=== PATIENT | male | born 1960 | race American Indian/Alaskan Native ===

== ENCOUNTER 2021-02-25 22:18 | Inpatient (IN) | payer BC ==
[2021-02-25] MEDS ORDERED: SODIUM CHLORIDE 0.9% 1000 ML 1,000 ML IV ONE ×2 (22:22→23:47)
--- NOTE | 2021-02-25 22:41 | Emergency Department Report ---
- General Chief complaint: Weakness Stated complaint: DKA PUI?: No Time Seen by Provider: 02/25/21 22:18 Source: patient, EMS Mode of arrival: Stretcher Limitations: No Limitations - History of Present Illness Initial comments: Patient is a 60-year-old male who presents emergency room with complaints of generalized weakness, elevated blood pressure and elevated sugar. Patient was diagnosed with diabetes 2 weeks ago. Patient has been out of his insulin now for about 3 to 4 days. Patient's family called EMS. Family states that his symptoms started this morning and are worsening. Patient brought in by EMS. Report received from EMS. EMS states that the patient's blood pressure was stable. Patient was tachycardic and his blood sugar read high. Patient had an IV started and the patient was given normal saline. Patient denies recent travel. Patient denies recent international travel. Patient denies exposure to the novel coronavirus. Patient denies sick contacts. Patient denies fever and chills. Patient denies cough. Patient denies diarrhea. Patient denies coming in contact with anybody with symptoms of the novel coronavirus. MD Complaint: generalized weakness, lack of energy, difficulty walking -: Sudden Location: generalized Severity: severe Consistency: constant Improves with: rest Worsens with: movement, exertion Associated Symptoms: denies: chest pain, confusion, dark stools, diaphoresis, dysuria, easy bruising, fever/chills, headaches, loss of appetite, nausea/vomiting, rash, shortness of breath - Related Data Allergies Allergy/AdvReac Type Severity Reaction Status Date / Time No Known Allergies Allergy Unverified 02/25/21 22:43 ED Review of Systems ROS: Stated complaint: DKA Other details as noted in HPI Constitutional: malaise, weakness. denies: chills, fever Eyes: denies: eye pain, eye discharge, vision change ENT: denies: ear pain, throat pain Respiratory: denies: cough, shortness of breath, wheezing Cardiovascular: denies: chest pain, palpitations Endocrine: no symptoms reported Gastrointestinal: denies: abdominal pain, nausea, diarrhea Genitourinary: denies: urgency, dysuria Musculoskeletal: denies: back pain, joint swelling, arthralgia Skin: denies: rash, lesions Neurological: as per HPI, weakness. denies: headache, paresthesias Psychiatric: denies: anxiety, depression Hematological/Lymphatic: denies: easy bleeding, easy bruising ED Past Medical Hx - Past Medical History Previous Medical History?: Yes Hx Diabetes: Yes - Surgical History Past Surgical History?: No - Family History Family history: no significant - Social History Smoking Status: Never Smoker Substance Use Type: None ED Physical Exam - General General appearance: alert, in no apparent distress - Head Head exam: Present: atraumatic, normocephalic - Eye Eye exam: Present: normal appearance - ENT ENT exam: Present: mucous membranes dry - Neck Neck exam: Present: normal inspection - Respiratory Respiratory exam: Present: normal lung sounds bilaterally. Absent: respiratory distress, wheezes, rales - Cardiovascular Cardiovascular Exam: Present: regular rate, normal rhythm. Absent: systolic murmur, diastolic murmur, rubs, gallop - GI/Abdominal GI/Abdominal exam: Present: soft, normal bowel sounds. Absent: distended, tenderness, guarding - Rectal Rectal exam: Present: deferred - Extremities Exam Extremities exam: Present: normal inspection - Back Exam Back exam: Present: normal inspection - Neurological Exam Neurological exam: Present: alert, oriented X3 - Psychiatric Psychiatric exam: Present: normal affect, normal mood - Skin Skin exam: Present: warm, dry, intact, normal color. Absent: rash - Assessment Assessment Interval: Baseline - Level of Consciousness 1a. Level of Consciousness: alert/keenly responsive - LOC Questions 1b. LOC Questions: answers both correctly - LOC Command 1c. LOC Commands: performs tasks correctly - Best Gaze 2. Best Gaze: normal - Visual 3. Visual: no visual loss - Facial Palsy 4. Facial Palsy: normal symmetrical movement - Motor Arm 5a. Motor Arm Left: no drift 5b. Motor Arm Right: no drift - Motor Leg 6a. Motor Leg Left: no drift 6b. Motor Leg Right: no drift - Limb Ataxia 7. Limb Ataxia: absent - Sensory 8. Sensory: normal - Best Language 9. Best Language: no aphasia - Dysarthria 10. Dysarthria: normal - Extinction and Inattention 11. Extinction/Inattention: no abnormality - Scoring Total Score: 0 Stroke Severity: No Stroke Symptoms ED Course Vital Signs 02/25/21 22:39 Temperature 98.1 F Pulse Rate 76 Respiratory 26 H Rate Blood Pressure 138/80 [Left] O2 Sat by Pulse 100 Oximetry - Reevaluation(s) Reevaluation #1: Patient sugar read high. Patient will be given more fluids. Patient will have labs done. 02/25/21 22:41 Reevaluation #2: Patient is in DKA. Patient will be started on a insulin drip and fluids. Patient started on the DKA protocol. I discussed all results with patient. I discussed plan of care with patient. Patient agrees with plan of care and admission. Patient to be admitted to the hospitalist service. 02/25/21 23:56 - Consultations Consultation #1: Hospitalist consulted for admission. Hospitalist to admit patient. 02/25/21 23:57 ED Medical Decision Making - Lab Data Result diagrams: 02/25/21 22:48 02/25/21 22:48 - EKG Data -: EKG Interpreted by Me EKG shows normal: sinus rhythm, axis, intervals, ST-T waves Rate: normal - EKG Data Interpretation: other (Right bundle branch block) - Radiology Data Radiology results: report reviewed, image reviewed interpreted by me: Chest x-ray: No pneumonia, no pneumothorax, no foreign body, no osseous findings, no acute findings XR chest 1V ap INDICATION / CLINICAL INFORMATION: Weakness. COMPARISON: None available. FINDINGS: SUPPORT DEVICES: None. HEART /PULMONARY VASCULATURE: No significant abnormality. LUNGS / PLEURA: No significant pulmonary or pleural abnormality. No pneumothorax. ADDITIONAL FINDINGS: No significant additional findings. IMPRESSION: 1. No acute findings. - Medical Decision Making Patient is a 60-year-old male who presents emergency with complaints of weakness and hyperglycemia. Patient brought in by EMS. Report received from EMS. Patient sugar read high for EMS. Patient sugar also read high initially here. Patient had labs done which showed a metabolic acidosis consistent with DKA. Patient given fluids and then placed on a DKA protocol to include a insulin drip. Patient had a chest x-ray which is negative for acute finding. Patient had a head CT which was negative for acute findings. Patient had an EKG which showed a right bundle branch block but no acute findings and a normal ST. I personally reviewed the chest x-ray and EKG. Patient admitted to the hospital service for further evaluation treatment. Patient admitted to the ICU. Critical care time documented due to the multiple reassessments, prolonged time at the bedside, interpretation of diagnostics and labs. - Differential Diagnosis Hyperglycemia, weakness, dehydration, renal failure, DKA Critical Care Time: Yes Critical care attestation.: If time is entered above; I have spent that time in minutes in the direct care of this critically ill patient, excluding procedure time. Critical Care Time: 35 minutes ED Disposition Clinical Impression: Hyperglycemia, Weakness, Metabolic acidosis, Metabolic encephalopathy Diabetic ketoacidosis Qualifiers: Diabetes mellitus type: type 2 Diabetes mellitus complication detail: without coma Qualified Code(s): E11.10 - Type 2 diabetes mellitus with ketoacidosis without coma Renal failure Qualifiers: Renal failure chronicity: acute Acute renal failure type: unspecified Qualified Code(s): N17.9 - Acute kidney failure, unspecified Elevated WBC count Qualifiers: Leukocytosis type: unspecified Qualified Code(s): D72.829 - Elevated white blood cell count, unspecified Disposition: OP ADMIT IP TO THIS HOSP Is pt being admited?: Yes Does the pt Need Aspirin: No Condition: Critical Instructions: Diabetic Ketoacidosis (ED) Time of Disposition: 00:08
--- NOTE | 2021-02-25 23:18 | XRay Report ---
XR chest 1V ap INDICATION / CLINICAL INFORMATION: Weakness. COMPARISON: None available. FINDINGS: SUPPORT DEVICES: None. HEART /PULMONARY VASCULATURE: No significant abnormality. LUNGS / PLEURA: No significant pulmonary or pleural abnormality. No pneumothorax. ADDITIONAL FINDINGS: No significant additional findings. IMPRESSION: 1. No acute findings. Signer Name: Christopher Santana MD Signed: 02/25/2021 11:14 PM Workstation Name: [id number]
[2021-02-25 23:19] LABS: Hematocrit 35.8 % (35.5-45.6); Hemoglobin 11.5 gm/dl (11.8-15.2); Mean Corpuscular HGB Conc 32 % (32-34); Mean Corpuscular Volume 92 fl (84-94); Platelet Count 374 K/mm3 (140-440); Red Blood Count 3.87 M/mm3 (3.65-5.03); Red Cell Distribution Width 15.2 % (13.2-15.2)
[2021-02-25 23:29] LABS: Alanine Aminotransferase 34 units/L (7-56); Albumin 2.9 g/dL (3.9-5); BUN/Creatinine Ratio 36; Blood Urea Nitrogen 75 mg/dL (9-20); Calcium 9.1 mg/dL (8.4-10.2); Hemolysis Index 2
[2021-02-25 23:30] LABS: INR 1.04 (0.87-1.13)
[2021-02-26] MEDS: INSULIN REGULAR, HUMAN 100 UNITS in SODIUM CHLORIDE 0.9% 99 ML IV SCH ×3 (00:30→22:37)
[2021-02-26] MEDS ORDERED: MORPHINE 2 MG/1 ML INJ IV PRN (00:36)
[2021-02-26] MEDS ORDERED: ACETAMINOPHEN 325 MG TAB PO PRN (00:36)
[2021-02-26] MEDS ORDERED: MORPHINE 4 MG/1 ML INJ IV PRN (00:36)
--- NOTE | 2021-02-26 00:36 | Cat Scan Report ---
CT HEAD WITHOUT CONTRAST INDICATION / CLINICAL INFORMATION: weakness. TECHNIQUE: All CT scans at this location are performed using CT dose reduction for ALARA by means of automated exposure control. COMPARISON: None available. FINDINGS: BRAIN PARENCHYMA: No acute intracranial hemorrhage. No evidence of recent infarct. No mass effect or midline shift. VENTRICULAR SYSTEM/EXTRA-AXIAL SPACES: Ventricles are normal for age. No extra-axial fluid collection . ORBITS: Normal as visualized. SKELETAL SYSTEM/SOFT TISSUES: Normal bones and soft tissues. PARANASAL SINUSES/MASTOID AIR CELLS: No significant abnormality. ADDITIONAL FINDINGS: None. IMPRESSION: 1. No acute intracranial abnormality. Signer Name: Christopher Santana MD Signed: 02/26/2021 12:32 AM Workstation Name: [id number]
[2021-02-26] MEDS ORDERED: SODIUM CHLORIDE 0.9% 1000 ML 1,000 ML IV SCH (00:45)
--- NOTE | 2021-02-26 00:48 | History and Physical Report ---
History of Present Illness Date of examination: 02/26/21 Date of admission: 02/26/2021 Chief complaint: Generalized weakness Elevated blood glucose History of present illness: 60-year-old -[place] male with known history of diabetes mellitus presents to the emergency room today complaining of generalized weakness and elevated blood glucose at home. Patient was diagnosed with diabetes mellitus about 2 weeks ago and states he has been out of his insulin for the past 3 to 4 days. Family had called EMS and patient was subsequently brought to the emergency room. Blood glucose was said to be reading high in route to the hospital. Patient was given IV normal saline in route to the hospital. Work-up in the emergency room reveals that patient is in DKA. He has been started on insulin drip and IV fluid. Past History Past Medical History: diabetes Past Surgical History: No surgical history Social history: no significant social history Family history: no significant family history Medications and Allergies Allergies Allergy/AdvReac Type Severity Reaction Status Date / Time No Known Allergies Allergy Unverified 02/25/21 22:43 Active Meds: Active Medications Acetaminophen (Acetaminophen 325 Mg Tab) 650 mg PO Q6H PRN PRN Reason: Pain MILD(1-3)/Fever >100.5/MATHUR Dextrose (Dextrose 50% In Water (25gm) 50 Ml Syringe) 50 ml IV Q30MIN PRN; Protocol PRN Reason: Hypoglycemia Heparin Sodium (Porcine) (Heparin 5,000 Unit/1 Ml Vial) 5,000 unit SUB-Q Q8HR ROSELIA Insulin Human Regular 100 (units/ Sodium Chloride) 100 mls @ 1 mls/hr IV TITR ROSELIA; Protocol Last Admin: 02/26/21 00:30 Dose: 8 units/hr, 8 mls/hr Documented by: Sodium Chloride (Nacl 0.9% 1000 Ml) 1,000 mls @ 999 mls/hr IV BOLUS ONE Stop: 02/26/21 00:47 Last Admin: 02/26/21 00:00 Dose: 999 mls/hr Documented by: Sodium Chloride (Nacl 0.9% 1000 Ml) 1,000 mls @ 150 mls/hr IV DIRECT ROSELIA Potassium Chloride/Dextrose/Sod Cl (D5w/0.45% Nacl/Kcl 20 Meq) 20 meq in 1,000 mls @ 125 mls/hr IV DIRECT ROSELIA Morphine Sulfate (Morphine 2 Mg/1 Ml Inj) 2 mg IV Q4H PRN PRN Reason: Pain, Moderate (4-6) Morphine Sulfate (Morphine 4 Mg/1 Ml Inj) 4 mg IV Q4H PRN PRN Reason: Pain , Severe (7-10) Sodium Chloride (Sodium Chloride 0.9% 10 Ml Flush Syringe) 10 ml IV BID ROSELIA Sodium Chloride (Sodium Chloride 0.9% 10 Ml Flush Syringe) 10 ml IV PRN PRN PRN Reason: LINE FLUSH Review of Systems Constitutional: no fever, no chills Ears, nose, mouth and throat: no nasal congestion, no sore throat Cardiovascular: no chest pain, no palpitations Respiratory: no cough, no shortness of breath Gastrointestinal: no abdominal pain, no nausea, no vomiting, no diarrhea Genitourinary Male: no dysuria, no hematuria, no flank pain Musculoskeletal: no neck pain, no low back pain Integumentary: no rash, no pruritis Neurological: no headaches, no confusion Psychiatric: no anxiety, no depression Endocrine: no polydipsia, no polyuria, no nocturia Exam - Constitutional Vitals: Temp Pulse Resp BP Pulse Ox 98.1 F 76 26 H 138/80 100 02/25/21 22:39 02/25/21 22:39 02/25/21 22:39 02/25/21 22:39 02/25/21 22:39 General appearance: Present: no acute distress, well-nourished, other (Dry oral mucosa) - EENT Eyes: Present: PERRL, EOM intact. Absent: scleral icterus ENT: hearing intact, clear oral mucosa, dentition normal - Neck Neck: Present: supple, normal ROM - Respiratory Respiratory effort: normal Respiratory: bilateral: CTA - Cardiovascular Rhythm: regular Heart Sounds: Absent: gallop, systolic murmur, diastolic murmur, rub, click - Extremities Extremities: no ischemia, pulses intact, No edema, normal temperature, Full ROM Peripheral Pulses: within normal limits - Abdominal General gastrointestinal: Present: soft, non-tender, non-distended, normal bowel sounds. Absent: mass - Integumentary Integumentary: Present: clear, warm, dry. Absent: rash - Musculoskeletal Musculoskeletal: strength equal bilaterally - Psychiatric Psychiatric: appropriate mood/affect, intact judgment & insight, memory intact, cooperative - Neurologic Neurologic: CNII-XII intact, no focal deficits, moves all extremities HEART Score - HEART Score Troponin: Troponin T < 0.010 ng/mL (0.00-0.029) 02/25/21 22:48 Results - Labs CBC & Chem 7: 02/25/21 22:48 02/26/21 02:40 Labs: Abnormal lab results 02/25/21 02/25/21 02/25/21 Range/Units 22:31 22:48 22:48 WBC 24.1 H (4.5-11.0) K/mm3 Hgb 11.5 L (11.8-15.2) gm/dl VBG pH (7.320-7.420) Sodium 126 L (137-145) mmol/L Chloride 88.8 L (98-107) mmol/L Carbon Dioxide 18 L (22-30) mmol/L BUN 75 H (9-20) mg/dL Creatinine 2.1 H (0.8-1.3) mg/dL Glucose 938 H* (75-100) mg/dL POC Glucose > 600 H (70-105) mg/dL Magnesium (1.7-2.3) mg/dL Alkaline Phosphatase 201 H (35-129) units/L Total Creatine Kinase 37 L (55-170) units/L Albumin 2.9 L (3.9-5) g/dL 02/25/21 02/25/21 Range/Units 22:48 23:52 WBC (4.5-11.0) K/mm3 Hgb (11.8-15.2) gm/dl VBG pH 7.316 L (7.320-7.420) Sodium (137-145) mmol/L Chloride (98-107) mmol/L Carbon Dioxide (22-30) mmol/L BUN (9-20) mg/dL Creatinine (0.8-1.3) mg/dL Glucose (75-100) mg/dL POC Glucose (70-105) mg/dL Magnesium 2.80 H (1.7-2.3) mg/dL Alkaline Phosphatase (35-129) units/L Total Creatine Kinase (55-170) units/L Albumin (3.9-5) g/dL Assessment and Plan - Patient Problems (1) Diabetic ketoacidosis Current Visit: No Status: Acute Qualifiers: Diabetes mellitus type: type 2 Diabetes mellitus complication detail: without coma Qualified Code(s): E11.10 - Type 2 diabetes mellitus with ketoacidosis without coma Plan to address problem: Patient admitted into the intensive care unit and placed on insulin drip and IV fluid according to protocol. We will monitor her blood glucose closely. (2) Renal failure Current Visit: No Status: Acute Qualifiers: Renal failure chronicity: acute Acute renal failure type: unspecified Qualified Code(s): N17.9 - Acute kidney failure, unspecified Plan to address problem: Baseline BUN and creatinine unknown. Possibly secondary to volume depletion. We will continue on IV fluid and monitor BUN and creatinine. Consult placed to nephrology for evaluation. (3) DVT prophylaxis Current Visit: No Status: Acute Plan to address problem: Patient placed on subcutaneous heparin. (4) Full code status Current Visit: No Status: Acute Plan to address problem: Patient is full code.
[2021-02-26] MEDS ORDERED: D5W/0.45% NACL/KCL 20 MEQ 20 MEQ/1,000 ML BAG IV SCH (01:00)
[2021-02-26 01:45] LABS: Total Cells Counted 200
[2021-02-26 01:46] LABS: Anisocytosis 1+; Band Neutrophils # (Manual) 0.6 K/mm3; Monocytes % (Manual) 2.5 % (0.0-7.3); Platelet Estimate Consistent w Auto
[2021-02-26 03:02] LABS: Calcium 8.6 mg/dL (8.4-10.2)
[2021-02-26 05:25] LABS: Calcium 9.1 mg/dL (8.4-10.2)
[2021-02-26] MEDS: HEPARIN 5,000 UNIT/1 ML VIAL SUB-Q SCH ×3 (05:47→21:48)
--- NOTE | 2021-02-26 07:22 | Consultation ---
History of Present Illness Consult date: 02/26/21 Requesting physician: RAYNE GUZMAN Reason for consult: other (DKA) History of present illness: 60-year-old -[place] male with known history of diabetes mellitus presents to the emergency room today complaining of generalized weakness and elevated blood glucose at home. Patient was diagnosed with diabetes mellitus about 2 weeks ago and states he has been out of his insulin for the past 3 to 4 days. Family had called EMS and patient was subsequently brought to the emergency room. Blood glucose was said to be reading high in route to the hospital. Patient was given IV normal saline in route to the hospital. Work-up in the emergency room reveals that patient is in DKA. He has been started on insulin drip and IV fluid and admitted to the ICu. A critical care consult was placed. Patient was seen and examined. Vitals, labs, medications, chart reviewed. Patient denies recent travel. Patient denies recent international travel. Patient denies exposure to the novel coronavirus. Patient denies sick contacts. Patient denies fever and chills. Patient denies cough. Patient denies diarrhea. Patient denies coming in contact with anybody with symptoms of the novel coronavirus. He smokes cigarettes and states he has lost about 20 lbs int eh last month. 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 denies: chills, fever Eyes: denies: eye pain, eye discharge, vision change ENT: denies: ear pain, throat pain Respiratory: denies: cough, shortness of breath, wheezing Cardiovascular: denies: chest pain, palpitations Endocrine: no symptoms reported Gastrointestinal: denies: abdominal pain, nausea, diarrhea Genitourinary: denies: urgency, dysuria Musculoskeletal: denies: back pain, joint swelling, arthralgia Skin: denies: rash, lesions Neurological: as per HPI, weakness. denies: headache, paresthesias Psychiatric: denies: anxiety, depression Hematological/Lymphatic: denies: easy bleeding, easy bruising Past History Past Medical History: diabetes Past Surgical History: No surgical history Social history: no significant social history Family history: no significant family history Medications and Allergies Allergies Allergy/AdvReac Type Severity Reaction Status Date / Time No Known Allergies Allergy Unverified 02/25/21 22:43 Active Meds: Active Medications Acetaminophen (Acetaminophen 325 Mg Tab) 650 mg PO Q6H PRN PRN Reason: Pain MILD(1-3)/Fever >100.5/MATHUR Dextrose (Dextrose 50% In Water (25gm) 50 Ml Syringe) 50 ml IV Q30MIN PRN; Protocol PRN Reason: Hypoglycemia Heparin Sodium (Porcine) (Heparin 5,000 Unit/1 Ml Vial) 5,000 unit SUB-Q Q8HR ROSELIA Last Admin: 02/26/21 05:47 Dose: 5,000 unit Documented by: Insulin Human Regular 100 (units/ Sodium Chloride) 100 mls @ 1 mls/hr IV TITR ROSELIA; Protocol Last Titration: 02/26/21 07:19 Dose: 10 units/hr, 10 mls/hr Documented by: Sodium Chloride (Nacl 0.9% 1000 Ml) 1,000 mls @ 150 mls/hr IV DIRECT ROSELIA Last Admin: 02/26/21 02:42 Dose: 150 mls/hr Documented by: Potassium Chloride/Dextrose/Sod Cl (D5w/0.45% Nacl/Kcl 20 Meq) 20 meq in 1,000 mls @ 125 mls/hr IV DIRECT ROSELIA Morphine Sulfate (Morphine 2 Mg/1 Ml Inj) 2 mg IV Q4H PRN PRN Reason: Pain, Moderate (4-6) Morphine Sulfate (Morphine 4 Mg/1 Ml Inj) 4 mg IV Q4H PRN PRN Reason: Pain , Severe (7-10) Sodium Chloride (Sodium Chloride 0.9% 10 Ml Flush Syringe) 10 ml IV BID ROSELIA Sodium Chloride (Sodium Chloride 0.9% 10 Ml Flush Syringe) 10 ml IV PRN PRN PRN Reason: LINE FLUSH Physical Examination Vital signs: Vital Signs Temp Pulse Resp BP Pulse Ox 98.1 F 76 26 H 138/80 100 02/25/21 22:39 02/25/21 22:39 02/25/21 22:39 02/25/21 22:39 02/25/21 22:39 General appearance: appears uncomfortable, other (thin) Eyes: non-icteric ENT: oropharynx dry Neck: supple, no lymphadenopathy, no JVD Effort: mildly labored Ascultation: Bilateral: diminished breath sounds Cardiovascular: regular rate and rhythm, other (S1,S2) Gastrointestinal: normoactive bowel sounds, soft, non-tender Integumentary: other (loss of skin tugor) Extremities: no edema normal mental status, non-focal exam, pupils equal and round, CN II-XII normal other (flat affect) Results - Laboratory Findings CBC and BMP: 02/25/21 22:48 02/26/21 08:09 PT/INR, D-dimer PT 14.1 Sec. (12.2-14.9) 02/25/21 22:48 INR 1.04 (0.87-1.13) 02/25/21 22:48 Abnormal lab findings: Abnormal Labs 02/25/21 02/25/21 02/25/21 22:31 22:48 22:48 WBC 24.1 H Hgb 11.5 L Seg Neuts % (Manual) 95.0 H Seg Neutrophils # Man 22.9 H Lymphocytes # (Manual) 0.0 L VBG pH Sodium 126 L Chloride 88.8 L Carbon Dioxide 18 L BUN 75 H Creatinine 2.1 H Glucose 938 H* POC Glucose > 600 H Hemoglobin A1c Magnesium Alkaline Phosphatase 201 H Total Creatine Kinase 37 L Albumin 2.9 L 02/25/21 02/25/21 02/26/21 22:48 23:52 01:21 WBC Hgb Seg Neuts % (Manual) Seg Neutrophils # Man Lymphocytes # (Manual) VBG pH 7.316 L Sodium Chloride Carbon Dioxide BUN Creatinine Glucose POC Glucose > 600 H Hemoglobin A1c Magnesium 2.80 H Alkaline Phosphatase Total Creatine Kinase Albumin 02/26/21 02/26/21 02/26/21 02:09 02:40 02:40 WBC Hgb Seg Neuts % (Manual) Seg Neutrophils # Man Lymphocytes # (Manual) VBG pH Sodium 131 L Chloride 96.1 L Carbon Dioxide 17 L BUN 74 H Creatinine 2.1 H Glucose 719 H* POC Glucose > 600 H Hemoglobin A1c 14.2 H Magnesium Alkaline Phosphatase Total Creatine Kinase Albumin 02/26/21 02/26/21 02/26/21 02:40 03:58 04:03 WBC Hgb Seg Neuts % (Manual) Seg Neutrophils # Man Lymphocytes # (Manual) VBG pH Sodium Chloride Carbon Dioxide 18 L BUN 71 H Creatinine 2.0 H Glucose 550 H* POC Glucose 544 H Hemoglobin A1c Magnesium 2.70 H Alkaline Phosphatase Total Creatine Kinase Albumin 02/26/21 02/26/21 02/26/21 05:01 05:58 07:09 WBC Hgb Seg Neuts % (Manual) Seg Neutrophils # Man Lymphocytes # (Manual) VBG pH Sodium Chloride Carbon Dioxide BUN Creatinine Glucose POC Glucose 439 H 399 H 217 H Hemoglobin A1c Magnesium Alkaline Phosphatase Total Creatine Kinase Albumin - Diagnostic Findings Chest x-ray: image reviewed (No acute infiltrates) Assessment and Plan - Patient Problems (1) Diabetic ketoacidosis Current Visit: Yes Status: Acute Qualifiers: Diabetes mellitus type: type 2 Diabetes mellitus complication detail: without coma Qualified Code(s): E11.10 - Type 2 diabetes mellitus with ketoacidosis without coma Plan to address problem: Continue with insulin infusions, serial BMPs, fluid resuscitation Hourly accuchecks (2) Elevated WBC count Current Visit: Yes Status: Acute Qualifiers: Leukocytosis type: unspecified Qualified Code(s): D72.829 - Elevated white blood cell count, unspecified Plan to address problem: Trend counts, no clinical evidence of acute infection Monitor off antibiotics for now (3) Metabolic acidosis Current Visit: Yes Status: Acute (4) Renal failure Current Visit: Yes Status: Acute Qualifiers: Renal failure chronicity: acute Acute renal failure type: unspecified Qualified Code(s): N17.9 - Acute kidney failure, unspecified Plan to address problem: Volume resuscitation Avoid nephrotoxins, adjust all medications for GFR/CrCL (5) DVT prophylaxis Current Visit: No Status: Acute Plan to address problem: Heparin Critical care time 33 minutes (6) Full code status Current Visit: No Status: Acute
[2021-02-26 09:50] LABS: Calcium 9.8 mg/dL (8.4-10.2)
--- NOTE | 2021-02-26 10:59 | Consultation ---
History of Present Illness - Reason for Consult Consult date: 02/26/21 acute renal failure, metabolic acidosis Requesting physician: MARYANN BRIGHT - History of Present Illness atrodrigo is a 60-year-old male who presents emergency room with complaints of generalized weakness, elevated blood pressure and elevated sugar. Patient was diagnosed with diabetes 2 weeks ago. Patient has been out of his insulin now for about 3 to 4 days. Patient's family called EMS. Family states that his symptoms started this morning and are worsening. Patient brought in by EMS. Report received from EMS. EMS states that the patient's blood pressure was stable. Patient was tachycardic and his blood sugar read high. Patient had an IV started and the patient was given normal saline. Patient denies recent travel. Patient denies recent international travel. Patient denies exposure to the novel coronavirus. Patient denies sick contacts. Patient denies fever and chills. Patient denies cough. Patient denies diarrhea. Patient denies coming in contact with anybody with symptoms of the novel coronavirus. MD Complaint: generalized weakness, lack of energy, difficulty walking -: Sudden Location: generalized Severity: severe Consistency: constant Improves with: rest Worsens with: movement, exertion Associated Symptoms: denies: chest pain, confusion, dark stools, diaphoresis, dysuria, easy bruising, fever/chills, headaches, loss of appetite, nausea/vomiting, rash, shortness of breath ROS: Stated complaint: DKA Other details as noted in HPI Constitutional: malaise, weakness. denies: chills, fever Eyes: denies: eye pain, eye discharge, vision change ENT: denies: ear pain, throat pain Respiratory: denies: cough, shortness of breath, wheezing Cardiovascular: denies: chest pain, palpitations Endocrine: no symptoms reported Gastrointestinal: denies: abdominal pain, nausea, diarrhea Genitourinary: denies: urgency, dysuria Musculoskeletal: denies: back pain, joint swelling, arthralgia Skin: denies: rash, lesions Neurological: as per HPI, weakness. denies: headache, paresthesias Psychiatric: denies: anxiety, depression Hematological/Lymphatic: denies: easy bleeding, easy bruising Past History Past Medical History: diabetes Past Surgical History: No surgical history Social history: no significant social history Family history: no significant family history Medications and Allergies Allergies Allergy/AdvReac Type Severity Reaction Status Date / Time No Known Allergies Allergy Unverified 02/25/21 22:43 Active Meds: Active Medications Acetaminophen (Acetaminophen 325 Mg Tab) 650 mg PO Q6H PRN PRN Reason: Pain MILD(1-3)/Fever >100.5/MATHUR Dextrose (Dextrose 50% In Water (25gm) 50 Ml Syringe) 50 ml IV Q30MIN PRN; Protocol PRN Reason: Hypoglycemia Heparin Sodium (Porcine) (Heparin 5,000 Unit/1 Ml Vial) 5,000 unit SUB-Q Q8HR ROSELIA Last Admin: 02/26/21 05:47 Dose: 5,000 unit Documented by: Insulin Human Regular 100 (units/ Sodium Chloride) 100 mls @ 1 mls/hr IV TITR ROSELIA; Protocol Last Titration: 02/26/21 09:10 Dose: 4 units/hr, 4 mls/hr Documented by: Sodium Chloride (Nacl 0.9% 1000 Ml) 1,000 mls @ 150 mls/hr IV DIRECT ROSELIA Last Admin: 02/26/21 02:42 Dose: 150 mls/hr Documented by: Potassium Chloride/Dextrose/Sod Cl (D5w/0.45% Nacl/Kcl 20 Meq) 20 meq in 1,000 mls @ 125 mls/hr IV DIRECT ROSELIA Last Admin: 02/26/21 08:22 Dose: 125 mls/hr Documented by: Morphine Sulfate (Morphine 2 Mg/1 Ml Inj) 2 mg IV Q4H PRN PRN Reason: Pain, Moderate (4-6) Morphine Sulfate (Morphine 4 Mg/1 Ml Inj) 4 mg IV Q4H PRN PRN Reason: Pain , Severe (7-10) Sodium Chloride (Sodium Chloride 0.9% 10 Ml Flush Syringe) 10 ml IV BID ROSELIA Sodium Chloride (Sodium Chloride 0.9% 10 Ml Flush Syringe) 10 ml IV PRN PRN PRN Reason: LINE FLUSH Exam - Vital Signs Vital signs: Vital Signs Temp Pulse Resp BP Pulse Ox 98.1 F 76 26 H 138/80 100 02/25/21 22:39 02/25/21 22:39 02/25/21 22:39 02/25/21 22:39 02/25/21 22:39 - Physical Exam Narrative exam: - Past Medical History Previous Medical History?: Yes Hx Diabetes: Yes - Surgical History Past Surgical History?: No - Family History Family history: no significant - Social History Smoking Status: Never Smoker Substance Use Type: None ED Physical Exam - General General appearance: alert, in no apparent distress - Head Head exam: Present: atraumatic, normocephalic - Eye Eye exam: Present: normal appearance - ENT ENT exam: Present: mucous membranes dry - Neck Neck exam: Present: normal inspection - Respiratory Respiratory exam: Present: normal lung sounds bilaterally. Absent: respiratory distress, wheezes, rales - Cardiovascular Cardiovascular Exam: Present: regular rate, normal rhythm. Absent: systolic murmur, diastolic murmur, rubs, gallop - GI/Abdominal GI/Abdominal exam: Present: soft, normal bowel sounds. Absent: distended, tenderness, guarding - Rectal Rectal exam: Present: deferred - Extremities Exam Extremities exam: Present: normal inspection - Back Exam Back exam: Present: normal inspection - Neurological Exam Neurological exam: Present: alert, oriented X3 - Psychiatric Psychiatric exam: Present: normal affect, normal mood - Skin Skin exam: Present: warm, dry, intact, normal color. Absent: rash Results - Lab Results 02/25/21 22:48 02/26/21 08:09 Most recent lab results Calcium 9.8 mg/dL (8.4-10.2) 02/26/21 08:09 Phosphorus 2.50 mg/dL (2.5-4.5) D 02/26/21 02:40 Magnesium 2.70 mg/dL (1.7-2.3) H 02/26/21 02:40 Assessment and Plan Impression: * sandra * volume depletion * metabolic acidosis * uncontrolled DM * HTN Plan: * aggressive ivfs * add sodium bicarb * remove k from ivfs * DM treatment per primary team * follow up daily lytes * UA and urine studies * sandra likely due to prerenal disease, likely ckd as well with DM * no indication for CHARGEBACK ANALYST at this time
[2021-02-26] MEDS: SODIUM BICARBONATE 650 MG TAB PO SCH ×2 (11:18→21:48)
[2021-02-26] MEDS ORDERED: SODIUM CHLORIDE 0.45% 1000 ML 1,000 ML IV SCH (12:00)
--- NOTE | 2021-02-26 12:02 | Event Note ---
Date: 02/26/21 Still with high anion gap acidosis, continue current therapy DKA Acute cystitis-Start on abx MAXIMO ?ckd, Chec[facility] ct ABD AND PELVIS BPH discussed with daughter in detail
[2021-02-26 12:22] LABS: Bacteria,Urine 2+ /HPF (Negative); Bilirubin,Urine NEG (Negative); Blood,Urine LG (Negative); Color,Urine Yellow (Yellow); Mucus,Urine FEW /HPF; Protein,Urine <15 mg/dL mg/dL (Negative); Urobilinogen,Urine < 2.0 mg/dL (<2.0)
[2021-02-26 12:23] LABS: WBC,Urine > 182.0 /HPF (0.0-6.0)
[2021-02-26] MEDS ORDERED: D5W/0.45% NACL 1,000 ML IV SCH (13:00)
[2021-02-26] MEDS: TAMSULOSIN 0.4 MG CAP PO SCH (15:25)
[2021-02-26 15:59] LABS: Creatinine,Urine 26.8 mg/dL (0.1-20.0); Protein/Creatinine Ratio,Urine 1.75
[2021-02-26 16:11] LABS: Calcium 8.7 mg/dL (8.4-10.2)
[2021-02-26] MEDS ORDERED: SODIUM POLYSTYRENE 15 GM/60 ML ORAL LIQD PO ONE (17:57)
[2021-02-26] MEDS ORDERED: CEFEPIME/NS 2 GM/100 ML 2 GM/100 ML BAG IV SCH (18:00)
[2021-02-26] MEDS: CEFEPIME/NS 1 GM/100 ML 1 GM/100 ML BAG IV SCH (18:19)
[2021-02-26 18:51] LABS: Bilirubin,Urine NEG (Negative); Blood,Urine LG (Negative); Color,Urine Yellow (Yellow); Mucus,Urine FEW /HPF; Urobilinogen,Urine < 2.0 mg/dL (<2.0)
[2021-02-26 19:01] LABS: WBC,Urine > 182.0 /HPF (0.0-6.0)
--- NOTE | 2021-02-26 20:26 | Ultrasound Report ---
ULTRASOUND RENAL INDICATION / CLINICAL INFORMATION: urine retention. COMPARISON: None available. FINDINGS: RIGHT KIDNEY: Length = 11.2 cm. [normal > 9 cm] - Parenchymal Thickness = 1.3 cm. [normal > 1.5 cm] - Echogenicity: Normal. - Hydronephrosis: None. - Cyst or mass: No significant abnormality. - Stones: None seen. LEFT KIDNEY: Length = 9.6 cm. [normal > 9 cm] - Parenchymal Thickness = 2.5 cm. [normal > 1.5 cm] - Echogenicity: Normal. - Hydronephrosis: None. - Cyst or mass: 1.1 cm simple cyst in the midpole - Stones: None seen. URINARY BLADDER: Collapsed with Hernandez catheter in place. FREE FLUID: None. ADDITIONAL FINDINGS: None. IMPRESSION: 1. No significant abnormality. Signer Name: Robin Mast MD Signed: 02/26/2021 8:21 PM Workstation Name: [id number]
--- NOTE | 2021-02-26 21:47 | Cat Scan Report ---
CT ABDOMEN AND PELVIS WITHOUT CONTRAST HISTORY: sandra. COMPARISON: None. TECHNIQUE: CT images of the abdomen and pelvis were obtained without administration of intravenous co ntrast. All CT scans at this location are performed using CT dose reduction for ALARA by means of au tomated exposure control. FINDINGS: Lungs/bones: There are small bilateral pleural effusions with underlying patchy airspace disease lik adali at least in part representing compressive atelectasis. Degenerative changes are present throughou t the spine with nothing acute. Abdomen/pelvis: Exam is significantly limited by lack of intravenous contrast. There is air surround ing the right kidney and also within the kidney as well as air tracking along the right retroperitone um. The left kidney is unremarkable. The liver, gallbladder, spleen, pancreas, adrenals, and faintly visualized proximal GI tract appear u nremarkable. Urinary bladder is collapsed with a Hernandez catheter in place. No gross pelvic free fluid or acute colo shala abnormality. IMPRESSION: 1. Free air within and surrounding the right kidney and tracking in the right retroperitoneum. Exam i s severely limited with lack of intravenous contrast and intra-abdominal fat but the air does not see m to extend into the peritoneum. Findings are highly worrisome for an infectious/inflammatory process such as emphysematous pyelonephritis. A perforation is also possible. COMMUNICATION: Time of Communication (AUTOMOBILE ACCESSORIES SALESPERSON/CDT): 8:40 PM Licensed Practitioner Receiving Report: Dr. Voss Signer Name: Robin Mast MD Signed: 02/26/2021 9:43 PM Workstation Name: [id number]
[2021-02-27 01:08] LABS: Calcium 8.3 mg/dL (8.4-10.2)
--- NOTE | 2021-02-27 03:56 | Cat Scan Report ---
CT ABDOMEN AND PELVIS WITHOUT CONTRAST INDICATION / CLINICAL INFORMATION: EmphysematousPyelonephritis on prior CT abd/pelvis. TECHNIQUE: Axial CT images were obtained through the abdomen and pelvis without IV contrast. All CT scans at this location are performed using CT dose reduction for ALARA by means of automated exposure control. COMPARISON: CT from 02/26/2021. FINDINGS: Unchanged bibasilar pleural effusions and adjacent airspace opacities. Exam remains significantly limited due to lack of intra-abdominal fat, mesenteric edema, and lack of intravenous contrast. Extensive air is again seen surrounding the right kidney with gas in the right renal collecting system. Gas and fluid again noted to extend along the right psoas muscle. No acute a bnormality left kidney. The bladder is partially decompressed by Hernandez catheter with mural thickening , unchanged. Moderate colonic stool burden. No evidence of bowel obstruction or inflammation. Otherwise unchanged. IMPRESSION: Stable exam with extensive air surrounding the right kidney and extending along the right retroperito neum. Findings remain concerning for emphysematous pyelonephritis. No interval change from prior stud y. Signer Name: Christopher Santana MD Signed: 02/27/2021 3:52 AM Workstation Name: [id number]
--- NOTE | 2021-02-27 04:30 | Event Note ---
Date: 02/27/21 60-year-old -[place] male admitted about 24 hours ago for DKA, UTI and MAXIMO. During work-up, CT of the abdomen and pelvis done earlier in the day reveals free air within and surrounding right kidney and tracking in the right retroperitoneum. Findings were worrisome for infectious/inflammatory process such as emphysematous pyelonephritis. A perforation is also a possibility. A repeat CT of the abdomen and pelvis was also done again later in the evening and there has been no appreciable change from previous. Urologist at [facility]-Dr. Chapman was consulted for possible transfer for further management but he recommended that patient be on antibiotics and there was no need for any emergent intervention. Patient currently on IV cefepime. Meanwhile we will continue current management in the intensive care unit.
[2021-02-27] MEDS: HEPARIN 5,000 UNIT/1 ML VIAL SUB-Q SCH ×3 (05:50→22:58)
[2021-02-27] MEDS: D5W/0.45% NACL/KCL 20 MEQ 20 MEQ/1,000 ML BAG IV SCH ×2 (05:50→19:27)
[2021-02-27] MEDS: CEFEPIME/NS 1 GM/100 ML 1 GM/100 ML BAG IV SCH (05:54)
[2021-02-27 06:09] LABS: Hematocrit 32.3 % (35.5-45.6); Mean Corpuscular HGB Conc 34 % (32-34); Mean Corpuscular Volume 88 fl (84-94); Platelet Count 303 K/mm3 (140-440); Red Blood Count 3.67 M/mm3 (3.65-5.03); Red Cell Distribution Width 14.4 % (13.2-15.2)
[2021-02-27 06:30] LABS: Calcium 8.1 mg/dL (8.4-10.2)
[2021-02-27] MEDS: DEXTROSE 50% IN WATER (25GM) 50 ML SYRINGE IV PRN (07:03)
[2021-02-27] MEDS ORDERED: DEXTROSE 50% IN WATER (25GM) 50 ML SYRINGE IV PRN (08:40)
--- NOTE | 2021-02-27 08:50 | Progress Note ---
Assessment and Plan Assessment and plan: 60-year-old -[place] male with known history of diabetes mellitus presents to the emergency room today complaining of generalized weakness and elevated blood glucose at home. Patient was diagnosed with diabetes mellitus about 2 weeks ago and states he has been out of his insulin for the past 3 to 4 days. Family had called EMS and patient was subsequently brought to the emergency room. Blood glucose was said to be reading high in route to the hospital. Patient was given IV normal saline in route to the hospital. Work-up in the emergency room reveals that patient is in DKA. He has been started on insulin drip and IV fluid. CT abdomen and pelvis 1. Free air within and surrounding the right kidney and tracking in the right retroperitoneum. Exam is severely limited with lack of intravenous contrast and intra-abdominal fat but the air does not seem to extend into the peritoneum. Findings are highly worrisome for an infectious/inflammatory process such as emphysematous pyelonephritis. A perforation is also possible. DKA Emphysematous pyelonephritis possible Acute cystitis Acute metabolic encephalopathy now resolved Acute kidney injury on chronic kidney disease unknown stage BPH DVT and GI prophylaxis Plan Continue supportive care Production Welder input noted and appreciated ID consulted for acute cystitis Discussed with urologist this morning per night physician [place] urologist recommended patient be monitored. We will proceed with repeat CT and urologist recommendation and if consistent symptoms patient will need evaluation by them in a.m. Discussed with family Gap has closed for DKA will transition to IMCU due to this findings of deficits months pyelonephritis for closer monitoring. Continue to monitor renal function creatinine down to 1.7 since Hernandez was placed. History Interval history: Patient seen and examined this morning in no acute distress resting comfortably. He denies any abdominal pain nausea vomiting or diarrhea. He does have some good urine output at this time. Renal functions show some improvement. He does not know the medications that he takes for his diabetes but knows he takes Flomax. No fever reported overnight Hospitalist Physical - Physical exam Narrative exam: VITAL SIGNS: Reviewed. GENERAL: The patient appears normally developed, Vital signs as documented. HEAD: No signs of head trauma. EYES: Pupils are equal. Extraocular motions intact. EARS: Hearing grossly intact. MOUTH: Oropharynx is normal. NECK: No adenopathy, no JVD. CHEST: Chest with clear breath sounds bilaterally. No wheezes, rales, or rhonchi. CARDIAC: Regular rate and rhythm. S1 and S2, without murmurs, gallops, or rubs. VASCULAR: No Edema. Peripheral pulses normal and equal in all extremities. ABDOMEN: Soft, non tender and non distended. No rebound or guarding, and no masses palpated. Bowel Sounds normal. MUSCULOSKELETAL: Good range of motion of all major joints. Extremities without clubbing, cyanosis or edema. NEUROLOGIC EXAM: Alert and oriented x 3 No focal sensory or strength deficits. Speech normal. Follows commands. PSYCHIATRIC: Mood normal. SKIN: detail exam as documented in skin assessment - Constitutional Vitals: Temp Pulse Resp BP Pulse Ox 98.9 F 65 22 112/64 99 02/27/21 04:00 02/27/21 07:11 02/27/21 07:11 02/27/21 07:11 02/27/21 07:11 General appearance: Present: no acute distress, well-nourished, other (Dry oral mucosa) HEART Score - HEART Score Troponin: Troponin T < 0.010 ng/mL (0.00-0.029) 02/25/21 22:48 Results - Labs CBC & Chem 7: 02/27/21 04:18 02/27/21 04:18 Labs: Laboratory Last Values WBC 22.4 K/mm3 (4.5-11.0) H 02/27/21 04:18 RBC 3.67 M/mm3 (3.65-5.03) 02/27/21 04:18 Hgb 11.0 gm/dl (11.8-15.2) L 02/27/21 04:18 Hct 32.3 % (35.5-45.6) L 02/27/21 04:18 MCV 88 fl (84-94) 02/27/21 04:18 MCH 30 pg (28-32) 02/27/21 04:18 MCHC 34 % (32-34) 02/27/21 04:18 RDW 14.4 % (13.2-15.2) 02/27/21 04:18 Plt Count 303 K/mm3 (140-440) 02/27/21 04:18 Add Manual Diff Complete 02/25/21 22:48 Total Counted 200 02/25/21 22:48 Seg Neutrophils % [place] Headgate Operator 02/25/21 22:48 Seg Neuts % (Manual) 95.0 % (40.0-70.0) H 02/25/21 22:48 Band Neutrophils % 2.5 % 02/25/21 22:48 Monocytes % (Manual) 2.5 % (0.0-7.3) 02/25/21 22:48 Nucleated RBC % Not Reportable 02/25/21 22:48 Seg Neutrophils # Man 22.9 K/mm3 (1.8-7.7) H 02/25/21 22:48 Band Neutrophils # 0.6 K/mm3 02/25/21 22:48 Lymphocytes # (Manual) 0.0 K/mm3 (1.2-5.4) L 02/25/21 22:48 Abs React Lymphs (Man) 0.0 K/mm3 02/25/21 22:48 Monocytes # (Manual) 0.6 K/mm3 (0.0-0.8) 02/25/21 22:48 Eosinophils # (Manual) 0.0 K/mm3 (0.0-0.4) 02/25/21 22:48 Basophils # (Manual) 0.0 K/mm3 (0.0-0.1) 02/25/21 22:48 Metamyelocytes # 0.0 K/mm3 02/25/21 22:48 Myelocytes # 0.0 K/mm3 02/25/21 22:48 Promyelocytes # 0.0 K/mm3 02/25/21 22:48 Blast Cells # 0.0 K/mm3 02/25/21 22:48 WBC Morphology Not Reportable 02/25/21 22:48 Hypersegmented Neuts Not Reportable 02/25/21 22:48 Hyposegmented Neuts Not Reportable 02/25/21 22:48 Hypogranular Neuts Not Reportable 02/25/21 22:48 Smudge Cells Not Reportable 02/25/21 22:48 Toxic Granulation Not Reportable 02/25/21 22:48 Toxic Vacuolation Not Reportable 02/25/21 22:48 Dohle Bodies Not Reportable 02/25/21 22:48 Pelger-Huet Anomaly Not Reportable 02/25/21 22:48 Nayeli Rods Not Reportable 02/25/21 22:48 Platelet Estimate Consistent w auto 02/25/21 22:48 Clumped Platelets Not Reportable 02/25/21 22:48 Plt Clumps, EDTA Not Reportable 02/25/21 22:48 Large Platelets Not Reportable 02/25/21 22:48 Giant Platelets Not Reportable 02/25/21 22:48 Platelet Satelliting Not Reportable 02/25/21 22:48 Plt Morphology Comment Not Reportable 02/25/21 22:48 RBC Morphology Not Reportable 02/25/21 22:48 Dimorphic RBCs Not Reportable 02/25/21 22:48 Polychromasia Not Reportable 02/25/21 22:48 Hypochromasia Not Reportable 02/25/21 22:48 Poikilocytosis Not Reportable 02/25/21 22:48 Anisocytosis 1+ 02/25/21 22:48 Microcytosis Not Reportable 02/25/21 22:48 Macrocytosis Not Reportable 02/25/21 22:48 Spherocytes Not Reportable 02/25/21 22:48 Pappenheimer Bodies Not Reportable 02/25/21 22:48 Sickle Cells Not Reportable 02/25/21 22:48 Target Cells Not Reportable 02/25/21 22:48 Tear Drop Cells Not Reportable 02/25/21 22:48 Ovalocytes Not Reportable 02/25/21 22:48 Helmet Cells Not Reportable 02/25/21 22:48 Montalvo-Landrum Bodies Not Reportable 02/25/21 22:48 Gilchrist Rings Not Reportable 02/25/21 22:48 [place] Cells Not Reportable 02/25/21 22:48 Bite Cells Not Reportable 02/25/21 22:48 Crenated Cell Not Reportable 02/25/21 22:48 Elliptocytes Not Reportable 02/25/21 22:48 Acanthocytes (Spur) Not Reportable 02/25/21 22:48 Rouleaux Not Reportable 02/25/21 22:48 Hemoglobin C Crystals Not Reportable 02/25/21 22:48 Schistocytes Not Reportable 02/25/21 22:48 Malaria parasites Not Reportable 02/25/21 22:48 Christiano Bodies Not Reportable 02/25/21 22:48 Hem Pathologist Commnt No 02/25/21 22:48 PT 14.1 Sec. (12.2-14.9) 02/25/21 22:48 INR 1.04 (0.87-1.13) 02/25/21 22:48 VBG pH 7.316 (7.320-7.420) L 02/25/21 22:48 Sodium 142 mmol/L (137-145) 02/27/21 04:18 Potassium 3.6 mmol/L (3.6-5.0) 02/27/21 04:18 Chloride 107.9 mmol/L (98-107) H 02/27/21 04:18 Carbon Dioxide 22 mmol/L (22-30) 02/27/21 04:18 Anion Gap 16 mmol/L 02/27/21 04:18 BUN 59 mg/dL (9-20) H 02/27/21 04:18 Creatinine 1.7 mg/dL (0.8-1.3) H 02/27/21 04:18 Estimated GFR 50 ml/min 02/27/21 04:18 BUN/Creatinine Ratio 35 % 02/27/21 04:18 Glucose 91 mg/dL (75-100) 02/27/21 04:18 POC Glucose 131 mg/dL (70-105) H 02/27/21 08:24 Hemoglobin A1c 14.2 % (4-6) H 02/26/21 02:40 Calcium 8.1 mg/dL (8.4-10.2) L 02/27/21 04:18 Phosphorus 2.50 mg/dL (2.5-4.5) D 02/26/21 02:40 Magnesium 2.00 mg/dL (1.7-2.3) 02/27/21 04:18 Total Bilirubin 0.40 mg/dL (0.1-1.2) 02/25/21 22:48 AST 21 units/L (5-40) 02/25/21 22:48 ALT 34 units/L (7-56) 02/25/21 22:48 Alkaline Phosphatase 201 units/L (35-129) H 02/25/21 22:48 Total Creatine Kinase 37 units/L (55-170) L 02/25/21 22:48 Troponin T < 0.010 ng/mL (0.00-0.029) 02/25/21 22:48 Total Protein 6.8 g/dL (6.3-8.2) 02/25/21 22:48 Albumin 2.9 g/dL (3.9-5) L 02/25/21 22:48 Albumin/Globulin Ratio 0.7 % 02/25/21 22:48 Urine Color Yellow (Yellow) 02/26/21 18:00 Urine Turbidity Turbid (Clear) 02/26/21 18:00 Urine pH 6.0 (5.0-7.0) 02/26/21 18:00 Ur Specific [place] 1.013 (1.003-1.030) 02/26/21 18:00 Urine Protein 100 mg/dl mg/dL (Negative) 02/26/21 18:00 Urine Glucose (UA) >=500 mg/dL (Negative) 02/26/21 18:00 Urine Ketones Tr mg/dL (Negative) 02/26/21 18:00 Urine Blood Lg (Negative) 02/26/21 18:00 Urine Nitrite Neg (Negative) 02/26/21 18:00 Urine Bilirubin Neg (Negative) 02/26/21 18:00 Urine Urobilinogen < 2.0 mg/dL (<2.0) 02/26/21 18:00 Ur Leukocyte Esterase Lg (Negative) 02/26/21 18:00 Urine WBC (Auto) > 182.0 /HPF (0.0-6.0) H 02/26/21 18:00 Urine RBC (Auto) 41.0 /HPF (0.0-6.0) 02/26/21 18:00 U Epithel Cells (Auto) 1.0 /HPF (0-13.0) 02/26/21 12:00 Urine Bacteria (Auto) 2+ /HPF (Negative) 02/26/21 12:00 Urine WBC Clumps 3+ /HPF 02/26/21 18:00 Urine Mucus Few /HPF 02/26/21 18:00 Urine Yeast (Budding) 3+ /HPF 02/26/21 18:00 Urine Creatinine 26.8 mg/dL (0.1-20.0) H 02/26/21 12:00 Protein/Creatinin Ratio 1.75 02/26/21 12:00 Urine Sodium 29 mmol/L 02/26/21 12:00 Urine Total Protein 47 mg/dL (5-11.8) H 02/26/21 12:00 Hernandez/IV: Voiding Method Indwelling Catheter Active Medications - Current Medications Current Medications: Generic Name Dose Route Start Last Admin Trade Name Freq PRN Reason Stop Dose Admin Acetaminophen 650 mg 02/26/21 00:36 Acetaminophen 325 Mg Tab PO Q6H PRN Pain MILD(1-3)/Fever >100.5/MATHUR Dextrose 50 ml 02/25/21 23:47 02/27/21 07:03 Dextrose 50% In Water (25gm) 50 Ml Syringe IV 50 ml Q30MIN PRN Administration Hypoglycemia Protocol Dextrose 50 ml 02/27/21 08:40 Dextrose 50% In Water (25gm) 50 Ml Syringe IV Q30MIN PRN Hypoglycemia Protocol Heparin Sodium (Porcine) 5,000 unit 02/26/21 06:00 02/27/21 05:50 Heparin 5,000 Unit/1 Ml Vial SUB-Q 5,000 unit Q8HR ROSELIA Administration Insulin Human Regular 100 100 mls @ 1 mls/hr 02/25/21 23:45 02/27/21 07:04 units/ Sodium Chloride IV 0 units/hr TITR ROSELIA 0 mls/hr Titration Protocol 1 UNITS/HR Cefepime HCl 1 gm in 100 mls @ 200 mls/hr 02/26/21 18:00 02/27/21 05:54 Cefepime/Ns 1 Gm/100 Ml IV 200 mls/hr Q12H ROSELIA Administration Potassium Chloride/Dextrose/Sod Cl 20 meq in 1,000 mls @ 125 mls/hr 02/27/21 05:00 02/27/21 05:50 D5w/0.45% Nacl/Kcl 20 Meq IV 125 mls/hr DIRECT ROSELIA Administration Insulin Glargine 20 units 02/27/21 22:00 Insulin Glargine 100 Units/Ml SUB-Q QHS ROSELIA Insulin Human Lispro 0 unit 02/27/21 11:30 Insulin Lispro 100 Unit/Ml SUB-Q ACHS ROSELIA Protocol Morphine Sulfate 2 mg 02/26/21 00:36 Morphine 2 Mg/1 Ml Inj IV Q4H PRN Pain, Moderate (4-6) Morphine Sulfate 4 mg 02/26/21 00:36 Morphine 4 Mg/1 Ml Inj IV Q4H PRN Pain , Severe (7-10) Sodium Bicarbonate 1,300 mg 02/26/21 11:00 02/26/21 21:48 Sodium Bicarbonate 650 Mg Tab PO 1,300 mg BID ROSELIA Administration Sodium Chloride 10 ml 02/26/21 10:00 02/27/21 07:09 Sodium Chloride 0.9% 10 Ml Flush Syringe IV Not Given BID ROSELIA Sodium Chloride 10 ml 02/26/21 00:36 Sodium Chloride 0.9% 10 Ml Flush Syringe IV PRN PRN LINE FLUSH Tamsulosin HCl 0.8 mg 02/26/21 16:00 02/26/21 15:25 Tamsulosin 0.4 Mg Cap PO 0.8 mg QDAY ROSELIA Administration Nutrition/Malnutrition Assess - Dietary Evaluation Nutrition/Malnutrition Findings: Nutrition Notes Start: 02/26/21 13:01 Freq: Status: Active Protocol: Document 02/26/21 12:01 CW (Rec: 02/26/21 13:06 CW [id number]) Nutrition Notes Need for Assessment generated from: MD Order Initial or Follow up Brief Note Current Diagnosis Diabetes Other Pertinent Diagnosis DKA Current Diet npo Labs/Tests 938 on adm HgbA1c 14.2 Pertinent Medications insulin gtt NS 3 L 20 mEq KCl Height 5 ft 10 in Weight 51.075 kg Taylor Body Weight (kg) 75.45 BMI 16.1 Weight Status Underweight Subjective/Other Information MD consult for diet education. Pt recently dx with DM x 2 months ago. Pt reports previous diet education provided regarding DM. This RD reinforeced information related to carbohydrate counting. Pt appeared to be mildly interested in diet education. Will follow up for diet education understanding. Burn Absent Trauma Absent Current % PO Negligible #1 Nutrition Diagnosis Food and nutrition-related knowledge deficit Etiology excessive carbohydrate intake As Evidenced by Signs and Symptoms BG of 938 on adm, hgbA1c of 14 .2 Nutrition Intervention Change Diet Order: Diet advancement to consistent carbohydrate diet as medically feasible Teaching Recipient Patient Learning Readiness Poor Teaching Methods Discussion,Handout Response to Teaching Verbalize understanding, Reinforcement needed Education Handouts Provided Consistent Carbohydrates for those with diabetes Barriers to Learning Motivation RD phone number provided Yes Patient aware of follow up options Yes Goal #1 Understand importance of following a consistent carbohydrate diet Goal #2 diet advancement Anticipated Discharge Needs: consistent carbohydrate diet Follow-Up By: 03/01/21 Additional Comments F/U for diet advancement adn diet education understanding
[2021-02-27] MEDS: TAMSULOSIN 0.4 MG CAP PO SCH (10:16)
[2021-02-27] MEDS: SODIUM BICARBONATE 650 MG TAB PO SCH ×2 (10:17→22:58)
--- NOTE | 2021-02-27 11:07 | Progress Note ---
Assessment and Plan - Patient Problems (1) Diabetic ketoacidosis Current Visit: Yes Status: Acute Qualifiers: Diabetes mellitus type: type 2 Diabetes mellitus complication detail: without coma Qualified Code(s): E11.10 - Type 2 diabetes mellitus with ketoacidosis without coma Plan to address problem: Continue with basal bolus insulin therapy Accuchecks with glycemic control. target blood glucose <180mg/dL. 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 Discussed with hospitalist service, Urology was consulted. Follow up urine and blood cultures (3) Metabolic acidosis Current Visit: Yes Status: Acute (4) Renal failure Current Visit: Yes Status: Acute Qualifiers: Renal failure chronicity: acute Acute renal failure type: unspecified Qualified Code(s): N17.9 - Acute kidney failure, unspecified Plan to address problem: Volume resuscitation Avoid nephrotoxins, adjust all medications for GFR/CrCL (5) DVT prophylaxis Current Visit: No Status: Acute Plan to address problem: Heparin Critical care time 33 minutes (6) Full code status Current Visit: No Status: Acute Subjective Date of service: 02/27/21 Interval history: Follow up fro DKA; acute kidney failure; emphysematous pyelonephritis: protein calorie malnutrition. Patient seen and examined. Vitals, labs, medications, chart and imaging reviewed. He is resting comfortably. He denies any abdominal pain, nausea ,vomiting or diarrhea. No fevers, no chills, making good amounts of urine, off insulin infusion Objective Vital Signs - 12hr 02/26/21 02/26/21 02/26/21 23:11 23:21 23:31 Temperature Pulse Rate 59 L 58 L 58 L Pulse Rate [ From Monitor] Respiratory 17 16 16 Rate Blood Pressure 136/69 136/69 136/69 O2 Sat by Pulse 100 100 100 Oximetry 02/26/21 02/26/21 02/26/21 23:35 23:41 23:51 Temperature 98.7 F Pulse Rate 58 L 58 L Pulse Rate [ From Monitor] Respiratory 15 16 Rate Blood Pressure 136/69 136/69 O2 Sat by Pulse 100 100 Oximetry 02/27/21 02/27/21 02/27/21 00:00 00:11 00:21 Temperature Pulse Rate 59 L 66 61 Pulse Rate [ 58 L From Monitor] Respiratory 16 15 18 Rate Blood Pressure 107/64 107/64 107/64 O2 Sat by Pulse 100 100 100 Oximetry 02/27/21 02/27/21 02/27/21 00:31 00:41 00:51 Temperature Pulse Rate 64 61 55 L Pulse Rate [ From Monitor] Respiratory 20 16 16 Rate Blood Pressure 107/64 107/64 107/64 O2 Sat by Pulse 100 100 100 Oximetry 02/27/21 02/27/21 02/27/21 01:00 01:11 01:21 Temperature Pulse Rate 55 L 63 64 Pulse Rate [ From Monitor] Respiratory 17 19 17 Rate Blood Pressure 113/65 113/65 113/65 O2 Sat by Pulse 100 100 100 Oximetry 02/27/21 02/27/21 02/27/21 01:31 01:41 01:51 Temperature Pulse Rate 56 L 55 L 54 L Pulse Rate [ From Monitor] Respiratory 21 21 17 Rate Blood Pressure 113/65 113/65 113/65 O2 Sat by Pulse 100 100 100 Oximetry 02/27/21 02/27/21 02/27/21 02:01 02:11 02:21 Temperature Pulse Rate 62 61 63 Pulse Rate [ From Monitor] Respiratory 23 16 21 Rate Blood Pressure 121/75 121/75 121/75 O2 Sat by Pulse 100 100 100 Oximetry 02/27/21 02/27/21 02/27/21 02:31 02:41 02:51 Temperature Pulse Rate 59 L 58 L 58 L Pulse Rate [ From Monitor] Respiratory 15 15 18 Rate Blood Pressure 121/75 121/75 121/75 O2 Sat by Pulse 100 100 100 Oximetry 02/27/21 02/27/21 02/27/21 03:00 03:11 03:21 Temperature Pulse Rate 58 L 66 63 Pulse Rate [ From Monitor] Respiratory 15 16 16 Rate Blood Pressure 112/69 112/69 112/69 O2 Sat by Pulse 100 100 100 Oximetry 02/27/21 02/27/21 02/27/21 03:41 03:51 04:00 Temperature 98.9 F Pulse Rate 68 63 52 L Pulse Rate [ 52 L From Monitor] Respiratory 16 23 21 Rate Blood Pressure 112/69 112/69 O2 Sat by Pulse 99 100 100 Oximetry 0702/27/21 02/27/21 04:01 04:11 04:20 Temperature Pulse Rate 62 61 64 Pulse Rate [ From Monitor] Respiratory 20 19 17 Rate Blood Pressure 112/69 112/69 112/69 O2 Sat by Pulse 100 100 100 Oximetry 02/27/21 02/27/21 02/27/21 04:31 04:41 04:51 Temperature Pulse Rate 56 L 54 L 54 L Pulse Rate [ From Monitor] Respiratory 16 16 16 Rate Blood Pressure 112/69 112/69 112/69 O2 Sat by Pulse 100 100 99 Oximetry 02/27/21 02/27/21 02/27/21 05:01 05:11 05:21 Temperature Pulse Rate 56 L 55 L 55 L Pulse Rate [ From Monitor] Respiratory 17 16 16 Rate Blood Pressure 112/69 112/69 112/69 O2 Sat by Pulse 100 100 100 Oximetry 02/27/21 02/27/21 02/27/21 05:31 05:41 05:51 Temperature Pulse Rate 60 54 L 63 Pulse Rate [ From Monitor] Respiratory 20 16 20 Rate Blood Pressure 112/69 112/69 112/69 O2 Sat by Pulse 100 100 100 Oximetry 02/27/21 02/27/21 02/27/21 06:01 06:11 06:21 Temperature Pulse Rate 57 L 53 L 57 L Pulse Rate [ From Monitor] Respiratory 17 17 17 Rate Blood Pressure 112/69 112/69 112/69 O2 Sat by Pulse 100 100 100 Oximetry 02/27/21 02/27/21 02/27/21 06:31 06:41 06:51 Temperature Pulse Rate 57 L 66 70 Pulse Rate [ From Monitor] Respiratory 16 16 25 H Rate Blood Pressure 112/69 112/69 112/69 O2 Sat by Pulse 100 100 99 Oximetry 02/27/21 02/27/21 02/27/21 07:01 07:11 07:21 Temperature Pulse Rate 67 65 59 L Pulse Rate [ From Monitor] Respiratory 20 22 20 Rate Blood Pressure 112/69 112/64 112/64 O2 Sat by Pulse 99 99 100 Oximetry 02/27/21 02/27/21 02/27/21 07:27 07:31 07:41 Temperature 99.3 F Pulse Rate 61 57 L Pulse Rate [ From Monitor] Respiratory 18 14 Rate Blood Pressure 112/64 112/64 O2 Sat by Pulse 100 100 Oximetry 0702/27/21 02/27/21 07:51 08:00 08:11 Temperature Pulse Rate 55 L 58 L 55 L Pulse Rate [ 95 H From Monitor] Respiratory 15 15 16 Rate Blood Pressure 112/64 120/70 120/70 O2 Sat by Pulse 100 100 100 Oximetry 02/27/21 02/27/21 02/27/21 08:21 08:31 08:41 Temperature Pulse Rate 55 L 62 61 Pulse Rate [ From Monitor] Respiratory 15 20 20 Rate Blood Pressure 120/70 120/70 120/70 O2 Sat by Pulse 100 100 99 Oximetry 02/27/21 02/27/21 02/27/21 08:51 09:00 09:11 Temperature Pulse Rate 61 53 L 52 L Pulse Rate [ From Monitor] Respiratory 18 14 14 Rate Blood Pressure 120/70 120/67 120/67 O2 Sat by Pulse 98 100 100 Oximetry 02/27/21 02/27/21 02/27/21 09:21 09:31 09:41 Temperature Pulse Rate 57 L 53 L 53 L Pulse Rate [ From Monitor] Respiratory 14 15 15 Rate Blood Pressure 120/67 120/67 120/67 O2 Sat by Pulse 99 99 99 Oximetry 02/27/21 02/27/21 02/27/21 09:51 10:00 10:11 Temperature Pulse Rate 58 L 58 L 60 Pulse Rate [ From Monitor] Respiratory 18 17 18 Rate Blood Pressure 120/67 121/68 121/68 O2 Sat by Pulse 100 100 100 Oximetry 02/27/21 02/27/21 10:21 10:31 Temperature Pulse Rate 68 57 L Pulse Rate [ From Monitor] Respiratory 17 17 Rate Blood Pressure 121/68 121/68 O2 Sat by Pulse 100 100 Oximetry Constitutional: no acute distress, other (thin) Eyes: non-icteric ENT: oropharynx dry Neck: supple, no lymphadenopathy, no JVD Effort: normal Ascultation: Bilateral: clear, diminished breath sounds Cardiovascular: regular rate and rhythm, other (S1,S2) Gastrointestinal: normoactive bowel sounds, soft, non-tender Integumentary: other (loss of skin tugor) Extremities: no edema Neurologic: normal mental status, non-focal exam, pupils equal and round, CN II- XII normal Psychiatric: mood appropriate, affect normal CBC and BMP: 02/27/21 04:18 02/28/21 05:05 ABG, PT/INR, D-dimer: PT/INR, D-dimer PT 14.1 Sec. (12.2-14.9) 02/25/21 22:48 INR 1.04 (0.87-1.13) 02/25/21 22:48 Abnormal lab findings: Abnormal Labs 02/25/21 02/25/21 02/25/21 22:31 22:48 22:48 WBC 24.1 H Hgb 11.5 L Hct Seg Neuts % (Manual) 95.0 H Seg Neutrophils # Man 22.9 H Lymphocytes # (Manual) 0.0 L VBG pH Sodium 126 L Potassium Chloride 88.8 L Carbon Dioxide 18 L BUN 75 H Creatinine 2.1 H Glucose 938 H* POC Glucose > 600 H Hemoglobin A1c Calcium Magnesium Alkaline Phosphatase 201 H Total Creatine Kinase 37 L Albumin 2.9 L Urine WBC (Auto) Urine Creatinine Urine Total Protein 02/25/21 02/25/21 02/26/21 22:48 23:52 01:21 WBC Hgb Hct Seg Neuts % (Manual) Seg Neutrophils # Man Lymphocytes # (Manual) VBG pH 7.316 L Sodium Potassium Chloride Carbon Dioxide BUN Creatinine Glucose POC Glucose > 600 H Hemoglobin A1c Calcium Magnesium 2.80 H Alkaline Phosphatase Total Creatine Kinase Albumin Urine WBC (Auto) Urine Creatinine Urine Total Protein 02/26/21 02/26/21 02/26/21 02:09 02:40 02:40 WBC Hgb Hct Seg Neuts % (Manual) Seg Neutrophils # Man Lymphocytes # (Manual) VBG pH Sodium 131 L Potassium Chloride 96.1 L Carbon Dioxide 17 L BUN 74 H Creatinine 2.1 H Glucose 719 H* POC Glucose > 600 H Hemoglobin A1c 14.2 H Calcium Magnesium Alkaline Phosphatase Total Creatine Kinase Albumin Urine WBC (Auto) Urine Creatinine Urine Total Protein 02/26/21 02/26/21 02/26/21 02:40 03:58 04:03 WBC Hgb Hct Seg Neuts % (Manual) Seg Neutrophils # Man Lymphocytes # (Manual) VBG pH Sodium Potassium Chloride Carbon Dioxide 18 L BUN 71 H Creatinine 2.0 H Glucose 550 H* POC Glucose 544 H Hemoglobin A1c Calcium Magnesium 2.70 H Alkaline Phosphatase Total Creatine Kinase Albumin Urine WBC (Auto) Urine Creatinine Urine Total Protein 02/26/21 02/26/21 02/26/21 05:01 05:58 07:09 WBC Hgb Hct Seg Neuts % (Manual) Seg Neutrophils # Man Lymphocytes # (Manual) VBG pH Sodium Potassium Chloride Carbon Dioxide BUN Creatinine Glucose POC Glucose 439 H 399 H 217 H Hemoglobin A1c Calcium Magnesium Alkaline Phosphatase Total Creatine Kinase Albumin Urine WBC (Auto) Urine Creatinine Urine Total Protein 02/26/21 02/26/21 02/26/21 08:09 08:12 09:08 WBC Hgb Hct Seg Neuts % (Manual) Seg Neutrophils # Man Lymphocytes # (Manual) VBG pH Sodium Potassium Chloride Carbon Dioxide 16 L BUN 72 H Creatinine 1.9 H Glucose 119 H POC Glucose 138 H 136 H Hemoglobin A1c Calcium Magnesium Alkaline Phosphatase Total Creatine Kinase Albumin Urine WBC (Auto) Urine Creatinine Urine Total Protein 02/26/21 02/26/21 02/26/21 12:00 12:00 12:04 WBC Hgb Hct Seg Neuts % (Manual) Seg Neutrophils # Man Lymphocytes # (Manual) VBG pH Sodium Potassium Chloride Carbon Dioxide BUN Creatinine Glucose POC Glucose 136 H Hemoglobin A1c Calcium Magnesium Alkaline Phosphatase Total Creatine Kinase Albumin Urine WBC (Auto) > 182.0 H Urine Creatinine 26.8 H Urine Total Protein 47 H 02/26/21 02/26/21 02/26/21 13:26 14:50 15:14 WBC Hgb Hct Seg Neuts % (Manual) Seg Neutrophils # Man Lymphocytes # (Manual) VBG pH Sodium Potassium Chloride Carbon Dioxide BUN Creatinine Glucose POC Glucose 124 H 119 H 106 H Hemoglobin A1c Calcium Magnesium Alkaline Phosphatase Total Creatine Kinase Albumin Urine WBC (Auto) Urine Creatinine Urine Total Protein 02/26/21 02/26/21 02/26/21 15:27 16:38 17:22 WBC Hgb Hct Seg Neuts % (Manual) Seg Neutrophils # Man Lymphocytes # (Manual) VBG pH Sodium 136 L Potassium 5.1 H Chloride Carbon Dioxide 16 L BUN 72 H Creatinine 2.2 H Glucose 107 H POC Glucose 111 H 113 H Hemoglobin A1c Calcium Magnesium Alkaline Phosphatase Total Creatine Kinase Albumin Urine WBC (Auto) Urine Creatinine Urine Total Protein 02/26/21 02/26/21 02/26/21 17:54 18:00 20:25 WBC Hgb Hct Seg Neuts % (Manual) Seg Neutrophils # Man Lymphocytes # (Manual) VBG pH Sodium Potassium Chloride Carbon Dioxide BUN Creatinine Glucose POC Glucose 114 H 129 H Hemoglobin A1c Calcium Magnesium Alkaline Phosphatase Total Creatine Kinase Albumin Urine WBC (Auto) > 182.0 H Urine Creatinine Urine Total Protein 02/26/21 02/26/21 02/26/21 21:17 22:02 23:05 WBC Hgb Hct Seg Neuts % (Manual) Seg Neutrophils # Man Lymphocytes # (Manual) VBG pH Sodium Potassium Chloride Carbon Dioxide BUN Creatinine Glucose POC Glucose 127 H 135 H 112 H Hemoglobin A1c Calcium Magnesium Alkaline Phosphatase Total Creatine Kinase Albumin Urine WBC (Auto) Urine Creatinine Urine Total Protein 02/27/21 02/27/21 02/27/21 00:11 02:13 04:13 WBC Hgb Hct Seg Neuts % (Manual) Seg Neutrophils # Man Lymphocytes # (Manual) VBG pH Sodium Potassium 3.5 L D Chloride 108.4 H Carbon Dioxide 21 L BUN 64 H Creatinine 1.9 H Glucose POC Glucose 106 H 115 H Hemoglobin A1c Calcium 8.3 L Magnesium Alkaline Phosphatase Total Creatine Kinase Albumin Urine WBC (Auto) Urine Creatinine Urine Total Protein 02/27/21 02/27/21 02/27/21 04:18 04:18 06:57 WBC 22.4 H Hgb 11.0 L Hct 32.3 L Seg Neuts % (Manual) Seg Neutrophils # Man Lymphocytes # (Manual) VBG pH Sodium Potassium Chloride 107.9 H Carbon Dioxide BUN 59 H Creatinine 1.7 H Glucose POC Glucose 60 L Hemoglobin A1c Calcium 8.1 L Magnesium Alkaline Phosphatase Total Creatine Kinase Albumin Urine WBC (Auto) Urine Creatinine Urine Total Protein 02/27/21 02/27/21 08:24 08:35 WBC Hgb Hct Seg Neuts % (Manual) Seg Neutrophils # Man Lymphocytes # (Manual) VBG pH Sodium Potassium 3.1 L Chloride 108.6 H Carbon Dioxide 21 L BUN 53 H Creatinine 1.5 H Glucose 121 H POC Glucose 131 H Hemoglobin A1c Calcium 8.0 L Magnesium Alkaline Phosphatase Total Creatine Kinase Albumin Urine WBC (Auto) Urine Creatinine Urine Total Protein Chest x-ray: image reviewed
[2021-02-27] MEDS: INSULIN LISPRO 100 UNIT/ML SUB-Q SCH ×3 (12:06→22:59)
--- NOTE | 2021-02-27 12:44 | Consultation ---
History of Present Illness - Reason for Consult Consult date: 02/27/21 emphysematous pyelonephritis Requesting physician: MARYANN BRIGHT - History of Present Illness The patient is a 60-year-old male with diabetes was admitted to the hospital with generalized weakness and elevated blood glucose. Was found to be in diabetic ketoacidosis upon admission. No fever on admission, labs revealed significant leukocytosis along with acute kidney injury. UA showed significant pyuria and his CT abdomen and pelvis was concerning for severe emphysematous pyelonephritis, hence infectious diseases was consulted. Patient is a poor historian, denies any specific complaints at this time. Remains in ICU. It seems case has been discussed with urology at [place] who has recommended conservative management for now. Review of Systems: General: no fevers,chills or rigors HEENT: no new visual disturbance Respiratory: No cough, sputum, hemoptysis or shortness of breath Cardiovascular: No chest pain, syncope Gastrointestinal: No nausea, vomiting or diarrhea Genitourinary: No dysuria or hematuria. Currently has Hernandez catheter. Musculoskeletal: No new or worsening neck pain or back pain Neurologic: No headaches, seizures Hematologic: No easy bruising or bleeding Endocrine: No night sweats or acute weight loss Skin: negative for rash, jaundice Psychiatric: No suicidal or homicidal ideation Past History Past Medical History: diabetes Past Surgical History: No surgical history Social history: no significant social history Family history: no significant family history Medications and Allergies Allergies Allergy/AdvReac Type Severity Reaction Status Date / Time No Known Allergies Allergy Unverified 02/25/21 22:43 Home Medications Medication Instructions Recorded Confirmed Last Taken Type Tamsulosin [Flomax] 2 cap QDAY 02/26/21 02/26/21 Unknown History Active Meds: Active Medications Acetaminophen (Acetaminophen 325 Mg Tab) 650 mg PO Q6H PRN PRN Reason: Pain MILD(1-3)/Fever >100.5/MATHUR Dextrose (Dextrose 50% In Water (25gm) 50 Ml Syringe) 50 ml IV Q30MIN PRN; Protocol PRN Reason: Hypoglycemia Last Admin: 02/27/21 07:03 Dose: 50 ml Documented by: Heparin Sodium (Porcine) (Heparin 5,000 Unit/1 Ml Vial) 5,000 unit SUB-Q Q8HR ROSELIA Last Admin: 02/27/21 05:50 Dose: 5,000 unit Documented by: Insulin Human Regular 100 (units/ Sodium Chloride) 100 mls @ 1 mls/hr IV TITR [facility]; Protocol Last Titration: 02/27/21 07:04 Dose: 0 units/hr, 0 mls/hr Documented by: Cefepime HCl (Cefepime/Ns 1 Gm/100 Ml) 1 gm in 100 mls @ 200 mls/hr IV Q12H [facility] Last Admin: 02/27/21 05:54 Dose: 200 mls/hr Documented by: Potassium Chloride/Dextrose/Sod Cl (D5w/0.45% Nacl/Kcl 20 Meq) 20 meq in 1,000 mls @ 125 mls/hr IV DIRECT [facility] Last Admin: 02/27/21 05:50 Dose: 125 mls/hr Documented by: Insulin Glargine (Insulin Glargine 100 Units/Ml) 20 units SUB-Q QHS ROSELIA Insulin Human Lispro (Insulin Lispro 100 Unit/Ml) 0 unit SUB-Q ACHS [facility]; Protocol Last Admin: 02/27/21 12:06 Dose: 2 unit Documented by: Morphine Sulfate (Morphine 2 Mg/1 Ml Inj) 2 mg IV Q4H PRN PRN Reason: Pain, Moderate (4-6) Morphine Sulfate (Morphine 4 Mg/1 Ml Inj) 4 mg IV Q4H PRN PRN Reason: Pain , Severe (7-10) Sodium Bicarbonate (Sodium Bicarbonate 650 Mg Tab) 1,300 mg PO BID [facility] Last Admin: 02/27/21 10:17 Dose: 1,300 mg Documented by: Sodium Chloride (Sodium Chloride 0.9% 10 Ml Flush Syringe) 10 ml IV BID [facility] Last Admin: 02/27/21 10:16 Dose: 10 ml Documented by: Sodium Chloride (Sodium Chloride 0.9% 10 Ml Flush Syringe) 10 ml IV PRN PRN PRN Reason: LINE FLUSH Tamsulosin HCl (Tamsulosin 0.4 Mg Cap) 0.8 mg PO QDAY [facility] Last Admin: 02/27/21 10:16 Dose: 0.8 mg Documented by: Physical Examination - Physical Exam Narrative exam: Physical Exam: Constitutional: Alert, cooperative. No acute distress Head, Ears, Nose: Normocephalic, atraumatic. External ears, nose normal Eyes: Conjunctivae/corneas clear. No icterus. No ptosis. Neck: Supple, no meningeal signs Cardiovascular: S1, S2 normal. Respiratory: Good air entry, clear to auscultation bilaterally GI: Soft, non-tender; bowel sounds normal. No peritoneal signs Musculoskeletal: No pedal edema, no cyanosis. Skin: No rash or abscess Hem/Lymphatic: No palpable cervical or supraclavicular nodes. No lymphangitis Psych: Mood ok. Affect normal Neurological: Awake, alert, oriented. No gross abnormality - Constitutional Vitals: Vital Signs Temp Pulse Resp BP Pulse Ox 98.6 F 67 22 136/72 100 02/27/21 12:08 02/27/21 12:00 02/27/21 12:00 02/27/21 12:00 02/27/21 12:00 Temperature -Last 24 Hours Temperature 98.6 F Temperature 99.3 F Temperature 98.9 F Temperature 98.7 F Temperature 98.9 F Temperature 98.3 F Results - Labs CBC & Chem 7: 02/27/21 04:18 02/27/21 08:35 Labs: Abnormal lab results 02/26/21 02/26/21 02/26/21 Range/Units 12:00 13:26 14:50 WBC (4.5-11.0) K/mm3 Hgb (11.8-15.2) gm/dl Hct (35.5-45.6) % Sodium (137-145) mmol/L Potassium (3.6-5.0) mmol/L Chloride (98-107) mmol/L Carbon Dioxide (22-30) mmol/L BUN (9-20) mg/dL Creatinine (0.8-1.3) mg/dL Glucose (75-100) mg/dL POC Glucose 124 H 119 H (70-105) mg/dL Calcium (8.4-10.2) mg/dL Urine WBC (Auto) (0.0-6.0) /HPF Urine Creatinine 26.8 H (0.1-20.0) mg/dL Urine Total Protein 47 H (5-11.8) mg/dL 02/26/21 02/26/21 02/26/21 Range/Units 15:14 15:27 16:38 WBC (4.5-11.0) K/mm3 Hgb (11.8-15.2) gm/dl Hct (35.5-45.6) % Sodium 136 L (137-145) mmol/L Potassium 5.1 H (3.6-5.0) mmol/L Chloride (98-107) mmol/L Carbon Dioxide 16 L (22-30) mmol/L BUN 72 H (9-20) mg/dL Creatinine 2.2 H (0.8-1.3) mg/dL Glucose 107 H (75-100) mg/dL POC Glucose 106 H 111 H (70-105) mg/dL Calcium (8.4-10.2) mg/dL Urine WBC (Auto) (0.0-6.0) /HPF Urine Creatinine (0.1-20.0) mg/dL Urine Total Protein (5-11.8) mg/dL 02/26/21 02/26/21 02/26/21 Range/Units 17:22 17:54 18:00 WBC (4.5-11.0) K/mm3 Hgb (11.8-15.2) gm/dl Hct (35.5-45.6) % Sodium (137-145) mmol/L Potassium (3.6-5.0) mmol/L Chloride (98-107) mmol/L Carbon Dioxide (22-30) mmol/L BUN (9-20) mg/dL Creatinine (0.8-1.3) mg/dL Glucose (75-100) mg/dL POC Glucose 113 H 114 H (70-105) mg/dL Calcium (8.4-10.2) mg/dL Urine WBC (Auto) > 182.0 H (0.0-6.0) /HPF Urine Creatinine (0.1-20.0) mg/dL Urine Total Protein (5-11.8) mg/dL 02/26/21 02/26/21 02/26/21 Range/Units 20:25 21:17 22:02 WBC (4.5-11.0) K/mm3 Hgb (11.8-15.2) gm/dl Hct (35.5-45.6) % Sodium (137-145) mmol/L Potassium (3.6-5.0) mmol/L Chloride (98-107) mmol/L Carbon Dioxide (22-30) mmol/L BUN (9-20) mg/dL Creatinine (0.8-1.3) mg/dL Glucose (75-100) mg/dL POC Glucose 129 H 127 H 135 H (70-105) mg/dL Calcium (8.4-10.2) mg/dL Urine WBC (Auto) (0.0-6.0) /HPF Urine Creatinine (0.1-20.0) mg/dL Urine Total Protein (5-11.8) mg/dL 02/26/21 02/27/21 02/27/21 Range/Units 23:05 00:11 02:13 WBC (4.5-11.0) K/mm3 Hgb (11.8-15.2) gm/dl Hct (35.5-45.6) % Sodium (137-145) mmol/L Potassium 3.5 L D (3.6-5.0) mmol/L Chloride 108.4 H (98-107) mmol/L Carbon Dioxide 21 L (22-30) mmol/L BUN 64 H (9-20) mg/dL Creatinine 1.9 H (0.8-1.3) mg/dL Glucose (75-100) mg/dL POC Glucose 112 H 106 H (70-105) mg/dL Calcium 8.3 L (8.4-10.2) mg/dL Urine WBC (Auto) (0.0-6.0) /HPF Urine Creatinine (0.1-20.0) mg/dL Urine Total Protein (5-11.8) mg/dL 02/27/21 02/27/21 02/27/21 Range/Units 04:13 04:18 04:18 WBC 22.4 H (4.5-11.0) K/mm3 Hgb 11.0 L (11.8-15.2) gm/dl Hct 32.3 L (35.5-45.6) % Sodium (137-145) mmol/L Potassium (3.6-5.0) mmol/L Chloride 107.9 H (98-107) mmol/L Carbon Dioxide (22-30) mmol/L BUN 59 H (9-20) mg/dL Creatinine 1.7 H (0.8-1.3) mg/dL Glucose (75-100) mg/dL POC Glucose 115 H (70-105) mg/dL Calcium 8.1 L (8.4-10.2) mg/dL Urine WBC (Auto) (0.0-6.0) /HPF Urine Creatinine (0.1-20.0) mg/dL Urine Total Protein (5-11.8) mg/dL 02/27/21 02/27/21 02/27/21 Range/Units 06:57 08:24 08:35 WBC (4.5-11.0) K/mm3 Hgb (11.8-15.2) gm/dl Hct (35.5-45.6) % Sodium (137-145) mmol/L Potassium 3.1 L (3.6-5.0) mmol/L Chloride 108.6 H (98-107) mmol/L Carbon Dioxide 21 L (22-30) mmol/L BUN 53 H (9-20) mg/dL Creatinine 1.5 H (0.8-1.3) mg/dL Glucose 121 H (75-100) mg/dL POC Glucose 60 L 131 H (70-105) mg/dL Calcium 8.0 L (8.4-10.2) mg/dL Urine WBC (Auto) (0.0-6.0) /HPF Urine Creatinine (0.1-20.0) mg/dL Urine Total Protein (5-11.8) mg/dL 02/27/21 Range/Units 11:25 WBC (4.5-11.0) K/mm3 Hgb (11.8-15.2) gm/dl Hct (35.5-45.6) % Sodium (137-145) mmol/L Potassium (3.6-5.0) mmol/L Chloride (98-107) mmol/L Carbon Dioxide (22-30) mmol/L BUN (9-20) mg/dL Creatinine (0.8-1.3) mg/dL Glucose (75-100) mg/dL POC Glucose 196 H (70-105) mg/dL Calcium (8.4-10.2) mg/dL Urine WBC (Auto) (0.0-6.0) /HPF Urine Creatinine (0.1-20.0) mg/dL Urine Total Protein (5-11.8) mg/dL - Imaging and Cardiology Chest x-ray: report reviewed, image reviewed (no pneumonia) CT scan - abdomen: report reviewed, image reviewed (free air around R kidney) CT scan - pelvis: report reviewed, image reviewed Assessment and Plan Cultures: Urine culture: in process A/P: 60-year-old male with diabetes admitted with DKA: #Sepsis, secondary to severe emphysematous pyelonephritis with CT evidence of free air surrounding the right kidney and the right retroperitoneum. Etiology is probably urinary tract infection in the setting of severe diabetic ketoac idosis. Per primary team notes, case was discussed with [place] [facility]. #MAXIMO: Renally dose antibiotics. #Diabetes mellitus with DKA Recs: -Blood cultures ordered -Follow-up urine culture -Cefepime switched to IV Meropenem. Prognosis is guarded. At high risk of need for surgical intervention including possibility of nephrectomy Dr. Mu yun tomorrow. Cindy Glaser MD, FACP [facility] ([facility] O: [phone] F: [phone]
--- NOTE | 2021-02-27 12:59 | Progress Note ---
Assessment and Plan Impression: * sandra * volume depletion * metabolic acidosis * uncontrolled DM * HTN Plan: * aggressive ivfs * cr is better today * added sodium bicarb * place k in ivfs * DM treatment per primary team * follow up daily lytes * UA and urine studies * sandra likely due to prerenal disease, likely ckd as well with DM * no indication for [employer] at this time Subjective Date of service: 02/27/21 Principal diagnosis: sandra, dka Interval history: resting in bed today Objective - Vital Signs Vital signs: Vital Signs - 12hr 02/27/21 02/27/21 02/27/21 01:00 01:11 01:21 Temperature Pulse Rate 55 L 63 64 Pulse Rate [ From Monitor] Respiratory 17 19 17 Rate Blood Pressure 113/65 113/65 113/65 O2 Sat by Pulse 100 100 100 Oximetry 02/27/21 02/27/21 02/27/21 01:31 01:41 01:51 Temperature Pulse Rate 56 L 55 L 54 L Pulse Rate [ From Monitor] Respiratory 21 21 17 Rate Blood Pressure 113/65 113/65 113/65 O2 Sat by Pulse 100 100 100 Oximetry 02/27/21 02/27/21 02/27/21 02:01 02:11 02:21 Temperature Pulse Rate 62 61 63 Pulse Rate [ From Monitor] Respiratory 23 16 21 Rate Blood Pressure 121/75 121/75 121/75 O2 Sat by Pulse 100 100 100 Oximetry 02/27/21 02/27/21 02/27/21 02:31 02:41 02:51 Temperature Pulse Rate 59 L 58 L 58 L Pulse Rate [ From Monitor] Respiratory 15 15 18 Rate Blood Pressure 121/75 121/75 121/75 O2 Sat by Pulse 100 100 100 Oximetry 02/27/21 02/27/21 02/27/21 03:00 03:11 03:21 Temperature Pulse Rate 58 L 66 63 Pulse Rate [ From Monitor] Respiratory 15 16 16 Rate Blood Pressure 112/69 112/69 112/69 O2 Sat by Pulse 100 100 100 Oximetry 02/27/21 02/27/21 02/27/21 03:41 03:51 04:00 Temperature 98.9 F Pulse Rate 68 63 52 L Pulse Rate [ 52 L From Monitor] Respiratory 16 23 21 Rate Blood Pressure 112/69 112/69 O2 Sat by Pulse 99 100 100 Oximetry 02/27/21 02/27/21 02/27/21 04:01 04:11 04:20 Temperature Pulse Rate 62 61 64 Pulse Rate [ From Monitor] Respiratory 20 19 17 Rate Blood Pressure 112/69 112/69 112/69 O2 Sat by Pulse 100 100 100 Oximetry 02/27/21 02/27/21 02/27/21 04:31 04:41 04:51 Temperature Pulse Rate 56 L 54 L 54 L Pulse Rate [ From Monitor] Respiratory 16 16 16 Rate Blood Pressure 112/69 112/69 112/69 O2 Sat by Pulse 100 100 99 Oximetry 02/27/21 02/27/21 02/27/21 05:01 05:11 05:21 Temperature Pulse Rate 56 L 55 L 55 L Pulse Rate [ From Monitor] Respiratory 17 16 16 Rate Blood Pressure 112/69 112/69 112/69 O2 Sat by Pulse 100 100 100 Oximetry 02/27/21 02/27/21 02/27/21 05:31 05:41 05:51 Temperature Pulse Rate 60 54 L 63 Pulse Rate [ From Monitor] Respiratory 20 16 20 Rate Blood Pressure 112/69 112/69 112/69 O2 Sat by Pulse 100 100 100 Oximetry 02/27/21 02/27/21 02/27/21 06:01 06:11 06:21 Temperature Pulse Rate 57 L 53 L 57 L Pulse Rate [ From Monitor] Respiratory 17 17 17 Rate Blood Pressure 112/69 112/69 112/69 O2 Sat by Pulse 100 100 100 Oximetry 02/27/21 02/27/21 02/27/21 06:31 06:41 06:51 Temperature Pulse Rate 57 L 66 70 Pulse Rate [ From Monitor] Respiratory 16 16 25 H Rate Blood Pressure 112/69 112/69 112/69 O2 Sat by Pulse 100 100 99 Oximetry 02/27/21 02/27/21 02/27/21 07:01 07:11 07:21 Temperature Pulse Rate 67 65 59 L Pulse Rate [ From Monitor] Respiratory 20 22 20 Rate Blood Pressure 112/69 112/64 112/64 O2 Sat by Pulse 99 99 100 Oximetry 02/27/21 02/27/21 02/27/21 07:27 07:31 07:41 Temperature 99.3 F Pulse Rate 61 57 L Pulse Rate [ From Monitor] Respiratory 18 14 Rate Blood Pressure 112/64 112/64 O2 Sat by Pulse 100 100 Oximetry 02/27/21 02/27/21 02/27/21 07:51 08:00 08:11 Temperature Pulse Rate 55 L 58 L 55 L Pulse Rate [ 95 H From Monitor] Respiratory 15 15 16 Rate Blood Pressure 112/64 120/70 120/70 O2 Sat by Pulse 100 100 100 Oximetry 02/27/21 02/27/21 02/27/21 08:21 08:31 08:41 Temperature Pulse Rate 55 L 62 61 Pulse Rate [ From Monitor] Respiratory 15 20 20 Rate Blood Pressure 120/70 120/70 120/70 O2 Sat by Pulse 100 100 99 Oximetry 02/27/21 02/27/21 02/27/21 08:51 09:00 09:11 Temperature Pulse Rate 61 53 L 52 L Pulse Rate [ From Monitor] Respiratory 18 14 14 Rate Blood Pressure 120/70 120/67 120/67 O2 Sat by Pulse 98 100 100 Oximetry 02/27/21 02/27/21 02/27/21 09:21 09:31 09:41 Temperature Pulse Rate 57 L 53 L 53 L Pulse Rate [ From Monitor] Respiratory 14 15 15 Rate Blood Pressure 120/67 120/67 120/67 O2 Sat by Pulse 99 99 99 Oximetry 02/27/21 02/27/21 02/27/21 09:51 10:00 10:11 Temperature Pulse Rate 58 L 58 L 60 Pulse Rate [ From Monitor] Respiratory 18 17 18 Rate Blood Pressure 120/67 121/68 121/68 O2 Sat by Pulse 100 100 100 Oximetry 02/27/21 02/27/21 02/27/21 10:21 10:31 10:41 Temperature Pulse Rate 68 57 L 49 L Pulse Rate [ From Monitor] Respiratory 17 17 17 Rate Blood Pressure 121/68 121/68 121/68 O2 Sat by Pulse 100 100 100 Oximetry 02/27/21 02/27/21 02/27/21 10:51 11:00 11:11 Temperature Pulse Rate 57 L 57 L 61 Pulse Rate [ From Monitor] Respiratory 18 17 16 Rate Blood Pressure 121/68 123/69 123/69 O2 Sat by Pulse 100 100 100 Oximetry 02/27/21 02/27/21 02/27/21 11:21 11:30 11:40 Temperature Pulse Rate 53 L 58 L 53 L Pulse Rate [ From Monitor] Respiratory 15 19 14 Rate Blood Pressure 123/69 123/69 123/69 O2 Sat by Pulse 100 100 100 Oximetry 02/27/21 02/27/21 02/27/21 11:50 12:00 12:08 Temperature 98.6 F Pulse Rate 50 L 61 Pulse Rate [ 67 From Monitor] Respiratory 12 17 Rate Blood Pressure 136/72 O2 Sat by Pulse 99 100 Oximetry - Lab 02/27/21 04:18 02/27/21 08:35 Most recent lab results Calcium 8.0 mg/dL (8.4-10.2) L 02/27/21 08:35 Phosphorus 2.50 mg/dL (2.5-4.5) D 02/26/21 02:40 Magnesium 2.00 mg/dL (1.7-2.3) 02/27/21 04:18 Urine Creatinine 26.8 mg/dL (0.1-20.0) H 02/26/21 12:00 Urine Sodium 29 mmol/L 02/26/21 12:00 Urine Total Protein 47 mg/dL (5-11.8) H 02/26/21 12:00 Medications & Allergies - Medications Allergies/Adverse Reactions: Allergies No Known Allergies Allergy (Unverified 02/25/21 22:43) Home Medications: Home Medications Medication Instructions Recorded Confirmed Last Taken Type Tamsulosin [Flomax] 2 cap QDAY 02/26/21 02/26/21 Unknown History Active Medications: Generic Name Dose Route Start Last Admin Trade Name Freq PRN Reason Stop Dose Admin Acetaminophen 650 mg 02/26/21 00:36 Acetaminophen 325 Mg Tab PO Q6H PRN Pain MILD(1-3)/Fever >100.5/MATHUR Dextrose 50 ml 02/25/21 23:47 02/27/21 07:03 Dextrose 50% In Water (25gm) 50 Ml Syringe IV 50 ml Q30MIN PRN Administration Hypoglycemia Protocol Heparin Sodium (Porcine) 5,000 unit 02/26/21 06:00 02/27/21 05:50 Heparin 5,000 Unit/1 Ml Vial SUB-Q 5,000 unit Q8HR ROSELIA Administration Insulin Human Regular 100 100 mls @ 1 mls/hr 02/25/21 23:45 02/27/21 07:04 units/ Sodium Chloride IV 0 units/hr TITR ROSELIA 0 mls/hr Titration Protocol 1 UNITS/HR Potassium Chloride/Dextrose/Sod Cl 20 meq in 1,000 mls @ 125 mls/hr 02/27/21 05:00 02/27/21 05:50 D5w/0.45% Nacl/Kcl 20 Meq IV 125 mls/hr DIRECT ROSELIA Administration MEROPENEM/NS 1 GRAM/100 ML 1 gram in 100 mls @ 100 mls/hr 02/27/21 13:30 Merrem/Ns 1 Gram/100 Ml IV Q12H ROSELIA Protocol Insulin Glargine 20 units 02/27/21 22:00 Insulin Glargine 100 Units/Ml SUB-Q QHS ROSELIA Insulin Human Lispro 0 unit 02/27/21 11:30 02/27/21 12:06 Insulin Lispro 100 Unit/Ml SUB-Q 2 unit ACHS ROSELIA Administration Protocol Morphine Sulfate 2 mg 02/26/21 00:36 Morphine 2 Mg/1 Ml Inj IV Q4H PRN Pain, Moderate (4-6) Morphine Sulfate 4 mg 02/26/21 00:36 Morphine 4 Mg/1 Ml Inj IV Q4H PRN Pain , Severe (7-10) Sodium Bicarbonate 1,300 mg 02/26/21 11:00 02/27/21 10:17 Sodium Bicarbonate 650 Mg Tab PO 1,300 mg BID ROSELIA Administration Sodium Chloride 10 ml 02/26/21 10:00 02/27/21 10:16 Sodium Chloride 0.9% 10 Ml Flush Syringe IV 10 ml BID ROSELIA Administration Sodium Chloride 10 ml 02/26/21 00:36 Sodium Chloride 0.9% 10 Ml Flush Syringe IV PRN PRN LINE FLUSH Tamsulosin HCl 0.8 mg 02/26/21 16:00 02/27/21 10:16 Tamsulosin 0.4 Mg Cap PO 0.8 mg QDAY ROSELIA Administration
[2021-02-27] MEDS: MEROPENEM/NS 1 GRAM/100 ML 1 GRAM/100 ML BAG IV SCH (14:37)
--- NOTE | 2021-02-27 16:45 | Cat Scan Report ---
CT ABDOMEN AND PELVIS WITHOUT CONTRAST HISTORY: F/U right sided free air around kidney. COMPARISON: CT abdomen/pelvis from yesterday and earlier today TECHNIQUE: CT images of the abdomen and pelvis were obtained without administration of intravenous co ntrast. All CT scans at this location are performed using CT dose reduction for ALARA by means of au tomated exposure control. FINDINGS: Lungs/bones: Small bilateral pleural effusions again present with underlying compressive atelectasis . Degenerative changes are present throughout the spine and pelvis with nothing acute. Abdomen/pelvis: There is again considerable air both within and surrounding the right kidney and tra cking in the right retroperitoneum. A small amount of air also tracks within the right ureter. A smal l amount of air is present in the urinary bladder, but there is a Hernandez catheter in place. The bladde r is otherwise collapsed and therefore poorly evaluated but there does appear to be circumferential w all thickening. The left kidney is normal. The liver, gallbladder, spleen, pancreas, adrenals, and proximal GI tract appear unremarkable. No acute colonic abnormality identified. The exam is again very low contrast quality with lack of int ra-abdominal fat and IV contrast. IMPRESSION: 1. Essentially unchanged exam with free air within and surrounding the right kidney, in the right ure ter, and in the urinary bladder which also shows mild wall thickening once again. Findings remain hig hly concerning for emphysematous pyelonephritis. Signer Name: Robin Mast MD Signed: 02/27/2021 4:41 PM Workstation Name: [id number]
[2021-02-27 18:53] LABS: BUN/Creatinine Ratio 36; Blood Urea Nitrogen 50 mg/dL (9-20); Calcium 7.9 mg/dL (8.4-10.2); Hemolysis Index 0
[2021-02-27] MEDS: INSULIN GLARGINE 100 UNITS/ML SUB-Q SCH (22:58)
[2021-02-28] MEDS: MEROPENEM/NS 1 GRAM/100 ML 1 GRAM/100 ML BAG IV SCH ×2 (01:12→13:58)
[2021-02-28 05:35] LABS: BUN/Creatinine Ratio 33; Blood Urea Nitrogen 43 mg/dL (9-20); Calcium 7.8 mg/dL (8.4-10.2); Hemolysis Index 10
[2021-02-28] MEDS: HEPARIN 5,000 UNIT/1 ML VIAL SUB-Q SCH ×3 (06:53→21:31)
[2021-02-28] MEDS: INSULIN LISPRO 100 UNIT/ML SUB-Q SCH ×4 (07:51→22:48)
[2021-02-28] MEDS: SODIUM BICARBONATE 650 MG TAB PO SCH ×2 (09:40→21:33)
[2021-02-28] MEDS: TAMSULOSIN 0.4 MG CAP PO SCH (09:42)
--- NOTE | 2021-02-28 10:52 | Progress Note ---
Assessment and Plan Impression: * MAXIMO: likely due to pre-renal injury. Likely with CKD in setting of DM * volume depletion * metabolic acidosis * uncontrolled DM * HTN Plan: * continue ivfs as tolerated, can stop if eating/drinking appropriately * cr is better today at 1.2 (peaked at 2.2) * continue PO sodium bicarb for now, may need to hold given low K * replete K prn * DM treatment per primary team * daily lytes * UA and urine studies reviewed; has proteinuria likely from DM, will need outpatient CKD follow up, will arrange * no indication for [employer]EL[employer] at this time Subjective Date of service: 02/28/21 Principal diagnosis: maximo, dka Interval history: Patient awake and alert in bed this AM. Denies any acute distress Objective - Exam Narrative Exam: Constitutional: no acute distress Head: NC/AT Neck: supple Lungs: clear to auscultation CV: RRR, no M/R/G Abdomen: soft, non-tender, bowel sounds present Back: nontender Extremities: no edema, pulses WNL Skin: intact Neuro: no focal deficits, alert and oriented x4 - Vital Signs Vital signs: Vital Signs - 12hr 02/27/21 02/28/21 02/28/21 23:00 00:00 00:10 Temperature 98.2 F Pulse Rate 67 66 65 Pulse Rate [ From Monitor] Respiratory 14 18 Rate Blood Pressure 117/68 109/70 O2 Sat by Pulse 99 100 Oximetry 02/28/21 02/28/21 02/28/21 01:00 02:00 03:00 Temperature Pulse Rate 65 68 60 Pulse Rate [ From Monitor] Respiratory 13 17 14 Rate Blood Pressure 106/67 116/73 118/73 O2 Sat by Pulse 99 100 99 Oximetry 02/28/21 02/28/21 02/28/21 04:00 05:00 06:00 Temperature Pulse Rate 57 L 64 60 Pulse Rate [ 57 L From Monitor] Respiratory 15 18 16 Rate Blood Pressure 122/73 124/77 125/78 O2 Sat by Pulse 100 100 100 Oximetry 02/28/21 02/28/21 02/28/21 07:00 08:00 09:00 Temperature 98.8 F Pulse Rate 57 L 77 71 Pulse Rate [ 57 L From Monitor] Respiratory 17 23 19 Rate Blood Pressure 135/78 135/78 135/78 O2 Sat by Pulse 100 100 Oximetry - Lab 02/27/21 04:18 02/28/21 05:05 Most recent lab results Calcium 7.8 mg/dL (8.4-10.2) L 02/28/21 05:05 Phosphorus 2.50 mg/dL (2.5-4.5) D 02/26/21 02:40 Magnesium 2.00 mg/dL (1.7-2.3) 02/27/21 04:18 Urine Creatinine 26.8 mg/dL (0.1-20.0) H 02/26/21 12:00 Urine Sodium 29 mmol/L 02/26/21 12:00 Urine Total Protein 47 mg/dL (5-11.8) H 02/26/21 12:00 Medications & Allergies - Medications Allergies/Adverse Reactions: Allergies No Known Allergies Allergy (Unverified 02/28/21 06:57) Home Medications: Home Medications Medication Instructions Recorded Confirmed Last Taken Type Tamsulosin [Flomax] 2 cap QDAY 02/26/21 02/26/21 Unknown History Active Medications: Generic Name Dose Route Start Last Admin Trade Name Freq PRN Reason Stop Dose Admin Acetaminophen 650 mg 02/26/21 00:36 Acetaminophen 325 Mg Tab PO Q6H PRN Pain MILD(1-3)/Fever >100.5/MATHUR Dextrose 50 ml 02/25/21 23:47 02/27/21 07:03 Dextrose 50% In Water (25gm) 50 Ml Syringe IV 50 ml Q30MIN PRN Administration Hypoglycemia Protocol Heparin Sodium (Porcine) 5,000 unit 02/26/21 06:00 02/28/21 06:53 Heparin 5,000 Unit/1 Ml Vial SUB-Q 5,000 unit Q8HR ROSELIA Administration MEROPENEM/NS 1 GRAM/100 ML 1 gram in 100 mls @ 100 mls/hr 02/27/21 13:30 02/28/21 01:12 Merrem/Ns 1 Gram/100 Ml IV 100 mls/hr Q12H ROSELIA Administration Protocol Insulin Glargine 20 units 02/27/21 22:00 02/27/21 22:58 Insulin Glargine 100 Units/Ml SUB-Q 20 units QHS ROSELIA Administration Insulin Human Lispro 0 unit 02/27/21 11:30 02/28/21 07:51 Insulin Lispro 100 Unit/Ml SUB-Q Not Given ACHS ROSELIA Protocol Morphine Sulfate 2 mg 02/26/21 00:36 Morphine 2 Mg/1 Ml Inj IV Q4H PRN Pain, Moderate (4-6) Morphine Sulfate 4 mg 02/26/21 00:36 Morphine 4 Mg/1 Ml Inj IV Q4H PRN Pain , Severe (7-10) Sodium Bicarbonate 1,300 mg 02/26/21 11:00 02/28/21 09:40 Sodium Bicarbonate 650 Mg Tab PO 1,300 mg BID ROSELIA Administration Sodium Chloride 10 ml 02/26/21 10:00 02/28/21 09:42 Sodium Chloride 0.9% 10 Ml Flush Syringe IV 10 ml BID ROSELIA Administration Sodium Chloride 10 ml 02/26/21 00:36 Sodium Chloride 0.9% 10 Ml Flush Syringe IV PRN PRN LINE FLUSH Tamsulosin HCl 0.8 mg 02/26/21 16:00 02/28/21 09:42 Tamsulosin 0.4 Mg Cap PO 0.8 mg QDAY ROSELIA Administration
--- NOTE | 2021-02-28 13:17 | Progress Note ---
Assessment and Plan 60-year-old -[place] male with known history of diabetes mellitus presents to the emergency room today complaining of generalized weakness and elevated blood glucose at home. Patient was diagnosed with diabetes mellitus about 2 weeks ago and states he has been out of his insulin for the past 3 to 4 days. Family had called EMS and patient was subsequently brought to the emergency room. Blood glucose was said to be reading high in route to the hospital. Patient was given IV normal saline in route to the hospital. Work-up in the emergency room reveals that patient is in DKA. He has been started on insulin drip and IV fluid. Patient has history of smoking 1 pack/40 years. 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 No known drug allergies. Patients Anion gap improving. To days Anion gap 13. Blood sugur 193. Patient alert, awake. Resting on room air. O2 saturation 100%. No complaint of chest pain, shortness of breath or cough. Patient afebrile. Has leukocytosis. Chest xray 02/25/21 reported no acute findings. Patient is on Meropenum, S/C Heparine, S/C Insulin, I/V fluids. Patient was seen in IMCU. I spent critical care time of 40 minutes obtaining history, Reviewing the chart, Examibne the patient, review labs, chest xray, talking to the nursing staff and work out plan of treatment in this critically ill patient. - Patient Problems (1) Diabetic ketoacidosis Current Visit: Yes Status: Acute Qualifiers: Diabetes mellitus type: type 2 Diabetes mellitus complication detail: without coma Plan to address problem: Patient improving. Anion gap improving, 13, Blood sugur 193. Management as per primary care. (2) Metabolic acidosis Current Visit: Yes Status: Acute Plan to address problem: Improving. BICRB 22. ABGs on room air. (3) Renal failure Current Visit: Yes Status: Acute Qualifiers: Renal failure chronicity: acute Acute renal failure type: unspecified Qualified Code(s): N17.9 - Acute kidney failure, unspecified Plan to address problem: Management as per nephrology. Subjective Date of service: 02/28/21 Principal diagnosis: sandra, dka Interval history: 60-year-old -[place] male with known history of diabetes mellitus presents to the emergency room today complaining of generalized weakness and elevated blood glucose at home. Patient was diagnosed with diabetes mellitus about 2 weeks ago and states he has been out of his insulin for the past 3 to 4 days. Family had called EMS and patient was subsequently brought to the emergency room. Blood glucose was said to be reading high in route to the hospital. Patient was given IV normal saline in route to the hospital. Work-up in the emergency room reveals that patient is in DKA. He has been started on insulin drip and IV fluid. Patient has history of smoking 1 pack/40 years. 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 No known drug allergies. Patients Anion gap improving. To days Anion gap 13. Blood sugur 193. Patient alert, awake. Resting on room air. O2 saturation 100%. No complaint of chest pain, shortness of breath or cough. Patient afebrile. Has leukocytosis. Chest xray 02/25/21 reported no acute findings. Patient is on Meropenum, S/C Heparine, S/C Insulin, I/V fluids. Objective Vital Signs - 12hr 02/28/21 02/28/21 02/28/21 02:00 03:00 04:00 Temperature Pulse Rate 68 60 57 L Pulse Rate [ 57 L From Monitor] Respiratory 17 14 15 Rate Blood Pressure 116/73 118/73 122/73 O2 Sat by Pulse 100 99 100 Oximetry 02/28/21 02/28/21 02/28/21 05:00 06:00 07:00 Temperature 98.8 F Pulse Rate 64 60 57 L Pulse Rate [ From Monitor] Respiratory 18 16 17 Rate Blood Pressure 124/77 125/78 135/78 O2 Sat by Pulse 100 100 100 Oximetry 02/28/21 02/28/21 02/28/21 08:00 09:00 10:00 Temperature Pulse Rate 77 71 57 L Pulse Rate [ 57 L From Monitor] Respiratory 23 19 16 Rate Blood Pressure 135/78 135/78 129/76 O2 Sat by Pulse 100 98 Oximetry 02/28/21 02/28/21 02/28/21 11:00 11:30 12:00 Temperature 98.4 F 98 F Pulse Rate 62 67 Pulse Rate [ 67 From Monitor] Respiratory 20 15 Rate Blood Pressure 131/75 127/74 O2 Sat by Pulse 100 100 Oximetry 02/28/21 13:00 Temperature Pulse Rate 64 Pulse Rate [ From Monitor] Respiratory Rate Blood Pressure 139/80 O2 Sat by Pulse 98 Oximetry Constitutional: no acute distress, alert, other (thin) Eyes: non-icteric ENT: oropharynx dry Neck: supple, no lymphadenopathy, no JVD Effort: normal Ascultation: Bilateral: diminished breath sounds Cardiovascular: regular rate and rhythm, other (S1,S2) Gastrointestinal: normoactive bowel sounds, soft, non-tender Integumentary: other (loss of skin tugor) Extremities: no edema Neurologic: normal mental status, non-focal exam, pupils equal and round, CN II- XII normal Psychiatric: mood appropriate, affect normal CBC and BMP: 02/27/21 04:18 02/28/21 05:05 ABG, PT/INR, D-dimer: PT/INR, D-dimer PT 14.1 Sec. (12.2-14.9) 02/25/21 22:48 INR 1.04 (0.87-1.13) 02/25/21 22:48 Abnormal lab findings: Abnormal Labs 02/25/21 02/25/21 02/25/21 22:31 22:48 22:48 WBC 24.1 H Hgb 11.5 L Hct Seg Neuts % (Manual) 95.0 H Seg Neutrophils # Man 22.9 H Lymphocytes # (Manual) 0.0 L VBG pH Sodium 126 L Potassium Chloride 88.8 L Carbon Dioxide 18 L BUN 75 H Creatinine 2.1 H Glucose 938 H* POC Glucose > 600 H Hemoglobin A1c Calcium Magnesium Alkaline Phosphatase 201 H Total Creatine Kinase 37 L Albumin 2.9 L Urine WBC (Auto) Urine Creatinine Urine Total Protein 02/25/21 02/25/21 02/26/21 22:48 23:52 01:21 WBC Hgb Hct Seg Neuts % (Manual) Seg Neutrophils # Man Lymphocytes # (Manual) VBG pH 7.316 L Sodium Potassium Chloride Carbon Dioxide BUN Creatinine Glucose POC Glucose > 600 H Hemoglobin A1c Calcium Magnesium 2.80 H Alkaline Phosphatase Total Creatine Kinase Albumin Urine WBC (Auto) Urine Creatinine Urine Total Protein 02/26/21 02/26/21 02/26/21 02:09 02:40 02:40 WBC Hgb Hct Seg Neuts % (Manual) Seg Neutrophils # Man Lymphocytes # (Manual) VBG pH Sodium 131 L Potassium Chloride 96.1 L Carbon Dioxide 17 L BUN 74 H Creatinine 2.1 H Glucose 719 H* POC Glucose > 600 H Hemoglobin A1c 14.2 H Calcium Magnesium Alkaline Phosphatase Total Creatine Kinase Albumin Urine WBC (Auto) Urine Creatinine Urine Total Protein 02/26/21 02/26/21 02/26/21 02:40 03:58 04:03 WBC Hgb Hct Seg Neuts % (Manual) Seg Neutrophils # Man Lymphocytes # (Manual) VBG pH Sodium Potassium Chloride Carbon Dioxide 18 L BUN 71 H Creatinine 2.0 H Glucose 550 H* POC Glucose 544 H Hemoglobin A1c Calcium Magnesium 2.70 H Alkaline Phosphatase Total Creatine Kinase Albumin Urine WBC (Auto) Urine Creatinine Urine Total Protein 02/26/21 02/26/21 02/26/21 05:01 05:58 07:09 WBC Hgb Hct Seg Neuts % (Manual) Seg Neutrophils # Man Lymphocytes # (Manual) VBG pH Sodium Potassium Chloride Carbon Dioxide BUN Creatinine Glucose POC Glucose 439 H 399 H 217 H Hemoglobin A1c Calcium Magnesium Alkaline Phosphatase Total Creatine Kinase Albumin Urine WBC (Auto) Urine Creatinine Urine Total Protein 02/26/21 02/26/21 02/26/21 08:09 08:12 09:08 WBC Hgb Hct Seg Neuts % (Manual) Seg Neutrophils # Man Lymphocytes # (Manual) VBG pH Sodium Potassium Chloride Carbon Dioxide 16 L BUN 72 H Creatinine 1.9 H Glucose 119 H POC Glucose 138 H 136 H Hemoglobin A1c Calcium Magnesium Alkaline Phosphatase Total Creatine Kinase Albumin Urine WBC (Auto) Urine Creatinine Urine Total Protein 02/26/21 02/26/21 02/26/21 12:00 12:00 12:04 WBC Hgb Hct Seg Neuts % (Manual) Seg Neutrophils # Man Lymphocytes # (Manual) VBG pH Sodium Potassium Chloride Carbon Dioxide BUN Creatinine Glucose POC Glucose 136 H Hemoglobin A1c Calcium Magnesium Alkaline Phosphatase Total Creatine Kinase Albumin Urine WBC (Auto) > 182.0 H Urine Creatinine 26.8 H Urine Total Protein 47 H 02/26/21 02/26/21 02/26/21 13:26 14:50 15:14 WBC Hgb Hct Seg Neuts % (Manual) Seg Neutrophils # Man Lymphocytes # (Manual) VBG pH Sodium Potassium Chloride Carbon Dioxide BUN Creatinine Glucose POC Glucose 124 H 119 H 106 H Hemoglobin A1c Calcium Magnesium Alkaline Phosphatase Total Creatine Kinase Albumin Urine WBC (Auto) Urine Creatinine Urine Total Protein 02/26/21 02/26/21 02/26/21 15:27 16:38 17:22 WBC Hgb Hct Seg Neuts % (Manual) Seg Neutrophils # Man Lymphocytes # (Manual) VBG pH Sodium 136 L Potassium 5.1 H Chloride Carbon Dioxide 16 L BUN 72 H Creatinine 2.2 H Glucose 107 H POC Glucose 111 H 113 H Hemoglobin A1c Calcium Magnesium Alkaline Phosphatase Total Creatine Kinase Albumin Urine WBC (Auto) Urine Creatinine Urine Total Protein 02/26/21 02/26/21 02/26/21 17:54 18:00 20:25 WBC Hgb Hct Seg Neuts % (Manual) Seg Neutrophils # Man Lymphocytes # (Manual) VBG pH Sodium Potassium Chloride Carbon Dioxide BUN Creatinine Glucose POC Glucose 114 H 129 H Hemoglobin A1c Calcium Magnesium Alkaline Phosphatase Total Creatine Kinase Albumin Urine WBC (Auto) > 182.0 H Urine Creatinine Urine Total Protein 02/26/21 02/26/21 02/26/21 21:17 22:02 23:05 WBC Hgb Hct Seg Neuts % (Manual) Seg Neutrophils # Man Lymphocytes # (Manual) VBG pH Sodium Potassium Chloride Carbon Dioxide BUN Creatinine Glucose POC Glucose 127 H 135 H 112 H Hemoglobin A1c Calcium Magnesium Alkaline Phosphatase Total Creatine Kinase Albumin Urine WBC (Auto) Urine Creatinine Urine Total Protein 02/27/21 02/27/21 02/27/21 00:11 02:13 04:13 WBC Hgb Hct Seg Neuts % (Manual) Seg Neutrophils # Man Lymphocytes # (Manual) VBG pH Sodium Potassium 3.5 L D Chloride 108.4 H Carbon Dioxide 21 L BUN 64 H Creatinine 1.9 H Glucose POC Glucose 106 H 115 H Hemoglobin A1c Calcium 8.3 L Magnesium Alkaline Phosphatase Total Creatine Kinase Albumin Urine WBC (Auto) Urine Creatinine Urine Total Protein 02/27/21 02/27/21 02/27/21 04:18 04:18 06:57 WBC 22.4 H Hgb 11.0 L Hct 32.3 L Seg Neuts % (Manual) Seg Neutrophils # Man Lymphocytes # (Manual) VBG pH Sodium Potassium Chloride 107.9 H Carbon Dioxide BUN 59 H Creatinine 1.7 H Glucose POC Glucose 60 L Hemoglobin A1c Calcium 8.1 L Magnesium Alkaline Phosphatase Total Creatine Kinase Albumin Urine WBC (Auto) Urine Creatinine Urine Total Protein 02/27/21 02/27/21 02/27/21 08:24 08:35 11:25 WBC Hgb Hct Seg Neuts % (Manual) Seg Neutrophils # Man Lymphocytes # (Manual) VBG pH Sodium Potassium 3.1 L Chloride 108.6 H Carbon Dioxide 21 L BUN 53 H Creatinine 1.5 H Glucose 121 H POC Glucose 131 H 196 H Hemoglobin A1c Calcium 8.0 L Magnesium Alkaline Phosphatase Total Creatine Kinase Albumin Urine WBC (Auto) Urine Creatinine Urine Total Protein 02/27/21 02/27/21 02/27/21 16:39 18:04 21:33 WBC Hgb Hct Seg Neuts % (Manual) Seg Neutrophils # Man Lymphocytes # (Manual) VBG pH Sodium Potassium 3.1 L Chloride Carbon Dioxide 20 L BUN 50 H Creatinine 1.4 H Glucose 365 H POC Glucose 340 H 322 H Hemoglobin A1c Calcium 7.9 L Magnesium Alkaline Phosphatase Total Creatine Kinase Albumin Urine WBC (Auto) Urine Creatinine Urine Total Protein 02/28/21 02/28/21 02/28/21 05:05 07:25 11:13 WBC Hgb Hct Seg Neuts % (Manual) Seg Neutrophils # Man Lymphocytes # (Manual) VBG pH Sodium Potassium 3.3 L Chloride 110.2 H Carbon Dioxide BUN 43 H Creatinine Glucose 193 H POC Glucose 121 H 190 H Hemoglobin A1c Calcium 7.8 L Magnesium Alkaline Phosphatase Total Creatine Kinase Albumin Urine WBC (Auto) Urine Creatinine Urine Total Protein Chest x-ray: report reviewed, image reviewed Additional Studies: XR chest 1V ap 02/25/21 INDICATION / CLINICAL INFORMATION: Weakness. COMPARISON: None available. FINDINGS: SUPPORT DEVICES: None. HEART /PULMONARY VASCULATURE: No significant abnormality. LUNGS / PLEURA: No significant pulmonary or pleural abnormality. No pneumothorax. ADDITIONAL FINDINGS: No significant additional findings. IMPRESSION: 1. No acute findings.
--- NOTE | 2021-02-28 14:12 | Progress Note ---
Assessment and Plan Cultures: Urine culture: klebsiella pending VENKAT Blood culture: pending. A/P: 60-year-old male with diabetes admitted with DKA: #Sepsis, secondary to severe emphysematous pyelonephritis with CT evidence of free air surrounding the right kidney and the right retroperitoneum. Etiology is probably urinary tract infection in the setting of severe diabetic ketoacidosis. Per primary team notes, case was discussed with [facility]. #MAXIMO: Renally dose antibiotics. #Diabetes mellitus with DKA Recs: -Blood cultures ordered -Follow-up urine culture -IV Meropenem. Prognosis is guarded. At high risk of need for surgical intervention including possibility of nephrectomy Liv Dobbins MD [facility] O: [phone] F: [phone] Subjective Date of service: 02/28/21 Principal diagnosis: maximo, dka Interval history: Afebrile, urine cultures with Klebsiella. Objective - Exam Narrative Exam: Physical Exam: Constitutional: Alert, cooperative. No acute distress Head, Ears, Nose: Normocephalic, atraumatic. Eyes: Conjunctivae/corneas clear. No icterus. No ptosis. Neck: Supple, no meningeal signs Cardiovascular: S1, S2 normal. Respiratory: Good air entry, clear to auscultation bilaterally GI: Soft, non-tender; bowel sounds normal. No peritoneal signs Musculoskeletal: No pedal edema, no cyanosis. Skin: No rash or abscess Hem/Lymphatic: No palpable cervical or supraclavicular nodes. Psych: Mood ok. Affect normal Neurological: Awake, alert, oriented. No gross abnormality - Constitutional Vitals: Vital Signs Temp Pulse Resp BP Pulse Ox 98 F 64 15 139/80 98 02/28/21 12:00 02/28/21 13:00 02/28/21 12:00 02/28/21 13:00 02/28/21 13:00 Temperature -Last 24 Hours Temperature 98 F Temperature 98.4 F Temperature 98.8 F Temperature 98.2 F Temperature 98.9 F - Labs CBC & Chem 7: 02/27/21 04:18 02/28/21 05:05 Labs: Abnormal lab results 02/27/21 02/27/21 02/27/21 Range/Units 16:39 18:04 21:33 Potassium 3.1 L (3.6-5.0) mmol/L Chloride (98-107) mmol/L Carbon Dioxide 20 L (22-30) mmol/L BUN 50 H (9-20) mg/dL Creatinine 1.4 H (0.8-1.3) mg/dL Glucose 365 H (75-100) mg/dL POC Glucose 340 H 322 H (70-105) mg/dL Calcium 7.9 L (8.4-10.2) mg/dL 02/28/21 02/28/21 02/28/21 Range/Units 05:05 07:25 11:13 Potassium 3.3 L (3.6-5.0) mmol/L Chloride 110.2 H (98-107) mmol/L Carbon Dioxide (22-30) mmol/L BUN 43 H (9-20) mg/dL Creatinine (0.8-1.3) mg/dL Glucose 193 H (75-100) mg/dL POC Glucose 121 H 190 H (70-105) mg/dL Calcium 7.8 L (8.4-10.2) mg/dL
--- NOTE | 2021-02-28 17:47 | Electrocardiograph Report ---
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
--- NOTE | 2021-02-28 18:29 | Progress Note ---
Assessment and Plan Assessment and plan: 60-year-old -[place] male with known history of diabetes mellitus presents to the emergency room today complaining of generalized weakness and elevated blood glucose at home. Patient was diagnosed with diabetes mellitus about 2 weeks ago and states he has been out of his insulin for the past 3 to 4 days. Family had called EMS and patient was subsequently brought to the emergency room. Blood glucose was said to be reading high in route to the hospital. Patient was given IV normal saline in route to the hospital. Work-up in the emergency room reveals that patient is in DKA. He has been started on insulin drip and IV fluid. CT abdomen and pelvis 1. Free air within and surrounding the right kidney and tracking in the right retroperitoneum. Exam is severely limited with lack of intravenous contrast and intra-abdominal fat but the air does not seem to extend into the peritoneum. Findings are highly worrisome for an infectious/inflammatory process such as emphysematous pyelonephritis. A perforation is also possible. DKA- Resolved Emphysematous pyelonephritis possible Acute cystitis Acute metabolic encephalopathy now resolved Acute kidney injury on chronic kidney disease unknown stage BPH DVT and GI prophylaxis Plan Continue supportive care 02/28: Discussed with Urologist, still thinking he may need surgery, WILL GET RENAL NUCLEAR FUNCTION SCAN. Discussed with daughter and patient, CULTURES SHOWING k PNEUMONIA. Agriculture Scientist input noted and appreciated ID consulted for acute cystitis Discussed with urologist this morning per night physician Bryce urologist recommended patient be monitored. We will proceed with repeat CT and urologist recommendation and if consistent symptoms patient will need evaluation by them in a.m. Discussed with family Continue IMCU care. History Interval history: Patient seen and examined this morning in no acute distress resting comfortably. He denies any abdominal pain nausea vomiting or diarrhea. He does have some good urine output at this time. Renal functions show some improvement. He does not know the medications that he takes for his diabetes but knows he takes Flomax. No fever reported overnight Hospitalist Physical - Physical exam Narrative exam: VITAL SIGNS: Reviewed. GENERAL: The patient appears normally developed, Vital signs as documented. HEAD: No signs of head trauma. EYES: Pupils are equal. Extraocular motions intact. EARS: Hearing grossly intact. MOUTH: Oropharynx is normal. NECK: No adenopathy, no JVD. CHEST: Chest with clear breath sounds bilaterally. No wheezes, rales, or rhonchi. CARDIAC: Regular rate and rhythm. S1 and S2, without murmurs, gallops, or rubs. VASCULAR: No Edema. Peripheral pulses normal and equal in all extremities. ABDOMEN: Soft, non tender and non distended. No rebound or guarding, and no masses palpated. Bowel Sounds normal. MUSCULOSKELETAL: Good range of motion of all major joints. Extremities without clubbing, cyanosis or edema. NEUROLOGIC EXAM: Alert and oriented x 3 No focal sensory or strength deficits. Speech normal. Follows commands. PSYCHIATRIC: Mood normal. SKIN: detail exam as documented in skin assessment - Constitutional Vitals: Temp Pulse Resp BP Pulse Ox 98 F 78 15 130/67 100 02/28/21 12:00 02/28/21 17:00 02/28/21 16:00 02/28/21 17:00 02/28/21 17:00 General appearance: Present: no acute distress, well-nourished, other (Dry oral mucosa) HEART Score - HEART Score Troponin: Troponin T < 0.010 ng/mL (0.00-0.029) 02/25/21 22:48 Results - Labs CBC & Chem 7: 02/27/21 04:18 02/28/21 05:05 Labs: Laboratory Last Values WBC 22.4 K/mm3 (4.5-11.0) H 02/27/21 04:18 RBC 3.67 M/mm3 (3.65-5.03) 02/27/21 04:18 Hgb 11.0 gm/dl (11.8-15.2) L 02/27/21 04:18 Hct 32.3 % (35.5-45.6) L 02/27/21 04:18 MCV 88 fl (84-94) 02/27/21 04:18 MCH 30 pg (28-32) 02/27/21 04:18 MCHC 34 % (32-34) 02/27/21 04:18 RDW 14.4 % (13.2-15.2) 02/27/21 04:18 Plt Count 303 K/mm3 (140-440) 02/27/21 04:18 Add Manual Diff Complete 02/25/21 22:48 Total Counted 200 02/25/21 22:48 Seg Neutrophils % [employer] Laboratory Manager 02/25/21 22:48 Seg Neuts % (Manual) 95.0 % (40.0-70.0) H 02/25/21 22:48 Band Neutrophils % 2.5 % 02/25/21 22:48 Monocytes % (Manual) 2.5 % (0.0-7.3) 02/25/21 22:48 Nucleated RBC % Not Reportable 02/25/21 22:48 Seg Neutrophils # Man 22.9 K/mm3 (1.8-7.7) H 02/25/21 22:48 Band Neutrophils # 0.6 K/mm3 02/25/21 22:48 Lymphocytes # (Manual) 0.0 K/mm3 (1.2-5.4) L 02/25/21 22:48 Abs React Lymphs (Man) 0.0 K/mm3 02/25/21 22:48 Monocytes # (Manual) 0.6 K/mm3 (0.0-0.8) 02/25/21 22:48 Eosinophils # (Manual) 0.0 K/mm3 (0.0-0.4) 02/25/21 22:48 Basophils # (Manual) 0.0 K/mm3 (0.0-0.1) 02/25/21 22:48 Metamyelocytes # 0.0 K/mm3 02/25/21 22:48 Myelocytes # 0.0 K/mm3 02/25/21 22:48 Promyelocytes # 0.0 K/mm3 02/25/21 22:48 Blast Cells # 0.0 K/mm3 02/25/21 22:48 WBC Morphology Not Reportable 02/25/21 22:48 Hypersegmented Neuts Not Reportable 02/25/21 22:48 Hyposegmented Neuts Not Reportable 02/25/21 22:48 Hypogranular Neuts Not Reportable 02/25/21 22:48 Smudge Cells Not Reportable 02/25/21 22:48 Toxic Granulation Not Reportable 02/25/21 22:48 Toxic Vacuolation Not Reportable 02/25/21 22:48 Dohle Bodies Not Reportable 02/25/21 22:48 Pelger-Huet Anomaly Not Reportable 02/25/21 22:48 Nayeli Rods Not Reportable 02/25/21 22:48 Platelet Estimate Consistent w auto 02/25/21 22:48 Clumped Platelets Not Reportable 02/25/21 22:48 Plt Clumps, EDTA Not Reportable 02/25/21 22:48 Large Platelets Not Reportable 02/25/21 22:48 Giant Platelets Not Reportable 02/25/21 22:48 Platelet Satelliting Not Reportable 02/25/21 22:48 Plt Morphology Comment Not Reportable 02/25/21 22:48 RBC Morphology Not Reportable 02/25/21 22:48 Dimorphic RBCs Not Reportable 02/25/21 22:48 Polychromasia Not Reportable 02/25/21 22:48 Hypochromasia Not Reportable 02/25/21 22:48 Poikilocytosis Not Reportable 02/25/21 22:48 Anisocytosis 1+ 02/25/21 22:48 Microcytosis Not Reportable 02/25/21 22:48 Macrocytosis Not Reportable 02/25/21 22:48 Spherocytes Not Reportable 02/25/21 22:48 Pappenheimer Bodies Not Reportable 02/25/21 22:48 Sickle Cells Not Reportable 02/25/21 22:48 Target Cells Not Reportable 02/25/21 22:48 Tear Drop Cells Not Reportable 02/25/21 22:48 Ovalocytes Not Reportable 02/25/21 22:48 Helmet Cells Not Reportable 02/25/21 22:48 [place] Bodies Not Reportable 02/25/21 22:48 [place] Rings Not Reportable 02/25/21 22:48 [place] Cells Not Reportable 02/25/21 22:48 Bite Cells Not Reportable 02/25/21 22:48 Crenated Cell Not Reportable 02/25/21 22:48 Elliptocytes Not Reportable 02/25/21 22:48 Acanthocytes (Spur) Not Reportable 02/25/21 22:48 Rouleaux Not Reportable 02/25/21 22:48 Hemoglobin C Crystals Not Reportable 02/25/21 22:48 Schistocytes Not Reportable 02/25/21 22:48 Malaria parasites Not Reportable 02/25/21 22:48 [place] Bodies Not Reportable 02/25/21 22:48 Hem Pathologist Commnt No 02/25/21 22:48 PT 14.1 Sec. (12.2-14.9) 02/25/21 22:48 INR 1.04 (0.87-1.13) 02/25/21 22:48 VBG pH 7.316 (7.320-7.420) L 02/25/21 22:48 Sodium 142 mmol/L (137-145) 02/28/21 05:05 Potassium 3.3 mmol/L (3.6-5.0) L 02/28/21 05:05 Chloride 110.2 mmol/L (98-107) H 02/28/21 05:05 Carbon Dioxide 22 mmol/L (22-30) 02/28/21 05:05 Anion Gap 13 mmol/L 02/28/21 05:05 BUN 43 mg/dL (9-20) H 02/28/21 05:05 Creatinine 1.3 mg/dL (0.8-1.3) 02/28/21 05:05 Estimated GFR > 60 ml/min 02/28/21 05:05 BUN/Creatinine Ratio 33 % 02/28/21 05:05 Glucose 193 mg/dL (75-100) H 02/28/21 05:05 POC Glucose 180 mg/dL (70-105) H 02/28/21 16:30 Hemoglobin A1c 14.2 % (4-6) H 02/26/21 02:40 Calcium 7.8 mg/dL (8.4-10.2) L 02/28/21 05:05 Phosphorus 2.50 mg/dL (2.5-4.5) D 02/26/21 02:40 Magnesium 2.00 mg/dL (1.7-2.3) 02/27/21 04:18 Total Bilirubin 0.40 mg/dL (0.1-1.2) 02/25/21 22:48 AST 21 units/L (5-40) 02/25/21 22:48 ALT 34 units/L (7-56) 02/25/21 22:48 Alkaline Phosphatase 201 units/L (35-129) H 02/25/21 22:48 Total Creatine Kinase 37 units/L (55-170) L 02/25/21 22:48 Troponin T < 0.010 ng/mL (0.00-0.029) 02/25/21 22:48 Total Protein 6.8 g/dL (6.3-8.2) 02/25/21 22:48 Albumin 2.9 g/dL (3.9-5) L 02/25/21 22:48 Albumin/Globulin Ratio 0.7 % 02/25/21 22:48 Urine Color Yellow (Yellow) 02/26/21 18:00 Urine Turbidity Turbid (Clear) 02/26/21 18:00 Urine pH 6.0 (5.0-7.0) 02/26/21 18:00 Ur Specific [place] 1.013 (1.003-1.030) 02/26/21 18:00 Urine Protein 100 mg/dl mg/dL (Negative) 02/26/21 18:00 Urine Glucose (UA) >=500 mg/dL (Negative) 02/26/21 18:00 Urine Ketones Tr mg/dL (Negative) 02/26/21 18:00 Urine Blood Lg (Negative) 02/26/21 18:00 Urine Nitrite Neg (Negative) 02/26/21 18:00 Urine Bilirubin Neg (Negative) 02/26/21 18:00 Urine Urobilinogen < 2.0 mg/dL (<2.0) 02/26/21 18:00 Ur Leukocyte Esterase Lg (Negative) 02/26/21 18:00 Urine WBC (Auto) > 182.0 /HPF (0.0-6.0) H 02/26/21 18:00 Urine RBC (Auto) 41.0 /HPF (0.0-6.0) 02/26/21 18:00 U Epithel Cells (Auto) 1.0 /HPF (0-13.0) 02/26/21 12:00 Urine Bacteria (Auto) 2+ /HPF (Negative) 02/26/21 12:00 Urine WBC Clumps 3+ /HPF 02/26/21 18:00 Urine Mucus Few /HPF 02/26/21 18:00 Urine Yeast (Budding) 3+ /HPF 02/26/21 18:00 Urine Creatinine 26.8 mg/dL (0.1-20.0) H 02/26/21 12:00 Protein/Creatinin Ratio 1.75 02/26/21 12:00 Urine Sodium 29 mmol/L 02/26/21 12:00 Urine Total Protein 47 mg/dL (5-11.8) H 02/26/21 12:00 Microbiology: Microbiology 02/27/21 13:36 Peripheral/Venous Blood Culture - Preliminary NO GROWTH AFTER 24 HOURS 02/27/21 13:26 Peripheral/Venous Blood Culture - Preliminary NO GROWTH AFTER 24 HOURS 02/26/21 18:00 Urine,Clean Catch Urine Culture - Preliminary Klebsiella Pneumoniae Hernandez/IV: Voiding Method Indwelling Catheter Active Medications - Current Medications Current Medications: Generic Name Dose Route Start Last Admin Trade Name Freq PRN Reason Stop Dose Admin Acetaminophen 650 mg 02/26/21 00:36 Acetaminophen 325 Mg Tab PO Q6H PRN Pain MILD(1-3)/Fever >100.5/MATHUR Dextrose 50 ml 02/25/21 23:47 02/27/21 07:03 Dextrose 50% In Water (25gm) 50 Ml Syringe IV 50 ml Q30MIN PRN Administration Hypoglycemia Protocol Heparin Sodium (Porcine) 5,000 unit 02/26/21 06:00 02/28/21 13:58 Heparin 5,000 Unit/1 Ml Vial SUB-Q 5,000 unit Q8HR ROSELIA Administration MEROPENEM/NS 1 GRAM/100 ML 1 gram in 100 mls @ 100 mls/hr 02/27/21 13:30 02/28/21 13:58 Merrem/Ns 1 Gram/100 Ml IV 100 mls/hr Q12H ROSELIA Administration Protocol Insulin Glargine 20 units 02/27/21 22:00 02/27/21 22:58 Insulin Glargine 100 Units/Ml SUB-Q 20 units QHS ROSELIA Administration Insulin Human Lispro 0 unit 02/27/21 11:30 02/28/21 16:49 Insulin Lispro 100 Unit/Ml SUB-Q 2 unit ACHS ROSELIA Administration Protocol Morphine Sulfate 2 mg 02/26/21 00:36 Morphine 2 Mg/1 Ml Inj IV Q4H PRN Pain, Moderate (4-6) Morphine Sulfate 4 mg 02/26/21 00:36 Morphine 4 Mg/1 Ml Inj IV Q4H PRN Pain , Severe (7-10) Sodium Bicarbonate 1,300 mg 02/26/21 11:00 02/28/21 09:40 Sodium Bicarbonate 650 Mg Tab PO 1,300 mg BID ROSELIA Administration Sodium Chloride 10 ml 02/26/21 10:00 02/28/21 09:42 Sodium Chloride 0.9% 10 Ml Flush Syringe IV 10 ml BID ROSELIA Administration Sodium Chloride 10 ml 02/26/21 00:36 Sodium Chloride 0.9% 10 Ml Flush Syringe IV PRN PRN LINE FLUSH Tamsulosin HCl 0.8 mg 02/26/21 16:00 02/28/21 09:42 Tamsulosin 0.4 Mg Cap PO 0.8 mg QDAY ROSELIA Administration Nutrition/Malnutrition Assess - Dietary Evaluation Nutrition/Malnutrition Findings: Nutrition Notes Start: 02/26/21 13:01 Freq: Status: Active Protocol: Document 02/28/21 11:27 MK (Rec: 02/28/21 11:40 MK [id number]) Nutrition Notes Need for Assessment generated from: Low BMI Initial or Follow up Assessment Current Diagnosis CKD(stage I-IV),Diabetes Other Pertinent Diagnosis DKA Current Diet Consistent CHO Labs/Tests K 3.3 BUN 43 BG 193 Pertinent Medications Reviewed Height 5 ft 10 in Weight 51.075 kg Usual Body Weight 56.81 kg [place] Body Weight (kg) 75.45 BMI 16.1 Weight change and time frame 10% wt loss in unknown time frame. Pt states he lost weight some time ago but has gained wt recently. Wt today does not reflect that, will follow for error. Weight Status Underweight Subjective/Other Information Pt not eating well due to food prefrences. Pt open to ONS when he doesn't like the food. Burn Absent Trauma Absent Current % PO Poor (25-49%) #2 Nutrition Diagnosis Inadequate oral intake Etiology food prefrences As Evidenced by Signs and Symptoms pt eating <50% of meals #1 Nutrition Diagnosis Food and nutrition-related knowledge deficit As Evidenced by Signs and Symptoms pt wants to talk about DM edu next visit Diagnosis Progress(for reassessment Continues documentation) Is patient on ventilator? No Is Patient Ambulatory and/or Out of Bed No REE-([facility]-confined to bed) 0257.536 Calculation Used for Recommendations [facility] Additional Notes Protein: (0.8-0.9g/kg) 41-46g Fluid: 1 ml/kcal or per MD Nutrition Intervention Change Diet Order: Continue with food prefrences Add Supplement/Snack (indicate name/kcal Glucerna BID /protein ) Provides kCal: 440 Provides Protein (gm) 20 Goal #1 Understand importance of following a consistent carbohydrate diet Goal #2 Meet at least 75% of protein and energy needs via PO and ONS intakes Anticipated Discharge Needs: consistent carbohydrate diet Follow-Up By: 03/02/21 Additional Comments FU for intakes and diet education understanding
[2021-02-28 19:17] LABS: INR 0.99 (0.87-1.13); Partial Thromboplastin Time 27.9 Sec. (24.2-36.6)
[2021-02-28] MEDS: INSULIN GLARGINE 100 UNITS/ML SUB-Q SCH (21:32)
[2021-03-01] MEDS: MEROPENEM/NS 1 GRAM/100 ML 1 GRAM/100 ML BAG IV SCH ×2 (02:18→14:14)
[2021-03-01] MEDS: HEPARIN 5,000 UNIT/1 ML VIAL SUB-Q SCH ×3 (06:28→21:44)
--- NOTE | 2021-03-01 09:52 | Progress Note ---
Assessment and Plan Assessment and plan: 60-year-old -[place] male with known history of diabetes mellitus presents to the emergency room today complaining of generalized weakness and elevated blood glucose at home. Patient was diagnosed with diabetes mellitus about 2 weeks ago and states he has been out of his insulin for the past 3 to 4 days. Family had called EMS and patient was subsequently brought to the emergency room. Blood glucose was said to be reading high in route to the hospital. Patient was given IV normal saline in route to the hospital. Work-up in the emergency room reveals that patient is in DKA. He has been started on insulin drip and IV fluid. CT abdomen and pelvis 1. Free air within and surrounding the right kidney and tracking in the right retroperitoneum. Exam is severely limited with lack of intravenous contrast and intra-abdominal fat but the air does not seem to extend into the peritoneum. Findings are highly worrisome for an infectious/inflammatory process such as emphysematous pyelonephritis. A perforation is also possible. DKA- Resolved Emphysematous pyelonephritis possible Acute cystitis Acute metabolic encephalopathy now resolved Acute kidney injury on chronic kidney disease unknown stage BPH DVT and GI prophylaxis Plan Continue supportive care 02/28: Discussed with Urologist, still thinking he may need surgery, WILL GET RENAL NUCLEAR FUNCTION SCAN. Discussed with daughter and patient, CULTURES SHOWING k PNEUMONIA. Artificial Candy Maker input noted and appreciated ID consulted for acute cystitis Discussed with urologist this morning per night physician Bryce urologist recommended patient be monitored. We will proceed with repeat CT and urologist recommendation and if consistent symptoms patient will need evaluation by them in a.m. Discussed with family Continue IMCU care. ; patient is on IV meropenem per ID recommendation. Wound culture grew Klebsiella pneumoniae. Renal function is improving. Patient need evaluation by urologist. Patient is going to have ultrasound this morning. We will continue to monitor. Urology saw the patient and said waiting for the renal scan to be done. Still considering right nephrectomy. Patient said he does not want nephrectomy. History Interval history: Patient was seen and evaluated this morning No nursing issues overnight No pain or fever overnight Hospitalist Physical - Physical exam Narrative exam: Not in cardiopulmonary distress. The patient appeared well nourished and normally developed. Vital signs as documented. Head exam is unremarkable. No scleral icterus . Neck is without jugular venous distension, thyromegaly, or carotid bruits. Lungs are clear to auscultation. Cardiac exam reveals regular rate and Rhythm. Abdominal exam reveals normal bowel sounds, nontender, no organomegaly. Extremities are nonedematous and both femoral and pedal pulses are normal. IMMIGRATION SERVICES OFFICER: Alert and oriented 3. No focal weakness. - Constitutional Vitals: Temp Pulse Resp BP Pulse Ox 97.4 F L 53 L 21 132/72 99 03/01/21 04:00 03/01/21 08:00 03/01/21 08:00 03/01/21 08:00 03/01/21 08:00 General appearance: Present: no acute distress, well-nourished, other (Dry oral mucosa) HEART Score - HEART Score Troponin: Troponin T < 0.010 ng/mL (0.00-0.029) 02/25/21 22:48 Results - Labs CBC & Chem 7: 03/01/21 10:59 03/01/21 09:34 Labs: Laboratory Last Values WBC 22.4 K/mm3 (4.5-11.0) H 02/27/21 04:18 RBC 3.67 M/mm3 (3.65-5.03) 02/27/21 04:18 Hgb 11.0 gm/dl (11.8-15.2) L 02/27/21 04:18 Hct 32.3 % (35.5-45.6) L 02/27/21 04:18 MCV 88 fl (84-94) 02/27/21 04:18 MCH 30 pg (28-32) 02/27/21 04:18 MCHC 34 % (32-34) 02/27/21 04:18 RDW 14.4 % (13.2-15.2) 02/27/21 04:18 Plt Count 303 K/mm3 (140-440) 02/27/21 04:18 Add Manual Diff Complete 02/25/21 22:48 Total Counted 200 02/25/21 22:48 Seg Neutrophils % Outsewer 02/25/21 22:48 Seg Neuts % (Manual) 95.0 % (40.0-70.0) H 02/25/21 22:48 Band Neutrophils % 2.5 % 02/25/21 22:48 Monocytes % (Manual) 2.5 % (0.0-7.3) 02/25/21 22:48 Nucleated RBC % Not Reportable 02/25/21 22:48 Seg Neutrophils # Man 22.9 K/mm3 (1.8-7.7) H 02/25/21 22:48 Band Neutrophils # 0.6 K/mm3 02/25/21 22:48 Lymphocytes # (Manual) 0.0 K/mm3 (1.2-5.4) L 02/25/21 22:48 Abs React Lymphs (Man) 0.0 K/mm3 02/25/21 22:48 Monocytes # (Manual) 0.6 K/mm3 (0.0-0.8) 02/25/21 22:48 Eosinophils # (Manual) 0.0 K/mm3 (0.0-0.4) 02/25/21 22:48 Basophils # (Manual) 0.0 K/mm3 (0.0-0.1) 02/25/21 22:48 Metamyelocytes # 0.0 K/mm3 02/25/21 22:48 Myelocytes # 0.0 K/mm3 02/25/21 22:48 Promyelocytes # 0.0 K/mm3 02/25/21 22:48 Blast Cells # 0.0 K/mm3 02/25/21 22:48 WBC Morphology Not Reportable 02/25/21 22:48 Hypersegmented Neuts Not Reportable 02/25/21 22:48 Hyposegmented Neuts Not Reportable 02/25/21 22:48 Hypogranular Neuts Not Reportable 02/25/21 22:48 Smudge Cells Not Reportable 02/25/21 22:48 Toxic Granulation Not Reportable 02/25/21 22:48 Toxic Vacuolation Not Reportable 02/25/21 22:48 Dohle Bodies Not Reportable 02/25/21 22:48 Pelger-Huet Anomaly Not Reportable 02/25/21 22:48 Nayeli Rods Not Reportable 02/25/21 22:48 Platelet Estimate Consistent w auto 02/25/21 22:48 Clumped Platelets Not Reportable 02/25/21 22:48 Plt Clumps, EDTA Not Reportable 02/25/21 22:48 Large Platelets Not Reportable 02/25/21 22:48 Giant Platelets Not Reportable 02/25/21 22:48 Platelet Satelliting Not Reportable 02/25/21 22:48 Plt Morphology Comment Not Reportable 02/25/21 22:48 RBC Morphology Not Reportable 02/25/21 22:48 Dimorphic RBCs Not Reportable 02/25/21 22:48 Polychromasia Not Reportable 02/25/21 22:48 Hypochromasia Not Reportable 02/25/21 22:48 Poikilocytosis Not Reportable 02/25/21 22:48 Anisocytosis 1+ 02/25/21 22:48 Microcytosis Not Reportable 02/25/21 22:48 Macrocytosis Not Reportable 02/25/21 22:48 Spherocytes Not Reportable 02/25/21 22:48 Pappenheimer Bodies Not Reportable 02/25/21 22:48 Sickle Cells Not Reportable 02/25/21 22:48 Target Cells Not Reportable 02/25/21 22:48 Tear Drop Cells Not Reportable 02/25/21 22:48 Ovalocytes Not Reportable 02/25/21 22:48 Helmet Cells Not Reportable 02/25/21 22:48 [place] Bodies Not Reportable 02/25/21 22:48 Magnet Rings Not Reportable 02/25/21 22:48 Dank Cells Not Reportable 02/25/21 22:48 Bite Cells Not Reportable 02/25/21 22:48 Crenated Cell Not Reportable 02/25/21 22:48 Elliptocytes Not Reportable 02/25/21 22:48 Acanthocytes (Spur) Not Reportable 02/25/21 22:48 Rouleaux Not Reportable 02/25/21 22:48 Hemoglobin C Crystals Not Reportable 02/25/21 22:48 Schistocytes Not Reportable 02/25/21 22:48 Malaria parasites Not Reportable 02/25/21 22:48 [place] Bodies Not Reportable 02/25/21 22:48 Hem Pathologist Commnt No 02/25/21 22:48 PT 13.6 Sec. (12.2-14.9) 02/28/21 18:48 INR 0.99 (0.87-1.13) 02/28/21 18:48 APTT 27.9 Sec. (24.2-36.6) 02/28/21 18:48 VBG pH 7.316 (7.320-7.420) L 02/25/21 22:48 Sodium 142 mmol/L (137-145) 02/28/21 05:05 Potassium 3.3 mmol/L (3.6-5.0) L 02/28/21 05:05 Chloride 110.2 mmol/L (98-107) H 02/28/21 05:05 Carbon Dioxide 22 mmol/L (22-30) 02/28/21 05:05 Anion Gap 13 mmol/L 02/28/21 05:05 BUN 43 mg/dL (9-20) H 02/28/21 05:05 Creatinine 1.3 mg/dL (0.8-1.3) 02/28/21 05:05 Estimated GFR > 60 ml/min 02/28/21 05:05 BUN/Creatinine Ratio 33 % 02/28/21 05:05 Glucose 193 mg/dL (75-100) H 02/28/21 05:05 POC Glucose 58 mg/dL (70-105) L 03/01/21 08:05 Hemoglobin A1c 14.2 % (4-6) H 02/26/21 02:40 Calcium 7.8 mg/dL (8.4-10.2) L 02/28/21 05:05 Phosphorus 2.50 mg/dL (2.5-4.5) D 02/26/21 02:40 Magnesium 2.00 mg/dL (1.7-2.3) 02/27/21 04:18 Total Bilirubin 0.40 mg/dL (0.1-1.2) 02/25/21 22:48 AST 21 units/L (5-40) 02/25/21 22:48 ALT 34 units/L (7-56) 02/25/21 22:48 Alkaline Phosphatase 201 units/L (35-129) H 02/25/21 22:48 Total Creatine Kinase 37 units/L (55-170) L 02/25/21 22:48 Troponin T < 0.010 ng/mL (0.00-0.029) 02/25/21 22:48 Total Protein 6.8 g/dL (6.3-8.2) 02/25/21 22:48 Albumin 2.9 g/dL (3.9-5) L 02/25/21 22:48 Albumin/Globulin Ratio 0.7 % 02/25/21 22:48 Urine Color Yellow (Yellow) 02/26/21 18:00 Urine Turbidity Turbid (Clear) 02/26/21 18:00 Urine pH 6.0 (5.0-7.0) 02/26/21 18:00 Ur Specific [place] 1.013 (1.003-1.030) 02/26/21 18:00 Urine Protein 100 mg/dl mg/dL (Negative) 02/26/21 18:00 Urine Glucose (UA) >=500 mg/dL (Negative) 02/26/21 18:00 Urine Ketones Tr mg/dL (Negative) 02/26/21 18:00 Urine Blood Lg (Negative) 02/26/21 18:00 Urine Nitrite Neg (Negative) 02/26/21 18:00 Urine Bilirubin Neg (Negative) 02/26/21 18:00 Urine Urobilinogen < 2.0 mg/dL (<2.0) 02/26/21 18:00 Ur Leukocyte Esterase Lg (Negative) 02/26/21 18:00 Urine WBC (Auto) > 182.0 /HPF (0.0-6.0) H 02/26/21 18:00 Urine RBC (Auto) 41.0 /HPF (0.0-6.0) 02/26/21 18:00 U Epithel Cells (Auto) 1.0 /HPF (0-13.0) 02/26/21 12:00 Urine Bacteria (Auto) 2+ /HPF (Negative) 02/26/21 12:00 Urine WBC Clumps 3+ /HPF 02/26/21 18:00 Urine Mucus Few /HPF 02/26/21 18:00 Urine Yeast (Budding) 3+ /HPF 02/26/21 18:00 Urine Creatinine 26.8 mg/dL (0.1-20.0) H 02/26/21 12:00 Protein/Creatinin Ratio 1.75 02/26/21 12:00 Urine Sodium 29 mmol/L 02/26/21 12:00 Urine Total Protein 47 mg/dL (5-11.8) H 02/26/21 12:00 Microbiology: Microbiology 02/27/21 13:36 Peripheral/Venous Blood Culture - Preliminary NO GROWTH AFTER 24 HOURS 02/27/21 13:26 Peripheral/Venous Blood Culture - Preliminary NO GROWTH AFTER 24 HOURS Hernandez/IV: Voiding Method Indwelling Catheter Active Medications - Current Medications Current Medications: Generic Name Dose Route Start Last Admin Trade Name Freq PRN Reason Stop Dose Admin Acetaminophen 650 mg 02/26/21 00:36 Acetaminophen 325 Mg Tab PO Q6H PRN Pain MILD(1-3)/Fever >100.5/MATHUR Dextrose 50 ml 02/25/21 23:47 02/27/21 07:03 Dextrose 50% In Water (25gm) 50 Ml Syringe IV 50 ml Q30MIN PRN Administration Hypoglycemia Protocol Heparin Sodium (Porcine) 5,000 unit 02/26/21 06:00 03/01/21 06:28 Heparin 5,000 Unit/1 Ml Vial SUB-Q 5,000 unit Q8HR ROSELIA Administration MEROPENEM/NS 1 GRAM/100 ML 1 gram in 100 mls @ 100 mls/hr 02/27/21 13:30 03/01/21 02:18 Merrem/Ns 1 Gram/100 Ml IV 100 mls/hr Q12H ROSELIA Administration Protocol Insulin Glargine 20 units 02/27/21 22:00 02/28/21 21:32 Insulin Glargine 100 Units/Ml SUB-Q 20 units QHS ROSELIA Administration Insulin Human Lispro 0 unit 02/27/21 11:30 02/28/21 22:48 Insulin Lispro 100 Unit/Ml SUB-Q 6 unit ACHS ROSELIA Administration Protocol Morphine Sulfate 2 mg 02/26/21 00:36 Morphine 2 Mg/1 Ml Inj IV Q4H PRN Pain, Moderate (4-6) Morphine Sulfate 4 mg 02/26/21 00:36 Morphine 4 Mg/1 Ml Inj IV Q4H PRN Pain , Severe (7-10) Sodium Bicarbonate 1,300 mg 02/26/21 11:00 02/28/21 21:33 Sodium Bicarbonate 650 Mg Tab PO 1,300 mg BID ROSELIA Administration Sodium Chloride 10 ml 02/26/21 10:00 02/28/21 21:33 Sodium Chloride 0.9% 10 Ml Flush Syringe IV 10 ml BID ROSELIA Administration Sodium Chloride 10 ml 02/26/21 00:36 Sodium Chloride 0.9% 10 Ml Flush Syringe IV PRN PRN LINE FLUSH Tamsulosin HCl 0.8 mg 02/26/21 16:00 02/28/21 09:42 Tamsulosin 0.4 Mg Cap PO 0.8 mg QDAY ROSELIA Administration Nutrition/Malnutrition Assess - Dietary Evaluation Nutrition/Malnutrition Findings: Nutrition Notes Start: 02/26/21 13:01 Freq: Status: Active Protocol: Document 02/28/21 11:27 (Rec: 02/28/21 11:40 [email or web address]) Nutrition Notes Need for Assessment generated from: Low BMI Initial or Follow up Assessment Current Diagnosis CKD(stage I-IV),Diabetes Other Pertinent Diagnosis DKA Current Diet Consistent CHO Labs/Tests K 3.3 BUN 43 BG 193 Pertinent Medications Reviewed Height 5 ft 10 in Weight 51.075 kg Usual Body Weight 56.81 kg [place] Body Weight (kg) 75.45 BMI 16.1 Weight change and time frame 10% wt loss in unknown time frame. Pt states he lost weight some time ago but has gained wt recently. Wt today does not reflect that, will follow for error. Weight Status Underweight Subjective/Other Information Pt not eating well due to food prefrences. Pt open to ONS when he doesn't like the food. Burn Absent Trauma Absent Current % PO Poor (25-49%) #2 Nutrition Diagnosis Inadequate oral intake Etiology food prefrences As Evidenced by Signs and Symptoms pt eating <50% of meals #1 Nutrition Diagnosis Food and nutrition-related knowledge deficit As Evidenced by Signs and Symptoms pt wants to talk about DM edu next visit Diagnosis Progress(for reassessment Continues documentation) Is patient on ventilator? No Is Patient Ambulatory and/or Out of Bed No REE-([facility]-confined to bed) [phone] Calculation Used for Recommendations [facility] Additional Notes Protein: (0.8-0.9g/kg) 41-46g Fluid: 1 ml/kcal or per MD Nutrition Intervention Change Diet Order: Continue with food prefrences Add Supplement/Snack (indicate name/kcal Glucerna BID /protein ) Provides kCal: 440 Provides Protein (gm) 20 Goal #1 Understand importance of following a consistent carbohydrate diet Goal #2 Meet at least 75% of protein and energy needs via PO and ONS intakes Anticipated Discharge Needs: consistent carbohydrate diet Follow-Up By: 03/02/21 Additional Comments FU for intakes and diet education understanding
[2021-03-01] MEDS: SODIUM BICARBONATE 650 MG TAB PO SCH (10:11)
[2021-03-01] MEDS: TAMSULOSIN 0.4 MG CAP PO SCH (10:12)
--- NOTE | 2021-03-01 10:32 | Progress Note ---
Assessment and Plan 60-year-old -Mexican male with known history of diabetes mellitus presents to the emergency room today complaining of generalized weakness and elevated blood glucose at home. Patient was diagnosed with diabetes mellitus about 2 weeks ago and states he has been out of his insulin for the past 3 to 4 days. Family had called EMS and patient was subsequently brought to the emergency room. Blood glucose was said to be reading high in route to the hospital. Patient was given IV normal saline in route to the hospital. Work-up in the emergency room reveals that patient is in DKA. He has been started on insulin drip and IV fluid. Patient has history of smoking 1 pack/40 years. 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 No children. No known drug allergies. Patients Anion gap improving. 02/28/21 Anion gap 13. Blood sugur 193. To days blood sugur because patient kept NPO for the procedure. Patient fed now. Blood sugur came up to 104. Patient alert, awake. Resting on room air. O2 saturation 100%. No complaint of chest pain, shortness of breath or cough. Patient afebrile. Has leukocytosis. Chest xray 02/25/21 reported no acute findings. Patient is on Meropenum, S/C Heparine, S/C Insulin. Patient was seen in I[facility]U. I spent critical care time of 33 minutes Reviewing the chart, Examibne the patient, review labs, talking to the nursing staff and primary care physician and work out plan of treatment in this critically ill patient. - Patient Problems (1) Diabetic ketoacidosis Current Visit: Yes Status: Acute Qualifiers: Diabetes mellitus type: type 2 Diabetes mellitus complication detail: wit hout coma Qualified Code(s): E11.10 - Type 2 diabetes mellitus with ketoa cidosis without coma Plan to address problem: Patient improving. Anion gap improving, 13, Blood sugur to day 104. Management as per primary care. (2) Metabolic acidosis Current Visit: Yes Status: Acute Plan to address problem: Improving. BICRB 22. ABGs on room air still pending. (3) Renal failure Current Visit: Yes Status: Acute Qualifiers: Renal failure chronicity: acute Acute renal failure type: unspecified Qualified Code(s): N17.9 - Acute kidney failure, unspecified Plan to address problem: Management as per nephrology. Subjective Date of service: 03/01/21 Principal diagnosis: sandra, dka Interval history: 60-year-old -Mexican male with known history of diabetes mellitus presents to the emergency room today complaining of generalized weakness and elevated blood glucose at home. Patient was diagnosed with diabetes mellitus about 2 weeks ago and states he has been out of his insulin for the past 3 to 4 days. Family had called EMS and patient was subsequently brought [facility]. Blood glucose was said to be reading high in route to the hospital. Patient was given IV normal saline in route to the hospital. Work-up in the emergency room reveals that patient is in DKA. He has been started on insulin drip and IV fluid. Patient has history of smoking 1 pack/40 years. 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 No children. No known drug allergies. Patients Anion gap improving. 02/28/21 Anion gap 13. Blood sugur 193. To days blood sugur because patient kept NPO for the procedure. Patient fed now. Blood sugur came up to 104. Patient alert, awake. Resting on room air. O2 saturation 100%. No complaint of chest pain, shortness of breath or cough. Patient afebrile. Has leukocytosis. Chest xray 02/25/21 reported no acute findings. Patient is on Meropenum, S/C Heparine, S/C Insulin. Objective Vital Signs - 12hr 02/28/21 03/01/21 03/01/21 23:00 00:00 01:00 Temperature 97.7 F Pulse Rate 64 69 71 Pulse Rate [ 68 From Monitor] Respiratory 16 27 H 17 Rate Blood Pressure 125/79 126/78 120/74 O2 Sat by Pulse 99 100 99 Oximetry 03/01/21 03/01/21 03/01/21 02:00 03:00 04:00 Temperature 97.4 F L Pulse Rate 69 66 64 Pulse Rate [ 56 L From Monitor] Respiratory 21 15 14 Rate Blood Pressure 123/67 114/69 131/79 O2 Sat by Pulse 99 100 100 Oximetry 03/01/21 03/01/21 03/01/21 05:00 06:00 07:00 Temperature Pulse Rate 53 L 60 58 L Pulse Rate [ From Monitor] Respiratory 14 16 20 Rate Blood Pressure 120/75 113/76 131/73 O2 Sat by Pulse 100 100 Oximetry 03/01/21 08:00 Temperature 98.7 F Pulse Rate 53 L Pulse Rate [ From Monitor] Respiratory 21 Rate Blood Pressure 132/72 O2 Sat by Pulse 99 Oximetry Constitutional: no acute distress, alert Eyes: non-icteric ENT: oropharynx dry Neck: supple, no lymphadenopathy, no JVD Effort: normal Ascultation: Bilateral: diminished breath sounds Cardiovascular: regular rate and rhythm, other (S1,S2) Gastrointestinal: normoactive bowel sounds, soft, non-tender Integumentary: other (loss of skin tugor) Extremities: no edema Neurologic: normal mental status, non-focal exam, pupils equal and round, CN II- XII normal Psychiatric: mood appropriate, affect normal CBC and BMP: 02/27/21 04:18 02/28/21 05:05 ABG, PT/INR, D-dimer: PT/INR, D-dimer PT 13.6 Sec. (12.2-14.9) 02/28/21 18:48 INR 0.99 (0.87-1.13) 02/28/21 18:48 Abnormal lab findings: Abnormal Labs 02/25/21 02/25/21 02/25/21 22:31 22:48 22:48 WBC 24.1 H Hgb 11.5 L Hct Seg Neuts % (Manual) 95.0 H Seg Neutrophils # Man 22.9 H Lymphocytes # (Manual) 0.0 L VBG pH Sodium 126 L Potassium Chloride 88.8 L Carbon Dioxide 18 L BUN 75 H Creatinine 2.1 H Glucose 938 H* POC Glucose > 600 H Hemoglobin A1c Calcium Magnesium Alkaline Phosphatase 201 H Total Creatine Kinase 37 L Albumin 2.9 L Urine WBC (Auto) Urine Creatinine Urine Total Protein 02/25/21 02/25/21 02/26/21 22:48 23:52 01:21 WBC Hgb Hct Seg Neuts % (Manual) Seg Neutrophils # Man Lymphocytes # (Manual) VBG pH 7.316 L Sodium Potassium Chloride Carbon Dioxide BUN Creatinine Glucose POC Glucose > 600 H Hemoglobin A1c Calcium Magnesium 2.80 H Alkaline Phosphatase Total Creatine Kinase Albumin Urine WBC (Auto) Urine Creatinine Urine Total Protein 02/26/21 02/26/21 02/26/21 02:09 02:40 02:40 WBC Hgb Hct Seg Neuts % (Manual) Seg Neutrophils # Man Lymphocytes # (Manual) VBG pH Sodium 131 L Potassium Chloride 96.1 L Carbon Dioxide 17 L BUN 74 H Creatinine 2.1 H Glucose 719 H* POC Glucose > 600 H Hemoglobin A1c 14.2 H Calcium Magnesium Alkaline Phosphatase Total Creatine Kinase Albumin Urine WBC (Auto) Urine Creatinine Urine Total Protein 02/26/21 02/26/21 02/26/21 02:40 03:58 04:03 WBC Hgb Hct Seg Neuts % (Manual) Seg Neutrophils # Man Lymphocytes # (Manual) VBG pH Sodium Potassium Chloride Carbon Dioxide 18 L BUN 71 H Creatinine 2.0 H Glucose 550 H* POC Glucose 544 H Hemoglobin A1c Calcium Magnesium 2.70 H Alkaline Phosphatase Total Creatine Kinase Albumin Urine WBC (Auto) Urine Creatinine Urine Total Protein 02/26/21 02/26/21 02/26/21 05:01 05:58 07:09 WBC Hgb Hct Seg Neuts % (Manual) Seg Neutrophils # Man Lymphocytes # (Manual) VBG pH Sodium Potassium Chloride Carbon Dioxide BUN Creatinine Glucose POC Glucose 439 H 399 H 217 H Hemoglobin A1c Calcium Magnesium Alkaline Phosphatase Total Creatine Kinase Albumin Urine WBC (Auto) Urine Creatinine Urine Total Protein 02/26/21 02/26/21 02/26/21 08:09 08:12 09:08 WBC Hgb Hct Seg Neuts % (Manual) Seg Neutrophils # Man Lymphocytes # (Manual) VBG pH Sodium Potassium Chloride Carbon Dioxide 16 L BUN 72 H Creatinine 1.9 H Glucose 119 H POC Glucose 138 H 136 H Hemoglobin A1c Calcium Magnesium Alkaline Phosphatase Total Creatine Kinase Albumin Urine WBC (Auto) Urine Creatinine Urine Total Protein 02/26/21 02/26/21 02/26/21 12:00 12:00 12:04 WBC Hgb Hct Seg Neuts % (Manual) Seg Neutrophils # Man Lymphocytes # (Manual) VBG pH Sodium Potassium Chloride Carbon Dioxide BUN Creatinine Glucose POC Glucose 136 H Hemoglobin A1c Calcium Magnesium Alkaline Phosphatase Total Creatine Kinase Albumin Urine WBC (Auto) > 182.0 H Urine Creatinine 26.8 H Urine Total Protein 47 H 02/26/21 02/26/21 02/26/21 13:26 14:50 15:14 WBC Hgb Hct Seg Neuts % (Manual) Seg Neutrophils # Man Lymphocytes # (Manual) VBG pH Sodium Potassium Chloride Carbon Dioxide BUN Creatinine Glucose POC Glucose 124 H 119 H 106 H Hemoglobin A1c Calcium Magnesium Alkaline Phosphatase Total Creatine Kinase Albumin Urine WBC (Auto) Urine Creatinine Urine Total Protein 02/26/21 02/26/21 02/26/21 15:27 16:38 17:22 WBC Hgb Hct Seg Neuts % (Manual) Seg Neutrophils # Man Lymphocytes # (Manual) VBG pH Sodium 136 L Potassium 5.1 H Chloride Carbon Dioxide 16 L BUN 72 H Creatinine 2.2 H Glucose 107 H POC Glucose 111 H 113 H Hemoglobin A1c Calcium Magnesium Alkaline Phosphatase Total Creatine Kinase Albumin Urine WBC (Auto) Urine Creatinine Urine Total Protein 02/26/21 02/26/21 02/26/21 17:54 18:00 20:25 WBC Hgb Hct Seg Neuts % (Manual) Seg Neutrophils # Man Lymphocytes # (Manual) VBG pH Sodium Potassium Chloride Carbon Dioxide BUN Creatinine Glucose POC Glucose 114 H 129 H Hemoglobin A1c Calcium Magnesium Alkaline Phosphatase Total Creatine Kinase Albumin Urine WBC (Auto) > 182.0 H Urine Creatinine Urine Total Protein 02/26/21 02/26/21 02/26/21 21:17 22:02 23:05 WBC Hgb Hct Seg Neuts % (Manual) Seg Neutrophils # Man Lymphocytes # (Manual) VBG pH Sodium Potassium Chloride Carbon Dioxide BUN Creatinine Glucose POC Glucose 127 H 135 H 112 H Hemoglobin A1c Calcium Magnesium Alkaline Phosphatase Total Creatine Kinase Albumin Urine WBC (Auto) Urine Creatinine Urine Total Protein 02/27/21 02/27/21 02/27/21 00:11 02:13 04:13 WBC Hgb Hct Seg Neuts % (Manual) Seg Neutrophils # Man Lymphocytes # (Manual) VBG pH Sodium Potassium 3.5 L D Chloride 108.4 H Carbon Dioxide 21 L BUN 64 H Creatinine 1.9 H Glucose POC Glucose 106 H 115 H Hemoglobin A1c Calcium 8.3 L Magnesium Alkaline Phosphatase Total Creatine Kinase Albumin Urine WBC (Auto) Urine Creatinine Urine Total Protein 02/27/21 02/27/21 02/27/21 04:18 04:18 06:57 WBC 22.4 H Hgb 11.0 L Hct 32.3 L Seg Neuts % (Manual) Seg Neutrophils # Man Lymphocytes # (Manual) VBG pH Sodium Potassium Chloride 107.9 H Carbon Dioxide BUN 59 H Creatinine 1.7 H Glucose POC Glucose 60 L Hemoglobin A1c Calcium 8.1 L Magnesium Alkaline Phosphatase Total Creatine Kinase Albumin Urine WBC (Auto) Urine Creatinine Urine Total Protein 02/27/21 02/27/21 02/27/21 08:24 08:35 11:25 WBC Hgb Hct Seg Neuts % (Manual) Seg Neutrophils # Man Lymphocytes # (Manual) VBG pH Sodium Potassium 3.1 L Chloride 108.6 H Carbon Dioxide 21 L BUN 53 H Creatinine 1.5 H Glucose 121 H POC Glucose 131 H 196 H Hemoglobin A1c Calcium 8.0 L Magnesium Alkaline Phosphatase Total Creatine Kinase Albumin Urine WBC (Auto) Urine Creatinine Urine Total Protein 02/27/21 02/27/21 02/27/21 16:39 18:04 21:33 WBC Hgb Hct Seg Neuts % (Manual) Seg Neutrophils # Man Lymphocytes # (Manual) VBG pH Sodium Potassium 3.1 L Chloride Carbon Dioxide 20 L BUN 50 H Creatinine 1.4 H Glucose 365 H POC Glucose 340 H 322 H Hemoglobin A1c Calcium 7.9 L Magnesium Alkaline Phosphatase Total Creatine Kinase Albumin Urine WBC (Auto) Urine Creatinine Urine Total Protein 02/28/21 02/28/21 02/28/21 05:05 07:25 11:13 WBC Hgb Hct Seg Neuts % (Manual) Seg Neutrophils # Man Lymphocytes # (Manual) VBG pH Sodium Potassium 3.3 L Chloride 110.2 H Carbon Dioxide BUN 43 H Creatinine Glucose 193 H POC Glucose 121 H 190 H Hemoglobin A1c Calcium 7.8 L Magnesium Alkaline Phosphatase Total Creatine Kinase Albumin Urine WBC (Auto) Urine Creatinine Urine Total Protein 02/28/21 02/28/21 03/01/21 16:30 22:08 08:05 WBC Hgb Hct Seg Neuts % (Manual) Seg Neutrophils # Man Lymphocytes # (Manual) VBG pH Sodium Potassium Chloride Carbon Dioxide BUN Creatinine Glucose POC Glucose 180 H 340 H 58 L Hemoglobin A1c Calcium Magnesium Alkaline Phosphatase Total Creatine Kinase Albumin Urine WBC (Auto) Urine Creatinine Urine Total Protein
[2021-03-01 11:06] LABS: BUN/Creatinine Ratio 26; Blood Urea Nitrogen 29 mg/dL (9-20); Calcium 8.2 mg/dL (8.4-10.2); Hemolysis Index 0
[2021-03-01 11:26] LABS: Hematocrit 33.1 % (35.5-45.6); Hemoglobin 11.2 gm/dl (11.8-15.2); Mean Corpuscular HGB Conc 34 % (32-34); Mean Corpuscular Volume 88 fl (84-94); Platelet Count 203 K/mm3 (140-440); Red Blood Count 3.78 M/mm3 (3.65-5.03); Red Cell Distribution Width 14.9 % (13.2-15.2)
--- NOTE | 2021-03-01 12:20 | Progress Note ---
Assessment and Plan Impression: * MAXIMO: likely due to pre-renal injury. Likely with CKD in setting of DM * volume depletion * metabolic acidosis * uncontrolled DM * HTN Plan: * encourage po hydration, off IVF today * cr is better today at 1.1 (peaked at 2.2) * continue PO sodium bicarb for now, may need to hold given low K * replete K prn * DM treatment per primary team * daily lytes * UA and urine studies reviewed; has proteinuria likely from DM, will need outpatient CKD follow up, will arrange * no indication for [facility] at this time Subjective Date of service: 03/01/21 Principal diagnosis: maximo, dka Interval history: Patient awake and alert in bed this AM. Denies any acute distress Objective - Exam Narrative Exam: Constitutional: no acute distress Head: NC/AT Neck: supple Lungs: clear to auscultation CV: RRR, no M/R/G Abdomen: soft, non-tender, bowel sounds present Back: nontender Extremities: no edema, pulses WNL Skin: intact Neuro: no focal deficits, alert and oriented x4 - Vital Signs Vital signs: Vital Signs - 12hr 03/01/21 03/01/21 03/01/21 01:00 02:00 03:00 Temperature Pulse Rate 71 69 66 Pulse Rate [ From Monitor] Respiratory 17 21 15 Rate Blood Pressure 120/74 123/67 114/69 O2 Sat by Pulse 99 99 100 Oximetry 03/01/21 03/01/21 03/01/21 04:00 05:00 06:00 Temperature 97.4 F L Pulse Rate 64 53 L 60 Pulse Rate [ 56 L From Monitor] Respiratory 14 14 16 Rate Blood Pressure 131/79 120/75 113/76 O2 Sat by Pulse 100 100 100 Oximetry 03/01/21 03/01/21 07:00 08:00 Temperature 98.7 F Pulse Rate 58 L 53 L Pulse Rate [ From Monitor] Respiratory 20 21 Rate Blood Pressure 131/73 132/72 O2 Sat by Pulse 99 Oximetry - Lab 03/01/21 10:59 03/01/21 09:34 Most recent lab results Calcium 8.2 mg/dL (8.4-10.2) L 03/01/21 09:34 Phosphorus 2.50 mg/dL (2.5-4.5) D 02/26/21 02:40 Magnesium 2.00 mg/dL (1.7-2.3) 02/27/21 04:18 Urine Creatinine 26.8 mg/dL (0.1-20.0) H 02/26/21 12:00 Urine Sodium 29 mmol/L 02/26/21 12:00 Urine Total Protein 47 mg/dL (5-11.8) H 02/26/21 12:00 Medications & Allergies - Medications Allergies/Adverse Reactions: Allergies No Known Allergies Allergy (Unverified 02/28/21 06:57) Home Medications: Home Medications Medication Instructions Recorded Confirmed Last Taken Type Tamsulosin [Flomax] 2 cap QDAY 02/26/21 02/26/21 Unknown History Active Medications: Generic Name Dose Route Start Last Admin Trade Name Freq PRN Reason Stop Dose Admin Acetaminophen 650 mg 02/26/21 00:36 Acetaminophen 325 Mg Tab PO Q6H PRN Pain MILD(1-3)/Fever >100.5/MATHUR Dextrose 50 ml 02/25/21 23:47 02/27/21 07:03 Dextrose 50% In Water (25gm) 50 Ml Syringe IV 50 ml Q30MIN PRN Administration Hypoglycemia Protocol Heparin Sodium (Porcine) 5,000 unit 02/26/21 06:00 03/01/21 06:28 Heparin 5,000 Unit/1 Ml Vial SUB-Q 5,000 unit Q8HR ROSELIA Administration MEROPENEM/NS 1 GRAM/100 ML 1 gram in 100 mls @ 100 mls/hr 02/27/21 13:30 03/01/21 02:18 Merrem/Ns 1 Gram/100 Ml IV 100 mls/hr Q12H ROSELIA Administration Protocol Insulin Glargine 20 units 02/27/21 22:00 02/28/21 21:32 Insulin Glargine 100 Units/Ml SUB-Q 20 units QHS ROSELIA Administration Insulin Human Lispro 0 unit 02/27/21 11:30 02/28/21 22:48 Insulin Lispro 100 Unit/Ml SUB-Q 6 unit ACHS ROSELIA Administration Protocol Morphine Sulfate 2 mg 02/26/21 00:36 Morphine 2 Mg/1 Ml Inj IV Q4H PRN Pain, Moderate (4-6) Morphine Sulfate 4 mg 02/26/21 00:36 Morphine 4 Mg/1 Ml Inj IV Q4H PRN Pain , Severe (7-10) Sodium Bicarbonate 1,300 mg 02/26/21 11:00 03/01/21 10:11 Sodium Bicarbonate 650 Mg Tab PO 1,300 mg BID ROSELIA Administration Sodium Chloride 10 ml 02/26/21 10:00 03/01/21 10:12 Sodium Chloride 0.9% 10 Ml Flush Syringe IV 10 ml BID ROSELIA Administration Sodium Chloride 10 ml 02/26/21 00:36 Sodium Chloride 0.9% 10 Ml Flush Syringe IV PRN PRN LINE FLUSH Tamsulosin HCl 0.8 mg 02/26/21 16:00 03/01/21 10:12 Tamsulosin 0.4 Mg Cap PO 0.8 mg QDAY ROSELIA Administration
--- NOTE | 2021-03-01 12:43 | Progress Note ---
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 await renal scal unable to transfer may need right nephrectomy Subjective Date of service: 03/01/21 Principal diagnosis: sandra, dka Objective - Constitutional Vitals: Vital Signs - 12hr 03/01/21 03/01/21 03/01/21 01:00 02:00 03:00 Temperature Pulse Rate 71 69 66 Pulse Rate [ From Monitor] Respiratory 17 21 15 Rate Blood Pressure 120/74 123/67 114/69 O2 Sat by Pulse 99 99 100 Oximetry 03/01/21 03/01/21 03/01/21 04:00 05:00 06:00 Temperature 97.4 F L Pulse Rate 64 53 L 60 Pulse Rate [ 56 L From Monitor] Respiratory 14 14 16 Rate Blood Pressure 131/79 120/75 113/76 O2 Sat by Pulse 100 100 100 Oximetry 03/01/21 03/01/21 07:00 08:00 Temperature 98.7 F Pulse Rate 58 L 53 L Pulse Rate [ From Monitor] Respiratory 20 21 Rate Blood Pressure 131/73 132/72 O2 Sat by Pulse 99 Oximetry General appearance: Present: no acute distress - Neck Neck: supple - Respiratory Respiratory effort: normal Extremities: no ischemia - Gastrointestinal General gastrointestinal: Present: soft, non-tender - Labs CBC & Chem 7: 03/01/21 10:59 03/01/21 09:34 Labs: Abnormal lab results 02/28/21 02/28/21 03/01/21 Range/Units 16:30 22:08 08:05 WBC (4.5-11.0) K/mm3 Hgb (11.8-15.2) gm/dl Hct (35.5-45.6) % Potassium (3.6-5.0) mmol/L BUN (9-20) mg/dL POC Glucose 180 H 340 H 58 L (70-105) mg/dL Calcium (8.4-10.2) mg/dL 03/01/21 03/01/21 Range/Units 09:34 10:59 WBC 15.3 H (4.5-11.0) K/mm3 Hgb 11.2 L (11.8-15.2) gm/dl Hct 33.1 L (35.5-45.6) % Potassium 3.2 L (3.6-5.0) mmol/L BUN 29 H (9-20) mg/dL POC Glucose (70-105) mg/dL Calcium 8.2 L (8.4-10.2) mg/dL Medications & Allergies - Medications Allergies/Adverse Reactions: Allergies No Known Allergies Allergy (Unverified 02/28/21 06:57) Home Medications: Home Medications Medication Instructions Recorded Confirmed Last Taken Type Tamsulosin [Flomax] 2 cap QDAY 02/26/21 02/26/21 Unknown History Active Medications: Generic Name Dose Route Start Last Admin Trade Name Freq PRN Reason Stop Dose Admin Acetaminophen 650 mg 02/26/21 00:36 Acetaminophen 325 Mg Tab PO Q6H PRN Pain MILD(1-3)/Fever >100.5/MATHUR Dextrose 50 ml 02/25/21 23:47 02/27/21 07:03 Dextrose 50% In Water (25gm) 50 Ml Syringe IV 50 ml Q30MIN PRN Administration Hypoglycemia Protocol Heparin Sodium (Porcine) 5,000 unit 02/26/21 06:00 03/01/21 06:28 Heparin 5,000 Unit/1 Ml Vial SUB-Q 5,000 unit Q8HR ROSELIA Administration MEROPENEM/NS 1 GRAM/100 ML 1 gram in 100 mls @ 100 mls/hr 02/27/21 13:30 03/01/21 02:18 Merrem/Ns 1 Gram/100 Ml IV 100 mls/hr Q12H ROSELIA Administration Protocol Insulin Glargine 20 units 02/27/21 22:00 02/28/21 21:32 Insulin Glargine 100 Units/Ml SUB-Q 20 units QHS ROSELIA Administration Insulin Human Lispro 0 unit 02/27/21 11:30 02/28/21 22:48 Insulin Lispro 100 Unit/Ml SUB-Q 6 unit ACHS ROSELIA Administration Protocol Morphine Sulfate 2 mg 02/26/21 00:36 Morphine 2 Mg/1 Ml Inj IV Q4H PRN Pain, Moderate (4-6) Morphine Sulfate 4 mg 02/26/21 00:36 Morphine 4 Mg/1 Ml Inj IV Q4H PRN Pain , Severe (7-10) Sodium Chloride 10 ml 02/26/21 10:00 03/01/21 10:12 Sodium Chloride 0.9% 10 Ml Flush Syringe IV 10 ml BID ROSELIA Administration Sodium Chloride 10 ml 02/26/21 00:36 Sodium Chloride 0.9% 10 Ml Flush Syringe IV PRN PRN LINE FLUSH Tamsulosin HCl 0.8 mg 02/26/21 16:00 03/01/21 10:12 Tamsulosin 0.4 Mg Cap PO 0.8 mg QDAY ROSELIA Administration HEART Score - HEART Score Troponin: Troponin T < 0.010 ng/mL (0.00-0.029) 02/25/21 22:48
[2021-03-01 13:08] LABS: Band Neutrophils # (Manual) 1.8 K/mm3; Total Cells Counted 100
[2021-03-01 13:09] LABS: Anisocytosis Few; Hypochromasia Few; Platelet Estimate Consistent w Auto; Target Cells Rare
[2021-03-01] MEDS: INSULIN LISPRO 100 UNIT/ML SUB-Q SCH ×3 (15:52→21:44)
--- NOTE | 2021-03-01 15:58 | Progress Note ---
Assessment and Plan Cultures: Urine culture: klebsiella Blood culture: pending. A/P: 60-year-old male with diabetes admitted with DKA: #Sepsis, secondary to severe emphysematous pyelonephritis with CT evidence of f ree air surrounding the right kidney and the right retroperitoneum. Etiology is probably urinary tract infection in the setting of severe diabetic ketoacidosis. Per primary team notes, case was discussed with [facility]. #MAXIMO: Renally dose antibiotics. #Diabetes mellitus with DKA Recs: -Blood cultures ordered -Follow-up urine culture -IV Meropenem. Prognosis is guarded. At high risk of need for surgical intervention including possibility of nephrectomy Liv Dobbins MD [facility] ([facility]) O: [phone] F: [phone] Subjective Date of service: 03/01/21 Principal diagnosis: maximo, dka Interval history: Afebrile, white count 15.3 which is slightly improved. No new issues. Objective - Exam Narrative Exam: Physical Exam: Constitutional: Alert, cooperative. No acute distress Head, Ears, Nose: Normocephalic, atraumatic. Eyes: Conjunctivae/corneas clear. No icterus. Neck: Supple, no meningeal signs Cardiovascular: S1, S2 normal. Respiratory: Good air entry, clear to auscultation bilaterally GI: Soft, non-tender; bowel sounds normal. No peritoneal signs Musculoskeletal: No pedal edema, no cyanosis. Skin: No rash or abscess Hem/Lymphatic: No palpable cervical or supraclavicular nodes. Psych: Mood ok. Affect normal Neurological: Awake, alert, oriented. No gross abnormality - Constitutional Vitals: Vital Signs Temp Pulse Resp BP Pulse Ox 98.7 F 59 L 15 123/71 100 03/01/21 08:00 03/01/21 15:00 03/01/21 15:00 03/01/21 15:00 03/01/21 15:00 Temperature -Last 24 Hours Temperature 98.7 F Temperature 97.4 F Temperature 97.7 F Temperature 97.8 F - Labs CBC & Chem 7: 03/01/21 10:59 03/01/21 09:34 Labs: Abnormal lab results 02/28/21 02/28/21 03/01/21 Range/Units 16:30 22:08 08:05 WBC (4.5-11.0) K/mm3 Hgb (11.8-15.2) gm/dl Hct (35.5-45.6) % Seg Neuts % (Manual) (40.0-70.0) % Lymphocytes % (Manual) (13.4-35.0) % Seg Neutrophils # Man (1.8-7.7) K/mm3 Lymphocytes # (Manual) (1.2-5.4) K/mm3 ABG pH (7.320-7.450) POC ABG pCO2 (32.0-48.0) mmHg ABG Hemoglobin (12.0-17.5) ABG Sodium (136.0-145.0) mmol/L ABG Potassium (3.40-4.50) mmol/L ABG Glucose (65-95) mg/dL Carboxyhemoglobin (0.5-1.5) Potassium (3.6-5.0) mmol/L BUN (9-20) mg/dL POC Glucose 180 H 340 H 58 L (70-105) mg/dL Calcium (8.4-10.2) mg/dL Arterial Blood Glucose (65-95) mg/dL Arterial Blood Ionized Calcium (4.6-5.3) mg/dL 03/01/21 03/01/21 03/01/21 Range/Units 09:34 10:56 10:59 WBC 15.3 H (4.5-11.0) K/mm3 Hgb 11.2 L (11.8-15.2) gm/dl Hct 33.1 L (35.5-45.6) % Seg Neuts % (Manual) 87.0 H (40.0-70.0) % Lymphocytes % (Manual) 1.0 L (13.4-35.0) % Seg Neutrophils # Man 13.3 H (1.8-7.7) K/mm3 Lymphocytes # (Manual) 0.2 L (1.2-5.4) K/mm3 ABG pH 7.518 H (7.320-7.450) POC ABG pCO2 27.2 L (32.0-48.0) mmHg ABG Hemoglobin 10.9 L (12.0-17.5) ABG Sodium 134.6 L (136.0-145.0) mmol/L ABG Potassium 2.8 L (3.40-4.50) mmol/L ABG Glucose 144 H (65-95) mg/dL Carboxyhemoglobin 0.4 L (0.5-1.5) Potassium 3.2 L (3.6-5.0) mmol/L BUN 29 H (9-20) mg/dL POC Glucose (70-105) mg/dL Calcium 8.2 L (8.4-10.2) mg/dL Arterial Blood Glucose 144 H (65-95) mg/dL Arterial Blood Ionized Calcium 4.5 L (4.6-5.3) mg/dL 03/01/21 Range/Units 12:38 WBC (4.5-11.0) K/mm3 Hgb (11.8-15.2) gm/dl Hct (35.5-45.6) % Seg Neuts % (Manual) (40.0-70.0) % Lymphocytes % (Manual) (13.4-35.0) % Seg Neutrophils # Man (1.8-7.7) K/mm3 Lymphocytes # (Manual) (1.2-5.4) K/mm3 ABG pH (7.320-7.450) POC ABG pCO2 (32.0-48.0) mmHg ABG Hemoglobin (12.0-17.5) ABG Sodium (136.0-145.0) mmol/L ABG Potassium (3.40-4.50) mmol/L ABG Glucose (65-95) mg/dL Carboxyhemoglobin (0.5-1.5) Potassium (3.6-5.0) mmol/L BUN (9-20) mg/dL POC Glucose 134 H (70-105) mg/dL Calcium (8.4-10.2) mg/dL Arterial Blood Glucose (65-95) mg/dL Arterial Blood Ionized Calcium (4.6-5.3) mg/dL
[2021-03-01] MEDS: INSULIN GLARGINE 100 UNITS/ML SUB-Q SCH (21:45)
--- NOTE | 2021-03-02 00:39 | Consultation ---
DATE OF CONSULTATION: 03/01/2021 HISTORY OF PRESENT ILLNESS: This is a gentleman who presented to the hospital with diabetes, weakness. He had DKA. CT scan showed air in the right collecting system. He was admitted for antibiotics. I had a long talk with Dr. Zavala about transferring this patient, nobody would accept it. The area has not changed. His white count is still high. He will get a nuclear scan today. PAST MEDICAL HISTORY: History of a recent fall with difficulty walking. PAST SURGICAL HISTORY: Denied. ALLERGIES: Negative. SOCIAL HISTORY: Noncontributory. FAMILY HISTORY: Noncontributory. REVIEW OF SYSTEMS: Just weakness. PHYSICAL EXAMINATION: GENERAL: He is in no distress. He has no significant pain. ABDOMEN: Soft, nondistended. GENITALIA: Atrophic testis. Hernandez draining clear, circumcised. Digital rectal exam, small prostate 10-15 grams. No nodules. 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 I do not see a distinct stone. This is in the right kidney. We will get a nuclear scan today. If there is no function, he may require a semi-emergent right nephrectomy. TID: [id number] RECEIPT: [id number] JESSY/RON
[2021-03-02] MEDS: MEROPENEM/NS 1 GRAM/100 ML 1 GRAM/100 ML BAG IV SCH ×3 (02:19→17:18)
[2021-03-02 06:09] LABS: Hematocrit 29.8 % (35.5-45.6); Mean Corpuscular HGB Conc 34 % (32-34); Mean Corpuscular Volume 88 fl (84-94); Platelet Count 242 K/mm3 (140-440); Red Blood Count 3.38 M/mm3 (3.65-5.03); Red Cell Distribution Width 14.7 % (13.2-15.2)
[2021-03-02 06:24] LABS: BUN/Creatinine Ratio 26; Blood Urea Nitrogen 29 mg/dL (9-20); Calcium 7.6 mg/dL (8.4-10.2); Hemolysis Index 5
[2021-03-02 07:11] LABS: Myelocytes # (Manual) 0.1 K/mm3; Total Cells Counted 100
[2021-03-02 07:12] LABS: Anisocytosis Few; Hypochromasia 1+; Platelet Estimate Consistent w Auto; Target Cells Rare
[2021-03-02] MEDS: INSULIN LISPRO 100 UNIT/ML SUB-Q SCH ×4 (08:15→22:20)
[2021-03-02] MEDS: HEPARIN 5,000 UNIT/1 ML VIAL SUB-Q SCH ×3 (08:41→22:21)
[2021-03-02] MEDS: TAMSULOSIN 0.4 MG CAP PO SCH (09:01)
[2021-03-02] MEDS ORDERED: POTASSIUM CHLORIDE ER 20 MEQ TAB PO NR (09:30)
--- NOTE | 2021-03-02 09:30 | Nuclear Medicine Report ---
NUCLEAR MEDICINE RENOGRAM INDICATION / CLINICAL INFORMATION: right emphameteous pyelonephritis. TECHNIQUE: Following IV administration of 5.5 mCi [id number], sequential dynamic images of the kidne ys were obtained in the posterior projection. Following IV administration of Lasix, additional images were acquired. Time activity whole kidney curves were analyzed. COMPARISON: CT scan dated 02/27/2021 FINDINGS: RENAL CORTICAL ACTIVITY: Homogeneous RENAL SIZE: Both kidneys similar size. DIFFERENTIAL FUNCTION: - Right: 45% - Left: 55% - Right ERPF (ml/min) = 97 - Left ERPF (ml/min) = 119 TOTAL ERPF (ml/min) = 216 RIGHT: - [id number]-dc-[id number] activity: 4 minutes, normal - T1/2: , prolonged - Ureter: Tracer is noted in the proximal ureter. No tracer seen in the distal ureter - Post-Lasix imaging: Not given LEFT: - [id number]-[id number] activity: 11 minutes, prolonged - T1/2: prolonged - Ureter: No significantly abnormal activity. Normal caliber. - Post-Lasix imaging: Not given. There is retention of tracer in the renal collecting system on the d elayed images. Additional Findings: None. IMPRESSION: 1. Total ERPF is below normal. There is relatively symmetric renal function between the right left k idney. There is prolonged retention of tracer in the renal parenchyma on the right. There is some ret ained tracer in the renal collecting systems bilaterally on the delayed images. Signer Name: Willian Simms MD Signed: 03/02/2021 9:26 AM Workstation Name: [id number]
--- NOTE | 2021-03-02 09:34 | Progress Note ---
Assessment and Plan Impression: * MAXIMO: likely due to pre-renal injury. Likely with CKD in setting of DM * volume depletion * metabolic acidosis * uncontrolled DM * HTN Plan: * encourage po hydration, off IVF today * cr is stable today at 1.1 (peaked at 2.2) * hold NaHCO3 given low K, Ca * replete K prn- started K-dur 40meq daily * DM treatment per primary team * daily lytes * UA and urine studies reviewed; has proteinuria likely from DM, will need outpatient CKD follow up, will arrange * no indication for [employer] at this time * appreciate urology input regarding emphematous pyelonephritis Subjective Date of service: 03/02/21 Principal diagnosis: maximo, dka Interval history: Patient awake and alert in bed this AM. Denies any acute distress Objective - Exam Narrative Exam: Constitutional: no acute distress Head: NC/AT Neck: supple Lungs: clear to auscultation CV: RRR, no M/R/G Abdomen: soft, non-tender, bowel sounds present Back: nontender Extremities: no edema, pulses WNL Skin: intact Neuro: no focal deficits, alert and oriented x4 - Vital Signs Vital signs: Vital Signs - 12hr 03/01/21 03/01/21 03/01/21 22:00 23:00 23:40 Temperature 99.2 F Pulse Rate 70 78 Pulse Rate [ From Monitor] Respiratory 18 17 Rate Blood Pressure 116/69 118/74 O2 Sat by Pulse 100 99 Oximetry 03/02/21 03/02/21 03/02/21 00:00 01:00 02:00 Temperature Pulse Rate 82 82 Pulse Rate [ 83 From Monitor] Respiratory 20 17 Rate Blood Pressure 115/65 133/74 O2 Sat by Pulse 99 98 Oximetry 03/02/21 03/02/21 03/02/21 03:00 03:45 04:00 Temperature 99.0 F Pulse Rate 80 75 Pulse Rate [ 72 From Monitor] Respiratory 19 15 Rate Blood Pressure 123/75 116/68 O2 Sat by Pulse 98 98 Oximetry 03/02/21 03/02/21 03/02/21 05:00 06:00 06:45 Temperature 97.9 F Pulse Rate 68 79 70 Pulse Rate [ From Monitor] Respiratory 13 16 18 Rate Blood Pressure 123/73 124/75 O2 Sat by Pulse 100 100 100 Oximetry 03/02/21 08:55 Temperature Pulse Rate Pulse Rate [ 78 From Monitor] Respiratory 16 Rate Blood Pressure O2 Sat by Pulse 98 Oximetry - Lab 03/02/21 05:45 03/02/21 05:45 Most recent lab results ABG pH 7.518 (7.320-7.450) H 03/01/21 10:56 ABG O2 Saturation 97.1 (0-100) 03/01/21 10:56 Calcium 7.6 mg/dL (8.4-10.2) L 03/02/21 05:45 Phosphorus 2.50 mg/dL (2.5-4.5) D 02/26/21 02:40 Magnesium 2.00 mg/dL (1.7-2.3) 02/27/21 04:18 Urine Creatinine 26.8 mg/dL (0.1-20.0) H 02/26/21 12:00 Urine Sodium 29 mmol/L 02/26/21 12:00 Urine Total Protein 47 mg/dL (5-11.8) H 02/26/21 12:00 Medications & Allergies - Medications Allergies/Adverse Reactions: Allergies No Known Allergies Allergy (Unverified 02/28/21 06:57) Home Medications: Home Medications Medication Instructions Recorded Confirmed Last Taken Type Tamsulosin [Flomax] 2 cap QDAY 02/26/21 02/26/21 Unknown History Active Medications: Generic Name Dose Route Start Last Admin Trade Name Freq PRN Reason Stop Dose Admin Acetaminophen 650 mg 02/26/21 00:36 Acetaminophen 325 Mg Tab PO Q6H PRN Pain MILD(1-3)/Fever >100.5/MATHUR Dextrose 50 ml 02/25/21 23:47 02/27/21 07:03 Dextrose 50% In Water (25gm) 50 Ml Syringe IV 50 ml Q30MIN PRN Administration Hypoglycemia Protocol Heparin Sodium (Porcine) 5,000 unit 02/26/21 06:00 03/02/21 08:41 Heparin 5,000 Unit/1 Ml Vial SUB-Q Not Given Q8HR ROSELIA MEROPENEM/NS 1 GRAM/100 ML 1 gram in 100 mls @ 100 mls/hr 03/02/21 10:00 Merrem/Ns 1 Gram/100 Ml IV Q8H ROSELIA Protocol Insulin Glargine 20 units 02/27/21 22:00 03/01/21 21:45 Insulin Glargine 100 Units/Ml SUB-Q 20 units QHS ROSELIA Administration Insulin Human Lispro 0 unit 02/27/21 11:30 03/02/21 08:15 Insulin Lispro 100 Unit/Ml SUB-Q 3 unit ACHS ROSELIA Administration Protocol Morphine Sulfate 2 mg 02/26/21 00:36 Morphine 2 Mg/1 Ml Inj IV Q4H PRN Pain, Moderate (4-6) Morphine Sulfate 4 mg 02/26/21 00:36 Morphine 4 Mg/1 Ml Inj IV Q4H PRN Pain , Severe (7-10) Potassium Chloride 40 meq 03/02/21 09:30 Potassium Chloride Er 20 Meq Tab PO 03/02/21 13:00 ONCE@0930 NR Sodium Chloride 10 ml 02/26/21 10:00 03/02/21 09:01 Sodium Chloride 0.9% 10 Ml Flush Syringe IV 10 ml BID ROSELIA Administration Sodium Chloride 10 ml 02/26/21 00:36 Sodium Chloride 0.9% 10 Ml Flush Syringe IV PRN PRN LINE FLUSH Tamsulosin HCl 0.8 mg 02/26/21 16:00 03/02/21 09:01 Tamsulosin 0.4 Mg Cap PO 0.8 mg QDAY ROSELIA Administration
--- NOTE | 2021-03-02 12:53 | Progress Note ---
Assessment and Plan irene po well no pain wbc dec 15 looks fine observe excellenr function rk hold surgery f/u scans Subjective Date of service: 03/02/21 Principal diagnosis: sandra, dka Objective - Constitutional Vitals: Vital Signs - 12hr 03/02/21 03/02/21 03/02/21 01:00 02:00 03:00 Temperature Pulse Rate 82 80 Pulse Rate [ From Monitor] Respiratory 17 19 Rate Blood Pressure 115/65 133/74 123/75 O2 Sat by Pulse 98 98 Oximetry 03/02/21 03/02/21 03/02/21 03:45 04:00 05:00 Temperature 99.0 F Pulse Rate 75 68 Pulse Rate [ 72 From Monitor] Respiratory 15 13 Rate Blood Pressure 116/68 123/73 O2 Sat by Pulse 98 100 Oximetry 03/02/21 03/02/21 03/02/21 06:00 06:45 08:55 Temperature 97.9 F Pulse Rate 79 70 Pulse Rate [ 78 From Monitor] Respiratory 16 18 16 Rate Blood Pressure 124/75 O2 Sat by Pulse 100 100 98 Oximetry General appearance: Present: no acute distress - Respiratory Respiratory effort: normal - Gastrointestinal General gastrointestinal: Present: soft, non-tender - Labs CBC & Chem 7: 03/02/21 05:45 03/02/21 05:45 Labs: Abnormal lab results 03/01/21 03/01/21 03/01/21 Range/Units 10:56 10:59 17:10 WBC (4.5-11.0) K/mm3 RBC (3.65-5.03) M/mm3 Hgb (11.8-15.2) gm/dl Hct (35.5-45.6) % Seg Neuts % (Manual) 87.0 H (40.0-70.0) % Lymphocytes % (Manual) 1.0 L (13.4-35.0) % Seg Neutrophils # Man 13.3 H (1.8-7.7) K/mm3 Lymphocytes # (Manual) 0.2 L (1.2-5.4) K/mm3 ABG pH 7.518 H (7.320-7.450) POC ABG pCO2 27.2 L (32.0-48.0) mmHg ABG Hemoglobin 10.9 L (12.0-17.5) ABG Sodium 134.6 L (136.0-145.0) mmol/L ABG Potassium 2.8 L (3.40-4.50) mmol/L ABG Glucose 144 H (65-95) mg/dL Carboxyhemoglobin 0.4 L (0.5-1.5) Potassium (3.6-5.0) mmol/L Chloride (98-107) mmol/L BUN (9-20) mg/dL Glucose (75-100) mg/dL POC Glucose 190 H (70-105) mg/dL Calcium (8.4-10.2) mg/dL Arterial Blood Glucose 144 H (65-95) mg/dL Arterial Blood Ionized Calcium 4.5 L (4.6-5.3) mg/dL 03/01/21 03/02/21 03/02/21 Range/Units 21:27 05:45 05:45 WBC 11.7 H (4.5-11.0) K/mm3 RBC 3.38 L (3.65-5.03) M/mm3 Hgb 10.0 L (11.8-15.2) gm/dl Hct 29.8 L (35.5-45.6) % Seg Neuts % (Manual) 93.0 H (40.0-70.0) % Lymphocytes % (Manual) 4.0 L (13.4-35.0) % Seg Neutrophils # Man 10.9 H (1.8-7.7) K/mm3 Lymphocytes # (Manual) 0.5 L (1.2-5.4) K/mm3 ABG pH (7.320-7.450) POC ABG pCO2 (32.0-48.0) mmHg ABG Hemoglobin (12.0-17.5) ABG Sodium (136.0-145.0) mmol/L ABG Potassium (3.40-4.50) mmol/L ABG Glucose (65-95) mg/dL Carboxyhemoglobin (0.5-1.5) Potassium 3.2 L (3.6-5.0) mmol/L Chloride 109.7 H (98-107) mmol/L BUN 29 H (9-20) mg/dL Glucose 299 H (75-100) mg/dL POC Glucose 187 H (70-105) mg/dL Calcium 7.6 L (8.4-10.2) mg/dL Arterial Blood Glucose (65-95) mg/dL Arterial Blood Ionized Calcium (4.6-5.3) mg/dL 03/02/21 03/02/21 Range/Units 08:05 10:28 WBC (4.5-11.0) K/mm3 RBC (3.65-5.03) M/mm3 Hgb (11.8-15.2) gm/dl Hct (35.5-45.6) % Seg Neuts % (Manual) (40.0-70.0) % Lymphocytes % (Manual) (13.4-35.0) % Seg Neutrophils # Man (1.8-7.7) K/mm3 Lymphocytes # (Manual) (1.2-5.4) K/mm3 ABG pH (7.320-7.450) POC ABG pCO2 (32.0-48.0) mmHg ABG Hemoglobin (12.0-17.5) ABG Sodium (136.0-145.0) mmol/L ABG Potassium (3.40-4.50) mmol/L ABG Glucose (65-95) mg/dL Carboxyhemoglobin (0.5-1.5) Potassium (3.6-5.0) mmol/L Chloride (98-107) mmol/L BUN (9-20) mg/dL Glucose (75-100) mg/dL POC Glucose 224 H 161 H (70-105) mg/dL Calcium (8.4-10.2) mg/dL Arterial Blood Glucose (65-95) mg/dL Arterial Blood Ionized Calcium (4.6-5.3) mg/dL Medications & Allergies - Medications Allergies/Adverse Reactions: Allergies No Known Allergies Allergy (Unverified 02/28/21 06:57) Home Medications: Home Medications Medication Instructions Recorded Confirmed Last Taken Type Tamsulosin [Flomax] 2 cap QDAY 02/26/21 02/26/21 Unknown History Active Medications: Generic Name Dose Route Start Last Admin Trade Name Freq PRN Reason Stop Dose Admin Acetaminophen 650 mg 02/26/21 00:36 Acetaminophen 325 Mg Tab PO Q6H PRN Pain MILD(1-3)/Fever >100.5/MATHUR Dextrose 50 ml 02/25/21 23:47 02/27/21 07:03 Dextrose 50% In Water (25gm) 50 Ml Syringe IV 50 ml Q30MIN PRN Administration Hypoglycemia Protocol Heparin Sodium (Porcine) 5,000 unit 02/26/21 06:00 03/02/21 08:41 Heparin 5,000 Unit/1 Ml Vial SUB-Q Not Given Q8HR [facility] MEROPENEM/NS 1 GRAM/100 ML 1 gram in 100 mls @ 100 mls/hr 03/02/21 10:00 03/02/21 10:29 Merrem/Ns 1 Gram/100 Ml IV 100 mls/hr Q8H ROSELIA Administration Protocol Insulin Glargine 20 units 02/27/21 22:00 03/01/21 21:45 Insulin Glargine 100 Units/Ml SUB-Q 20 units QHS ROSELIA Administration Insulin Human Lispro 0 unit 02/27/21 11:30 03/02/21 11:09 Insulin Lispro 100 Unit/Ml SUB-Q 2 unit ACHS ROSELIA Administration Protocol Morphine Sulfate 2 mg 02/26/21 00:36 Morphine 2 Mg/1 Ml Inj IV Q4H PRN Pain, Moderate (4-6) Morphine Sulfate 4 mg 02/26/21 00:36 Morphine 4 Mg/1 Ml Inj IV Q4H PRN Pain , Severe (7-10) Potassium Chloride 40 meq 03/02/21 09:30 03/02/21 10:29 Potassium Chloride Er 20 Meq Tab PO 03/02/21 13:00 40 meq ONCE@0930 NR Administration Sodium Chloride 10 ml 02/26/21 10:00 03/02/21 09:01 Sodium Chloride 0.9% 10 Ml Flush Syringe IV 10 ml BID ROSELIA Administration Sodium Chloride 10 ml 02/26/21 00:36 Sodium Chloride 0.9% 10 Ml Flush Syringe IV PRN PRN LINE FLUSH Tamsulosin HCl 0.8 mg 02/26/21 16:00 03/02/21 09:01 Tamsulosin 0.4 Mg Cap PO 0.8 mg QDAY ROSELIA Administration HEART Score - HEART Score Troponin: Troponin T < 0.010 ng/mL (0.00-0.029) 02/25/21 22:48
--- NOTE | 2021-03-02 14:57 | Progress Note ---
Assessment and Plan Cultures: Urine culture: klebsiella Blood culture: pending. A/P: 60-year-old male with diabetes admitted with DKA: #Sepsis, secondary to severe emphysematous pyelonephritis with CT evidence of f ree air surrounding the right kidney and the right retroperitoneum. Etiology is probably urinary tract infection in the setting of severe diabetic ketoacidosis. Per primary team notes, case was discussed with [facility]. #MAXIMO: Renally dose antibiotics. #Diabetes mellitus with DKA Recs: -IV Meropenem, likely de-escalate to ceftrixone tomorrow. Urology holding on surgery for now. Liv Dobbins MD [facility] ([facility]) O: [phone] F: [phone] Subjective Date of service: 03/02/21 Principal diagnosis: maximo, dka Interval history: Afebrile, white count 1.7. Urine cultures with Klebsiella. Imaging personally reviewed: Nuclear medicine scan mostly normal Objective - Exam Narrative Exam: Physical Exam: Constitutional: Alert, cooperative. No acute distress Head, Ears, Nose: Normocephalic, atraumatic. Eyes: Conjunctivae/corneas clear. Neck: Supple, no meningeal signs Cardiovascular: S1, S2 normal. Respiratory: Good air entry, clear to auscultation bilaterally GI: Soft, non-tender; bowel sounds normal. No peritoneal signs Musculoskeletal: No pedal edema, no cyanosis. Skin: No rash or abscess Hem/Lymphatic: No palpable cervical or supraclavicular nodes. Psych: Mood ok. Affect normal Neurological: Awake, alert, oriented. No gross abnormality - Constitutional Vitals: Vital Signs Temp Pulse Resp BP Pulse Ox 97.9 F 78 16 124/75 98 03/02/21 06:45 03/02/21 08:55 03/02/21 08:55 03/02/21 06:00 03/02/21 08:55 Temperature -Last 24 Hours Temperature 97.9 F Temperature 99.0 F Temperature 99.2 F - Labs CBC & Chem 7: 03/02/21 05:45 03/02/21 05:45 Labs: Abnormal lab results 03/01/21 03/01/21 03/02/21 Range/Units 17:10 21:27 05:45 WBC (4.5-11.0) K/mm3 RBC (3.65-5.03) M/mm3 Hgb (11.8-15.2) gm/dl Hct (35.5-45.6) % Seg Neuts % (Manual) (40.0-70.0) % Lymphocytes % (Manual) (13.4-35.0) % Seg Neutrophils # Man (1.8-7.7) K/mm3 Lymphocytes # (Manual) (1.2-5.4) K/mm3 Potassium 3.2 L (3.6-5.0) mmol/L Chloride 109.7 H (98-107) mmol/L BUN 29 H (9-20) mg/dL Glucose 299 H (75-100) mg/dL POC Glucose 190 H 187 H (70-105) mg/dL Calcium 7.6 L (8.4-10.2) mg/dL 03/02/21 03/02/21 03/02/21 Range/Units 05:45 08:05 10:28 WBC 11.7 H (4.5-11.0) K/mm3 RBC 3.38 L (3.65-5.03) M/mm3 Hgb 10.0 L (11.8-15.2) gm/dl Hct 29.8 L (35.5-45.6) % Seg Neuts % (Manual) 93.0 H (40.0-70.0) % Lymphocytes % (Manual) 4.0 L (13.4-35.0) % Seg Neutrophils # Man 10.9 H (1.8-7.7) K/mm3 Lymphocytes # (Manual) 0.5 L (1.2-5.4) K/mm3 Potassium (3.6-5.0) mmol/L Chloride (98-107) mmol/L BUN (9-20) mg/dL Glucose (75-100) mg/dL POC Glucose 224 H 161 H (70-105) mg/dL Calcium (8.4-10.2) mg/dL
--- NOTE | 2021-03-02 16:33 | Progress Note ---
Assessment and Plan Assessment and plan: 60-year-old -[place] male with known history of diabetes mellitus presents to the emergency room today complaining of generalized weakness and elevated blood glucose at home. Patient was diagnosed with diabetes mellitus about 2 weeks ago and states he has been out of his insulin for the past 3 to 4 days. Family had called EMS and patient was subsequently brought to the emergency room. Blood glucose was said to be reading high in route to the hospital. Patient was given IV normal saline in route to the hospital. Work-up in the emergency room reveals that patient is in DKA. He has been started on insulin drip and IV fluid. CT abdomen and pelvis 1. Free air within and surrounding the right kidney and tracking in the right retroperitoneum. Exam is severely limited with lack of intravenous contrast and intra-abdominal fat but the air does not seem to extend into the peritoneum. Findings are highly worrisome for an infectious/inflammatory process such as emphysematous pyelonephritis. A perforation is also possible. DKA- Resolved Emphysematous pyelonephritis possible Acute cystitis Acute metabolic encephalopathy now resolved Acute kidney injury on chronic kidney disease unknown stage BPH DVT and GI prophylaxis Plan Continue supportive care 02/28: Discussed with Urologist, still thinking he may need surgery, WILL GET RENAL NUCLEAR FUNCTION SCAN. Discussed with daughter and patient, CULTURES SHOWING k PNEUMONIA. Electrophysiology Scientist input noted and appreciated ID consulted for acute cystitis Discussed with urologist this morning per night physician Bryce urologist recommended patient be monitored. We will proceed with repeat CT and urologist recommendation and if consistent symptoms patient will need evaluation by them in a.m. Discussed with family Continue IMCU care. 03/01/21; patient is on IV meropenem per ID recommendation. Wound culture grew Klebsiella pneumoniae. Renal function is improving. Patient need evaluation by urologist. Patient is going to have ultrasound this morning. We will continue to monitor. Urology saw the patient and said waiting for the renal scan to be done. Still considering right nephrectomy. Patient said he does not want nephrectomy. 03/02/2021: Patient actually doing well. Is on meropenem for emphysematous follow nephritis, responding well to antibiotic therapy. ID planning to change to ceftriaxone from tomorrow. Blood cultures negative to date. No abdominal pain CVA tenderness. Afebrile with stable vital signs. DKA resolved. Blood glucose improving. Renal function scan apparently was performed on 03/01 but I am unable to open the report. Urology is following, nephrectomy was originally considered. History Interval history: Patient is doing well. Does not have much complaints. Denies dysuria. MAXIMO resolved. Vitals in stable and afebrile. Is currently on meropenem to be changed to ceftriaxone from tomorrow for folliculitis. Again resolved. Blood glucose improving. Tolerating diet. Hospitalist Physical - Constitutional Vitals: Temp Pulse Resp BP Pulse Ox 97.9 F 78 16 124/75 98 03/02/21 06:45 03/02/21 08:55 03/02/21 08:55 03/02/21 06:00 03/02/21 08:55 General appearance: Present: no acute distress - EENT Eyes: Present: PERRL - Neck Neck: Present: supple, other (No JVD) - Respiratory Respiratory effort: normal Respiratory: bilateral: CTA - Cardiovascular Rhythm: regular - Extremities Extremities: No edema - Abdominal General gastrointestinal: soft, non-tender, other (No CVA tenderness. No mass appreciated but the abdomen is obese.) - Integumentary Integumentary: Absent: rash - Psychiatric Psychiatric: appropriate mood/affect HEART Score - HEART Score Troponin: Troponin T < 0.010 ng/mL (0.00-0.029) 02/25/21 22:48 Results - Labs CBC & Chem 7: 03/02/21 05:45 03/02/21 05:45 Labs: Laboratory Last Values WBC 11.7 K/mm3 (4.5-11.0) H 03/02/21 05:45 RBC 3.38 M/mm3 (3.65-5.03) L 03/02/21 05:45 Hgb 10.0 gm/dl (11.8-15.2) L 03/02/21 05:45 Hct 29.8 % (35.5-45.6) L 03/02/21 05:45 MCV 88 fl (84-94) 03/02/21 05:45 MCH 30 pg (28-32) 03/02/21 05:45 MCHC 34 % (32-34) 03/02/21 05:45 RDW 14.7 % (13.2-15.2) 03/02/21 05:45 Plt Count 242 K/mm3 (140-440) 03/02/21 05:45 Add Manual Diff Complete 03/02/21 05:45 Total Counted 100 03/02/21 05:45 Seg Neutrophils % Bobbin Drier 03/01/21 10:59 Seg Neuts % (Manual) 93.0 % (40.0-70.0) H 03/02/21 05:45 Band Neutrophils % 12.0 % 03/01/21 10:59 Lymphocytes % (Manual) 4.0 % (13.4-35.0) L 03/02/21 05:45 Reactive Lymphs % (Man) 1.0 % 03/02/21 05:45 Monocytes % (Manual) 2.5 % (0.0-7.3) 02/25/21 22:48 Metamyelocytes % 1.0 % 03/02/21 05:45 Myelocytes % 1.0 % 03/02/21 05:45 Nucleated RBC % Not Reportable 03/02/21 05:45 Seg Neutrophils # Man 10.9 K/mm3 (1.8-7.7) H 03/02/21 05:45 Band Neutrophils # 0.0 K/mm3 03/02/21 05:45 Lymphocytes # (Manual) 0.5 K/mm3 (1.2-5.4) L 03/02/21 05:45 Abs React Lymphs (Man) 0.1 K/mm3 03/02/21 05:45 Monocytes # (Manual) 0.0 K/mm3 (0.0-0.8) 03/02/21 05:45 Eosinophils # (Manual) 0.0 K/mm3 (0.0-0.4) 03/02/21 05:45 Basophils # (Manual) 0.0 K/mm3 (0.0-0.1) 03/02/21 05:45 Metamyelocytes # 0.1 K/mm3 03/02/21 05:45 Myelocytes # 0.1 K/mm3 03/02/21 05:45 Promyelocytes # 0.0 K/mm3 03/02/21 05:45 Blast Cells # 0.0 K/mm3 03/02/21 05:45 WBC Morphology Not Reportable 03/02/21 05:45 Hypersegmented Neuts Not Reportable 03/02/21 05:45 Hyposegmented Neuts Not Reportable 03/02/21 05:45 Hypogranular Neuts Not Reportable 03/02/21 05:45 Smudge Cells Not Reportable 03/02/21 05:45 Toxic Granulation Not Reportable 03/02/21 05:45 Toxic Vacuolation Not Reportable 03/02/21 05:45 Dohle Bodies Not Reportable 03/02/21 05:45 Pelger-Huet Anomaly Not Reportable 03/02/21 05:45 Nayeli Rods Not Reportable 03/02/21 05:45 Platelet Estimate Consistent w auto 03/02/21 05:45 Clumped Platelets Not Reportable 03/02/21 05:45 Plt Clumps, EDTA Not Reportable 03/02/21 05:45 Large Platelets Not Reportable 03/02/21 05:45 Giant Platelets Not Reportable 03/02/21 05:45 Platelet Satelliting Not Reportable 03/02/21 05:45 Plt Morphology Comment Not Reportable 03/02/21 05:45 RBC Morphology Not Reportable 03/02/21 05:45 Dimorphic RBCs Not Reportable 03/02/21 05:45 Polychromasia Not Reportable 03/02/21 05:45 Hypochromasia 1+ 03/02/21 05:45 Poikilocytosis Not Reportable 03/02/21 05:45 Anisocytosis Few 03/02/21 05:45 Microcytosis Not Reportable 03/02/21 05:45 Macrocytosis Not Reportable 03/02/21 05:45 Spherocytes Not Reportable 03/02/21 05:45 Pappenheimer Bodies Not Reportable 03/02/21 05:45 Sickle Cells Not Reportable 03/02/21 05:45 Target Cells Rare 03/02/21 05:45 Tear Drop Cells Not Reportable 03/02/21 05:45 Ovalocytes Not Reportable 03/02/21 05:45 Helmet Cells Not Reportable 03/02/21 05:45 [place] Bodies Not Reportable 03/02/21 05:45 [place] Rings Not Reportable 03/02/21 05:45 Dank Cells Not Reportable 03/02/21 05:45 Bite Cells Not Reportable 03/02/21 05:45 Crenated Cell Not Reportable 03/02/21 05:45 Elliptocytes Not Reportable 03/02/21 05:45 Acanthocytes (Spur) Not Reportable 03/02/21 05:45 Rouleaux Not Reportable 03/02/21 05:45 Hemoglobin C Crystals Not Reportable 03/02/21 05:45 Schistocytes Not Reportable 03/02/21 05:45 Malaria parasites Not Reportable 03/02/21 05:45 Christiano Bodies Not Reportable 03/02/21 05:45 Hem Pathologist Commnt No 03/02/21 05:45 PT 13.6 Sec. (12.2-14.9) 02/28/21 18:48 INR 0.99 (0.87-1.13) 02/28/21 18:48 APTT 27.9 Sec. (24.2-36.6) 02/28/21 18:48 ABG pH 7.518 (7.320-7.450) H 03/01/21 10:56 POC ABG pCO2 27.2 mmHg (32.0-48.0) L 03/01/21 10:56 POC ABG pO2 84.0 mmHg (83-108) 03/01/21 10:56 POC ABG HCO3 21.6 03/01/21 10:56 ABG O2 Saturation 97.1 (0-100) 03/01/21 10:56 POC ABG Base Excess -0.4 03/01/21 10:56 ABG Hemoglobin 10.9 (12.0-17.5) L 03/01/21 10:56 ABG Oxyhemoglobin 96.4 (94-98) 03/01/21 10:56 ABG Methemoglobin 0.3 (0.0-1.5) 03/01/21 10:56 ABG Sodium 134.6 mmol/L (136.0-145.0) L 03/01/21 10:56 ABG Potassium 2.8 mmol/L (3.40-4.50) L 03/01/21 10:56 ABG Chloride 106.0 mmol/L (98-107) 03/01/21 10:56 ABG Glucose 144 mg/dL (65-95) H 03/01/21 10:56 VBG pH 7.316 (7.320-7.420) L 02/25/21 22:48 Carboxyhemoglobin 0.4 (0.5-1.5) L 03/01/21 10:56 FiO2 % 21.0 03/01/21 10:56 Sodium 142 mmol/L (137-145) 03/02/21 05:45 Potassium 3.2 mmol/L (3.6-5.0) L 03/02/21 05:45 Chloride 109.7 mmol/L (98-107) H 03/02/21 05:45 Carbon Dioxide 24 mmol/L (22-30) 03/02/21 05:45 Anion Gap 12 mmol/L 03/02/21 05:45 BUN 29 mg/dL (9-20) H 03/02/21 05:45 Creatinine 1.1 mg/dL (0.8-1.3) 03/02/21 05:45 Estimated GFR > 60 ml/min 03/02/21 05:45 BUN/Creatinine Ratio 26 % 03/02/21 05:45 Glucose 299 mg/dL (75-100) H 03/02/21 05:45 POC Glucose 161 mg/dL (70-105) H 03/02/21 10:28 Hemoglobin A1c 14.2 % (4-6) H 02/26/21 02:40 Calcium 7.6 mg/dL (8.4-10.2) L 03/02/21 05:45 Phosphorus 2.50 mg/dL (2.5-4.5) D 02/26/21 02:40 Magnesium 2.00 mg/dL (1.7-2.3) 02/27/21 04:18 Total Bilirubin 0.40 mg/dL (0.1-1.2) 02/25/21 22:48 AST 21 units/L (5-40) 02/25/21 22:48 ALT 34 units/L (7-56) 02/25/21 22:48 Alkaline Phosphatase 201 units/L (35-129) H 02/25/21 22:48 Total Creatine Kinase 37 units/L (55-170) L 02/25/21 22:48 Troponin T < 0.010 ng/mL (0.00-0.029) 02/25/21 22:48 Total Protein 6.8 g/dL (6.3-8.2) 02/25/21 22:48 Albumin 2.9 g/dL (3.9-5) L 02/25/21 22:48 Albumin/Globulin Ratio 0.7 % 02/25/21 22:48 Arterial Blood Glucose 144 mg/dL (65-95) H 03/01/21 10:56 Arterial Blood Ionized Calcium 4.5 mg/dL (4.6-5.3) L 03/01/21 10:56 Urine Color Yellow (Yellow) 02/26/21 18:00 Urine Turbidity Turbid (Clear) 02/26/21 18:00 Urine pH 6.0 (5.0-7.0) 02/26/21 18:00 Ur Specific [place] 1.013 (1.003-1.030) 02/26/21 18:00 Urine Protein 100 mg/dl mg/dL (Negative) 02/26/21 18:00 Urine Glucose (UA) >=500 mg/dL (Negative) 02/26/21 18:00 Urine Ketones Tr mg/dL (Negative) 02/26/21 18:00 Urine Blood Lg (Negative) 02/26/21 18:00 Urine Nitrite Neg (Negative) 02/26/21 18:00 Urine Bilirubin Neg (Negative) 02/26/21 18:00 Urine Urobilinogen < 2.0 mg/dL (<2.0) 02/26/21 18:00 Ur Leukocyte Esterase Lg (Negative) 02/26/21 18:00 Urine WBC (Auto) > 182.0 /HPF (0.0-6.0) H 02/26/21 18:00 Urine RBC (Auto) 41.0 /HPF (0.0-6.0) 02/26/21 18:00 U Epithel Cells (Auto) 1.0 /HPF (0-13.0) 02/26/21 12:00 Urine Bacteria (Auto) 2+ /HPF (Negative) 02/26/21 12:00 Urine WBC Clumps 3+ /HPF 02/26/21 18:00 Urine Mucus Few /HPF 02/26/21 18:00 Urine Yeast (Budding) 3+ /HPF 02/26/21 18:00 Urine Creatinine 26.8 mg/dL (0.1-20.0) H 02/26/21 12:00 Protein/Creatinin Ratio 1.75 02/26/21 12:00 Urine Sodium 29 mmol/L 02/26/21 12:00 Urine Total Protein 47 mg/dL (5-11.8) H 02/26/21 12:00 Nasal Screen MRSA (PCR) Positive (Negative) 02/28/21 Unknown Microbiology: Microbiology 02/27/21 13:36 Peripheral/Venous Blood Culture - Preliminary NO GROWTH AFTER 72 HOURS 02/27/21 13:26 Peripheral/Venous Blood Culture - Preliminary NO GROWTH AFTER 72 HOURS Hernandez/IV: Voiding Method Indwelling Catheter Active Medications - Current Medications Current Medications: Generic Name Dose Route Start Last Admin Trade Name Freq PRN Reason Stop Dose Admin Acetaminophen 650 mg 02/26/21 00:36 Acetaminophen 325 Mg Tab PO Q6H PRN Pain MILD(1-3)/Fever >100.5/MATHUR Dextrose 50 ml 02/25/21 23:47 02/27/21 07:03 Dextrose 50% In Water (25gm) 50 Ml Syringe IV 50 ml Q30MIN PRN Administration Hypoglycemia Protocol Heparin Sodium (Porcine) 5,000 unit 02/26/21 06:00 03/02/21 13:25 Heparin 5,000 Unit/1 Ml Vial SUB-Q 5,000 unit Q8HR ROSELIA Administration MEROPENEM/NS 1 GRAM/100 ML 1 gram in 100 mls @ 100 mls/hr 03/02/21 10:00 03/02/21 10:29 Merrem/Ns 1 Gram/100 Ml IV 100 mls/hr Q8H ROSELIA Administration Protocol Insulin Glargine 20 units 02/27/21 22:00 03/01/21 21:45 Insulin Glargine 100 Units/Ml SUB-Q 20 units QHS ROSELIA Administration Insulin Human Lispro 0 unit 02/27/21 11:30 03/02/21 11:09 Insulin Lispro 100 Unit/Ml SUB-Q 2 unit ACHS ROSELIA Administration Protocol Morphine Sulfate 2 mg 02/26/21 00:36 Morphine 2 Mg/1 Ml Inj IV Q4H PRN Pain, Moderate (4-6) Morphine Sulfate 4 mg 02/26/21 00:36 Morphine 4 Mg/1 Ml Inj IV Q4H PRN Pain , Severe (7-10) Sodium Chloride 10 ml 02/26/21 10:00 03/02/21 09:01 Sodium Chloride 0.9% 10 Ml Flush Syringe IV 10 ml BID ROSELIA Administration Sodium Chloride 10 ml 02/26/21 00:36 Sodium Chloride 0.9% 10 Ml Flush Syringe IV PRN PRN LINE FLUSH Tamsulosin HCl 0.8 mg 02/26/21 16:00 03/02/21 09:01 Tamsulosin 0.4 Mg Cap PO 0.8 mg QDAY ROSELIA Administration Nutrition/Malnutrition Assess - Dietary Evaluation Nutrition/Malnutrition Findings: Nutrition Notes Start: 02/26/21 13:01 Freq: Status: Active Protocol: Document 03/02/21 13:38 ZEHRA (Rec: 03/02/21 13:40 [id number]) Nutrition Notes Initial or Follow up Assessment Current Diagnosis CKD(stage I-IV),Diabetes Other Pertinent Diagnosis DKA Current Diet Consistent CHO Labs/Tests K 3.2 Pertinent Medications BG 299 Height 5 ft 10 in Weight 51.075 kg [place] Body Weight (kg) 75.45 BMI 16.1 Weight change and time frame unable to obtain new wt Weight Status Underweight Subjective/Other Information FU for intakes. Pt drinking 100% of ONS and eating 75% of meals. Percent of energy/protein needs met: 100%/100% Burn Absent Trauma Absent Current % PO Good (75-100%) Minimum of two criteria No #2 Nutrition Diagnosis Inadequate oral intake As Evidenced by Signs and Symptoms pt eating 75% of meals Diagnosis Progress(for reassessment Improved documentation) #1 Nutrition Diagnosis Food and nutrition-related knowledge deficit As Evidenced by Signs and Symptoms pt had no questions at this time Diagnosis Progress(for reassessment Resolved documentation) Is patient on ventilator? No Is Patient Ambulatory and/or Out of Bed No REE-([facility]-confined to bed) 2316.615 Calculation Used for Recommendations [facility] Additional Notes Protein: (0.8-0.9g/kg) 41-46g Fluid: 1 ml/kcal or per MD Nutrition Intervention Change Diet Order: Continue with food prefrences Add Supplement/Snack (indicate name/kcal Glucerna BID /protein ) Provides kCal: 440 Provides Protein (gm) 20 Goal #1 Meet at least 75% of protein and energy needs via PO and ONS intakes Anticipated Discharge Needs: consistent carbohydrate diet Follow-Up By: 03/04/21 Additional Comments FU for intakes
--- NOTE | 2021-03-02 16:33 | Progress Note ---
Assessment and Plan 60-year-old -[place] male with known history of diabetes mellitus presents to the emergency room today complaining of generalized weakness and elevated blood glucose at home. Patient was diagnosed with diabetes mellitus about 2 weeks ago and states he has been out of his insulin for the past 3 to 4 days. Family had called EMS and patient was subsequently brought to the emergency room. Blood glucose was said to be reading high in route to the hospital. Patient was given IV normal saline in route to the hospital. Work-up in the emergency room reveals that patient is in DKA. He has been started on insulin drip and IV fluid. Patient has history of smoking 1 pack/40 years. 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 No known drug allergies. Patients Anion gap improving. 02/28/21 Anion gap 13. Blood sugur 193. To days blood sugur because patient kept NPO for the procedure. Patient fed now. Blood sugur came up to 104. Patient transfered to Telemetry.Patient alert, awake. Resting on room air. O2 saturation 98%. No complaint of chest pain, shortness of breath or cough. Patient afebrile. Has leukocytosis. Chest xray 02/25/21 reported no acute findings. Patient is on Meropenum, S/C Heparine, S/C Insulin. - Patient Problems (1) Diabetic ketoacidosis Current Visit: Yes Status: Acute Qualifiers: Diabetes mellitus type: type 2 Diabetes mellitus complication detail: without coma Qualified Code(s): E11.10 - Type 2 diabetes mellitus with ketoacidosis without coma Plan to address problem: Patient improving. Anion gap improving, 12, Blood sugur to day 299. Management as per primary care. (2) Metabolic acidosis Current Visit: Yes Status: Acute Plan to address problem: Improved (3) Renal failure Current Visit: Yes Status: Acute Qualifiers: Renal failure chronicity: acute Acute renal failure type: unspecified Qualified Code(s): N17.9 - Acute kidney failure, unspecified Plan to address problem: Management as per nephrology. Subjective Date of service: 03/02/21 Principal diagnosis: sandra, dka Interval history: 60-year-old -[place] male with known history of diabetes mellitus presents to the emergency room today complaining of generalized weakness and elevated blood glucose at home. Patient was diagnosed with diabetes mellitus about 2 weeks ago and states he has been out of his insulin for the past 3 to 4 days. Family had called EMS and patient was subsequently brought to the emergency room. Blood glucose was said to be reading high in route to the hospital. Patient was given IV normal saline in route to the hospital. Work-up in the emergency room reveals that patient is in DKA. He has been started on insulin drip and IV fluid. Patient has history of smoking 1 pack/40 years. 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 No known drug allergies. Patients Anion gap improving. 02/28/21 Anion gap 13. Blood sugur 193. To days blood sugur because patient kept NPO for the procedure. Patient fed now. Blood sugur came up to 104. Patient transfered to Telemetry.Patient alert, awake. Resting on room air. O2 saturation 98%. No complaint of chest pain, shortness of breath or cough. Patient afebrile. Has leukocytosis. Chest xray 02/25/21 reported no acute findings. Patient is on Meropenum, S/C Heparine, S/C Insulin. Objective Vital Signs - 12hr 03/02/21 03/02/21 03/02/21 05:00 06:00 06:45 Temperature 97.9 F Pulse Rate 68 79 70 Pulse Rate [ From Monitor] Respiratory 13 16 18 Rate Blood Pressure 123/73 124/75 O2 Sat by Pulse 100 100 100 Oximetry 03/02/21 08:55 Temperature Pulse Rate Pulse Rate [ 78 From Monitor] Respiratory 16 Rate Blood Pressure O2 Sat by Pulse 98 Oximetry Constitutional: no acute distress, alert Eyes: non-icteric ENT: oropharynx dry Neck: supple, no lymphadenopathy, no JVD Effort: normal Ascultation: Bilateral: diminished breath sounds Cardiovascular: regular rate and rhythm, other (S1,S2) Gastrointestinal: normoactive bowel sounds, soft, non-tender Integumentary: other (loss of skin tugor) Extremities: no edema Neurologic: normal mental status, non-focal exam, pupils equal and round, CN II- XII normal Psychiatric: mood appropriate, affect normal CBC and BMP: 03/02/21 05:45 03/02/21 05:45 ABG, PT/INR, D-dimer: ABG ABG pH 7.518 (7.320-7.450) H 03/01/21 10:56 POC ABG pCO2 27.2 mmHg (32.0-48.0) L 03/01/21 10:56 POC ABG pO2 84.0 mmHg (83-108) 03/01/21 10:56 POC ABG HCO3 21.6 03/01/21 10:56 ABG O2 Saturation 97.1 (0-100) 03/01/21 10:56 PT/INR, D-dimer PT 13.6 Sec. (12.2-14.9) 02/28/21 18:48 INR 0.99 (0.87-1.13) 02/28/21 18:48 Abnormal lab findings: Abnormal Labs 02/25/21 02/25/21 02/25/21 22:31 22:48 22:48 WBC 24.1 H RBC Hgb 11.5 L Hct Seg Neuts % (Manual) 95.0 H Lymphocytes % (Manual) Seg Neutrophils # Man 22.9 H Lymphocytes # (Manual) 0.0 L ABG pH POC ABG pCO2 ABG Hemoglobin ABG Sodium ABG Potassium ABG Glucose VBG pH Carboxyhemoglobin Sodium 126 L Potassium Chloride 88.8 L Carbon Dioxide 18 L BUN 75 H Creatinine 2.1 H Glucose 938 H* POC Glucose > 600 H Hemoglobin A1c Calcium Magnesium Alkaline Phosphatase 201 H Total Creatine Kinase 37 L Albumin 2.9 L Arterial Blood Glucose Arterial Blood Ionized Calcium Urine WBC (Auto) Urine Creatinine Urine Total Protein 02/25/21 02/25/21 02/26/21 22:48 23:52 01:21 WBC RBC Hgb Hct Seg Neuts % (Manual) Lymphocytes % (Manual) Seg Neutrophils # Man Lymphocytes # (Manual) ABG pH POC ABG pCO2 ABG Hemoglobin ABG Sodium ABG Potassium ABG Glucose VBG pH 7.316 L Carboxyhemoglobin Sodium Potassium Chloride Carbon Dioxide BUN Creatinine Glucose POC Glucose > 600 H Hemoglobin A1c Calcium Magnesium 2.80 H Alkaline Phosphatase Total Creatine Kinase Albumin Arterial Blood Glucose Arterial Blood Ionized Calcium Urine WBC (Auto) Urine Creatinine Urine Total Protein 02/26/21 02/26/21 02/26/21 02:09 02:40 02:40 WBC RBC Hgb Hct Seg Neuts % (Manual) Lymphocytes % (Manual) Seg Neutrophils # Man Lymphocytes # (Manual) ABG pH POC ABG pCO2 ABG Hemoglobin ABG Sodium ABG Potassium ABG Glucose VBG pH Carboxyhemoglobin Sodium 131 L Potassium Chloride 96.1 L Carbon Dioxide 17 L BUN 74 H Creatinine 2.1 H Glucose 719 H* POC Glucose > 600 H Hemoglobin A1c 14.2 H Calcium Magnesium Alkaline Phosphatase Total Creatine Kinase Albumin Arterial Blood Glucose Arterial Blood Ionized Calcium Urine WBC (Auto) Urine Creatinine Urine Total Protein 02/26/21 02/26/21 02/26/21 02:40 03:58 04:03 WBC RBC Hgb Hct Seg Neuts % (Manual) Lymphocytes % (Manual) Seg Neutrophils # Man Lymphocytes # (Manual) ABG pH POC ABG pCO2 ABG Hemoglobin ABG Sodium ABG Potassium ABG Glucose VBG pH Carboxyhemoglobin Sodium Potassium Chloride Carbon Dioxide 18 L BUN 71 H Creatinine 2.0 H Glucose 550 H* POC Glucose 544 H Hemoglobin A1c Calcium Magnesium 2.70 H Alkaline Phosphatase Total Creatine Kinase Albumin Arterial Blood Glucose Arterial Blood Ionized Calcium Urine WBC (Auto) Urine Creatinine Urine Total Protein 02/26/21 02/26/21 02/26/21 05:01 05:58 07:09 WBC RBC Hgb Hct Seg Neuts % (Manual) Lymphocytes % (Manual) Seg Neutrophils # Man Lymphocytes # (Manual) ABG pH POC ABG pCO2 ABG Hemoglobin ABG Sodium ABG Potassium ABG Glucose VBG pH Carboxyhemoglobin Sodium Potassium Chloride Carbon Dioxide BUN Creatinine Glucose POC Glucose 439 H 399 H 217 H Hemoglobin A1c Calcium Magnesium Alkaline Phosphatase Total Creatine Kinase Albumin Arterial Blood Glucose Arterial Blood Ionized Calcium Urine WBC (Auto) Urine Creatinine Urine Total Protein 02/26/21 02/26/21 02/26/21 08:09 08:12 09:08 WBC RBC Hgb Hct Seg Neuts % (Manual) Lymphocytes % (Manual) Seg Neutrophils # Man Lymphocytes # (Manual) ABG pH POC ABG pCO2 ABG Hemoglobin ABG Sodium ABG Potassium ABG Glucose VBG pH Carboxyhemoglobin Sodium Potassium Chloride Carbon Dioxide 16 L BUN 72 H Creatinine 1.9 H Glucose 119 H POC Glucose 138 H 136 H Hemoglobin A1c Calcium Magnesium Alkaline Phosphatase Total Creatine Kinase Albumin Arterial Blood Glucose Arterial Blood Ionized Calcium Urine WBC (Auto) Urine Creatinine Urine Total Protein 02/26/21 02/26/21 02/26/21 12:00 12:00 12:04 WBC RBC Hgb Hct Seg Neuts % (Manual) Lymphocytes % (Manual) Seg Neutrophils # Man Lymphocytes # (Manual) ABG pH POC ABG pCO2 ABG Hemoglobin ABG Sodium ABG Potassium ABG Glucose VBG pH Carboxyhemoglobin Sodium Potassium Chloride Carbon Dioxide BUN Creatinine Glucose POC Glucose 136 H Hemoglobin A1c Calcium Magnesium Alkaline Phosphatase Total Creatine Kinase Albumin Arterial Blood Glucose Arterial Blood Ionized Calcium Urine WBC (Auto) > 182.0 H Urine Creatinine 26.8 H Urine Total Protein 47 H 02/26/21 02/26/21 02/26/21 13:26 14:50 15:14 WBC RBC Hgb Hct Seg Neuts % (Manual) Lymphocytes % (Manual) Seg Neutrophils # Man Lymphocytes # (Manual) ABG pH POC ABG pCO2 ABG Hemoglobin ABG Sodium ABG Potassium ABG Glucose VBG pH Carboxyhemoglobin Sodium Potassium Chloride Carbon Dioxide BUN Creatinine Glucose POC Glucose 124 H 119 H 106 H Hemoglobin A1c Calcium Magnesium Alkaline Phosphatase Total Creatine Kinase Albumin Arterial Blood Glucose Arterial Blood Ionized Calcium Urine WBC (Auto) Urine Creatinine Urine Total Protein 02/26/21 02/26/21 02/26/21 15:27 16:38 17:22 WBC RBC Hgb Hct Seg Neuts % (Manual) Lymphocytes % (Manual) Seg Neutrophils # Man Lymphocytes # (Manual) ABG pH POC ABG pCO2 ABG Hemoglobin ABG Sodium ABG Potassium ABG Glucose VBG pH Carboxyhemoglobin Sodium 136 L Potassium 5.1 H Chloride Carbon Dioxide 16 L BUN 72 H Creatinine 2.2 H Glucose 107 H POC Glucose 111 H 113 H Hemoglobin A1c Calcium Magnesium Alkaline Phosphatase Total Creatine Kinase Albumin Arterial Blood Glucose Arterial Blood Ionized Calcium Urine WBC (Auto) Urine Creatinine Urine Total Protein 02/26/21 02/26/21 02/26/21 17:54 18:00 20:25 WBC RBC Hgb Hct Seg Neuts % (Manual) Lymphocytes % (Manual) Seg Neutrophils # Man Lymphocytes # (Manual) ABG pH POC ABG pCO2 ABG Hemoglobin ABG Sodium ABG Potassium ABG Glucose VBG pH Carboxyhemoglobin Sodium Potassium Chloride Carbon Dioxide BUN Creatinine Glucose POC Glucose 114 H 129 H Hemoglobin A1c Calcium Magnesium Alkaline Phosphatase Total Creatine Kinase Albumin Arterial Blood Glucose Arterial Blood Ionized Calcium Urine WBC (Auto) > 182.0 H Urine Creatinine Urine Total Protein 02/26/21 02/26/21 02/26/21 21:17 22:02 23:05 WBC RBC Hgb Hct Seg Neuts % (Manual) Lymphocytes % (Manual) Seg Neutrophils # Man Lymphocytes # (Manual) ABG pH POC ABG pCO2 ABG Hemoglobin ABG Sodium ABG Potassium ABG Glucose VBG pH Carboxyhemoglobin Sodium Potassium Chloride Carbon Dioxide BUN Creatinine Glucose POC Glucose 127 H 135 H 112 H Hemoglobin A1c Calcium Magnesium Alkaline Phosphatase Total Creatine Kinase Albumin Arterial Blood Glucose Arterial Blood Ionized Calcium Urine WBC (Auto) Urine Creatinine Urine Total Protein 02/27/21 02/27/21 02/27/21 00:11 02:13 04:13 WBC RBC Hgb Hct Seg Neuts % (Manual) Lymphocytes % (Manual) Seg Neutrophils # Man Lymphocytes # (Manual) ABG pH POC ABG pCO2 ABG Hemoglobin ABG Sodium ABG Potassium ABG Glucose VBG pH Carboxyhemoglobin Sodium Potassium 3.5 L D Chloride 108.4 H Carbon Dioxide 21 L BUN 64 H Creatinine 1.9 H Glucose POC Glucose 106 H 115 H Hemoglobin A1c Calcium 8.3 L Magnesium Alkaline Phosphatase Total Creatine Kinase Albumin Arterial Blood Glucose Arterial Blood Ionized Calcium Urine WBC (Auto) Urine Creatinine Urine Total Protein 02/27/21 02/27/21 02/27/21 04:18 04:18 06:57 WBC 22.4 H RBC Hgb 11.0 L Hct 32.3 L Seg Neuts % (Manual) Lymphocytes % (Manual) Seg Neutrophils # Man Lymphocytes # (Manual) ABG pH POC ABG pCO2 ABG Hemoglobin ABG Sodium ABG Potassium ABG Glucose VBG pH Carboxyhemoglobin Sodium Potassium Chloride 107.9 H Carbon Dioxide BUN 59 H Creatinine 1.7 H Glucose POC Glucose 60 L Hemoglobin A1c Calcium 8.1 L Magnesium Alkaline Phosphatase Total Creatine Kinase Albumin Arterial Blood Glucose Arterial Blood Ionized Calcium Urine WBC (Auto) Urine Creatinine Urine Total Protein 02/27/21 02/27/21 02/27/21 08:24 08:35 11:25 WBC RBC Hgb Hct Seg Neuts % (Manual) Lymphocytes % (Manual) Seg Neutrophils # Man Lymphocytes # (Manual) ABG pH POC ABG pCO2 ABG Hemoglobin ABG Sodium ABG Potassium ABG Glucose VBG pH Carboxyhemoglobin Sodium Potassium 3.1 L Chloride 108.6 H Carbon Dioxide 21 L BUN 53 H Creatinine 1.5 H Glucose 121 H POC Glucose 131 H 196 H Hemoglobin A1c Calcium 8.0 L Magnesium Alkaline Phosphatase Total Creatine Kinase Albumin Arterial Blood Glucose Arterial Blood Ionized Calcium Urine WBC (Auto) Urine Creatinine Urine Total Protein 02/27/21 02/27/21 02/27/21 16:39 18:04 21:33 WBC RBC Hgb Hct Seg Neuts % (Manual) Lymphocytes % (Manual) Seg Neutrophils # Man Lymphocytes # (Manual) ABG pH POC ABG pCO2 ABG Hemoglobin ABG Sodium ABG Potassium ABG Glucose VBG pH Carboxyhemoglobin Sodium Potassium 3.1 L Chloride Carbon Dioxide 20 L BUN 50 H Creatinine 1.4 H Glucose 365 H POC Glucose 340 H 322 H Hemoglobin A1c Calcium 7.9 L Magnesium Alkaline Phosphatase Total Creatine Kinase Albumin Arterial Blood Glucose Arterial Blood Ionized Calcium Urine WBC (Auto) Urine Creatinine Urine Total Protein 02/28/21 02/28/21 02/28/21 05:05 07:25 11:13 WBC RBC Hgb Hct Seg Neuts % (Manual) Lymphocytes % (Manual) Seg Neutrophils # Man Lymphocytes # (Manual) ABG pH POC ABG pCO2 ABG Hemoglobin ABG Sodium ABG Potassium ABG Glucose VBG pH Carboxyhemoglobin Sodium Potassium 3.3 L Chloride 110.2 H Carbon Dioxide BUN 43 H Creatinine Glucose 193 H POC Glucose 121 H 190 H Hemoglobin A1c Calcium 7.8 L Magnesium Alkaline Phosphatase Total Creatine Kinase Albumin Arterial Blood Glucose Arterial Blood Ionized Calcium Urine WBC (Auto) Urine Creatinine Urine Total Protein 02/28/21 02/28/21 03/01/21 16:30 22:08 08:05 WBC RBC Hgb Hct Seg Neuts % (Manual) Lymphocytes % (Manual) Seg Neutrophils # Man Lymphocytes # (Manual) ABG pH POC ABG pCO2 ABG Hemoglobin ABG Sodium ABG Potassium ABG Glucose VBG pH Carboxyhemoglobin Sodium Potassium Chloride Carbon Dioxide BUN Creatinine Glucose POC Glucose 180 H 340 H 58 L Hemoglobin A1c Calcium Magnesium Alkaline Phosphatase Total Creatine Kinase Albumin Arterial Blood Glucose Arterial Blood Ionized Calcium Urine WBC (Auto) Urine Creatinine Urine Total Protein 03/01/21 03/01/21 03/01/21 09:34 10:56 10:59 WBC 15.3 H RBC Hgb 11.2 L Hct 33.1 L Seg Neuts % (Manual) 87.0 H Lymphocytes % (Manual) 1.0 L Seg Neutrophils # Man 13.3 H Lymphocytes # (Manual) 0.2 L ABG pH 7.518 H POC ABG pCO2 27.2 L ABG Hemoglobin 10.9 L ABG Sodium 134.6 L ABG Potassium 2.8 L ABG Glucose 144 H VBG pH Carboxyhemoglobin 0.4 L Sodium Potassium 3.2 L Chloride Carbon Dioxide BUN 29 H Creatinine Glucose POC Glucose Hemoglobin A1c Calcium 8.2 L Magnesium Alkaline Phosphatase Total Creatine Kinase Albumin Arterial Blood Glucose 144 H Arterial Blood Ionized Calcium 4.5 L Urine WBC (Auto) Urine Creatinine Urine Total Protein 03/01/21 03/01/21 03/01/21 12:38 17:10 21:27 WBC RBC Hgb Hct Seg Neuts % (Manual) Lymphocytes % (Manual) Seg Neutrophils # Man Lymphocytes # (Manual) ABG pH POC ABG pCO2 ABG Hemoglobin ABG Sodium ABG Potassium ABG Glucose VBG pH Carboxyhemoglobin Sodium Potassium Chloride Carbon Dioxide BUN Creatinine Glucose POC Glucose 134 H 190 H 187 H Hemoglobin A1c Calcium Magnesium Alkaline Phosphatase Total Creatine Kinase Albumin Arterial Blood Glucose Arterial Blood Ionized Calcium Urine WBC (Auto) Urine Creatinine Urine Total Protein 03/02/21 03/02/21 03/02/21 05:45 05:45 08:05 WBC 11.7 H RBC 3.38 L Hgb 10.0 L Hct 29.8 L Seg Neuts % (Manual) 93.0 H Lymphocytes % (Manual) 4.0 L Seg Neutrophils # Man 10.9 H Lymphocytes # (Manual) 0.5 L ABG pH POC ABG pCO2 ABG Hemoglobin ABG Sodium ABG Potassium ABG Glucose VBG pH Carboxyhemoglobin Sodium Potassium 3.2 L Chloride 109.7 H Carbon Dioxide BUN 29 H Creatinine Glucose 299 H POC Glucose 224 H Hemoglobin A1c Calcium 7.6 L Magnesium Alkaline Phosphatase Total Creatine Kinase Albumin Arterial Blood Glucose Arterial Blood Ionized Calcium Urine WBC (Auto) Urine Creatinine Urine Total Protein 03/02/21 10:28 WBC RBC Hgb Hct Seg Neuts % (Manual) Lymphocytes % (Manual) Seg Neutrophils # Man Lymphocytes # (Manual) ABG pH POC ABG pCO2 ABG Hemoglobin ABG Sodium ABG Potassium ABG Glucose VBG pH Carboxyhemoglobin Sodium Potassium Chloride Carbon Dioxide BUN Creatinine Glucose POC Glucose 161 H Hemoglobin A1c Calcium Magnesium Alkaline Phosphatase Total Creatine Kinase Albumin Arterial Blood Glucose Arterial Blood Ionized Calcium Urine WBC (Auto) Urine Creatinine Urine Total Protein
[2021-03-02] MEDS: INSULIN GLARGINE 100 UNITS/ML SUB-Q SCH (22:20)
[2021-03-03] MEDS: MEROPENEM/NS 1 GRAM/100 ML 1 GRAM/100 ML BAG IV SCH ×2 (02:48→09:30)
[2021-03-03] MEDS: HEPARIN 5,000 UNIT/1 ML VIAL SUB-Q SCH ×3 (06:06→21:04)
[2021-03-03] MEDS: INSULIN LISPRO 100 UNIT/ML SUB-Q SCH ×4 (07:50→23:50)
[2021-03-03] MEDS: DEXTROSE 50% IN WATER (25GM) 50 ML SYRINGE IV PRN (08:04)
--- NOTE | 2021-03-03 09:15 | Progress Note ---
Assessment and Plan Impression: * MAXIMO: likely due to pre-renal injury. Likely with CKD in setting of DM * volume depletion * metabolic acidosis * uncontrolled DM * HTN Plan: * encourage po hydration, off IVF today * cr been stable, yesterday at 1.1 (peaked at 2.2) * holding NaHCO3 given low K, Ca * replete K prn- started K-dur 40meq daily * DM treatment per primary team * daily lytes * UA and urine studies reviewed; has proteinuria likely from DM, will need outpatient CKD follow up, will arrange * no indication for [employer] at this time * appreciate urology input regarding emphematous pyelonephritis * nephrology will follow peripherally given good renal function Subjective Date of service: 03/03/21 Principal diagnosis: maximo, dka Interval history: Patient awake and alert in bed this AM. Denies any acute distress Objective - Exam Narrative Exam: Constitutional: no acute distress Head: NC/AT Neck: supple Lungs: clear to auscultation CV: RRR, no M/R/G Abdomen: soft, non-tender, bowel sounds present Back: nontender Extremities: no edema, pulses WNL Skin: intact Neuro: no focal deficits, alert and oriented x4 - Vital Signs Vital signs: Vital Signs - 12hr 03/03/21 03/03/21 03/03/21 00:00 03:48 04:00 Temperature 98.1 F Pulse Rate 78 70 78 Respiratory 16 18 Rate Blood Pressure 126/76 O2 Sat by Pulse 98 97 Oximetry - Lab 03/02/21 05:45 03/02/21 05:45 Most recent lab results ABG pH 7.518 (7.320-7.450) H 03/01/21 10:56 ABG O2 Saturation 97.1 (0-100) 03/01/21 10:56 Calcium 7.6 mg/dL (8.4-10.2) L 03/02/21 05:45 Phosphorus 2.50 mg/dL (2.5-4.5) D 02/26/21 02:40 Magnesium 2.00 mg/dL (1.7-2.3) 02/27/21 04:18 Urine Creatinine 26.8 mg/dL (0.1-20.0) H 02/26/21 12:00 Urine Sodium 29 mmol/L 02/26/21 12:00 Urine Total Protein 47 mg/dL (5-11.8) H 02/26/21 12:00 Medications & Allergies - Medications Allergies/Adverse Reactions: Allergies No Known Allergies Allergy (Unverified 02/28/21 06:57) Home Medications: Home Medications Medication Instructions Recorded Confirmed Last Taken Type Tamsulosin [Flomax] 2 cap QDAY 02/26/21 02/26/21 Unknown History Active Medications: Generic Name Dose Route Start Last Admin Trade Name Freq PRN Reason Stop Dose Admin Acetaminophen 650 mg 02/26/21 00:36 Acetaminophen 325 Mg Tab PO Q6H PRN Pain MILD(1-3)/Fever >100.5/MATHUR Dextrose 50 ml 02/25/21 23:47 03/03/21 08:04 Dextrose 50% In Water (25gm) 50 Ml Syringe IV 50 ml Q30MIN PRN Administration Hypoglycemia Protocol Heparin Sodium (Porcine) 5,000 unit 02/26/21 06:00 03/03/21 06:06 Heparin 5,000 Unit/1 Ml Vial SUB-Q 5,000 unit Q8HR ROSELIA Administration MEROPENEM/NS 1 GRAM/100 ML 1 gram in 100 mls @ 100 mls/hr 03/02/21 10:00 03/03/21 02:48 Merrem/Ns 1 Gram/100 Ml IV 100 mls/hr Q8H ROSELIA Administration Protocol Insulin Glargine 20 units 02/27/21 22:00 03/02/21 22:20 Insulin Glargine 100 Units/Ml SUB-Q 20 units QHS ROSELIA Administration Insulin Human Lispro 0 unit 02/27/21 11:30 03/03/21 07:50 Insulin Lispro 100 Unit/Ml SUB-Q Not Given ACHS ROSELIA Protocol Morphine Sulfate 2 mg 02/26/21 00:36 Morphine 2 Mg/1 Ml Inj IV Q4H PRN Pain, Moderate (4-6) Morphine Sulfate 4 mg 02/26/21 00:36 Morphine 4 Mg/1 Ml Inj IV Q4H PRN Pain , Severe (7-10) Sodium Chloride 10 ml 02/26/21 10:00 03/02/21 22:22 Sodium Chloride 0.9% 10 Ml Flush Syringe IV 10 ml BID ROSELIA Administration Sodium Chloride 10 ml 02/26/21 00:36 Sodium Chloride 0.9% 10 Ml Flush Syringe IV PRN PRN LINE FLUSH Tamsulosin HCl 0.8 mg 02/26/21 16:00 03/02/21 09:01 Tamsulosin 0.4 Mg Cap PO 0.8 mg QDAY ROSELIA Administration
[2021-03-03] MEDS: TAMSULOSIN 0.4 MG CAP PO SCH (09:30)
[2021-03-03 10:44] LABS: BUN/Creatinine Ratio 24; Blood Urea Nitrogen 24 mg/dL (9-20); Calcium 7.7 mg/dL (8.4-10.2); Hemolysis Index 0
--- NOTE | 2021-03-03 11:02 | Progress Note ---
Assessment and Plan Cultures: Urine culture: klebsiella Blood culture: pending. A/P: 60-year-old male with diabetes admitted with DKA: #Sepsis, secondary to severe emphysematous pyelonephritis with CT evidence of f ree air surrounding the right kidney and the right retroperitoneum. Etiology is probably urinary tract infection in the setting of severe diabetic ketoacidosis. Per primary team notes, case was discussed with [facility]. #MAXIMO: Renally dose antibiotics. #Diabetes mellitus with DKA Recs: -Stop meropenem -Start ceftriaxone 2 g over 24 hours -Urology on board, deferring surgery for now. Liv Dobbins MD [facility] ([facility]) O: [phone] F: [phone] Subjective Date of service: 03/03/21 Principal diagnosis: maximo, dka Interval history: Afebrile, white count nearly normal now. Objective - Exam Narrative Exam: Physical Exam: Constitutional: Alert, cooperative. No acute distress Head, Ears, Nose: Normocephalic, atraumatic. Eyes: Conjunctivae/corneas clear. Neck: Supple, no meningeal signs Cardiovascular: S1, S2 normal. Respiratory: Good air entry, clear to auscultation bilaterally GI: Soft, non-tender; bowel sounds normal. No peritoneal signs Musculoskeletal: No pedal edema, no cyanosis. Skin: No rash or abscess Hem/Lymphatic: No palpable cervical or supraclavicular nodes. Psych: Mood ok. Affect normal Neurological: Awake, alert, oriented. No gross abnormality - Constitutional Vitals: Vital Signs Temp Pulse Resp BP Pulse Ox 98.1 F 78 18 126/76 97 03/03/21 03:48 03/03/21 04:00 03/03/21 03:48 03/03/21 03:48 03/03/21 03:48 Temperature -Last 24 Hours Temperature 98.1 F Temperature 99.1 F Temperature 99.1 F - Labs CBC & Chem 7: 03/02/21 05:45 03/03/21 09:27 Labs: Abnormal lab results 03/02/21 03/02/21 03/03/21 Range/Units 17:08 21:11 07:44 Chloride (98-107) mmol/L BUN (9-20) mg/dL Glucose (75-100) mg/dL POC Glucose 116 H 147 H 65 L (70-105) mg/dL Calcium (8.4-10.2) mg/dL 03/03/21 03/03/21 Range/Units 09:08 09:27 Chloride 107.3 H (98-107) mmol/L BUN 24 H (9-20) mg/dL Glucose 140 H (75-100) mg/dL POC Glucose 134 H (70-105) mg/dL Calcium 7.7 L (8.4-10.2) mg/dL
--- NOTE | 2021-03-03 12:20 | Progress Note ---
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 Acute cystitis Acute metabolic encephalopathy now resolved Acute kidney injury on chronic kidney disease unknown stage BPH DVT and GI prophylaxis leucocytosis Metabolic acidosis - Urology input appreciated - prn supplemental oxygen to keep O2 sats > 90% - prn bronchodilators (SANDRA) with pulm hygiene per RT - complete Rocephin & Merrem dosing per ID recommendations - continue to avoid nephrotoxins, renally dose all medications - mobility protocols to prevent pressure ulcers - PT/OT as tolerated - Wound care per RN/WCT - continue accuchecks with glycemic control per SSI for target blood glucose < 180 mg/dL - tobacco abstinence strongly counseled at the bedside - home oxygen evaluation at discharge - GI & VTE prophylaxis - Flu & pneumovax per protocol - continue other care per attending / other consultants - prn analgesia per pain score ... re-evaluate in am & prn Subjective Date of service: 03/03/21 Principal diagnosis: DKA; Emphysematous pyelonephritis; Acute encephalopathy; MAXIMO; BPH Interval history: Patient is seen today for: DKA; Emphysematous pyelonephritis; Acute encephalopathy; MAXIMO; BPH Seen and examined at bedside; 24hour events reviewed; nursing and respiratory care staff consulted; no adverse overnight events reported to me; resting in bed; making urine; no dysuria or hematuria; afebrile; denies N/V Objective Vital Signs - 12hr 03/03/21 03/03/21 03:48 04:00 Temperature 98.1 F Pulse Rate 70 78 Respiratory 18 Rate Blood Pressure 126/76 O2 Sat by Pulse 97 Oximetry Constitutional: no acute distress, alert Eyes: non-icteric ENT: oropharynx dry Neck: supple, no lymphadenopathy, no JVD Effort: normal Ascultation: Bilateral: clear, diminished breath sounds Percussion: Bilateral: not dull Cardiovascular: regular rate and rhythm, other (S1,S2) Gastrointestinal: normoactive bowel sounds, soft, non-tender, non-distended Integumentary: other (poor skin turgor) Extremities: no cyanosis, no edema, pulses normal, no ischemia or petechiae Neurologic: normal mental status, non-focal exam, pupils equal and round, CN II- XII normal Psychiatric: mood appropriate, affect normal CBC and BMP: 03/04/21 08:15 03/04/21 08:15 ABG, PT/INR, D-dimer: ABG ABG pH 7.518 (7.320-7.450) H 03/01/21 10:56 POC ABG pCO2 27.2 mmHg (32.0-48.0) L 03/01/21 10:56 POC ABG pO2 84.0 mmHg (83-108) 03/01/21 10:56 POC ABG HCO3 21.6 03/01/21 10:56 ABG O2 Saturation 97.1 (0-100) 03/01/21 10:56 PT/INR, D-dimer PT 13.6 Sec. (12.2-14.9) 02/28/21 18:48 INR 0.99 (0.87-1.13) 02/28/21 18:48 Abnormal lab findings: Abnormal Labs 02/25/21 02/25/21 02/25/21 22:31 22:48 22:48 WBC 24.1 H RBC Hgb 11.5 L Hct Seg Neuts % (Manual) 95.0 H Lymphocytes % (Manual) Seg Neutrophils # Man 22.9 H Lymphocytes # (Manual) 0.0 L ABG pH POC ABG pCO2 ABG Hemoglobin ABG Sodium ABG Potassium ABG Glucose VBG pH Carboxyhemoglobin Sodium 126 L Potassium Chloride 88.8 L Carbon Dioxide 18 L BUN 75 H Creatinine 2.1 H Glucose 938 H* POC Glucose > 600 H Hemoglobin A1c Calcium Magnesium Alkaline Phosphatase 201 H Total Creatine Kinase 37 L Albumin 2.9 L Arterial Blood Glucose Arterial Blood Ionized Calcium Urine WBC (Auto) Urine Creatinine Urine Total Protein 02/25/21 02/25/21 02/26/21 22:48 23:52 01:21 WBC RBC Hgb Hct Seg Neuts % (Manual) Lymphocytes % (Manual) Seg Neutrophils # Man Lymphocytes # (Manual) ABG pH POC ABG pCO2 ABG Hemoglobin ABG Sodium ABG Potassium ABG Glucose VBG pH 7.316 L Carboxyhemoglobin Sodium Potassium Chloride Carbon Dioxide BUN Creatinine Glucose POC Glucose > 600 H Hemoglobin A1c Calcium Magnesium 2.80 H Alkaline Phosphatase Total Creatine Kinase Albumin Arterial Blood Glucose Arterial Blood Ionized Calcium Urine WBC (Auto) Urine Creatinine Urine Total Protein 02/26/21 02/26/21 02/26/21 02:09 02:40 02:40 WBC RBC Hgb Hct Seg Neuts % (Manual) Lymphocytes % (Manual) Seg Neutrophils # Man Lymphocytes # (Manual) ABG pH POC ABG pCO2 ABG Hemoglobin ABG Sodium ABG Potassium ABG Glucose VBG pH Carboxyhemoglobin Sodium 131 L Potassium Chloride 96.1 L Carbon Dioxide 17 L BUN 74 H Creatinine 2.1 H Glucose 719 H* POC Glucose > 600 H Hemoglobin A1c 14.2 H Calcium Magnesium Alkaline Phosphatase Total Creatine Kinase Albumin Arterial Blood Glucose Arterial Blood Ionized Calcium Urine WBC (Auto) Urine Creatinine Urine Total Protein 02/26/21 02/26/21 02/26/21 02:40 03:58 04:03 WBC RBC Hgb Hct Seg Neuts % (Manual) Lymphocytes % (Manual) Seg Neutrophils # Man Lymphocytes # (Manual) ABG pH POC ABG pCO2 ABG Hemoglobin ABG Sodium ABG Potassium ABG Glucose VBG pH Carboxyhemoglobin Sodium Potassium Chloride Carbon Dioxide 18 L BUN 71 H Creatinine 2.0 H Glucose 550 H* POC Glucose 544 H Hemoglobin A1c Calcium Magnesium 2.70 H Alkaline Phosphatase Total Creatine Kinase Albumin Arterial Blood Glucose Arterial Blood Ionized Calcium Urine WBC (Auto) Urine Creatinine Urine Total Protein 02/26/21 02/26/21 02/26/21 05:01 05:58 07:09 WBC RBC Hgb Hct Seg Neuts % (Manual) Lymphocytes % (Manual) Seg Neutrophils # Man Lymphocytes # (Manual) ABG pH POC ABG pCO2 ABG Hemoglobin ABG Sodium ABG Potassium ABG Glucose VBG pH Carboxyhemoglobin Sodium Potassium Chloride Carbon Dioxide BUN Creatinine Glucose POC Glucose 439 H 399 H 217 H Hemoglobin A1c Calcium Magnesium Alkaline Phosphatase Total Creatine Kinase Albumin Arterial Blood Glucose Arterial Blood Ionized Calcium Urine WBC (Auto) Urine Creatinine Urine Total Protein 02/26/21 02/26/21 02/26/21 08:09 08:12 09:08 WBC RBC Hgb Hct Seg Neuts % (Manual) Lymphocytes % (Manual) Seg Neutrophils # Man Lymphocytes # (Manual) ABG pH POC ABG pCO2 ABG Hemoglobin ABG Sodium ABG Potassium ABG Glucose VBG pH Carboxyhemoglobin Sodium Potassium Chloride Carbon Dioxide 16 L BUN 72 H Creatinine 1.9 H Glucose 119 H POC Glucose 138 H 136 H Hemoglobin A1c Calcium Magnesium Alkaline Phosphatase Total Creatine Kinase Albumin Arterial Blood Glucose Arterial Blood Ionized Calcium Urine WBC (Auto) Urine Creatinine Urine Total Protein 02/26/21 02/26/21 02/26/21 12:00 12:00 12:04 WBC RBC Hgb Hct Seg Neuts % (Manual) Lymphocytes % (Manual) Seg Neutrophils # Man Lymphocytes # (Manual) ABG pH POC ABG pCO2 ABG Hemoglobin ABG Sodium ABG Potassium ABG Glucose VBG pH Carboxyhemoglobin Sodium Potassium Chloride Carbon Dioxide BUN Creatinine Glucose POC Glucose 136 H Hemoglobin A1c Calcium Magnesium Alkaline Phosphatase Total Creatine Kinase Albumin Arterial Blood Glucose Arterial Blood Ionized Calcium Urine WBC (Auto) > 182.0 H Urine Creatinine 26.8 H Urine Total Protein 47 H 02/26/21 02/26/21 02/26/21 13:26 14:50 15:14 WBC RBC Hgb Hct Seg Neuts % (Manual) Lymphocytes % (Manual) Seg Neutrophils # Man Lymphocytes # (Manual) ABG pH POC ABG pCO2 ABG Hemoglobin ABG Sodium ABG Potassium ABG Glucose VBG pH Carboxyhemoglobin Sodium Potassium Chloride Carbon Dioxide BUN Creatinine Glucose POC Glucose 124 H 119 H 106 H Hemoglobin A1c Calcium Magnesium Alkaline Phosphatase Total Creatine Kinase Albumin Arterial Blood Glucose Arterial Blood Ionized Calcium Urine WBC (Auto) Urine Creatinine Urine Total Protein 02/26/21 02/26/21 02/26/21 15:27 16:38 17:22 WBC RBC Hgb Hct Seg Neuts % (Manual) Lymphocytes % (Manual) Seg Neutrophils # Man Lymphocytes # (Manual) ABG pH POC ABG pCO2 ABG Hemoglobin ABG Sodium ABG Potassium ABG Glucose VBG pH Carboxyhemoglobin Sodium 136 L Potassium 5.1 H Chloride Carbon Dioxide 16 L BUN 72 H Creatinine 2.2 H Glucose 107 H POC Glucose 111 H 113 H Hemoglobin A1c Calcium Magnesium Alkaline Phosphatase Total Creatine Kinase Albumin Arterial Blood Glucose Arterial Blood Ionized Calcium Urine WBC (Auto) Urine Creatinine Urine Total Protein 02/26/21 02/26/21 02/26/21 17:54 18:00 20:25 WBC RBC Hgb Hct Seg Neuts % (Manual) Lymphocytes % (Manual) Seg Neutrophils # Man Lymphocytes # (Manual) ABG pH POC ABG pCO2 ABG Hemoglobin ABG Sodium ABG Potassium ABG Glucose VBG pH Carboxyhemoglobin Sodium Potassium Chloride Carbon Dioxide BUN Creatinine Glucose POC Glucose 114 H 129 H Hemoglobin A1c Calcium Magnesium Alkaline Phosphatase Total Creatine Kinase Albumin Arterial Blood Glucose Arterial Blood Ionized Calcium Urine WBC (Auto) > 182.0 H Urine Creatinine Urine Total Protein 02/26/21 02/26/21 02/26/21 21:17 22:02 23:05 WBC RBC Hgb Hct Seg Neuts % (Manual) Lymphocytes % (Manual) Seg Neutrophils # Man Lymphocytes # (Manual) ABG pH POC ABG pCO2 ABG Hemoglobin ABG Sodium ABG Potassium ABG Glucose VBG pH Carboxyhemoglobin Sodium Potassium Chloride Carbon Dioxide BUN Creatinine Glucose POC Glucose 127 H 135 H 112 H Hemoglobin A1c Calcium Magnesium Alkaline Phosphatase Total Creatine Kinase Albumin Arterial Blood Glucose Arterial Blood Ionized Calcium Urine WBC (Auto) Urine Creatinine Urine Total Protein 02/27/21 02/27/21 02/27/21 00:11 02:13 04:13 WBC RBC Hgb Hct Seg Neuts % (Manual) Lymphocytes % (Manual) Seg Neutrophils # Man Lymphocytes # (Manual) ABG pH POC ABG pCO2 ABG Hemoglobin ABG Sodium ABG Potassium ABG Glucose VBG pH Carboxyhemoglobin Sodium Potassium 3.5 L D Chloride 108.4 H Carbon Dioxide 21 L BUN 64 H Creatinine 1.9 H Glucose POC Glucose 106 H 115 H Hemoglobin A1c Calcium 8.3 L Magnesium Alkaline Phosphatase Total Creatine Kinase Albumin Arterial Blood Glucose Arterial Blood Ionized Calcium Urine WBC (Auto) Urine Creatinine Urine Total Protein 02/27/21 02/27/21 02/27/21 04:18 04:18 06:57 WBC 22.4 H RBC Hgb 11.0 L Hct 32.3 L Seg Neuts % (Manual) Lymphocytes % (Manual) Seg Neutrophils # Man Lymphocytes # (Manual) ABG pH POC ABG pCO2 ABG Hemoglobin ABG Sodium ABG Potassium ABG Glucose VBG pH Carboxyhemoglobin Sodium Potassium Chloride 107.9 H Carbon Dioxide BUN 59 H Creatinine 1.7 H Glucose POC Glucose 60 L Hemoglobin A1c Calcium 8.1 L Magnesium Alkaline Phosphatase Total Creatine Kinase Albumin Arterial Blood Glucose Arterial Blood Ionized Calcium Urine WBC (Auto) Urine Creatinine Urine Total Protein 02/27/21 02/27/21 02/27/21 08:24 08:35 11:25 WBC RBC Hgb Hct Seg Neuts % (Manual) Lymphocytes % (Manual) Seg Neutrophils # Man Lymphocytes # (Manual) ABG pH POC ABG pCO2 ABG Hemoglobin ABG Sodium ABG Potassium ABG Glucose VBG pH Carboxyhemoglobin Sodium Potassium 3.1 L Chloride 108.6 H Carbon Dioxide 21 L BUN 53 H Creatinine 1.5 H Glucose 121 H POC Glucose 131 H 196 H Hemoglobin A1c Calcium 8.0 L Magnesium Alkaline Phosphatase Total Creatine Kinase Albumin Arterial Blood Glucose Arterial Blood Ionized Calcium Urine WBC (Auto) Urine Creatinine Urine Total Protein 02/27/21 02/27/21 02/27/21 16:39 18:04 21:33 WBC RBC Hgb Hct Seg Neuts % (Manual) Lymphocytes % (Manual) Seg Neutrophils # Man Lymphocytes # (Manual) ABG pH POC ABG pCO2 ABG Hemoglobin ABG Sodium ABG Potassium ABG Glucose VBG pH Carboxyhemoglobin Sodium Potassium 3.1 L Chloride Carbon Dioxide 20 L BUN 50 H Creatinine 1.4 H Glucose 365 H POC Glucose 340 H 322 H Hemoglobin A1c Calcium 7.9 L Magnesium Alkaline Phosphatase Total Creatine Kinase Albumin Arterial Blood Glucose Arterial Blood Ionized Calcium Urine WBC (Auto) Urine Creatinine Urine Total Protein 02/28/21 02/28/21 02/28/21 05:05 07:25 11:13 WBC RBC Hgb Hct Seg Neuts % (Manual) Lymphocytes % (Manual) Seg Neutrophils # Man Lymphocytes # (Manual) ABG pH POC ABG pCO2 ABG Hemoglobin ABG Sodium ABG Potassium ABG Glucose VBG pH Carboxyhemoglobin Sodium Potassium 3.3 L Chloride 110.2 H Carbon Dioxide BUN 43 H Creatinine Glucose 193 H POC Glucose 121 H 190 H Hemoglobin A1c Calcium 7.8 L Magnesium Alkaline Phosphatase Total Creatine Kinase Albumin Arterial Blood Glucose Arterial Blood Ionized Calcium Urine WBC (Auto) Urine Creatinine Urine Total Protein 02/28/21 02/28/21 03/01/21 16:30 22:08 08:05 WBC RBC Hgb Hct Seg Neuts % (Manual) Lymphocytes % (Manual) Seg Neutrophils # Man Lymphocytes # (Manual) ABG pH POC ABG pCO2 ABG Hemoglobin ABG Sodium ABG Potassium ABG Glucose VBG pH Carboxyhemoglobin Sodium Potassium Chloride Carbon Dioxide BUN Creatinine Glucose POC Glucose 180 H 340 H 58 L Hemoglobin A1c Calcium Magnesium Alkaline Phosphatase Total Creatine Kinase Albumin Arterial Blood Glucose Arterial Blood Ionized Calcium Urine WBC (Auto) Urine Creatinine Urine Total Protein 03/01/21 03/01/21 03/01/21 09:34 10:56 10:59 WBC 15.3 H RBC Hgb 11.2 L Hct 33.1 L Seg Neuts % (Manual) 87.0 H Lymphocytes % (Manual) 1.0 L Seg Neutrophils # Man 13.3 H Lymphocytes # (Manual) 0.2 L ABG pH 7.518 H POC ABG pCO2 27.2 L ABG Hemoglobin 10.9 L ABG Sodium 134.6 L ABG Potassium 2.8 L ABG Glucose 144 H VBG pH Carboxyhemoglobin 0.4 L Sodium Potassium 3.2 L Chloride Carbon Dioxide BUN 29 H Creatinine Glucose POC Glucose Hemoglobin A1c Calcium 8.2 L Magnesium Alkaline Phosphatase Total Creatine Kinase Albumin Arterial Blood Glucose 144 H Arterial Blood Ionized Calcium 4.5 L Urine WBC (Auto) Urine Creatinine Urine Total Protein 03/01/21 03/01/21 03/01/21 12:38 17:10 21:27 WBC RBC Hgb Hct Seg Neuts % (Manual) Lymphocytes % (Manual) Seg Neutrophils # Man Lymphocytes # (Manual) ABG pH POC ABG pCO2 ABG Hemoglobin ABG Sodium ABG Potassium ABG Glucose VBG pH Carboxyhemoglobin Sodium Potassium Chloride Carbon Dioxide BUN Creatinine Glucose POC Glucose 134 H 190 H 187 H Hemoglobin A1c Calcium Magnesium Alkaline Phosphatase Total Creatine Kinase Albumin Arterial Blood Glucose Arterial Blood Ionized Calcium Urine WBC (Auto) Urine Creatinine Urine Total Protein 03/02/21 03/02/21 03/02/21 05:45 05:45 08:05 WBC 11.7 H RBC 3.38 L Hgb 10.0 L Hct 29.8 L Seg Neuts % (Manual) 93.0 H Lymphocytes % (Manual) 4.0 L Seg Neutrophils # Man 10.9 H Lymphocytes # (Manual) 0.5 L ABG pH POC ABG pCO2 ABG Hemoglobin ABG Sodium ABG Potassium ABG Glucose VBG pH Carboxyhemoglobin Sodium Potassium 3.2 L Chloride 109.7 H Carbon Dioxide BUN 29 H Creatinine Glucose 299 H POC Glucose 224 H Hemoglobin A1c Calcium 7.6 L Magnesium Alkaline Phosphatase Total Creatine Kinase Albumin Arterial Blood Glucose Arterial Blood Ionized Calcium Urine WBC (Auto) Urine Creatinine Urine Total Protein 03/02/21 03/02/21 03/02/21 10:28 17:08 21:11 WBC RBC Hgb Hct Seg Neuts % (Manual) Lymphocytes % (Manual) Seg Neutrophils # Man Lymphocytes # (Manual) ABG pH POC ABG pCO2 ABG Hemoglobin ABG Sodium ABG Potassium ABG Glucose VBG pH Carboxyhemoglobin Sodium Potassium Chloride Carbon Dioxide BUN Creatinine Glucose POC Glucose 161 H 116 H 147 H Hemoglobin A1c Calcium Magnesium Alkaline Phosphatase Total Creatine Kinase Albumin Arterial Blood Glucose Arterial Blood Ionized Calcium Urine WBC (Auto) Urine Creatinine Urine Total Protein 03/03/21 03/03/21 03/03/21 07:44 09:08 09:27 WBC RBC Hgb Hct Seg Neuts % (Manual) Lymphocytes % (Manual) Seg Neutrophils # Man Lymphocytes # (Manual) ABG pH POC ABG pCO2 ABG Hemoglobin ABG Sodium ABG Potassium ABG Glucose VBG pH Carboxyhemoglobin Sodium Potassium Chloride 107.3 H Carbon Dioxide BUN 24 H Creatinine Glucose 140 H POC Glucose 65 L 134 H Hemoglobin A1c Calcium 7.7 L Magnesium Alkaline Phosphatase Total Creatine Kinase Albumin Arterial Blood Glucose Arterial Blood Ionized Calcium Urine WBC (Auto) Urine Creatinine Urine Total Protein 03/03/21 11:43 WBC RBC Hgb Hct Seg Neuts % (Manual) Lymphocytes % (Manual) Seg Neutrophils # Man Lymphocytes # (Manual) ABG pH POC ABG pCO2 ABG Hemoglobin ABG Sodium ABG Potassium ABG Glucose VBG pH Carboxyhemoglobin Sodium Potassium Chloride Carbon Dioxide BUN Creatinine Glucose POC Glucose 211 H Hemoglobin A1c Calcium Magnesium Alkaline Phosphatase Total Creatine Kinase Albumin Arterial Blood Glucose Arterial Blood Ionized Calcium Urine WBC (Auto) Urine Creatinine Urine Total Protein Allied health notes reviewed: nursing
[2021-03-03] MEDS: cefTRIAXone/NS 2 GM/100 ML 2 GM/100 ML BAG IV SCH (13:06)
--- NOTE | 2021-03-03 17:38 | Progress Note ---
Assessment and Plan Assessment and plan: 60-year-old -[place] male with known history of diabetes mellitus presents to the emergency room today complaining of generalized weakness and elevated blood glucose at home. Patient was diagnosed with diabetes mellitus about 2 weeks ago and states he has been out of his insulin for the past 3 to 4 days. Family had called EMS and patient was subsequently brought to the emergency room. Blood glucose was said to be reading high in route to the hospital. Patient was given IV normal saline in route to the hospital. Work-up in the emergency room reveals that patient is in DKA. He has been started on insulin drip and IV fluid. CT abdomen and pelvis 1. Free air within and surrounding the right kidney and tracking in the right retroperitoneum. Exam is severely limited with lack of intravenous contrast and intra-abdominal fat but the air does not seem to extend into the peritoneum. Findings are highly worrisome for an infectious/inflammatory process such as emphysematous pyelonephritis. A perforation is also possible. DKA- Resolved Emphysematous pyelonephritis possible Acute cystitis Acute metabolic encephalopathy now resolved Acute kidney injury on chronic kidney disease unknown stage BPH DVT and GI prophylaxis Plan Continue supportive care 02/28: Discussed with Urologist, still thinking he may need surgery, WILL GET RENAL NUCLEAR FUNCTION SCAN. Discussed with daughter and patient, CULTURES SHOWING k PNEUMONIA. 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 We will proceed with repeat CT and urologist recommendation and if consistent symptoms patient will need evaluation by them in a.m. Discussed with family Continue IMCU care. 03/01/21; patient is on IV meropenem per ID recommendation. Wound culture grew Klebsiella pneumoniae. Renal function is improving. Patient need evaluation by urologist. Patient is going to have ultrasound this morning. We will continue to monitor. Urology saw the patient and said waiting for the renal scan to be done. Still considering right nephrectomy. Patient said he does not want nephrectomy. 03/02/2021: Patient actually doing well. Is on meropenem for emphysematous follow nephritis, responding well to antibiotic therapy. ID planning to change to ceftriaxone from tomorrow. Blood cultures negative to date. No abdominal pain CVA tenderness. Afebrile with stable vital signs. DKA resolved. Blood glucose improving. Renal function scan apparently was performed on 03/01 but I am unable to open the report. Urology is following, nephrectomy was originally considered. 03/03/2021: Patient remains afebrile. Stable signs. Clear good urine output via Hernandez. No abdominal/CVA tenderness. Clinically, does not appear to be toxic. No bacteremia. ID changed meropenem to Rocephin today. Urology is following, may need nephrectomy. History Interval history: Patient is doing well. Does not have much complaints. Denies dysuria. MAXIMO resolved. Vitals in stable and afebrile. Today, meropenem changed to c eftriaxone per ID. DKA resolved. Blood glucose improving. Tolerating diet. Hospitalist Physical - Constitutional Vitals: Temp Pulse Resp BP Pulse Ox 98.1 F 78 18 126/76 97 03/03/21 03:48 03/03/21 04:00 03/03/21 03:48 03/03/21 03:48 03/03/21 03:48 General appearance: Present: no acute distress, other (Skin habitus, alert and oriented.) - EENT Eyes: Present: PERRL, EOM intact. Absent: scleral icterus - Neck Neck: Present: supple - Respiratory Respiratory effort: normal Respiratory: bilateral: CTA - Cardiovascular Rhythm: regular - Extremities Extremities: No edema - Abdominal General gastrointestinal: soft, non-tender (No CVA tenderness.), non-distended, other (Indwelling Hernandez with clear urine.) - Integumentary Integumentary: Absent: rash - Psychiatric Psychiatric: appropriate mood/affect - Neurologic Neurologic: no focal deficits HEART Score - HEART Score Troponin: Troponin T < 0.010 ng/mL (0.00-0.029) 02/25/21 22:48 Results - Labs CBC & Chem 7: 03/04/21 08:15 03/05/21 07:05 Labs: Laboratory Last Values WBC 11.7 K/mm3 (4.5-11.0) H 03/02/21 05:45 RBC 3.38 M/mm3 (3.65-5.03) L 03/02/21 05:45 Hgb 10.0 gm/dl (11.8-15.2) L 03/02/21 05:45 Hct 29.8 % (35.5-45.6) L 03/02/21 05:45 MCV 88 fl (84-94) 03/02/21 05:45 MCH 30 pg (28-32) 03/02/21 05:45 MCHC 34 % (32-34) 03/02/21 05:45 RDW 14.7 % (13.2-15.2) 03/02/21 05:45 Plt Count 242 K/mm3 (140-440) 03/02/21 05:45 Add Manual Diff Complete 03/02/21 05:45 Total Counted 100 03/02/21 05:45 Seg Neutrophils % Public Health Educator 03/01/21 10:59 Seg Neuts % (Manual) 93.0 % (40.0-70.0) H 03/02/21 05:45 Band Neutrophils % 12.0 % 03/01/21 10:59 Lymphocytes % (Manual) 4.0 % (13.4-35.0) L 03/02/21 05:45 Reactive Lymphs % (Man) 1.0 % 03/02/21 05:45 Monocytes % (Manual) 2.5 % (0.0-7.3) 02/25/21 22:48 Metamyelocytes % 1.0 % 03/02/21 05:45 Myelocytes % 1.0 % 03/02/21 05:45 Nucleated RBC % Not Reportable 03/02/21 05:45 Seg Neutrophils # Man 10.9 K/mm3 (1.8-7.7) H 03/02/21 05:45 Band Neutrophils # 0.0 K/mm3 03/02/21 05:45 Lymphocytes # (Manual) 0.5 K/mm3 (1.2-5.4) L 03/02/21 05:45 Abs React Lymphs (Man) 0.1 K/mm3 03/02/21 05:45 Monocytes # (Manual) 0.0 K/mm3 (0.0-0.8) 03/02/21 05:45 Eosinophils # (Manual) 0.0 K/mm3 (0.0-0.4) 03/02/21 05:45 Basophils # (Manual) 0.0 K/mm3 (0.0-0.1) 03/02/21 05:45 Metamyelocytes # 0.1 K/mm3 03/02/21 05:45 Myelocytes # 0.1 K/mm3 03/02/21 05:45 Promyelocytes # 0.0 K/mm3 03/02/21 05:45 Blast Cells # 0.0 K/mm3 03/02/21 05:45 WBC Morphology Not Reportable 03/02/21 05:45 Hypersegmented Neuts Not Reportable 03/02/21 05:45 Hyposegmented Neuts Not Reportable 03/02/21 05:45 Hypogranular Neuts Not Reportable 03/02/21 05:45 Smudge Cells Not Reportable 03/02/21 05:45 Toxic Granulation Not Reportable 03/02/21 05:45 Toxic Vacuolation Not Reportable 03/02/21 05:45 Dohle Bodies Not Reportable 03/02/21 05:45 Pelger-Huet Anomaly Not Reportable 03/02/21 05:45 Nayeli Rods Not Reportable 03/02/21 05:45 Platelet Estimate Consistent w auto 03/02/21 05:45 Clumped Platelets Not Reportable 03/02/21 05:45 Plt Clumps, EDTA Not Reportable 03/02/21 05:45 Large Platelets Not Reportable 03/02/21 05:45 Giant Platelets Not Reportable 03/02/21 05:45 Platelet Satelliting Not Reportable 03/02/21 05:45 Plt Morphology Comment Not Reportable 03/02/21 05:45 RBC Morphology Not Reportable 03/02/21 05:45 Dimorphic RBCs Not Reportable 03/02/21 05:45 Polychromasia Not Reportable 03/02/21 05:45 Hypochromasia 1+ 03/02/21 05:45 Poikilocytosis Not Reportable 03/02/21 05:45 Anisocytosis Few 03/02/21 05:45 Microcytosis Not Reportable 03/02/21 05:45 Macrocytosis Not Reportable 03/02/21 05:45 Spherocytes Not Reportable 03/02/21 05:45 Pappenheimer Bodies Not Reportable 03/02/21 05:45 Sickle Cells Not Reportable 03/02/21 05:45 Target Cells Rare 03/02/21 05:45 Tear Drop Cells Not Reportable 03/02/21 05:45 Ovalocytes Not Reportable 03/02/21 05:45 Helmet Cells Not Reportable 03/02/21 05:45 [place] Bodies Not Reportable 03/02/21 05:45 Irwin Rings Not Reportable 03/02/21 05:45 [place] Cells Not Reportable 03/02/21 05:45 Bite Cells Not Reportable 03/02/21 05:45 Crenated Cell Not Reportable 03/02/21 05:45 Elliptocytes Not Reportable 03/02/21 05:45 Acanthocytes (Spur) Not Reportable 03/02/21 05:45 Rouleaux Not Reportable 03/02/21 05:45 Hemoglobin C Crystals Not Reportable 03/02/21 05:45 Schistocytes Not Reportable 03/02/21 05:45 Malaria parasites Not Reportable 03/02/21 05:45 Christiano Bodies Not Reportable 03/02/21 05:45 Hem Pathologist Commnt No 03/02/21 05:45 PT 13.6 Sec. (12.2-14.9) 02/28/21 18:48 INR 0.99 (0.87-1.13) 02/28/21 18:48 APTT 27.9 Sec. (24.2-36.6) 02/28/21 18:48 ABG pH 7.518 (7.320-7.450) H 03/01/21 10:56 POC ABG pCO2 27.2 mmHg (32.0-48.0) L 03/01/21 10:56 POC ABG pO2 84.0 mmHg (83-108) 03/01/21 10:56 POC ABG HCO3 21.6 03/01/21 10:56 ABG O2 Saturation 97.1 (0-100) 03/01/21 10:56 POC ABG Base Excess -0.4 03/01/21 10:56 ABG Hemoglobin 10.9 (12.0-17.5) L 03/01/21 10:56 ABG Oxyhemoglobin 96.4 (94-98) 03/01/21 10:56 ABG Methemoglobin 0.3 (0.0-1.5) 03/01/21 10:56 ABG Sodium 134.6 mmol/L (136.0-145.0) L 03/01/21 10:56 ABG Potassium 2.8 mmol/L (3.40-4.50) L 03/01/21 10:56 ABG Chloride 106.0 mmol/L (98-107) 03/01/21 10:56 ABG Glucose 144 mg/dL (65-95) H 03/01/21 10:56 VBG pH 7.316 (7.320-7.420) L 02/25/21 22:48 Carboxyhemoglobin 0.4 (0.5-1.5) L 03/01/21 10:56 FiO2 % 21.0 03/01/21 10:56 Sodium 143 mmol/L (137-145) 03/03/21 09:27 Potassium 3.6 mmol/L (3.6-5.0) 03/03/21 09:27 Chloride 107.3 mmol/L (98-107) H 03/03/21 09:27 Carbon Dioxide 28 mmol/L (22-30) 03/03/21 09:27 Anion Gap 11 mmol/L 03/03/21 09:27 BUN 24 mg/dL (9-20) H 03/03/21 09:27 Creatinine 1.0 mg/dL (0.8-1.3) 03/03/21 09:27 Estimated GFR > 60 ml/min 03/03/21 09:27 BUN/Creatinine Ratio 24 % 03/03/21 09:27 Glucose 140 mg/dL (75-100) H 03/03/21 09:27 POC Glucose 128 mg/dL (70-105) H 03/03/21 17:08 Hemoglobin A1c 14.2 % (4-6) H 02/26/21 02:40 Calcium 7.7 mg/dL (8.4-10.2) L 03/03/21 09:27 Phosphorus 2.50 mg/dL (2.5-4.5) D 02/26/21 02:40 Magnesium 2.00 mg/dL (1.7-2.3) 02/27/21 04:18 Total Bilirubin 0.40 mg/dL (0.1-1.2) 02/25/21 22:48 AST 21 units/L (5-40) 02/25/21 22:48 ALT 34 units/L (7-56) 02/25/21 22:48 Alkaline Phosphatase 201 units/L (35-129) H 02/25/21 22:48 Total Creatine Kinase 37 units/L (55-170) L 02/25/21 22:48 Troponin T < 0.010 ng/mL (0.00-0.029) 02/25/21 22:48 Total Protein 6.8 g/dL (6.3-8.2) 02/25/21 22:48 Albumin 2.9 g/dL (3.9-5) L 02/25/21 22:48 Albumin/Globulin Ratio 0.7 % 02/25/21 22:48 Arterial Blood Glucose 144 mg/dL (65-95) H 03/01/21 10:56 Arterial Blood Ionized Calcium 4.5 mg/dL (4.6-5.3) L 03/01/21 10:56 Urine Color Yellow (Yellow) 02/26/21 18:00 Urine Turbidity Turbid (Clear) 02/26/21 18:00 Urine pH 6.0 (5.0-7.0) 02/26/21 18:00 Ur Specific [place] 1.013 (1.003-1.030) 02/26/21 18:00 Urine Protein 100 mg/dl mg/dL (Negative) 02/26/21 18:00 Urine Glucose (UA) >=500 mg/dL (Negative) 02/26/21 18:00 Urine Ketones Tr mg/dL (Negative) 02/26/21 18:00 Urine Blood Lg (Negative) 02/26/21 18:00 Urine Nitrite Neg (Negative) 02/26/21 18:00 Urine Bilirubin Neg (Negative) 02/26/21 18:00 Urine Urobilinogen < 2.0 mg/dL (<2.0) 02/26/21 18:00 Ur Leukocyte Esterase Lg (Negative) 02/26/21 18:00 Urine WBC (Auto) > 182.0 /HPF (0.0-6.0) H 02/26/21 18:00 Urine RBC (Auto) 41.0 /HPF (0.0-6.0) 02/26/21 18:00 U Epithel Cells (Auto) 1.0 /HPF (0-13.0) 02/26/21 12:00 Urine Bacteria (Auto) 2+ /HPF (Negative) 02/26/21 12:00 Urine WBC Clumps 3+ /HPF 02/26/21 18:00 Urine Mucus Few /HPF 02/26/21 18:00 Urine Yeast (Budding) 3+ /HPF 02/26/21 18:00 Urine Creatinine 26.8 mg/dL (0.1-20.0) H 02/26/21 12:00 Protein/Creatinin Ratio 1.75 02/26/21 12:00 Urine Sodium 29 mmol/L 02/26/21 12:00 Urine Total Protein 47 mg/dL (5-11.8) H 02/26/21 12:00 Nasal Screen MRSA (PCR) Positive (Negative) 02/28/21 Unknown Microbiology: Microbiology 02/27/21 13:36 Peripheral/Venous Blood Culture - Preliminary NO GROWTH AFTER 4 DAYS 02/27/21 13:26 Peripheral/Venous Blood Culture - Preliminary NO GROWTH AFTER 4 DAYS Hernandez/IV: Voiding Method Indwelling Catheter Active Medications - Current Medications Current Medications: Generic Name Dose Route Start Last Admin Trade Name Freq PRN Reason Stop Dose Admin Acetaminophen 650 mg 02/26/21 00:36 Acetaminophen 325 Mg Tab PO Q6H PRN Pain MILD(1-3)/Fever >100.5/MATHUR Dextrose 50 ml 02/25/21 23:47 03/03/21 08:04 Dextrose 50% In Water (25gm) 50 Ml Syringe IV 50 ml Q30MIN PRN Administration Hypoglycemia Protocol Heparin Sodium (Porcine) 5,000 unit 02/26/21 06:00 03/03/21 13:06 Heparin 5,000 Unit/1 Ml Vial SUB-Q 5,000 unit Q8HR ROSELIA Administration Ceftriaxone Sodium 2 gm in 100 mls @ 200 mls/hr 03/03/21 12:00 03/03/21 13:06 Rocephin/Ns 2 Gm/100 Ml IV 200 mls/hr Q24H ROSELIA Administration Protocol Insulin Glargine 20 units 02/27/21 22:00 03/02/21 22:20 Insulin Glargine 100 Units/Ml SUB-Q 20 units QHS ROSELIA Administration Insulin Human Lispro 0 unit 02/27/21 11:30 03/03/21 17:33 Insulin Lispro 100 Unit/Ml SUB-Q Not Given ACHS [facility] Protocol Morphine Sulfate 2 mg 02/26/21 00:36 Morphine 2 Mg/1 Ml Inj IV Q4H PRN Pain, Moderate (4-6) Morphine Sulfate 4 mg 02/26/21 00:36 Morphine 4 Mg/1 Ml Inj IV Q4H PRN Pain , Severe (7-10) Sodium Chloride 10 ml 02/26/21 10:00 03/03/21 09:30 Sodium Chloride 0.9% 10 Ml Flush Syringe IV 10 ml BID ROSELIA Administration Sodium Chloride 10 ml 02/26/21 00:36 Sodium Chloride 0.9% 10 Ml Flush Syringe IV PRN PRN LINE FLUSH Tamsulosin HCl 0.8 mg 02/26/21 16:00 03/03/21 09:30 Tamsulosin 0.4 Mg Cap PO 0.8 mg QDAY ROSELIA Administration Nutrition/Malnutrition Assess - Dietary Evaluation Nutrition/Malnutrition Findings: Nutrition Notes Start: 02/26/21 13:01 Freq: Status: Active Protocol: Document 03/02/21 13:38 (Rec: 03/02/21 13:40 [email or web address]) Nutrition Notes Initial or Follow up Assessment Current Diagnosis CKD(stage I-IV),Diabetes Other Pertinent Diagnosis DKA Current Diet Consistent CHO Labs/Tests K 3.2 Pertinent Medications BG 299 Height 5 ft 10 in Weight 51.075 kg [place] Body Weight (kg) 75.45 BMI 16.1 Weight change and time frame unable to obtain new wt Weight Status Underweight Subjective/Other Information FU for intakes. Pt drinking 100% of ONS and eating 75% of meals. Percent of energy/protein needs met: 100%/100% Burn Absent Trauma Absent Current % PO Good (75-100%) Minimum of two criteria No #2 Nutrition Diagnosis Inadequate oral intake As Evidenced by Signs and Symptoms pt eating 75% of meals Diagnosis Progress(for reassessment Improved documentation) #1 Nutrition Diagnosis Food and nutrition-related knowledge deficit As Evidenced by Signs and Symptoms pt had no questions at this time Diagnosis Progress(for reassessment Resolved documentation) Is patient on ventilator? No Is Patient Ambulatory and/or Out of Bed No REE-([place]-St Jeor-confined to bed) 8636.721 Calculation Used for Recommendations [facility] Additional Notes Protein: (0.8-0.9g/kg) 41-46g Fluid: 1 ml/kcal or per Nutrition Intervention Change Diet Order: Continue with food prefrences Add Supplement/Snack (indicate name/kcal Glucerna BID /protein ) Provides kCal: 440 Provides Protein (gm) 20 Goal #1 Meet at least 75% of protein and energy needs via PO and ONS intakes Anticipated Discharge Needs: consistent carbohydrate diet Follow-Up By: 03/04/21 Additional Comments FU for intakes
[2021-03-03] MEDS: INSULIN GLARGINE 100 UNITS/ML SUB-Q SCH (23:48)
[2021-03-04] MEDS: HEPARIN 5,000 UNIT/1 ML VIAL SUB-Q SCH ×3 (06:28→21:32)
[2021-03-04 09:10] LABS: Alanine Aminotransferase 24 units/L (7-56); BUN/Creatinine Ratio 23; Blood Urea Nitrogen 21 mg/dL (9-20); Calcium 8.1 mg/dL (8.4-10.2); Hemolysis Index 23
--- NOTE | 2021-03-04 09:28 | Progress Note ---
Assessment and Plan Impression: * MAXIMO: likely due to pre-renal injury. 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 Denies any acute distress Objective - Exam Narrative Exam: Constitutional: no acute distress Head: NC/AT Neck: supple Lungs: clear to auscultation CV: RRR, no M/R/G Abdomen: soft, non-tender, bowel sounds present Back: nontender Extremities: no edema, pulses WNL Skin: intact Neuro: no focal deficits, alert and oriented x4 - Vital Signs Vital signs: Vital Signs - 12hr 03/03/21 03/04/21 22:45 03:32 Temperature 98.9 F 98.8 F Pulse Rate 69 71 Respiratory 20 12 Rate Blood Pressure 117/72 122/72 O2 Sat by Pulse 97 99 Oximetry - Lab 03/02/21 05:45 03/04/21 08:15 Most recent lab results ABG pH 7.518 (7.320-7.450) H 03/01/21 10:56 ABG O2 Saturation 97.1 (0-100) 03/01/21 10:56 Calcium 8.1 mg/dL (8.4-10.2) L 03/04/21 08:15 Phosphorus 2.50 mg/dL (2.5-4.5) D 02/26/21 02:40 Magnesium 2.00 mg/dL (1.7-2.3) 02/27/21 04:18 Urine Creatinine 26.8 mg/dL (0.1-20.0) H 02/26/21 12:00 Urine Sodium 29 mmol/L 02/26/21 12:00 Urine Total Protein 47 mg/dL (5-11.8) H 02/26/21 12:00 Medications & Allergies - Medications Allergies/Adverse Reactions: Allergies No Known Allergies Allergy (Unverified 02/28/21 06:57) Home Medications: Home Medications Medication Instructions Recorded Confirmed Last Taken Type Tamsulosin [Flomax] 2 cap QDAY 02/26/21 02/26/21 Unknown History Active Medications: Generic Name Dose Route Start Last Admin Trade Name Freq PRN Reason Stop Dose Admin Acetaminophen 650 mg 02/26/21 00:36 Acetaminophen 325 Mg Tab PO Q6H PRN Pain MILD(1-3)/Fever >100.5/MATHUR Dextrose 50 ml 02/25/21 23:47 03/03/21 08:04 Dextrose 50% In Water (25gm) 50 Ml Syringe IV 50 ml Q30MIN PRN Administration Hypoglycemia Protocol Heparin Sodium (Porcine) 5,000 unit 02/26/21 06:00 03/04/21 06:28 Heparin 5,000 Unit/1 Ml Vial SUB-Q 5,000 unit Q8HR ROSELIA Administration Ceftriaxone Sodium 2 gm in 100 mls @ 200 mls/hr 03/03/21 12:00 03/03/21 13:06 Rocephin/Ns 2 Gm/100 Ml IV 200 mls/hr Q24H ROSELIA Administration Protocol Insulin Glargine 20 units 02/27/21 22:00 03/03/21 23:48 Insulin Glargine 100 Units/Ml SUB-Q 20 units QHS ROSELIA Administration Insulin Human Lispro 0 unit 02/27/21 11:30 03/03/21 23:50 Insulin Lispro 100 Unit/Ml SUB-Q 2 unit ACHS ROSELIA Administration Protocol Morphine Sulfate 2 mg 02/26/21 00:36 Morphine 2 Mg/1 Ml Inj IV Q4H PRN Pain, Moderate (4-6) Morphine Sulfate 4 mg 02/26/21 00:36 Morphine 4 Mg/1 Ml Inj IV Q4H PRN Pain , Severe (7-10) Sodium Chloride 10 ml 02/26/21 10:00 03/03/21 21:10 Sodium Chloride 0.9% 10 Ml Flush Syringe IV 10 ml BID ROSELIA Administration Sodium Chloride 10 ml 02/26/21 00:36 Sodium Chloride 0.9% 10 Ml Flush Syringe IV PRN PRN LINE FLUSH Tamsulosin HCl 0.8 mg 02/26/21 16:00 03/03/21 09:30 Tamsulosin 0.4 Mg Cap PO 0.8 mg QDAY ROSELIA Administration
[2021-03-04] MEDS: TAMSULOSIN 0.4 MG CAP PO SCH (09:37)
[2021-03-04] MEDS: INSULIN LISPRO 100 UNIT/ML SUB-Q SCH ×4 (09:37→22:35)
[2021-03-04 10:59] LABS: Hematocrit 38.2 % (35.5-45.6); Hemoglobin 11.8 gm/dl (11.8-15.2); Mean Corpuscular HGB Conc 31 % (32-34); Mean Corpuscular Volume 94 fl (84-94); Platelet Count 311 K/mm3 (140-440); Red Blood Count 4.07 M/mm3 (3.65-5.03); Red Cell Distribution Width 16.4 % (13.2-15.2)
[2021-03-04] MEDS: cefTRIAXone/NS 2 GM/100 ML 2 GM/100 ML BAG IV SCH (13:04)
[2021-03-04 14:02] LABS: Anisocytosis Few; Band Neutrophils # (Manual) 0.5 K/mm3; Myelocytes # (Manual) 0.2 K/mm3; Total Cells Counted 100
[2021-03-04 14:03] LABS: Macrocytosis Few; Platelet Estimate Consistent w Auto
--- NOTE | 2021-03-04 14:54 | Progress Note ---
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 Acute cystitis Acute metabolic encephalopathy now resolved Acute kidney injury on chronic kidney disease unknown stage BPH DVT and GI prophylaxis leucocytosis Metabolic acidosis - tentative plan to d/c home on IV AB's - follow repeat CT scan - continue care as below otherwise; - Urology input appreciated - prn supplemental oxygen to keep O2 sats > 90% - prn bronchodilators (SANDRA) with pulm hygiene per RT - complete Rocephin & Merrem dosing per ID recommendations - continue to avoid nephrotoxins, renally dose all medications - mobility protocols to prevent pressure ulcers - PT/OT as tolerated - Wound care per RN/WCT - continue accuchecks with glycemic control per SSI for target blood glucose < 180 mg/dL - tobacco abstinence strongly counseled at the bedside - home oxygen evaluation at discharge - GI & VTE prophylaxis - Flu & pneumovax per protocol - continue other care per attending / other consultants - prn analgesia per pain score ... re-evaluate in am & prn Subjective Date of service: 03/04/21 Principal diagnosis: DKA; Emphysematous pyelonephritis; Acute encephalopathy; MAXIMO; BPH Interval history: Patient is seen today for: DKA; Emphysematous pyelonephritis; Acute encephalopathy; MAXIMO; BPH Seen and examined at bedside; 24hour events reviewed; nursing and respiratory care staff consulted; no adverse overnight events reported to me; resting in bed; denies chest pains or SOB; IVF stopped; remains on IV AB's but to switching to Rocephin Objective Vital Signs - 12hr 03/04/21 03:32 Temperature 98.8 F Pulse Rate 71 Respiratory 12 Rate Blood Pressure 122/72 O2 Sat by Pulse 99 Oximetry Constitutional: no acute distress, alert Eyes: non-icteric ENT: oropharynx dry Neck: supple, no lymphadenopathy, no JVD Effort: normal Ascultation: Bilateral: clear, diminished breath sounds Percussion: Bilateral: not dull Cardiovascular: regular rate and rhythm, other (S1,S2) Gastrointestinal: normoactive bowel sounds, soft, non-tender, non-distended Integumentary: other (poor skin turgor) Extremities: no cyanosis, no edema, pulses normal, no ischemia or petechiae Neurologic: normal mental status, non-focal exam, pupils equal and round, CN II- XII normal Psychiatric: mood appropriate, affect normal CBC and BMP: 03/04/21 08:15 03/05/21 07:05 ABG, PT/INR, D-dimer: ABG ABG pH 7.518 (7.320-7.450) H 03/01/21 10:56 POC ABG pCO2 27.2 mmHg (32.0-48.0) L 03/01/21 10:56 POC ABG pO2 84.0 mmHg (83-108) 03/01/21 10:56 POC ABG HCO3 21.6 03/01/21 10:56 ABG O2 Saturation 97.1 (0-100) 03/01/21 10:56 PT/INR, D-dimer PT 13.6 Sec. (12.2-14.9) 02/28/21 18:48 INR 0.99 (0.87-1.13) 02/28/21 18:48 Abnormal lab findings: Abnormal Labs 02/25/21 02/25/21 02/25/21 22:31 22:48 22:48 WBC 24.1 H RBC Hgb 11.5 L Hct MCHC RDW Seg Neuts % (Manual) 95.0 H Lymphocytes % (Manual) Seg Neutrophils # Man 22.9 H Lymphocytes # (Manual) 0.0 L ABG pH POC ABG pCO2 ABG Hemoglobin ABG Sodium ABG Potassium ABG Glucose VBG pH Carboxyhemoglobin Sodium 126 L Potassium Chloride 88.8 L Carbon Dioxide 18 L BUN 75 H Creatinine 2.1 H Glucose 938 H* POC Glucose > 600 H Hemoglobin A1c Calcium Magnesium Alkaline Phosphatase 201 H Total Creatine Kinase 37 L Total Protein Albumin 2.9 L Arterial Blood Glucose Arterial Blood Ionized Calcium Urine WBC (Auto) Urine Creatinine Urine Total Protein 02/25/21 02/25/21 02/26/21 22:48 23:52 01:21 WBC RBC Hgb Hct MCHC RDW Seg Neuts % (Manual) Lymphocytes % (Manual) Seg Neutrophils # Man Lymphocytes # (Manual) ABG pH POC ABG pCO2 ABG Hemoglobin ABG Sodium ABG Potassium ABG Glucose VBG pH 7.316 L Carboxyhemoglobin Sodium Potassium Chloride Carbon Dioxide BUN Creatinine Glucose POC Glucose > 600 H Hemoglobin A1c Calcium Magnesium 2.80 H Alkaline Phosphatase Total Creatine Kinase Total Protein Albumin Arterial Blood Glucose Arterial Blood Ionized Calcium Urine WBC (Auto) Urine Creatinine Urine Total Protein 02/26/21 02/26/21 02/26/21 02:09 02:40 02:40 WBC RBC Hgb Hct MCHC RDW Seg Neuts % (Manual) Lymphocytes % (Manual) Seg Neutrophils # Man Lymphocytes # (Manual) ABG pH POC ABG pCO2 ABG Hemoglobin ABG Sodium ABG Potassium ABG Glucose VBG pH Carboxyhemoglobin Sodium 131 L Potassium Chloride 96.1 L Carbon Dioxide 17 L BUN 74 H Creatinine 2.1 H Glucose 719 H* POC Glucose > 600 H Hemoglobin A1c 14.2 H Calcium Magnesium Alkaline Phosphatase Total Creatine Kinase Total Protein Albumin Arterial Blood Glucose Arterial Blood Ionized Calcium Urine WBC (Auto) Urine Creatinine Urine Total Protein 02/26/21 02/26/21 02/26/21 02:40 03:58 04:03 WBC RBC Hgb Hct MCHC RDW Seg Neuts % (Manual) Lymphocytes % (Manual) Seg Neutrophils # Man Lymphocytes # (Manual) ABG pH POC ABG pCO2 ABG Hemoglobin ABG Sodium ABG Potassium ABG Glucose VBG pH Carboxyhemoglobin Sodium Potassium Chloride Carbon Dioxide 18 L BUN 71 H Creatinine 2.0 H Glucose 550 H* POC Glucose 544 H Hemoglobin A1c Calcium Magnesium 2.70 H Alkaline Phosphatase Total Creatine Kinase Total Protein Albumin Arterial Blood Glucose Arterial Blood Ionized Calcium Urine WBC (Auto) Urine Creatinine Urine Total Protein 02/26/21 02/26/21 02/26/21 05:01 05:58 07:09 WBC RBC Hgb Hct MCHC RDW Seg Neuts % (Manual) Lymphocytes % (Manual) Seg Neutrophils # Man Lymphocytes # (Manual) ABG pH POC ABG pCO2 ABG Hemoglobin ABG Sodium ABG Potassium ABG Glucose VBG pH Carboxyhemoglobin Sodium Potassium Chloride Carbon Dioxide BUN Creatinine Glucose POC Glucose 439 H 399 H 217 H Hemoglobin A1c Calcium Magnesium Alkaline Phosphatase Total Creatine Kinase Total Protein Albumin Arterial Blood Glucose Arterial Blood Ionized Calcium Urine WBC (Auto) Urine Creatinine Urine Total Protein 02/26/21 02/26/21 02/26/21 08:09 08:12 09:08 WBC RBC Hgb Hct MCHC RDW Seg Neuts % (Manual) Lymphocytes % (Manual) Seg Neutrophils # Man Lymphocytes # (Manual) ABG pH POC ABG pCO2 ABG Hemoglobin ABG Sodium ABG Potassium ABG Glucose VBG pH Carboxyhemoglobin Sodium Potassium Chloride Carbon Dioxide 16 L BUN 72 H Creatinine 1.9 H Glucose 119 H POC Glucose 138 H 136 H Hemoglobin A1c Calcium Magnesium Alkaline Phosphatase Total Creatine Kinase Total Protein Albumin Arterial Blood Glucose Arterial Blood Ionized Calcium Urine WBC (Auto) Urine Creatinine Urine Total Protein 02/26/21 02/26/21 02/26/21 12:00 12:00 12:04 WBC RBC Hgb Hct MCHC RDW Seg Neuts % (Manual) Lymphocytes % (Manual) Seg Neutrophils # Man Lymphocytes # (Manual) ABG pH POC ABG pCO2 ABG Hemoglobin ABG Sodium ABG Potassium ABG Glucose VBG pH Carboxyhemoglobin Sodium Potassium Chloride Carbon Dioxide BUN Creatinine Glucose POC Glucose 136 H Hemoglobin A1c Calcium Magnesium Alkaline Phosphatase Total Creatine Kinase Total Protein Albumin Arterial Blood Glucose Arterial Blood Ionized Calcium Urine WBC (Auto) > 182.0 H Urine Creatinine 26.8 H Urine Total Protein 47 H 02/26/21 02/26/21 02/26/21 13:26 14:50 15:14 WBC RBC Hgb Hct MCHC RDW Seg Neuts % (Manual) Lymphocytes % (Manual) Seg Neutrophils # Man Lymphocytes # (Manual) ABG pH POC ABG pCO2 ABG Hemoglobin ABG Sodium ABG Potassium ABG Glucose VBG pH Carboxyhemoglobin Sodium Potassium Chloride Carbon Dioxide BUN Creatinine Glucose POC Glucose 124 H 119 H 106 H Hemoglobin A1c Calcium Magnesium Alkaline Phosphatase Total Creatine Kinase Total Protein Albumin Arterial Blood Glucose Arterial Blood Ionized Calcium Urine WBC (Auto) Urine Creatinine Urine Total Protein 02/26/21 02/26/21 02/26/21 15:27 16:38 17:22 WBC RBC Hgb Hct MCHC RDW Seg Neuts % (Manual) Lymphocytes % (Manual) Seg Neutrophils # Man Lymphocytes # (Manual) ABG pH POC ABG pCO2 ABG Hemoglobin ABG Sodium ABG Potassium ABG Glucose VBG pH Carboxyhemoglobin Sodium 136 L Potassium 5.1 H Chloride Carbon Dioxide 16 L BUN 72 H Creatinine 2.2 H Glucose 107 H POC Glucose 111 H 113 H Hemoglobin A1c Calcium Magnesium Alkaline Phosphatase Total Creatine Kinase Total Protein Albumin Arterial Blood Glucose Arterial Blood Ionized Calcium Urine WBC (Auto) Urine Creatinine Urine Total Protein 02/26/21 02/26/21 02/26/21 17:54 18:00 20:25 WBC RBC Hgb Hct MCHC RDW Seg Neuts % (Manual) Lymphocytes % (Manual) Seg Neutrophils # Man Lymphocytes # (Manual) ABG pH POC ABG pCO2 ABG Hemoglobin ABG Sodium ABG Potassium ABG Glucose VBG pH Carboxyhemoglobin Sodium Potassium Chloride Carbon Dioxide BUN Creatinine Glucose POC Glucose 114 H 129 H Hemoglobin A1c Calcium Magnesium Alkaline Phosphatase Total Creatine Kinase Total Protein Albumin Arterial Blood Glucose Arterial Blood Ionized Calcium Urine WBC (Auto) > 182.0 H Urine Creatinine Urine Total Protein 02/26/21 02/26/21 02/26/21 21:17 22:02 23:05 WBC RBC Hgb Hct MCHC RDW Seg Neuts % (Manual) Lymphocytes % (Manual) Seg Neutrophils # Man Lymphocytes # (Manual) ABG pH POC ABG pCO2 ABG Hemoglobin ABG Sodium ABG Potassium ABG Glucose VBG pH Carboxyhemoglobin Sodium Potassium Chloride Carbon Dioxide BUN Creatinine Glucose POC Glucose 127 H 135 H 112 H Hemoglobin A1c Calcium Magnesium Alkaline Phosphatase Total Creatine Kinase Total Protein Albumin Arterial Blood Glucose Arterial Blood Ionized Calcium Urine WBC (Auto) Urine Creatinine Urine Total Protein 02/27/21 02/27/21 02/27/21 00:11 02:13 04:13 WBC RBC Hgb Hct MCHC RDW Seg Neuts % (Manual) Lymphocytes % (Manual) Seg Neutrophils # Man Lymphocytes # (Manual) ABG pH POC ABG pCO2 ABG Hemoglobin ABG Sodium ABG Potassium ABG Glucose VBG pH Carboxyhemoglobin Sodium Potassium 3.5 L D Chloride 108.4 H Carbon Dioxide 21 L BUN 64 H Creatinine 1.9 H Glucose POC Glucose 106 H 115 H Hemoglobin A1c Calcium 8.3 L Magnesium Alkaline Phosphatase Total Creatine Kinase Total Protein Albumin Arterial Blood Glucose Arterial Blood Ionized Calcium Urine WBC (Auto) Urine Creatinine Urine Total Protein 02/27/21 02/27/21 02/27/21 04:18 04:18 06:57 WBC 22.4 H RBC Hgb 11.0 L Hct 32.3 L MCHC RDW Seg Neuts % (Manual) Lymphocytes % (Manual) Seg Neutrophils # Man Lymphocytes # (Manual) ABG pH POC ABG pCO2 ABG Hemoglobin ABG Sodium ABG Potassium ABG Glucose VBG pH Carboxyhemoglobin Sodium Potassium Chloride 107.9 H Carbon Dioxide BUN 59 H Creatinine 1.7 H Glucose POC Glucose 60 L Hemoglobin A1c Calcium 8.1 L Magnesium Alkaline Phosphatase Total Creatine Kinase Total Protein Albumin Arterial Blood Glucose Arterial Blood Ionized Calcium Urine WBC (Auto) Urine Creatinine Urine Total Protein 02/27/21 02/27/21 02/27/21 08:24 08:35 11:25 WBC RBC Hgb Hct MCHC RDW Seg Neuts % (Manual) Lymphocytes % (Manual) Seg Neutrophils # Man Lymphocytes # (Manual) ABG pH POC ABG pCO2 ABG Hemoglobin ABG Sodium ABG Potassium ABG Glucose VBG pH Carboxyhemoglobin Sodium Potassium 3.1 L Chloride 108.6 H Carbon Dioxide 21 L BUN 53 H Creatinine 1.5 H Glucose 121 H POC Glucose 131 H 196 H Hemoglobin A1c Calcium 8.0 L Magnesium Alkaline Phosphatase Total Creatine Kinase Total Protein Albumin Arterial Blood Glucose Arterial Blood Ionized Calcium Urine WBC (Auto) Urine Creatinine Urine Total Protein 02/27/21 02/27/21 02/27/21 16:39 18:04 21:33 WBC RBC Hgb Hct MCHC RDW Seg Neuts % (Manual) Lymphocytes % (Manual) Seg Neutrophils # Man Lymphocytes # (Manual) ABG pH POC ABG pCO2 ABG Hemoglobin ABG Sodium ABG Potassium ABG Glucose VBG pH Carboxyhemoglobin Sodium Potassium 3.1 L Chloride Carbon Dioxide 20 L BUN 50 H Creatinine 1.4 H Glucose 365 H POC Glucose 340 H 322 H Hemoglobin A1c Calcium 7.9 L Magnesium Alkaline Phosphatase Total Creatine Kinase Total Protein Albumin Arterial Blood Glucose Arterial Blood Ionized Calcium Urine WBC (Auto) Urine Creatinine Urine Total Protein 02/28/21 02/28/21 02/28/21 05:05 07:25 11:13 WBC RBC Hgb Hct MCHC RDW Seg Neuts % (Manual) Lymphocytes % (Manual) Seg Neutrophils # Man Lymphocytes # (Manual) ABG pH POC ABG pCO2 ABG Hemoglobin ABG Sodium ABG Potassium ABG Glucose VBG pH Carboxyhemoglobin Sodium Potassium 3.3 L Chloride 110.2 H Carbon Dioxide BUN 43 H Creatinine Glucose 193 H POC Glucose 121 H 190 H Hemoglobin A1c Calcium 7.8 L Magnesium Alkaline Phosphatase Total Creatine Kinase Total Protein Albumin Arterial Blood Glucose Arterial Blood Ionized Calcium Urine WBC (Auto) Urine Creatinine Urine Total Protein 02/28/21 02/28/21 03/01/21 16:30 22:08 08:05 WBC RBC Hgb Hct MCHC RDW Seg Neuts % (Manual) Lymphocytes % (Manual) Seg Neutrophils # Man Lymphocytes # (Manual) ABG pH POC ABG pCO2 ABG Hemoglobin ABG Sodium ABG Potassium ABG Glucose VBG pH Carboxyhemoglobin Sodium Potassium Chloride Carbon Dioxide BUN Creatinine Glucose POC Glucose 180 H 340 H 58 L Hemoglobin A1c Calcium Magnesium Alkaline Phosphatase Total Creatine Kinase Total Protein Albumin Arterial Blood Glucose Arterial Blood Ionized Calcium Urine WBC (Auto) Urine Creatinine Urine Total Protein 03/01/21 03/01/21 03/01/21 09:34 10:56 10:59 WBC 15.3 H RBC Hgb 11.2 L Hct 33.1 L MCHC RDW Seg Neuts % (Manual) 87.0 H Lymphocytes % (Manual) 1.0 L Seg Neutrophils # Man 13.3 H Lymphocytes # (Manual) 0.2 L ABG pH 7.518 H POC ABG pCO2 27.2 L ABG Hemoglobin 10.9 L ABG Sodium 134.6 L ABG Potassium 2.8 L ABG Glucose 144 H VBG pH Carboxyhemoglobin 0.4 L Sodium Potassium 3.2 L Chloride Carbon Dioxide BUN 29 H Creatinine Glucose POC Glucose Hemoglobin A1c Calcium 8.2 L Magnesium Alkaline Phosphatase Total Creatine Kinase Total Protein Albumin Arterial Blood Glucose 144 H Arterial Blood Ionized Calcium 4.5 L Urine WBC (Auto) Urine Creatinine Urine Total Protein 03/01/21 03/01/21 03/01/21 12:38 17:10 21:27 WBC RBC Hgb Hct MCHC RDW Seg Neuts % (Manual) Lymphocytes % (Manual) Seg Neutrophils # Man Lymphocytes # (Manual) ABG pH POC ABG pCO2 ABG Hemoglobin ABG Sodium ABG Potassium ABG Glucose VBG pH Carboxyhemoglobin Sodium Potassium Chloride Carbon Dioxide BUN Creatinine Glucose POC Glucose 134 H 190 H 187 H Hemoglobin A1c Calcium Magnesium Alkaline Phosphatase Total Creatine Kinase Total Protein Albumin Arterial Blood Glucose Arterial Blood Ionized Calcium Urine WBC (Auto) Urine Creatinine Urine Total Protein 03/02/21 03/02/21 03/02/21 05:45 05:45 08:05 WBC 11.7 H RBC 3.38 L Hgb 10.0 L Hct 29.8 L MCHC RDW Seg Neuts % (Manual) 93.0 H Lymphocytes % (Manual) 4.0 L Seg Neutrophils # Man 10.9 H Lymphocytes # (Manual) 0.5 L ABG pH POC ABG pCO2 ABG Hemoglobin ABG Sodium ABG Potassium ABG Glucose VBG pH Carboxyhemoglobin Sodium Potassium 3.2 L Chloride 109.7 H Carbon Dioxide BUN 29 H Creatinine Glucose 299 H POC Glucose 224 H Hemoglobin A1c Calcium 7.6 L Magnesium Alkaline Phosphatase Total Creatine Kinase Total Protein Albumin Arterial Blood Glucose Arterial Blood Ionized Calcium Urine WBC (Auto) Urine Creatinine Urine Total Protein 0703/02/21 03/02/21 10:28 17:08 21:11 WBC RBC Hgb Hct MCHC RDW Seg Neuts % (Manual) Lymphocytes % (Manual) Seg Neutrophils # Man Lymphocytes # (Manual) ABG pH POC ABG pCO2 ABG Hemoglobin ABG Sodium ABG Potassium ABG Glucose VBG pH Carboxyhemoglobin Sodium Potassium Chloride Carbon Dioxide BUN Creatinine Glucose POC Glucose 161 H 116 H 147 H Hemoglobin A1c Calcium Magnesium Alkaline Phosphatase Total Creatine Kinase Total Protein Albumin Arterial Blood Glucose Arterial Blood Ionized Calcium Urine WBC (Auto) Urine Creatinine Urine Total Protein 03/03/21 03/03/21 03/03/21 07:44 09:08 09:27 WBC RBC Hgb Hct MCHC RDW Seg Neuts % (Manual) Lymphocytes % (Manual) Seg Neutrophils # Man Lymphocytes # (Manual) ABG pH POC ABG pCO2 ABG Hemoglobin ABG Sodium ABG Potassium ABG Glucose VBG pH Carboxyhemoglobin Sodium Potassium Chloride 107.3 H Carbon Dioxide BUN 24 H Creatinine Glucose 140 H POC Glucose 65 L 134 H Hemoglobin A1c Calcium 7.7 L Magnesium Alkaline Phosphatase Total Creatine Kinase Total Protein Albumin Arterial Blood Glucose Arterial Blood Ionized Calcium Urine WBC (Auto) Urine Creatinine Urine Total Protein 03/03/21 03/03/21 03/03/21 11:43 17:08 22:42 WBC RBC Hgb Hct MCHC RDW Seg Neuts % (Manual) Lymphocytes % (Manual) Seg Neutrophils # Man Lymphocytes # (Manual) ABG pH POC ABG pCO2 ABG Hemoglobin ABG Sodium ABG Potassium ABG Glucose VBG pH Carboxyhemoglobin Sodium Potassium Chloride Carbon Dioxide BUN Creatinine Glucose POC Glucose 211 H 128 H 191 H Hemoglobin A1c Calcium Magnesium Alkaline Phosphatase Total Creatine Kinase Total Protein Albumin Arterial Blood Glucose Arterial Blood Ionized Calcium Urine WBC (Auto) Urine Creatinine Urine Total Protein 03/04/21 03/04/21 03/04/21 07:20 08:15 08:15 WBC 11.5 H RBC Hgb Hct MCHC 31 L RDW 16.4 H Seg Neuts % (Manual) 83.0 H Lymphocytes % (Manual) 8.0 L Seg Neutrophils # Man 9.5 H Lymphocytes # (Manual) 0.9 L ABG pH POC ABG pCO2 ABG Hemoglobin ABG Sodium ABG Potassium ABG Glucose VBG pH Carboxyhemoglobin Sodium Potassium Chloride Carbon Dioxide BUN 21 H Creatinine Glucose 199 H POC Glucose 165 H Hemoglobin A1c Calcium 8.1 L Magnesium Alkaline Phosphatase Total Creatine Kinase Total Protein 5.3 L Albumin 2.0 L Arterial Blood Glucose Arterial Blood Ionized Calcium Urine WBC (Auto) Urine Creatinine Urine Total Protein 03/04/21 10:29 WBC RBC Hgb Hct MCHC RDW Seg Neuts % (Manual) Lymphocytes % (Manual) Seg Neutrophils # Man Lymphocytes # (Manual) ABG pH POC ABG pCO2 ABG Hemoglobin ABG Sodium ABG Potassium ABG Glucose VBG pH Carboxyhemoglobin Sodium Potassium Chloride Carbon Dioxide BUN Creatinine Glucose POC Glucose 265 H Hemoglobin A1c Calcium Magnesium Alkaline Phosphatase Total Creatine Kinase Total Protein Albumin Arterial Blood Glucose Arterial Blood Ionized Calcium Urine WBC (Auto) Urine Creatinine Urine Total Protein Allied health notes reviewed: nursing
--- NOTE | 2021-03-04 15:33 | Progress Note ---
Assessment and Plan Cultures: Urine culture: klebsiella Blood culture: pending. A/P: 60-year-old male with diabetes admitted with DKA: #Sepsis, secondary to severe emphysematous pyelonephritis with CT evidence of f ree air surrounding the right kidney and the right retroperitoneum. Etiology is probably urinary tract infection in the setting of severe diabetic ketoacidosis. Per primary team notes, case was discussed with [facility]. #MAXIMO: Renally dose antibiotics. #Diabetes mellitus with DKA Recs: -Stop meropenem -Start ceftriaxone 2 g over 24 hours -Urology on board, deferring surgery for now. -If white count remains elevated tomorrow, repeat CT scan with contrast. -If white count resolved will make plans for DC with home IV antibiotics. Liv Dobbins MD [facility] ([facility] O: [phone] F: [phone] Subjective Date of service: 03/04/21 Principal diagnosis: DKA; Emphysematous pyelonephritis; Acute encephalopathy; MAXIMO; BPH Interval history: Doing well, afebrile. No new issues. Objective - Exam Narrative Exam: Physical Exam: Constitutional: Alert, cooperative. No acute distress Head, Ears, Nose: Normocephalic, atraumatic. Eyes: Conjunctivae/corneas clear. Neck: Supple, no meningeal signs Cardiovascular: S1, S2 normal. Respiratory: Good air entry, clear to auscultation bilaterally GI: Soft, non-tender; bowel sounds normal. Musculoskeletal: No pedal edema, no cyanosis. Skin: No rash or abscess Hem/Lymphatic: No palpable cervical or supraclavicular nodes. Psych: Mood ok. Affect normal Neurological: Awake, alert, oriented. No gross abnormality - Constitutional Vitals: Vital Signs Temp Pulse Resp BP Pulse Ox 98.8 F 71 12 122/72 99 03/04/21 03:32 03/04/21 03:32 03/04/21 03:32 03/04/21 03:32 03/04/21 03:32 Temperature -Last 24 Hours Temperature 98.8 F Temperature 98.9 F - Labs CBC & Chem 7: 03/04/21 08:15 03/04/21 08:15 Labs: Abnormal lab results 03/03/21 03/03/21 03/04/21 Range/Units 17:08 22:42 07:20 WBC (4.5-11.0) K/mm3 MCHC (32-34) % RDW (13.2-15.2) % Seg Neuts % (Manual) (40.0-70.0) % Lymphocytes % (Manual) (13.4-35.0) % Seg Neutrophils # Man (1.8-7.7) K/mm3 Lymphocytes # (Manual) (1.2-5.4) K/mm3 BUN (9-20) mg/dL Glucose (75-100) mg/dL POC Glucose 128 H 191 H 165 H (70-105) mg/dL Calcium (8.4-10.2) mg/dL Total Protein (6.3-8.2) g/dL Albumin (3.9-5) g/dL 03/04/21 03/04/21 03/04/21 Range/Units 08:15 08:15 10:29 WBC 11.5 H (4.5-11.0) K/mm3 MCHC 31 L (32-34) % RDW 16.4 H (13.2-15.2) % Seg Neuts % (Manual) 83.0 H (40.0-70.0) % Lymphocytes % (Manual) 8.0 L (13.4-35.0) % Seg Neutrophils # Man 9.5 H (1.8-7.7) K/mm3 Lymphocytes # (Manual) 0.9 L (1.2-5.4) K/mm3 BUN 21 H (9-20) mg/dL Glucose 199 H (75-100) mg/dL POC Glucose 265 H (70-105) mg/dL Calcium 8.1 L (8.4-10.2) mg/dL Total Protein 5.3 L (6.3-8.2) g/dL Albumin 2.0 L (3.9-5) g/dL
--- NOTE | 2021-03-04 16:56 | Progress Note ---
Assessment and Plan Assessment and plan: 60-year-old -[place] male with known history of diabetes mellitus presents to the emergency room today complaining of generalized weakness and elevated blood glucose at home. Patient was diagnosed with diabetes mellitus about 2 weeks ago and states he has been out of his insulin for the past 3 to 4 days. Family had called EMS and patient was subsequently brought to the emergency room. Blood glucose was said to be reading high in route to the hospital. Patient was given IV normal saline in route to the hospital. Work-up in the emergency room reveals that patient is in DKA. He has been started on insulin drip and IV fluid. CT abdomen and pelvis 1. Free air within and surrounding the right kidney and tracking in the right retroperitoneum. Exam is severely limited with lack of intravenous contrast and intra-abdominal fat but the air does not seem to extend into the peritoneum. Findings are highly worrisome for an infectious/inflammatory process such as emphysematous pyelonephritis. A perforation is also possible. DKA- Resolved Emphysematous pyelonephritis possible Acute cystitis Acute metabolic encephalopathy now resolved Acute kidney injury on chronic kidney disease unknown stage BPH DVT and GI prophylaxis Plan Continue supportive care 02/28: Discussed with Urologist, still thinking he may need surgery, WILL GET RENAL NUCLEAR FUNCTION SCAN. Discussed with daughter and patient, CULTURES SHOWING k PNEUMONIA. Supervisor Special Effects input noted and appreciated ID consulted for acute cystitis Discussed with urologist this morning per night physician Bryce urologist recommended patient be monitored. We will proceed with repeat CT and urologist recommendation and if consistent symptoms patient will need evaluation by them in a.m. Discussed with family Continue IMCU care. 03/01/21; patient is on IV meropenem per ID recommendation. Wound culture grew Klebsiella pneumoniae. Renal function is improving. Patient need evaluation by urologist. Patient is going to have ultrasound this morning. We will continue to monitor. Urology saw the patient and said waiting for the renal scan to be done. Still considering right nephrectomy. Patient said he does not want nephrectomy. 03/02/2021: Patient actually doing well. Is on meropenem for emphysematous follow nephritis, responding well to antibiotic therapy. ID planning to change to ceftriaxone from tomorrow. Blood cultures negative to date. No abdominal pain CVA tenderness. Afebrile with stable vital signs. DKA resolved. Blood glucose improving. Renal function scan apparently was performed on 03/01 but I am unable to open the report. Urology is following, nephrectomy was originally considered. 03/03/2021: Patient remains afebrile. Stable signs. Clear good urine output via Hernandez. No abdominal/CVA tenderness. Clinically, does not appear to be toxic. No bacteremia. ID changed meropenem to Rocephin today. Urology is following, may need nephrectomy. 03/04/2021: Patient is clinically doing well. Does not appear to be toxic or septic. Meropenem changed to Rocephin on 03/03. He has no complaints. No abdominal pain or tenderness. No nausea or vomiting. No CVA tenderness. Discussed with urology, nephrectomy deferred due to clinical improvement. History Interval history: Patient is doing well. Does not have much complaints. Denies dysuria. MAXIMO resolved. Vitals in stable and afebrile. Yesterday, meropenem changed to ceftriaxone per ID. DKA resolved. Blood glucose improving. Tolerating diet. Is eager to go home actually. Hospitalist Physical - Constitutional Vitals: Temp Pulse Resp BP Pulse Ox 98.8 F 71 12 122/72 99 03/04/21 03:32 03/04/21 03:32 03/04/21 03:32 03/04/21 03:32 03/04/21 03:32 General appearance: Present: no acute distress, other (Skinny habitus. Fully alert and oriented.) - EENT Eyes: Present: PERRL. Absent: scleral icterus ENT: clear oral mucosa - Neck Neck: Present: supple - Respiratory Respiratory effort: normal Respiratory: bilateral: CTA - Cardiovascular Rhythm: regular - Extremities Extremities: No edema - Abdominal General gastrointestinal: soft, non-tender (No CVA tenderness.), non-distended, normal bowel sounds, other (Hernandez in place with clear urine.) - Psychiatric Psychiatric: appropriate mood/affect - Neurologic Neurologic: no focal deficits HEART Score - HEART Score Troponin: Troponin T < 0.010 ng/mL (0.00-0.029) 02/25/21 22:48 Results - Labs CBC & Chem 7: 03/04/21 08:15 03/05/21 07:05 Labs: Laboratory Last Values WBC 11.5 K/mm3 (4.5-11.0) H 03/04/21 08:15 RBC 4.07 M/mm3 (3.65-5.03) 03/04/21 08:15 Hgb 11.8 gm/dl (11.8-15.2) 03/04/21 08:15 Hct 38.2 % (35.5-45.6) D 03/04/21 08:15 MCV 94 fl (84-94) 03/04/21 08:15 MCH 29 pg (28-32) 03/04/21 08:15 MCHC 31 % (32-34) L 03/04/21 08:15 RDW 16.4 % (13.2-15.2) H 03/04/21 08:15 Plt Count 311 K/mm3 (140-440) 03/04/21 08:15 Add Manual Diff Complete 03/04/21 08:15 Total Counted 100 03/04/21 08:15 Seg Neutrophils % Angle Shearer 03/01/21 10:59 Seg Neuts % (Manual) 83.0 % (40.0-70.0) H 03/04/21 08:15 Band Neutrophils % 4.0 % 03/04/21 08:15 Lymphocytes % (Manual) 8.0 % (13.4-35.0) L 03/04/21 08:15 Reactive Lymphs % (Man) 1.0 % 03/02/21 05:45 Monocytes % (Manual) 2.0 % (0.0-7.3) 03/04/21 08:15 Eosinophils % (Manual) 1.0 % (0.0-4.3) 03/04/21 08:15 Metamyelocytes % 1.0 % 03/02/21 05:45 Myelocytes % 2.0 % 03/04/21 08:15 Nucleated RBC % Not Reportable 03/04/21 08:15 Seg Neutrophils # Man 9.5 K/mm3 (1.8-7.7) H 03/04/21 08:15 Band Neutrophils # 0.5 K/mm3 03/04/21 08:15 Lymphocytes # (Manual) 0.9 K/mm3 (1.2-5.4) L 03/04/21 08:15 Abs React Lymphs (Man) 0.0 K/mm3 03/04/21 08:15 Monocytes # (Manual) 0.2 K/mm3 (0.0-0.8) 03/04/21 08:15 Eosinophils # (Manual) 0.1 K/mm3 (0.0-0.4) 03/04/21 08:15 Basophils # (Manual) 0.0 K/mm3 (0.0-0.1) 03/04/21 08:15 Metamyelocytes # 0.0 K/mm3 03/04/21 08:15 Myelocytes # 0.2 K/mm3 03/04/21 08:15 Promyelocytes # 0.0 K/mm3 03/04/21 08:15 Blast Cells # 0.0 K/mm3 03/04/21 08:15 WBC Morphology Not Reportable 03/04/21 08:15 Hypersegmented Neuts Not Reportable 03/04/21 08:15 Hyposegmented Neuts Not Reportable 03/04/21 08:15 Hypogranular Neuts Not Reportable 03/04/21 08:15 Smudge Cells Not Reportable 03/04/21 08:15 Toxic Granulation Not Reportable 03/04/21 08:15 Toxic Vacuolation Not Reportable 03/04/21 08:15 Dohle Bodies Not Reportable 03/04/21 08:15 Pelger-Huet Anomaly Not Reportable 03/04/21 08:15 Nayeli Rods Not Reportable 03/04/21 08:15 Platelet Estimate Consistent w auto 03/04/21 08:15 Clumped Platelets Not Reportable 03/04/21 08:15 Plt Clumps, EDTA Not Reportable 03/04/21 08:15 Large Platelets Not Reportable 03/04/21 08:15 Giant Platelets Not Reportable 03/04/21 08:15 Platelet Satelliting Not Reportable 03/04/21 08:15 Plt Morphology Comment Not Reportable 03/04/21 08:15 RBC Morphology Not Reportable 03/04/21 08:15 Dimorphic RBCs Not Reportable 03/04/21 08:15 Polychromasia Few 03/04/21 08:15 Hypochromasia Not Reportable 03/04/21 08:15 Poikilocytosis Not Reportable 03/04/21 08:15 Anisocytosis Few 03/04/21 08:15 Microcytosis Not Reportable 03/04/21 08:15 Macrocytosis Few 03/04/21 08:15 Spherocytes Not Reportable 03/04/21 08:15 Pappenheimer Bodies Not Reportable 03/04/21 08:15 Sickle Cells Not Reportable 03/04/21 08:15 Target Cells Not Reportable 03/04/21 08:15 Tear Drop Cells Not Reportable 03/04/21 08:15 Ovalocytes Not Reportable 03/04/21 08:15 Helmet Cells Not Reportable 03/04/21 08:15 [place] Bodies Not Reportable 03/04/21 08:15 [place] Rings Not Reportable 03/04/21 08:15 [place] Cells Not Reportable 03/04/21 08:15 Bite Cells Not Reportable 03/04/21 08:15 Crenated Cell Not Reportable 03/04/21 08:15 Elliptocytes Not Reportable 03/04/21 08:15 Acanthocytes (Spur) Not Reportable 03/04/21 08:15 Rouleaux Not Reportable 03/04/21 08:15 Hemoglobin C Crystals Not Reportable 03/04/21 08:15 Schistocytes Not Reportable 03/04/21 08:15 Malaria parasites Not Reportable 03/04/21 08:15 Christiano Bodies Not Reportable 03/04/21 08:15 Hem Pathologist Commnt No 03/04/21 08:15 PT 13.6 Sec. (12.2-14.9) 02/28/21 18:48 INR 0.99 (0.87-1.13) 02/28/21 18:48 APTT 27.9 Sec. (24.2-36.6) 02/28/21 18:48 ABG pH 7.518 (7.320-7.450) H 03/01/21 10:56 POC ABG pCO2 27.2 mmHg (32.0-48.0) L 03/01/21 10:56 POC ABG pO2 84.0 mmHg (83-108) 03/01/21 10:56 POC ABG HCO3 21.6 03/01/21 10:56 ABG O2 Saturation 97.1 (0-100) 03/01/21 10:56 POC ABG Base Excess -0.4 03/01/21 10:56 ABG Hemoglobin 10.9 (12.0-17.5) L 03/01/21 10:56 ABG Oxyhemoglobin 96.4 (94-98) 03/01/21 10:56 ABG Methemoglobin 0.3 (0.0-1.5) 03/01/21 10:56 ABG Sodium 134.6 mmol/L (136.0-145.0) L 03/01/21 10:56 ABG Potassium 2.8 mmol/L (3.40-4.50) L 03/01/21 10:56 ABG Chloride 106.0 mmol/L (98-107) 03/01/21 10:56 ABG Glucose 144 mg/dL (65-95) H 03/01/21 10:56 VBG pH 7.316 (7.320-7.420) L 02/25/21 22:48 Carboxyhemoglobin 0.4 (0.5-1.5) L 03/01/21 10:56 FiO2 % 21.0 03/01/21 10:56 Sodium 140 mmol/L (137-145) 03/04/21 08:15 Potassium 4.1 mmol/L (3.6-5.0) 03/04/21 08:15 Chloride 106.2 mmol/L (98-107) 03/04/21 08:15 Carbon Dioxide 27 mmol/L (22-30) 03/04/21 08:15 Anion Gap 11 mmol/L 03/04/21 08:15 BUN 21 mg/dL (9-20) H 03/04/21 08:15 Creatinine 0.9 mg/dL (0.8-1.3) 03/04/21 08:15 Estimated GFR > 60 ml/min 03/04/21 08:15 BUN/Creatinine Ratio 23 % 03/04/21 08:15 Glucose 199 mg/dL (75-100) H 03/04/21 08:15 POC Glucose 191 mg/dL (70-105) H 03/04/21 16:40 Hemoglobin A1c 14.2 % (4-6) H 02/26/21 02:40 Calcium 8.1 mg/dL (8.4-10.2) L 03/04/21 08:15 Phosphorus 2.50 mg/dL (2.5-4.5) D 02/26/21 02:40 Magnesium 2.00 mg/dL (1.7-2.3) 02/27/21 04:18 Total Bilirubin 0.20 mg/dL (0.1-1.2) 03/04/21 08:15 AST 27 units/L (5-40) 03/04/21 08:15 ALT 24 units/L (7-56) 03/04/21 08:15 Alkaline Phosphatase 129 units/L (35-129) 03/04/21 08:15 Total Creatine Kinase 37 units/L (55-170) L 02/25/21 22:48 Troponin T < 0.010 ng/mL (0.00-0.029) 02/25/21 22:48 Total Protein 5.3 g/dL (6.3-8.2) L 03/04/21 08:15 Albumin 2.0 g/dL (3.9-5) L 03/04/21 08:15 Albumin/Globulin Ratio 0.6 % 03/04/21 08:15 Arterial Blood Glucose 144 mg/dL (65-95) H 03/01/21 10:56 Arterial Blood Ionized Calcium 4.5 mg/dL (4.6-5.3) L 03/01/21 10:56 Urine Color Yellow (Yellow) 02/26/21 18:00 Urine Turbidity Turbid (Clear) 02/26/21 18:00 Urine pH 6.0 (5.0-7.0) 02/26/21 18:00 Ur Specific [place] 1.013 (1.003-1.030) 02/26/21 18:00 Urine Protein 100 mg/dl mg/dL (Negative) 02/26/21 18:00 Urine Glucose (UA) >=500 mg/dL (Negative) 02/26/21 18:00 Urine Ketones Tr mg/dL (Negative) 02/26/21 18:00 Urine Blood Lg (Negative) 02/26/21 18:00 Urine Nitrite Neg (Negative) 02/26/21 18:00 Urine Bilirubin Neg (Negative) 02/26/21 18:00 Urine Urobilinogen < 2.0 mg/dL (<2.0) 02/26/21 18:00 Ur Leukocyte Esterase Lg (Negative) 02/26/21 18:00 Urine WBC (Auto) > 182.0 /HPF (0.0-6.0) H 02/26/21 18:00 Urine RBC (Auto) 41.0 /HPF (0.0-6.0) 02/26/21 18:00 U Epithel Cells (Auto) 1.0 /HPF (0-13.0) 02/26/21 12:00 Urine Bacteria (Auto) 2+ /HPF (Negative) 02/26/21 12:00 Urine WBC Clumps 3+ /HPF 02/26/21 18:00 Urine Mucus Few /HPF 02/26/21 18:00 Urine Yeast (Budding) 3+ /HPF 02/26/21 18:00 Urine Creatinine 26.8 mg/dL (0.1-20.0) H 02/26/21 12:00 Protein/Creatinin Ratio 1.75 02/26/21 12:00 Urine Sodium 29 mmol/L 02/26/21 12:00 Urine Total Protein 47 mg/dL (5-11.8) H 02/26/21 12:00 Nasal Screen MRSA (PCR) Positive (Negative) 02/28/21 Unknown Microbiology: Microbiology 02/27/21 13:36 Peripheral/Venous Blood Culture - Final NO GROWTH AFTER 5 DAYS 02/27/21 13:26 Peripheral/Venous Blood Culture - Final NO GROWTH AFTER 5 DAYS Hernandez/IV: Voiding Method Indwelling Catheter Active Medications - Current Medications Current Medications: Generic Name Dose Route Start Last Admin Trade Name Freq PRN Reason Stop Dose Admin Acetaminophen 650 mg 02/26/21 00:36 Acetaminophen 325 Mg Tab PO Q6H PRN Pain MILD(1-3)/Fever >100.5/MATHUR Dextrose 50 ml 02/25/21 23:47 03/03/21 08:04 Dextrose 50% In Water (25gm) 50 Ml Syringe IV 50 ml Q30MIN PRN Administration Hypoglycemia Protocol Heparin Sodium (Porcine) 5,000 unit 02/26/21 06:00 03/04/21 13:03 Heparin 5,000 Unit/1 Ml Vial SUB-Q 5,000 unit Q8HR ROSELIA Administration Ceftriaxone Sodium 2 gm in 100 mls @ 200 mls/hr 03/03/21 12:00 03/04/21 13:04 Rocephin/Ns 2 Gm/100 Ml IV 200 mls/hr Q24H ROSELIA Administration Protocol Insulin Glargine 20 units 02/27/21 22:00 03/03/21 23:48 Insulin Glargine 100 Units/Ml SUB-Q 20 units QHS ROSELIA Administration Insulin Human Lispro 0 unit 02/27/21 11:30 03/04/21 13:04 Insulin Lispro 100 Unit/Ml SUB-Q 4 unit ACHS ROSELIA Administration Protocol Morphine Sulfate 2 mg 02/26/21 00:36 Morphine 2 Mg/1 Ml Inj IV Q4H PRN Pain, Moderate (4-6) Morphine Sulfate 4 mg 02/26/21 00:36 Morphine 4 Mg/1 Ml Inj IV Q4H PRN Pain , Severe (7-10) Sodium Chloride 10 ml 02/26/21 10:00 03/04/21 09:37 Sodium Chloride 0.9% 10 Ml Flush Syringe IV 10 ml BID ROSELIA Administration Sodium Chloride 10 ml 02/26/21 00:36 Sodium Chloride 0.9% 10 Ml Flush Syringe IV PRN PRN LINE FLUSH Tamsulosin HCl 0.8 mg 02/26/21 16:00 03/04/21 09:37 Tamsulosin 0.4 Mg Cap PO 0.8 mg QDAY ROSELIA Administration Nutrition/Malnutrition Assess - Dietary Evaluation Nutrition/Malnutrition Findings: Nutrition Notes Start: 02/26/21 13:01 Freq: Status: Active Protocol: Document 03/04/21 12:37 (Rec: 03/04/21 12:39 [email or web address]) Nutrition Notes Initial or Follow up Reassessment Current Diagnosis CKD(stage I-IV),Diabetes Other Pertinent Diagnosis DKA Current Diet Consistent CHO Labs/Tests BG 199 Pertinent Medications Lantus Height 5 ft 10 in Weight 51.075 kg [place] Body Weight (kg) 75.45 BMI 16.1 Weight Status Underweight Subjective/Other Information FU for intakes. Pt consuming 100% of meals and ONS. Percent of energy/protein needs met: 100%/100% Burn Absent Trauma Absent Current % PO Good (75-100%) Minimum of two criteria No #2 Nutrition Diagnosis Inadequate oral intake As Evidenced by Signs and Symptoms pt eating 100% of meals Diagnosis Progress(for reassessment Resolved documentation) Is patient on ventilator? No Is Patient Ambulatory and/or Out of Bed No REE-([facility]-confined to bed) 1514.614 Calculation Used for Recommendations [facility] Additional Notes Protein: (0.8-0.9g/kg) 41-46g Fluid: 1 ml/kcal or per MD Nutrition Intervention Change Diet Order: Continue with food prefrences Add Supplement/Snack (indicate name/kcal Glucerna BID /protein ) Provides kCal: 440 Provides Protein (gm) 20 Goal #1 Meet at least 75% of protein and energy needs via PO and ONS intakes Anticipated Discharge Needs: consistent carbohydrate diet Follow-Up By: 03/11/21 Additional Comments FU for stable intakes
[2021-03-04] MEDS: INSULIN GLARGINE 100 UNITS/ML SUB-Q SCH (22:30)
[2021-03-05] MEDS: HEPARIN 5,000 UNIT/1 ML VIAL SUB-Q SCH ×3 (05:40→21:40)
[2021-03-05] MEDS: INSULIN LISPRO 100 UNIT/ML SUB-Q SCH ×6 (07:30→21:39)
[2021-03-05] MEDS: TAMSULOSIN 0.4 MG CAP PO SCH (09:03)
[2021-03-05 09:59] LABS: BUN/Creatinine Ratio 21; Blood Urea Nitrogen 19 mg/dL (9-20); Calcium 8.2 mg/dL (8.4-10.2); Hemolysis Index 2
--- NOTE | 2021-03-05 10:08 | Progress Note ---
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 Acute cystitis Acute metabolic encephalopathy now resolved Acute kidney injury on chronic kidney disease unknown stage BPH DVT and GI prophylaxis leucocytosis Metabolic acidosis - tentative plan to d/c home on IV AB's - complete Rocephin dosing per ID recommendations - care home IV access - follow repeat CT scan - continue care as below otherwise; - Urology input appreciated - prn supplemental oxygen to keep O2 sats > 90% - prn bronchodilators (SANDRA) with pulm hygiene per RT - continue to avoid nephrotoxins, renally dose all medications - mobility protocols to prevent pressure ulcers - PT/OT as tolerated - Wound care per RN/WCT - continue accuchecks with glycemic control per SSI for target blood glucose < 180 mg/dL - tobacco abstinence strongly counseled at the bedside - home oxygen evaluation at discharge - GI & VTE prophylaxis - Flu & pneumovax per protocol - continue other care per attending / other consultants - prn analgesia per pain score ... re-evaluate in am & prn Subjective Date of service: 03/05/21 Principal diagnosis: DKA; Emphysematous pyelonephritis; Acute encephalopathy; MAXIMO; BPH Interval history: Patient is seen today for: DKA; Emphysematous pyelonephritis; Acute encephalopathy; MAXIMO; BPH Seen and examined at bedside; 24hour events reviewed; nursing and respiratory care staff consulted; no adverse overnight events reported to me; resting in bed; transitioned to Rocephin; No N/V/F/C; no back pain or gross hematuria Objective Constitutional: no acute distress, alert Eyes: non-icteric ENT: oropharynx moist Neck: supple, no lymphadenopathy, no JVD Effort: normal Ascultation: Bilateral: clear, diminished breath sounds Percussion: Bilateral: not dull Cardiovascular: regular rate and rhythm, other (S1,S2) Gastrointestinal: normoactive bowel sounds, soft, non-tender, non-distended Integumentary: other (poor skin turgor) Extremities: no cyanosis, no edema, pulses normal, no ischemia or petechiae Neurologic: normal mental status, non-focal exam, pupils equal and round, CN II- XII normal Psychiatric: mood appropriate, affect normal CBC and BMP: 03/06/21 06:30 03/06/21 06:30 ABG, PT/INR, D-dimer: ABG ABG pH 7.518 (7.320-7.450) H 03/01/21 10:56 POC ABG pCO2 27.2 mmHg (32.0-48.0) L 03/01/21 10:56 POC ABG pO2 84.0 mmHg (83-108) 03/01/21 10:56 POC ABG HCO3 21.6 03/01/21 10:56 ABG O2 Saturation 97.1 (0-100) 03/01/21 10:56 PT/INR, D-dimer PT 13.6 Sec. (12.2-14.9) 02/28/21 18:48 INR 0.99 (0.87-1.13) 02/28/21 18:48 Abnormal lab findings: Abnormal Labs 02/25/21 02/25/21 02/25/21 22:31 22:48 22:48 WBC 24.1 H RBC Hgb 11.5 L Hct MCHC RDW Seg Neuts % (Manual) 95.0 H Lymphocytes % (Manual) Seg Neutrophils # Man 22.9 H Lymphocytes # (Manual) 0.0 L ABG pH POC ABG pCO2 ABG Hemoglobin ABG Sodium ABG Potassium ABG Glucose VBG pH Carboxyhemoglobin Sodium 126 L Potassium Chloride 88.8 L Carbon Dioxide 18 L BUN 75 H Creatinine 2.1 H Glucose 938 H* POC Glucose > 600 H Hemoglobin A1c Calcium Magnesium Alkaline Phosphatase 201 H Total Creatine Kinase 37 L Total Protein Albumin 2.9 L Arterial Blood Glucose Arterial Blood Ionized Calcium Urine WBC (Auto) Urine Creatinine Urine Total Protein 02/25/21 02/25/21 02/26/21 22:48 23:52 01:21 WBC RBC Hgb Hct MCHC RDW Seg Neuts % (Manual) Lymphocytes % (Manual) Seg Neutrophils # Man Lymphocytes # (Manual) ABG pH POC ABG pCO2 ABG Hemoglobin ABG Sodium ABG Potassium ABG Glucose VBG pH 7.316 L Carboxyhemoglobin Sodium Potassium Chloride Carbon Dioxide BUN Creatinine Glucose POC Glucose > 600 H Hemoglobin A1c Calcium Magnesium 2.80 H Alkaline Phosphatase Total Creatine Kinase Total Protein Albumin Arterial Blood Glucose Arterial Blood Ionized Calcium Urine WBC (Auto) Urine Creatinine Urine Total Protein 02/26/21 02/26/21 02/26/21 02:09 02:40 02:40 WBC RBC Hgb Hct MCHC RDW Seg Neuts % (Manual) Lymphocytes % (Manual) Seg Neutrophils # Man Lymphocytes # (Manual) ABG pH POC ABG pCO2 ABG Hemoglobin ABG Sodium ABG Potassium ABG Glucose VBG pH Carboxyhemoglobin Sodium 131 L Potassium Chloride 96.1 L Carbon Dioxide 17 L BUN 74 H Creatinine 2.1 H Glucose 719 H* POC Glucose > 600 H Hemoglobin A1c 14.2 H Calcium Magnesium Alkaline Phosphatase Total Creatine Kinase Total Protein Albumin Arterial Blood Glucose Arterial Blood Ionized Calcium Urine WBC (Auto) Urine Creatinine Urine Total Protein 02/26/21 02/26/21 02/26/21 02:40 03:58 04:03 WBC RBC Hgb Hct MCHC RDW Seg Neuts % (Manual) Lymphocytes % (Manual) Seg Neutrophils # Man Lymphocytes # (Manual) ABG pH POC ABG pCO2 ABG Hemoglobin ABG Sodium ABG Potassium ABG Glucose VBG pH Carboxyhemoglobin Sodium Potassium Chloride Carbon Dioxide 18 L BUN 71 H Creatinine 2.0 H Glucose 550 H* POC Glucose 544 H Hemoglobin A1c Calcium Magnesium 2.70 H Alkaline Phosphatase Total Creatine Kinase Total Protein Albumin Arterial Blood Glucose Arterial Blood Ionized Calcium Urine WBC (Auto) Urine Creatinine Urine Total Protein 02/26/21 02/26/21 02/26/21 05:01 05:58 07:09 WBC RBC Hgb Hct MCHC RDW Seg Neuts % (Manual) Lymphocytes % (Manual) Seg Neutrophils # Man Lymphocytes # (Manual) ABG pH POC ABG pCO2 ABG Hemoglobin ABG Sodium ABG Potassium ABG Glucose VBG pH Carboxyhemoglobin Sodium Potassium Chloride Carbon Dioxide BUN Creatinine Glucose POC Glucose 439 H 399 H 217 H Hemoglobin A1c Calcium Magnesium Alkaline Phosphatase Total Creatine Kinase Total Protein Albumin Arterial Blood Glucose Arterial Blood Ionized Calcium Urine WBC (Auto) Urine Creatinine Urine Total Protein 02/26/21 02/26/21 02/26/21 08:09 08:12 09:08 WBC RBC Hgb Hct MCHC RDW Seg Neuts % (Manual) Lymphocytes % (Manual) Seg Neutrophils # Man Lymphocytes # (Manual) ABG pH POC ABG pCO2 ABG Hemoglobin ABG Sodium ABG Potassium ABG Glucose VBG pH Carboxyhemoglobin Sodium Potassium Chloride Carbon Dioxide 16 L BUN 72 H Creatinine 1.9 H Glucose 119 H POC Glucose 138 H 136 H Hemoglobin A1c Calcium Magnesium Alkaline Phosphatase Total Creatine Kinase Total Protein Albumin Arterial Blood Glucose Arterial Blood Ionized Calcium Urine WBC (Auto) Urine Creatinine Urine Total Protein 02/26/21 02/26/21 02/26/21 12:00 12:00 12:04 WBC RBC Hgb Hct MCHC RDW Seg Neuts % (Manual) Lymphocytes % (Manual) Seg Neutrophils # Man Lymphocytes # (Manual) ABG pH POC ABG pCO2 ABG Hemoglobin ABG Sodium ABG Potassium ABG Glucose VBG pH Carboxyhemoglobin Sodium Potassium Chloride Carbon Dioxide BUN Creatinine Glucose POC Glucose 136 H Hemoglobin A1c Calcium Magnesium Alkaline Phosphatase Total Creatine Kinase Total Protein Albumin Arterial Blood Glucose Arterial Blood Ionized Calcium Urine WBC (Auto) > 182.0 H Urine Creatinine 26.8 H Urine Total Protein 47 H 02/26/21 02/26/21 02/26/21 13:26 14:50 15:14 WBC RBC Hgb Hct MCHC RDW Seg Neuts % (Manual) Lymphocytes % (Manual) Seg Neutrophils # Man Lymphocytes # (Manual) ABG pH POC ABG pCO2 ABG Hemoglobin ABG Sodium ABG Potassium ABG Glucose VBG pH Carboxyhemoglobin Sodium Potassium Chloride Carbon Dioxide BUN Creatinine Glucose POC Glucose 124 H 119 H 106 H Hemoglobin A1c Calcium Magnesium Alkaline Phosphatase Total Creatine Kinase Total Protein Albumin Arterial Blood Glucose Arterial Blood Ionized Calcium Urine WBC (Auto) Urine Creatinine Urine Total Protein 02/26/21 02/26/21 02/26/21 15:27 16:38 17:22 WBC RBC Hgb Hct MCHC RDW Seg Neuts % (Manual) Lymphocytes % (Manual) Seg Neutrophils # Man Lymphocytes # (Manual) ABG pH POC ABG pCO2 ABG Hemoglobin ABG Sodium ABG Potassium ABG Glucose VBG pH Carboxyhemoglobin Sodium 136 L Potassium 5.1 H Chloride Carbon Dioxide 16 L BUN 72 H Creatinine 2.2 H Glucose 107 H POC Glucose 111 H 113 H Hemoglobin A1c Calcium Magnesium Alkaline Phosphatase Total Creatine Kinase Total Protein Albumin Arterial Blood Glucose Arterial Blood Ionized Calcium Urine WBC (Auto) Urine Creatinine Urine Total Protein 02/26/21 02/26/21 02/26/21 17:54 18:00 20:25 WBC RBC Hgb Hct MCHC RDW Seg Neuts % (Manual) Lymphocytes % (Manual) Seg Neutrophils # Man Lymphocytes # (Manual) ABG pH POC ABG pCO2 ABG Hemoglobin ABG Sodium ABG Potassium ABG Glucose VBG pH Carboxyhemoglobin Sodium Potassium Chloride Carbon Dioxide BUN Creatinine Glucose POC Glucose 114 H 129 H Hemoglobin A1c Calcium Magnesium Alkaline Phosphatase Total Creatine Kinase Total Protein Albumin Arterial Blood Glucose Arterial Blood Ionized Calcium Urine WBC (Auto) > 182.0 H Urine Creatinine Urine Total Protein 02/26/21 02/26/21 02/26/21 21:17 22:02 23:05 WBC RBC Hgb Hct MCHC RDW Seg Neuts % (Manual) Lymphocytes % (Manual) Seg Neutrophils # Man Lymphocytes # (Manual) ABG pH POC ABG pCO2 ABG Hemoglobin ABG Sodium ABG Potassium ABG Glucose VBG pH Carboxyhemoglobin Sodium Potassium Chloride Carbon Dioxide BUN Creatinine Glucose POC Glucose 127 H 135 H 112 H Hemoglobin A1c Calcium Magnesium Alkaline Phosphatase Total Creatine Kinase Total Protein Albumin Arterial Blood Glucose Arterial Blood Ionized Calcium Urine WBC (Auto) Urine Creatinine Urine Total Protein 02/27/21 02/27/21 02/27/21 00:11 02:13 04:13 WBC RBC Hgb Hct MCHC RDW Seg Neuts % (Manual) Lymphocytes % (Manual) Seg Neutrophils # Man Lymphocytes # (Manual) ABG pH POC ABG pCO2 ABG Hemoglobin ABG Sodium ABG Potassium ABG Glucose VBG pH Carboxyhemoglobin Sodium Potassium 3.5 L D Chloride 108.4 H Carbon Dioxide 21 L BUN 64 H Creatinine 1.9 H Glucose POC Glucose 106 H 115 H Hemoglobin A1c Calcium 8.3 L Magnesium Alkaline Phosphatase Total Creatine Kinase Total Protein Albumin Arterial Blood Glucose Arterial Blood Ionized Calcium Urine WBC (Auto) Urine Creatinine Urine Total Protein 02/27/21 02/27/21 02/27/21 04:18 04:18 06:57 WBC 22.4 H RBC Hgb 11.0 L Hct 32.3 L MCHC RDW Seg Neuts % (Manual) Lymphocytes % (Manual) Seg Neutrophils # Man Lymphocytes # (Manual) ABG pH POC ABG pCO2 ABG Hemoglobin ABG Sodium ABG Potassium ABG Glucose VBG pH Carboxyhemoglobin Sodium Potassium Chloride 107.9 H Carbon Dioxide BUN 59 H Creatinine 1.7 H Glucose POC Glucose 60 L Hemoglobin A1c Calcium 8.1 L Magnesium Alkaline Phosphatase Total Creatine Kinase Total Protein Albumin Arterial Blood Glucose Arterial Blood Ionized Calcium Urine WBC (Auto) Urine Creatinine Urine Total Protein 02/27/21 02/27/21 02/27/21 08:24 08:35 11:25 WBC RBC Hgb Hct MCHC RDW Seg Neuts % (Manual) Lymphocytes % (Manual) Seg Neutrophils # Man Lymphocytes # (Manual) ABG pH POC ABG pCO2 ABG Hemoglobin ABG Sodium ABG Potassium ABG Glucose VBG pH Carboxyhemoglobin Sodium Potassium 3.1 L Chloride 108.6 H Carbon Dioxide 21 L BUN 53 H Creatinine 1.5 H Glucose 121 H POC Glucose 131 H 196 H Hemoglobin A1c Calcium 8.0 L Magnesium Alkaline Phosphatase Total Creatine Kinase Total Protein Albumin Arterial Blood Glucose Arterial Blood Ionized Calcium Urine WBC (Auto) Urine Creatinine Urine Total Protein 02/27/21 02/27/21 02/27/21 16:39 18:04 21:33 WBC RBC Hgb Hct MCHC RDW Seg Neuts % (Manual) Lymphocytes % (Manual) Seg Neutrophils # Man Lymphocytes # (Manual) ABG pH POC ABG pCO2 ABG Hemoglobin ABG Sodium ABG Potassium ABG Glucose VBG pH Carboxyhemoglobin Sodium Potassium 3.1 L Chloride Carbon Dioxide 20 L BUN 50 H Creatinine 1.4 H Glucose 365 H POC Glucose 340 H 322 H Hemoglobin A1c Calcium 7.9 L Magnesium Alkaline Phosphatase Total Creatine Kinase Total Protein Albumin Arterial Blood Glucose Arterial Blood Ionized Calcium Urine WBC (Auto) Urine Creatinine Urine Total Protein 02/28/21 02/28/21 02/28/21 05:05 07:25 11:13 WBC RBC Hgb Hct MCHC RDW Seg Neuts % (Manual) Lymphocytes % (Manual) Seg Neutrophils # Man Lymphocytes # (Manual) ABG pH POC ABG pCO2 ABG Hemoglobin ABG Sodium ABG Potassium ABG Glucose VBG pH Carboxyhemoglobin Sodium Potassium 3.3 L Chloride 110.2 H Carbon Dioxide BUN 43 H Creatinine Glucose 193 H POC Glucose 121 H 190 H Hemoglobin A1c Calcium 7.8 L Magnesium Alkaline Phosphatase Total Creatine Kinase Total Protein Albumin Arterial Blood Glucose Arterial Blood Ionized Calcium Urine WBC (Auto) Urine Creatinine Urine Total Protein 02/28/21 02/28/21 03/01/21 16:30 22:08 08:05 WBC RBC Hgb Hct MCHC RDW Seg Neuts % (Manual) Lymphocytes % (Manual) Seg Neutrophils # Man Lymphocytes # (Manual) ABG pH POC ABG pCO2 ABG Hemoglobin ABG Sodium ABG Potassium ABG Glucose VBG pH Carboxyhemoglobin Sodium Potassium Chloride Carbon Dioxide BUN Creatinine Glucose POC Glucose 180 H 340 H 58 L Hemoglobin A1c Calcium Magnesium Alkaline Phosphatase Total Creatine Kinase Total Protein Albumin Arterial Blood Glucose Arterial Blood Ionized Calcium Urine WBC (Auto) Urine Creatinine Urine Total Protein 03/01/21 03/01/21 03/01/21 09:34 10:56 10:59 WBC 15.3 H RBC Hgb 11.2 L Hct 33.1 L MCHC RDW Seg Neuts % (Manual) 87.0 H Lymphocytes % (Manual) 1.0 L Seg Neutrophils # Man 13.3 H Lymphocytes # (Manual) 0.2 L ABG pH 7.518 H POC ABG pCO2 27.2 L ABG Hemoglobin 10.9 L ABG Sodium 134.6 L ABG Potassium 2.8 L ABG Glucose 144 H VBG pH Carboxyhemoglobin 0.4 L Sodium Potassium 3.2 L Chloride Carbon Dioxide BUN 29 H Creatinine Glucose POC Glucose Hemoglobin A1c Calcium 8.2 L Magnesium Alkaline Phosphatase Total Creatine Kinase Total Protein Albumin Arterial Blood Glucose 144 H Arterial Blood Ionized Calcium 4.5 L Urine WBC (Auto) Urine Creatinine Urine Total Protein 03/01/21 03/01/21 03/01/21 12:38 17:10 21:27 WBC RBC Hgb Hct MCHC RDW Seg Neuts % (Manual) Lymphocytes % (Manual) Seg Neutrophils # Man Lymphocytes # (Manual) ABG pH POC ABG pCO2 ABG Hemoglobin ABG Sodium ABG Potassium ABG Glucose VBG pH Carboxyhemoglobin Sodium Potassium Chloride Carbon Dioxide BUN Creatinine Glucose POC Glucose 134 H 190 H 187 H Hemoglobin A1c Calcium Magnesium Alkaline Phosphatase Total Creatine Kinase Total Protein Albumin Arterial Blood Glucose Arterial Blood Ionized Calcium Urine WBC (Auto) Urine Creatinine Urine Total Protein 03/02/21 03/02/21 03/02/21 05:45 05:45 08:05 WBC 11.7 H RBC 3.38 L Hgb 10.0 L Hct 29.8 L MCHC RDW Seg Neuts % (Manual) 93.0 H Lymphocytes % (Manual) 4.0 L Seg Neutrophils # Man 10.9 H Lymphocytes # (Manual) 0.5 L ABG pH POC ABG pCO2 ABG Hemoglobin ABG Sodium ABG Potassium ABG Glucose VBG pH Carboxyhemoglobin Sodium Potassium 3.2 L Chloride 109.7 H Carbon Dioxide BUN 29 H Creatinine Glucose 299 H POC Glucose 224 H Hemoglobin A1c Calcium 7.6 L Magnesium Alkaline Phosphatase Total Creatine Kinase Total Protein Albumin Arterial Blood Glucose Arterial Blood Ionized Calcium Urine WBC (Auto) Urine Creatinine Urine Total Protein 03/02/21 03/02/21 03/02/21 10:28 17:08 21:11 WBC RBC Hgb Hct MCHC RDW Seg Neuts % (Manual) Lymphocytes % (Manual) Seg Neutrophils # Man Lymphocytes # (Manual) ABG pH POC ABG pCO2 ABG Hemoglobin ABG Sodium ABG Potassium ABG Glucose VBG pH Carboxyhemoglobin Sodium Potassium Chloride Carbon Dioxide BUN Creatinine Glucose POC Glucose 161 H 116 H 147 H Hemoglobin A1c Calcium Magnesium Alkaline Phosphatase Total Creatine Kinase Total Protein Albumin Arterial Blood Glucose Arterial Blood Ionized Calcium Urine WBC (Auto) Urine Creatinine Urine Total Protein 03/03/21 03/03/21 03/03/21 07:44 09:08 09:27 WBC RBC Hgb Hct MCHC RDW Seg Neuts % (Manual) Lymphocytes % (Manual) Seg Neutrophils # Man Lymphocytes # (Manual) ABG pH POC ABG pCO2 ABG Hemoglobin ABG Sodium ABG Potassium ABG Glucose VBG pH Carboxyhemoglobin Sodium Potassium Chloride 107.3 H Carbon Dioxide BUN 24 H Creatinine Glucose 140 H POC Glucose 65 L 134 H Hemoglobin A1c Calcium 7.7 L Magnesium Alkaline Phosphatase Total Creatine Kinase Total Protein Albumin Arterial Blood Glucose Arterial Blood Ionized Calcium Urine WBC (Auto) Urine Creatinine Urine Total Protein 03/03/21 03/03/21 03/03/21 11:43 17:08 22:42 WBC RBC Hgb Hct MCHC RDW Seg Neuts % (Manual) Lymphocytes % (Manual) Seg Neutrophils # Man Lymphocytes # (Manual) ABG pH POC ABG pCO2 ABG Hemoglobin ABG Sodium ABG Potassium ABG Glucose VBG pH Carboxyhemoglobin Sodium Potassium Chloride Carbon Dioxide BUN Creatinine Glucose POC Glucose 211 H 128 H 191 H Hemoglobin A1c Calcium Magnesium Alkaline Phosphatase Total Creatine Kinase Total Protein Albumin Arterial Blood Glucose Arterial Blood Ionized Calcium Urine WBC (Auto) Urine Creatinine Urine Total Protein 03/04/21 03/04/21 03/04/21 07:20 08:15 08:15 WBC 11.5 H RBC Hgb Hct MCHC 31 L RDW 16.4 H Seg Neuts % (Manual) 83.0 H Lymphocytes % (Manual) 8.0 L Seg Neutrophils # Man 9.5 H Lymphocytes # (Manual) 0.9 L ABG pH POC ABG pCO2 ABG Hemoglobin ABG Sodium ABG Potassium ABG Glucose VBG pH Carboxyhemoglobin Sodium Potassium Chloride Carbon Dioxide BUN 21 H Creatinine Glucose 199 H POC Glucose 165 H Hemoglobin A1c Calcium 8.1 L Magnesium Alkaline Phosphatase Total Creatine Kinase Total Protein 5.3 L Albumin 2.0 L Arterial Blood Glucose Arterial Blood Ionized Calcium Urine WBC (Auto) Urine Creatinine Urine Total Protein 03/04/21 03/04/21 03/04/21 10:29 16:40 21:41 WBC RBC Hgb Hct MCHC RDW Seg Neuts % (Manual) Lymphocytes % (Manual) Seg Neutrophils # Man Lymphocytes # (Manual) ABG pH POC ABG pCO2 ABG Hemoglobin ABG Sodium ABG Potassium ABG Glucose VBG pH Carboxyhemoglobin Sodium Potassium Chloride Carbon Dioxide BUN Creatinine Glucose POC Glucose 265 H 191 H 284 H Hemoglobin A1c Calcium Magnesium Alkaline Phosphatase Total Creatine Kinase Total Protein Albumin Arterial Blood Glucose Arterial Blood Ionized Calcium Urine WBC (Auto) Urine Creatinine Urine Total Protein 03/05/21 03/05/21 07:05 07:25 WBC RBC Hgb Hct MCHC RDW Seg Neuts % (Manual) Lymphocytes % (Manual) Seg Neutrophils # Man Lymphocytes # (Manual) ABG pH POC ABG pCO2 ABG Hemoglobin ABG Sodium ABG Potassium ABG Glucose VBG pH Carboxyhemoglobin Sodium Potassium Chloride Carbon Dioxide 31 H BUN Creatinine Glucose 207 H POC Glucose 203 H Hemoglobin A1c Calcium 8.2 L Magnesium Alkaline Phosphatase Total Creatine Kinase Total Protein Albumin Arterial Blood Glucose Arterial Blood Ionized Calcium Urine WBC (Auto) Urine Creatinine Urine Total Protein Allied health notes reviewed: nursing
[2021-03-05] MEDS: cefTRIAXone/NS 2 GM/100 ML 2 GM/100 ML BAG IV SCH (12:00)
--- NOTE | 2021-03-05 13:15 | Progress Note ---
Assessment and Plan Cultures: Urine culture: klebsiella Blood culture: pending. A/P: 60-year-old male with diabetes admitted with DKA: #Sepsis, secondary to severe emphysematous pyelonephritis with CT evidence of f ree air surrounding the right kidney and the right retroperitoneum. Etiology is probably urinary tract infection in the setting of severe diabetic ketoacidosis. Per primary team notes, case was discussed with [facility]. #MAXIMO: Renally dose antibiotics. #Diabetes mellitus with DKA Recs: -Stop meropenem -Start ceftriaxone 2 g over 24 hours -Urology on board, deferring surgery for now. -If white count remains elevated tomorrow, repeat CT scan with contrast. -If white count resolved will make plans for DC with home IV antibiotics. Liv Dobbins MD [facility] ([facility] O: [phone] F: [phone] Subjective Date of service: 03/05/21 Principal diagnosis: DKA; Emphysematous pyelonephritis; Acute encephalopathy; MAXIMO; BPH Interval history: Afebrile, CBC was not drawn. Objective - Exam Narrative Exam: Physical Exam: Constitutional: Alert, cooperative. No acute distress Head, Ears, Nose: Normocephalic, atraumatic. Eyes: Conjunctivae/corneas clear. Neck: Supple, no meningeal signs Cardiovascular: S1, S2 normal. Respiratory: Good air entry, clear to auscultation bilaterally GI: Soft, non-tender; bowel sounds normal. Musculoskeletal: No pedal edema, no cyanosis. Skin: No rash or abscess Hem/Lymphatic: No palpable cervical or supraclavicular nodes. Psych: Mood ok. Affect normal Neurological: Awake, alert, oriented. No gross abnormality - Constitutional Vitals: Vital Signs Temp Pulse Resp BP Pulse Ox 98.9 F 79 19 124/74 98 03/04/21 18:08 03/05/21 10:45 03/04/21 18:08 03/05/21 10:45 03/05/21 10:45 Temperature -Last 24 Hours Temperature 98.9 F - Labs CBC & Chem 7: 03/04/21 08:15 03/05/21 07:05 Labs: Abnormal lab results 03/04/21 03/04/21 03/04/21 Range/Units 08:15 16:40 21:41 Seg Neuts % (Manual) 83.0 H (40.0-70.0) % Lymphocytes % (Manual) 8.0 L (13.4-35.0) % Seg Neutrophils # Man 9.5 H (1.8-7.7) K/mm3 Lymphocytes # (Manual) 0.9 L (1.2-5.4) K/mm3 Carbon Dioxide (22-30) mmol/L Glucose (75-100) mg/dL POC Glucose 191 H 284 H (70-105) mg/dL Calcium (8.4-10.2) mg/dL 03/05/21 03/05/21 03/05/21 Range/Units 07:05 07:25 10:47 Seg Neuts % (Manual) (40.0-70.0) % Lymphocytes % (Manual) (13.4-35.0) % Seg Neutrophils # Man (1.8-7.7) K/mm3 Lymphocytes # (Manual) (1.2-5.4) K/mm3 Carbon Dioxide 31 H (22-30) mmol/L Glucose 207 H (75-100) mg/dL POC Glucose 203 H 215 H (70-105) mg/dL Calcium 8.2 L (8.4-10.2) mg/dL
--- NOTE | 2021-03-05 17:39 | Progress Note ---
Assessment and Plan Assessment and plan: 60-year-old -[place] male with known history of diabetes mellitus presents to the emergency room today complaining of generalized weakness and elevated blood glucose at home. Patient was diagnosed with diabetes mellitus about 2 weeks ago and states he has been out of his insulin for the past 3 to 4 days. Family had called EMS and patient was subsequently brought to the emergency room. Blood glucose was said to be reading high in route to the hospital. Patient was given IV normal saline in route to the hospital. Work-up in the emergency room reveals that patient is in DKA. He has been started on insulin drip and IV fluid. CT abdomen and pelvis 1. Free air within and surrounding the right kidney and tracking in the right retroperitoneum. Exam is severely limited with lack of intravenous contrast and intra-abdominal fat but the air does not seem to extend into the peritoneum. Findings are highly worrisome for an infectious/inflammatory process such as emphysematous pyelonephritis. A perforation is also possible. DKA- Resolved Emphysematous pyelonephritis possible Acute cystitis Acute metabolic encephalopathy now resolved Acute kidney injury on chronic kidney disease unknown stage BPH DVT and GI prophylaxis Plan Continue supportive care 02/28: Discussed with Urologist, still thinking he may need surgery, WILL GET RENAL NUCLEAR FUNCTION SCAN. Discussed with daughter and patient, CULTURES SHOWING k PNEUMONIA. Gore Stitcher input noted and appreciated ID consulted for acute cystitis Discussed with urologist this morning per night physician Bryce urologist recommended patient be monitored. We will proceed with repeat CT and urologist recommendation and if consistent symptoms patient will need evaluation by them in a.m. Discussed with family Continue IMCU care. 03/01/21; patient is on IV meropenem per ID recommendation. Wound culture grew Klebsiella pneumoniae. Renal function is improving. Patient need evaluation by urologist. Patient is going to have ultrasound this morning. We will continue to monitor. Urology saw the patient and said waiting for the renal scan to be done. Still considering right nephrectomy. Patient said he does not want nephrectomy. 03/02/2021: Patient actually doing well. Is on meropenem for emphysematous follow nephritis, responding well to antibiotic therapy. ID planning to change to ceftriaxone from tomorrow. Blood cultures negative to date. No abdominal pain CVA tenderness. Afebrile with stable vital signs. DKA resolved. Blood glucose improving. Renal function scan apparently was performed on 03/01 but I am unable to open the report. Urology is following, nephrectomy was originally considered. 03/03/2021: Patient remains afebrile. Stable signs. Clear good urine output via Hernandez. No abdominal/CVA tenderness. Clinically, does not appear to be toxic. No bacteremia. ID changed meropenem to Rocephin today. Urology is following, may need nephrectomy. 03/04/2021: Patient is clinically doing well. Does not appear to be toxic or septic. Meropenem changed to Rocephin on 03/03. He has no complaints. No abdominal pain or tenderness. No nausea or vomiting. No CVA tenderness. Discussed with urology, nephrectomy deferred due to clinical improvement. 03/05/2021: Patient continues doing well. Leukocytosis almost gone. Blood cultures negative today. No abdominal/CVA pain/tenderness. No nausea or vomiting. Good urine output via Hernandez. Meropenem changed to Rocephin on 03/03 by ID. ID closely following. Urology following, nephrectomy deferred due to significant clinical improvement. Will repeat CT abdomen. History Interval history: Patient continues to do well. Does not have much complaints. Denies dysuria. MAXIMO resolved. Vitals in stable and afebrile. DKA resolved. Blood glucose improving but not optimal controlled, Lantus insulin increased to. Tolerating diet. Is eager to go home actually. Hospitalist Physical - Constitutional Vitals: Temp Pulse Resp BP Pulse Ox 99.2 F 88 19 116/73 99 03/05/21 15:50 03/05/21 15:50 03/05/21 15:50 03/05/21 15:50 03/05/21 15:50 General appearance: Present: no acute distress, other (Fully alert and oriented.) - EENT Eyes: Present: PERRL, EOM intact. Absent: scleral icterus ENT: clear oral mucosa - Neck Neck: Present: supple - Respiratory Respiratory effort: normal Respiratory: bilateral: CTA - Cardiovascular Rhythm: regular - Extremities Extremities: No edema - Abdominal General gastrointestinal: soft, non-tender, non-distended, other (No masses. No CVA tenderness. Indwelling Hernandez with clear urine) - Integumentary Integumentary: Absent: rash - Psychiatric Psychiatric: appropriate mood/affect - Neurologic Neurologic: no focal deficits HEART Score - HEART Score Troponin: Troponin T < 0.010 ng/mL (0.00-0.029) 02/25/21 22:48 Results - Labs CBC & Chem 7: 03/04/21 08:15 03/05/21 07:05 Labs: Laboratory Last Values WBC 11.5 K/mm3 (4.5-11.0) H 03/04/21 08:15 RBC 4.07 M/mm3 (3.65-5.03) 03/04/21 08:15 Hgb 11.8 gm/dl (11.8-15.2) 03/04/21 08:15 Hct 38.2 % (35.5-45.6) D 03/04/21 08:15 MCV 94 fl (84-94) 03/04/21 08:15 MCH 29 pg (28-32) 03/04/21 08:15 MCHC 31 % (32-34) L 03/04/21 08:15 RDW 16.4 % (13.2-15.2) H 03/04/21 08:15 Plt Count 311 K/mm3 (140-440) 03/04/21 08:15 Add Manual Diff Complete 03/04/21 08:15 Total Counted 100 03/04/21 08:15 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 03/01/21 10:59 Seg Neuts % (Manual) 83.0 % (40.0-70.0) H 03/04/21 08:15 Band Neutrophils % 4.0 % 03/04/21 08:15 Lymphocytes % (Manual) 8.0 % (13.4-35.0) L 03/04/21 08:15 Reactive Lymphs % (Man) 1.0 % 03/02/21 05:45 Monocytes % (Manual) 2.0 % (0.0-7.3) 03/04/21 08:15 Eosinophils % (Manual) 1.0 % (0.0-4.3) 03/04/21 08:15 Metamyelocytes % 1.0 % 03/02/21 05:45 Myelocytes % 2.0 % 03/04/21 08:15 Nucleated RBC % Not Reportable 03/04/21 08:15 Seg Neutrophils # Man 9.5 K/mm3 (1.8-7.7) H 03/04/21 08:15 Band Neutrophils # 0.5 K/mm3 03/04/21 08:15 Lymphocytes # (Manual) 0.9 K/mm3 (1.2-5.4) L 03/04/21 08:15 Abs React Lymphs (Man) 0.0 K/mm3 03/04/21 08:15 Monocytes # (Manual) 0.2 K/mm3 (0.0-0.8) 03/04/21 08:15 Eosinophils # (Manual) 0.1 K/mm3 (0.0-0.4) 03/04/21 08:15 Basophils # (Manual) 0.0 K/mm3 (0.0-0.1) 03/04/21 08:15 Metamyelocytes # 0.0 K/mm3 03/04/21 08:15 Myelocytes # 0.2 K/mm3 03/04/21 08:15 Promyelocytes # 0.0 K/mm3 03/04/21 08:15 Blast Cells # 0.0 K/mm3 03/04/21 08:15 WBC Morphology Not Reportable 03/04/21 08:15 Hypersegmented Neuts Not Reportable 03/04/21 08:15 Hyposegmented Neuts Not Reportable 03/04/21 08:15 Hypogranular Neuts Not Reportable 03/04/21 08:15 Smudge Cells Not Reportable 03/04/21 08:15 Toxic Granulation Not Reportable 03/04/21 08:15 Toxic Vacuolation Not Reportable 03/04/21 08:15 Dohle Bodies Not Reportable 03/04/21 08:15 Pelger-Huet Anomaly Not Reportable 03/04/21 08:15 Nayeli Rods Not Reportable 03/04/21 08:15 Platelet Estimate Consistent w auto 03/04/21 08:15 Clumped Platelets Not Reportable 03/04/21 08:15 Plt Clumps, EDTA Not Reportable 03/04/21 08:15 Large Platelets Not Reportable 03/04/21 08:15 Giant Platelets Not Reportable 03/04/21 08:15 Platelet Satelliting Not Reportable 03/04/21 08:15 Plt Morphology Comment Not Reportable 03/04/21 08:15 RBC Morphology Not Reportable 03/04/21 08:15 Dimorphic RBCs Not Reportable 03/04/21 08:15 Polychromasia Few 03/04/21 08:15 Hypochromasia Not Reportable 03/04/21 08:15 Poikilocytosis Not Reportable 03/04/21 08:15 Anisocytosis Few 03/04/21 08:15 Microcytosis Not Reportable 03/04/21 08:15 Macrocytosis Few 03/04/21 08:15 Spherocytes Not Reportable 03/04/21 08:15 Pappenheimer Bodies Not Reportable 03/04/21 08:15 Sickle Cells Not Reportable 03/04/21 08:15 Target Cells Not Reportable 03/04/21 08:15 Tear Drop Cells Not Reportable 03/04/21 08:15 Ovalocytes Not Reportable 03/04/21 08:15 Helmet Cells Not Reportable 03/04/21 08:15 [place] Bodies Not Reportable 03/04/21 08:15 [place] Rings Not Reportable 03/04/21 08:15 [place] Cells Not Reportable 03/04/21 08:15 Bite Cells Not Reportable 03/04/21 08:15 Crenated Cell Not Reportable 03/04/21 08:15 Elliptocytes Not Reportable 03/04/21 08:15 Acanthocytes (Spur) Not Reportable 03/04/21 08:15 Rouleaux Not Reportable 03/04/21 08:15 Hemoglobin C Crystals Not Reportable 03/04/21 08:15 Schistocytes Not Reportable 03/04/21 08:15 Malaria parasites Not Reportable 03/04/21 08:15 Christiano Bodies Not Reportable 03/04/21 08:15 Hem Pathologist Commnt No 03/04/21 08:15 PT 13.6 Sec. (12.2-14.9) 02/28/21 18:48 INR 0.99 (0.87-1.13) 02/28/21 18:48 APTT 27.9 Sec. (24.2-36.6) 02/28/21 18:48 ABG pH 7.518 (7.320-7.450) H 03/01/21 10:56 POC ABG pCO2 27.2 mmHg (32.0-48.0) L 03/01/21 10:56 POC ABG pO2 84.0 mmHg (83-108) 03/01/21 10:56 POC ABG HCO3 21.6 03/01/21 10:56 ABG O2 Saturation 97.1 (0-100) 03/01/21 10:56 POC ABG Base Excess -0.4 03/01/21 10:56 ABG Hemoglobin 10.9 (12.0-17.5) L 03/01/21 10:56 ABG Oxyhemoglobin 96.4 (94-98) 03/01/21 10:56 ABG Methemoglobin 0.3 (0.0-1.5) 03/01/21 10:56 ABG Sodium 134.6 mmol/L (136.0-145.0) L 03/01/21 10:56 ABG Potassium 2.8 mmol/L (3.40-4.50) L 03/01/21 10:56 ABG Chloride 106.0 mmol/L (98-107) 03/01/21 10:56 ABG Glucose 144 mg/dL (65-95) H 03/01/21 10:56 VBG pH 7.316 (7.320-7.420) L 02/25/21 22:48 Carboxyhemoglobin 0.4 (0.5-1.5) L 03/01/21 10:56 FiO2 % 21.0 03/01/21 10:56 Sodium 137 mmol/L (137-145) 03/05/21 07:05 Potassium 4.1 mmol/L (3.6-5.0) 03/05/21 07:05 Chloride 100.8 mmol/L (98-107) 03/05/21 07:05 Carbon Dioxide 31 mmol/L (22-30) H 03/05/21 07:05 Anion Gap 9 mmol/L 03/05/21 07:05 BUN 19 mg/dL (9-20) 03/05/21 07:05 Creatinine 0.9 mg/dL (0.8-1.3) 03/05/21 07:05 Estimated GFR > 60 ml/min 03/05/21 07:05 BUN/Creatinine Ratio 21 % 03/05/21 07:05 Glucose 207 mg/dL (75-100) H 03/05/21 07:05 POC Glucose 185 mg/dL (70-105) H 03/05/21 15:51 Hemoglobin A1c 14.2 % (4-6) H 02/26/21 02:40 Calcium 8.2 mg/dL (8.4-10.2) L 03/05/21 07:05 Phosphorus 2.50 mg/dL (2.5-4.5) D 02/26/21 02:40 Magnesium 2.00 mg/dL (1.7-2.3) 02/27/21 04:18 Total Bilirubin 0.20 mg/dL (0.1-1.2) 03/04/21 08:15 AST 27 units/L (5-40) 03/04/21 08:15 ALT 24 units/L (7-56) 03/04/21 08:15 Alkaline Phosphatase 129 units/L (35-129) 03/04/21 08:15 Total Creatine Kinase 37 units/L (55-170) L 02/25/21 22:48 Troponin T < 0.010 ng/mL (0.00-0.029) 02/25/21 22:48 Total Protein 5.3 g/dL (6.3-8.2) L 03/04/21 08:15 Albumin 2.0 g/dL (3.9-5) L 03/04/21 08:15 Albumin/Globulin Ratio 0.6 % 03/04/21 08:15 Arterial Blood Glucose 144 mg/dL (65-95) H 03/01/21 10:56 Arterial Blood Ionized Calcium 4.5 mg/dL (4.6-5.3) L 03/01/21 10:56 Urine Color Yellow (Yellow) 02/26/21 18:00 Urine Turbidity Turbid (Clear) 02/26/21 18:00 Urine pH 6.0 (5.0-7.0) 02/26/21 18:00 Ur Specific [place] 1.013 (1.003-1.030) 02/26/21 18:00 Urine Protein 100 mg/dl mg/dL (Negative) 02/26/21 18:00 Urine Glucose (UA) >=500 mg/dL (Negative) 02/26/21 18:00 Urine Ketones Tr mg/dL (Negative) 02/26/21 18:00 Urine Blood Lg (Negative) 02/26/21 18:00 Urine Nitrite Neg (Negative) 02/26/21 18:00 Urine Bilirubin Neg (Negative) 02/26/21 18:00 Urine Urobilinogen < 2.0 mg/dL (<2.0) 02/26/21 18:00 Ur Leukocyte Esterase Lg (Negative) 02/26/21 18:00 Urine WBC (Auto) > 182.0 /HPF (0.0-6.0) H 02/26/21 18:00 Urine RBC (Auto) 41.0 /HPF (0.0-6.0) 02/26/21 18:00 U Epithel Cells (Auto) 1.0 /HPF (0-13.0) 02/26/21 12:00 Urine Bacteria (Auto) 2+ /HPF (Negative) 02/26/21 12:00 Urine WBC Clumps 3+ /HPF 02/26/21 18:00 Urine Mucus Few /HPF 02/26/21 18:00 Urine Yeast (Budding) 3+ /HPF 02/26/21 18:00 Urine Creatinine 26.8 mg/dL (0.1-20.0) H 02/26/21 12:00 Protein/Creatinin Ratio 1.75 02/26/21 12:00 Urine Sodium 29 mmol/L 02/26/21 12:00 Urine Total Protein 47 mg/dL (5-11.8) H 02/26/21 12:00 Nasal Screen MRSA (PCR) Positive (Negative) 02/28/21 Unknown Microbiology: Microbiology 02/27/21 13:36 Peripheral/Venous Blood Culture - Final NO GROWTH AFTER 5 DAYS 02/27/21 13:26 Peripheral/Venous Blood Culture - Final NO GROWTH AFTER 5 DAYS Hernandez/IV: Voiding Method Indwelling Catheter Active Medications - Current Medications Current Medications: Generic Name Dose Route Start Last Admin Trade Name Freq PRN Reason Stop Dose Admin Acetaminophen 650 mg 02/26/21 00:36 Acetaminophen 325 Mg Tab PO Q6H PRN Pain MILD(1-3)/Fever >100.5/MATHUR Dextrose 50 ml 02/25/21 23:47 03/03/21 08:04 Dextrose 50% In Water (25gm) 50 Ml Syringe IV 50 ml Q30MIN PRN Administration Hypoglycemia Protocol Heparin Sodium (Porcine) 5,000 unit 02/26/21 06:00 03/05/21 13:32 Heparin 5,000 Unit/1 Ml Vial SUB-Q 5,000 unit Q8HR ROSELIA Administration Ceftriaxone Sodium 2 gm in 100 mls @ 200 mls/hr 03/03/21 12:00 07/17/21 12:00 Rocephin/Ns 2 Gm/100 Ml IV 200 mls/hr Q24H ROSELIA Administration Protocol Insulin Glargine 25 units 03/05/21 22:00 Insulin Glargine 100 Units/Ml SUB-Q QHS ROSELIA Insulin Human Lispro 0 unit 02/27/21 11:30 03/05/21 16:33 Insulin Lispro 100 Unit/Ml SUB-Q 2 unit ACHS ROSELIA Administration Protocol Insulin Human Lispro 5 unit 03/05/21 11:30 03/05/21 16:34 Insulin Lispro 100 Unit/Ml SUB-Q 5 unit AC ROSELIA Administration Morphine Sulfate 2 mg 02/26/21 00:36 Morphine 2 Mg/1 Ml Inj IV Q4H PRN Pain, Moderate (4-6) Morphine Sulfate 4 mg 02/26/21 00:36 Morphine 4 Mg/1 Ml Inj IV Q4H PRN Pain , Severe (7-10) Sodium Chloride 10 ml 02/26/21 10:00 03/05/21 09:03 Sodium Chloride 0.9% 10 Ml Flush Syringe IV 10 ml BID ROSELIA Administration Sodium Chloride 10 ml 02/26/21 00:36 Sodium Chloride 0.9% 10 Ml Flush Syringe IV PRN PRN LINE FLUSH Tamsulosin HCl 0.8 mg 02/26/21 16:00 03/05/21 09:03 Tamsulosin 0.4 Mg Cap PO 0.8 mg QDAY ROSELIA Administration Nutrition/Malnutrition Assess - Dietary Evaluation Nutrition/Malnutrition Findings: Nutrition Notes Start: 02/26/21 13:01 Freq: Status: Active Protocol: Document 03/04/21 12:37 (Rec: 03/04/21 12:39 [email or web address]) Nutrition Notes Initial or Follow up Reassessment Current Diagnosis CKD(stage I-IV),Diabetes Other Pertinent Diagnosis DKA Current Diet Consistent CHO Labs/Tests BG 199 Pertinent Medications Lantus Height 5 ft 10 in Weight 51.075 kg [place] Body Weight (kg) 75.45 BMI 16.1 Weight Status Underweight Subjective/Other Information FU for intakes. Pt consuming 100% of meals and ONS. Percent of energy/protein needs met: 100%/100% Burn Absent Trauma Absent Current % PO Good (75-100%) Minimum of two criteria No #2 Nutrition Diagnosis Inadequate oral intake As Evidenced by Signs and Symptoms pt eating 100% of meals Diagnosis Progress(for reassessment Resolved documentation) Is patient on ventilator? No Is Patient Ambulatory and/or Out of Bed No REE-([facility]-confined to bed) 4250.956 Calculation Used for Recommendations [facility] Additional Notes Protein: (0.8-0.9g/kg) 41-46g Fluid: 1 ml/kcal or per MD Nutrition Intervention Change Diet Order: Continue with food prefrences Add Supplement/Snack (indicate name/kcal Glucerna BID /protein ) Provides kCal: 440 Provides Protein (gm) 20 Goal #1 Meet at least 75% of protein and energy needs via PO and ONS intakes Anticipated Discharge Needs: consistent carbohydrate diet Follow-Up By: 03/11/21 Additional Comments FU for stable intakes
[2021-03-05] MEDS: INSULIN GLARGINE 100 UNITS/ML SUB-Q SCH (21:38)
[2021-03-06] MEDS: HEPARIN 5,000 UNIT/1 ML VIAL SUB-Q SCH ×3 (05:46→22:16)
--- NOTE | 2021-03-06 06:54 | Cat Scan Report ---
CT ABDOMEN AND PELVIS WITHOUT CONTRAST INDICATION / CLINICAL INFORMATION: Emphysematous right pyelonephritis, follow-up. TECHNIQUE: Axial CT images were obtained through the abdomen and pelvis without IV contrast. All CT scans at this location are performed using CT dose reduction for ALARA by means of automated exposure control. COMPARISON: 02/27/2021 FINDINGS: LOWER CHEST: There are bilateral pleural effusions which appear similar to the previous study. There is bibasilar atelectasis. LIVER: No significant abnormality. GALLBLADDER: Contracted but otherwise unremarkable. BILE DUCTS: No significant abnormality. PANCREAS: No significant abnormality. SPLEEN: No significant abnormality. ADRENALS: No significant abnormality. RIGHT KIDNEY / URETER: There is mild interval decrease in the volume of air in and surrounding the ri ght kidney. This extends into the superior aspect of the right so as muscle. Previously process in th e psoas muscle and inferior to the right kidney measures approximately 7.3 x 3.4 cm in this area now currently measures 5 x 1.7 cm. LEFT KIDNEY / URETER: No significant abnormality. STOMACH / SMALL BOWEL: No significant abnormality. COLON: No significant abnormality. APPENDIX: No significant abnormality. PERITONEUM: No free fluid. No free air. No fluid collection. LYMPH NODES: No significant adenopathy. AORTA / ARTERIES: No significant abnormality. IVC / VEINS: No significant abnormality. URINARY BLADDER: Contracted around a Hernandez catheter. REPRODUCTIVE ORGANS: No significant abnormality. ADDITIONAL FINDINGS: None. SKELETAL SYSTEM: No change IMPRESSION: 1. There has been mild interval improvement. The volume of air in it adjacent to the right kidney has improved. Abnormal density in the air in the superior aspect of the right psoas muscle has decreased as well. Signer Name: Willian Simms MD Signed: 03/06/2021 6:49 AM Workstation Name: [id number]
[2021-03-06] MEDS: INSULIN LISPRO 100 UNIT/ML SUB-Q SCH ×7 (07:25→22:23)
[2021-03-06 07:55] LABS: Basophils % (Auto) 0.4 % (0.0-1.8); Eosinophils # (Auto) 0.1 K/mm3 (0.0-0.4); Eosinophils % (Auto) 0.6 % (0.0-4.3); Hematocrit 33.3 % (35.5-45.6); Hemoglobin 11.3 gm/dl (11.8-15.2); Lymphocytes # (Auto) 1.1 K/mm3 (1.2-5.4); Lymphocytes % (Auto) 10.5 % (13.4-35.0); Mean Corpuscular HGB Conc 34 % (32-34); Mean Corpuscular Volume 90 fl (84-94); Monocytes # (Auto) 0.5 K/mm3 (0.0-0.8); Monocytes % (Auto) 4.9 % (0.0-7.3); Platelet Count 491 K/mm3 (140-440); Red Blood Count 3.72 M/mm3 (3.65-5.03); Red Cell Distribution Width 15.6 % (13.2-15.2)
[2021-03-06 08:16] LABS: Alanine Aminotransferase 20 units/L (7-56); Albumin 2.7 g/dL (3.9-5); BUN/Creatinine Ratio 21; Blood Urea Nitrogen 19 mg/dL (9-20); Calcium 8.9 mg/dL (8.4-10.2); Hemolysis Index 0
[2021-03-06] MEDS: TAMSULOSIN 0.4 MG CAP PO SCH (09:36)
--- NOTE | 2021-03-06 11:35 | Progress Note ---
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 Acute cystitis Acute metabolic encephalopathy now resolved Acute kidney injury on chronic kidney disease unknown stage BPH DVT and GI prophylaxis leucocytosis Metabolic acidosis - repeat CT chest with R>L small pleural effusions - get US Chest +/- thoracentesis depending on complexity - tentative plan to d/c home on IV AB's - complete Rocephin dosing per ID recommendations - mcc IV access - continue care as below otherwise; - Urology input appreciated - prn supplemental oxygen to keep O2 sats > 90% - prn bronchodilators (SANDRA) with pulm hygiene per RT - continue to avoid nephrotoxins, renally dose all medications - mobility protocols to prevent pressure ulcers - PT/OT as tolerated - Wound care per RN/WCT - continue accuchecks with glycemic control per SSI for target blood glucose < 180 mg/dL - tobacco abstinence strongly counseled at the bedside - home oxygen evaluation at discharge - GI & VTE prophylaxis - Flu & pneumovax per protocol - continue other care per attending / other consultants - prn analgesia per pain score ... re-evaluate in am & prn Subjective Date of service: 03/06/21 Principal diagnosis: DKA; Emphysematous pyelonephritis; Acute encephalopathy; MAXIMO; BPH Interval history: Patient is seen today for: DKA; Emphysematous pyelonephritis; Acute encephalopathy; MAXIMO; BPH Seen and examined at bedside; 24hour events reviewed; nursing and respiratory care staff consulted; no adverse overnight events reported to me; resting in bed; Objective Vital Signs - 12hr 03/06/21 03/06/21 05:07 05:10 Temperature 97.6 F 97.6 F Pulse Rate 76 77 Respiratory 14 14 Rate Blood Pressure 112/67 113/68 O2 Sat by Pulse 98 99 Oximetry Constitutional: no acute distress, alert Eyes: non-icteric ENT: oropharynx moist Neck: supple, no lymphadenopathy, no JVD Effort: normal Ascultation: Bilateral: clear, diminished breath sounds Percussion: Bilateral: not dull Cardiovascular: regular rate and rhythm, other (S1,S2) Gastrointestinal: normoactive bowel sounds, soft, non-tender, non-distended Integumentary: other (poor skin turgor) Extremities: no cyanosis, no edema, pulses normal, no ischemia or petechiae Neurologic: normal mental status, non-focal exam, pupils equal and round, CN II- XII normal Psychiatric: mood appropriate, affect normal CBC and BMP: 03/06/21 06:30 03/06/21 06:30 ABG, PT/INR, D-dimer: ABG ABG pH 7.518 (7.320-7.450) H 03/01/21 10:56 POC ABG pCO2 27.2 mmHg (32.0-48.0) L 03/01/21 10:56 POC ABG pO2 84.0 mmHg (83-108) 03/01/21 10:56 POC ABG HCO3 21.6 03/01/21 10:56 ABG O2 Saturation 97.1 (0-100) 03/01/21 10:56 PT/INR, D-dimer PT 13.6 Sec. (12.2-14.9) 02/28/21 18:48 INR 0.99 (0.87-1.13) 02/28/21 18:48 Abnormal lab findings: Abnormal Labs 02/25/21 02/25/21 02/25/21 22:31 22:48 22:48 WBC 24.1 H RBC Hgb 11.5 L Hct MCHC RDW Plt Count Lymph % (Auto) Lymph # (Auto) Seg Neutrophils % Seg Neuts % (Manual) 95.0 H Lymphocytes % (Manual) Seg Neutrophils # Seg Neutrophils # Man 22.9 H Lymphocytes # (Manual) 0.0 L ABG pH POC ABG pCO2 ABG Hemoglobin ABG Sodium ABG Potassium ABG Glucose VBG pH Carboxyhemoglobin Sodium 126 L Potassium Chloride 88.8 L Carbon Dioxide 18 L BUN 75 H Creatinine 2.1 H Glucose 938 H* POC Glucose > 600 H Hemoglobin A1c Calcium Magnesium Alkaline Phosphatase 201 H Total Creatine Kinase 37 L Total Protein Albumin 2.9 L Arterial Blood Glucose Arterial Blood Ionized Calcium Urine WBC (Auto) Urine Creatinine Urine Total Protein 02/25/21 02/25/21 02/26/21 22:48 23:52 01:21 WBC RBC Hgb Hct MCHC RDW Plt Count Lymph % (Auto) Lymph # (Auto) Seg Neutrophils % Seg Neuts % (Manual) Lymphocytes % (Manual) Seg Neutrophils # Seg Neutrophils # Man Lymphocytes # (Manual) ABG pH POC ABG pCO2 ABG Hemoglobin ABG Sodium ABG Potassium ABG Glucose VBG pH 7.316 L Carboxyhemoglobin Sodium Potassium Chloride Carbon Dioxide BUN Creatinine Glucose POC Glucose > 600 H Hemoglobin A1c Calcium Magnesium 2.80 H Alkaline Phosphatase Total Creatine Kinase Total Protein Albumin Arterial Blood Glucose Arterial Blood Ionized Calcium Urine WBC (Auto) Urine Creatinine Urine Total Protein 02/26/21 02/26/21 02/26/21 02:09 02:40 02:40 WBC RBC Hgb Hct MCHC RDW Plt Count Lymph % (Auto) Lymph # (Auto) Seg Neutrophils % Seg Neuts % (Manual) Lymphocytes % (Manual) Seg Neutrophils # Seg Neutrophils # Man Lymphocytes # (Manual) ABG pH POC ABG pCO2 ABG Hemoglobin ABG Sodium ABG Potassium ABG Glucose VBG pH Carboxyhemoglobin Sodium 131 L Potassium Chloride 96.1 L Carbon Dioxide 17 L BUN 74 H Creatinine 2.1 H Glucose 719 H* POC Glucose > 600 H Hemoglobin A1c 14.2 H Calcium Magnesium Alkaline Phosphatase Total Creatine Kinase Total Protein Albumin Arterial Blood Glucose Arterial Blood Ionized Calcium Urine WBC (Auto) Urine Creatinine Urine Total Protein 02/26/21 02/26/21 02/26/21 02:40 03:58 04:03 WBC RBC Hgb Hct MCHC RDW Plt Count Lymph % (Auto) Lymph # (Auto) Seg Neutrophils % Seg Neuts % (Manual) Lymphocytes % (Manual) Seg Neutrophils # Seg Neutrophils # Man Lymphocytes # (Manual) ABG pH POC ABG pCO2 ABG Hemoglobin ABG Sodium ABG Potassium ABG Glucose VBG pH Carboxyhemoglobin Sodium Potassium Chloride Carbon Dioxide 18 L BUN 71 H Creatinine 2.0 H Glucose 550 H* POC Glucose 544 H Hemoglobin A1c Calcium Magnesium 2.70 H Alkaline Phosphatase Total Creatine Kinase Total Protein Albumin Arterial Blood Glucose Arterial Blood Ionized Calcium Urine WBC (Auto) Urine Creatinine Urine Total Protein 02/26/21 02/26/21 02/26/21 05:01 05:58 07:09 WBC RBC Hgb Hct MCHC RDW Plt Count Lymph % (Auto) Lymph # (Auto) Seg Neutrophils % Seg Neuts % (Manual) Lymphocytes % (Manual) Seg Neutrophils # Seg Neutrophils # Man Lymphocytes # (Manual) ABG pH POC ABG pCO2 ABG Hemoglobin ABG Sodium ABG Potassium ABG Glucose VBG pH Carboxyhemoglobin Sodium Potassium Chloride Carbon Dioxide BUN Creatinine Glucose POC Glucose 439 H 399 H 217 H Hemoglobin A1c Calcium Magnesium Alkaline Phosphatase Total Creatine Kinase Total Protein Albumin Arterial Blood Glucose Arterial Blood Ionized Calcium Urine WBC (Auto) Urine Creatinine Urine Total Protein 02/26/21 02/26/21 02/26/21 08:09 08:12 09:08 WBC RBC Hgb Hct MCHC RDW Plt Count Lymph % (Auto) Lymph # (Auto) Seg Neutrophils % Seg Neuts % (Manual) Lymphocytes % (Manual) Seg Neutrophils # Seg Neutrophils # Man Lymphocytes # (Manual) ABG pH POC ABG pCO2 ABG Hemoglobin ABG Sodium ABG Potassium ABG Glucose VBG pH Carboxyhemoglobin Sodium Potassium Chloride Carbon Dioxide 16 L BUN 72 H Creatinine 1.9 H Glucose 119 H POC Glucose 138 H 136 H Hemoglobin A1c Calcium Magnesium Alkaline Phosphatase Total Creatine Kinase Total Protein Albumin Arterial Blood Glucose Arterial Blood Ionized Calcium Urine WBC (Auto) Urine Creatinine Urine Total Protein 02/26/21 02/26/21 02/26/21 12:00 12:00 12:04 WBC RBC Hgb Hct MCHC RDW Plt Count Lymph % (Auto) Lymph # (Auto) Seg Neutrophils % Seg Neuts % (Manual) Lymphocytes % (Manual) Seg Neutrophils # Seg Neutrophils # Man Lymphocytes # (Manual) ABG pH POC ABG pCO2 ABG Hemoglobin ABG Sodium ABG Potassium ABG Glucose VBG pH Carboxyhemoglobin Sodium Potassium Chloride Carbon Dioxide BUN Creatinine Glucose POC Glucose 136 H Hemoglobin A1c Calcium Magnesium Alkaline Phosphatase Total Creatine Kinase Total Protein Albumin Arterial Blood Glucose Arterial Blood Ionized Calcium Urine WBC (Auto) > 182.0 H Urine Creatinine 26.8 H Urine Total Protein 47 H 02/26/21 02/26/21 02/26/21 13:26 14:50 15:14 WBC RBC Hgb Hct MCHC RDW Plt Count Lymph % (Auto) Lymph # (Auto) Seg Neutrophils % Seg Neuts % (Manual) Lymphocytes % (Manual) Seg Neutrophils # Seg Neutrophils # Man Lymphocytes # (Manual) ABG pH POC ABG pCO2 ABG Hemoglobin ABG Sodium ABG Potassium ABG Glucose VBG pH Carboxyhemoglobin Sodium Potassium Chloride Carbon Dioxide BUN Creatinine Glucose POC Glucose 124 H 119 H 106 H Hemoglobin A1c Calcium Magnesium Alkaline Phosphatase Total Creatine Kinase Total Protein Albumin Arterial Blood Glucose Arterial Blood Ionized Calcium Urine WBC (Auto) Urine Creatinine Urine Total Protein 02/26/21 02/26/21 02/26/21 15:27 16:38 17:22 WBC RBC Hgb Hct MCHC RDW Plt Count Lymph % (Auto) Lymph # (Auto) Seg Neutrophils % Seg Neuts % (Manual) Lymphocytes % (Manual) Seg Neutrophils # Seg Neutrophils # Man Lymphocytes # (Manual) ABG pH POC ABG pCO2 ABG Hemoglobin ABG Sodium ABG Potassium ABG Glucose VBG pH Carboxyhemoglobin Sodium 136 L Potassium 5.1 H Chloride Carbon Dioxide 16 L BUN 72 H Creatinine 2.2 H Glucose 107 H POC Glucose 111 H 113 H Hemoglobin A1c Calcium Magnesium Alkaline Phosphatase Total Creatine Kinase Total Protein Albumin Arterial Blood Glucose Arterial Blood Ionized Calcium Urine WBC (Auto) Urine Creatinine Urine Total Protein 02/26/21 02/26/21 02/26/21 17:54 18:00 20:25 WBC RBC Hgb Hct MCHC RDW Plt Count Lymph % (Auto) Lymph # (Auto) Seg Neutrophils % Seg Neuts % (Manual) Lymphocytes % (Manual) Seg Neutrophils # Seg Neutrophils # Man Lymphocytes # (Manual) ABG pH POC ABG pCO2 ABG Hemoglobin ABG Sodium ABG Potassium ABG Glucose VBG pH Carboxyhemoglobin Sodium Potassium Chloride Carbon Dioxide BUN Creatinine Glucose POC Glucose 114 H 129 H Hemoglobin A1c Calcium Magnesium Alkaline Phosphatase Total Creatine Kinase Total Protein Albumin Arterial Blood Glucose Arterial Blood Ionized Calcium Urine WBC (Auto) > 182.0 H Urine Creatinine Urine Total Protein 02/26/21 02/26/21 02/26/21 21:17 22:02 23:05 WBC RBC Hgb Hct MCHC RDW Plt Count Lymph % (Auto) Lymph # (Auto) Seg Neutrophils % Seg Neuts % (Manual) Lymphocytes % (Manual) Seg Neutrophils # Seg Neutrophils # Man Lymphocytes # (Manual) ABG pH POC ABG pCO2 ABG Hemoglobin ABG Sodium ABG Potassium ABG Glucose VBG pH Carboxyhemoglobin Sodium Potassium Chloride Carbon Dioxide BUN Creatinine Glucose POC Glucose 127 H 135 H 112 H Hemoglobin A1c Calcium Magnesium Alkaline Phosphatase Total Creatine Kinase Total Protein Albumin Arterial Blood Glucose Arterial Blood Ionized Calcium Urine WBC (Auto) Urine Creatinine Urine Total Protein 02/27/21 02/27/21 02/27/21 00:11 02:13 04:13 WBC RBC Hgb Hct MCHC RDW Plt Count Lymph % (Auto) Lymph # (Auto) Seg Neutrophils % Seg Neuts % (Manual) Lymphocytes % (Manual) Seg Neutrophils # Seg Neutrophils # Man Lymphocytes # (Manual) ABG pH POC ABG pCO2 ABG Hemoglobin ABG Sodium ABG Potassium ABG Glucose VBG pH Carboxyhemoglobin Sodium Potassium 3.5 L D Chloride 108.4 H Carbon Dioxide 21 L BUN 64 H Creatinine 1.9 H Glucose POC Glucose 106 H 115 H Hemoglobin A1c Calcium 8.3 L Magnesium Alkaline Phosphatase Total Creatine Kinase Total Protein Albumin Arterial Blood Glucose Arterial Blood Ionized Calcium Urine WBC (Auto) Urine Creatinine Urine Total Protein 02/27/21 02/27/21 02/27/21 04:18 04:18 06:57 WBC 22.4 H RBC Hgb 11.0 L Hct 32.3 L MCHC RDW Plt Count Lymph % (Auto) Lymph # (Auto) Seg Neutrophils % Seg Neuts % (Manual) Lymphocytes % (Manual) Seg Neutrophils # Seg Neutrophils # Man Lymphocytes # (Manual) ABG pH POC ABG pCO2 ABG Hemoglobin ABG Sodium ABG Potassium ABG Glucose VBG pH Carboxyhemoglobin Sodium Potassium Chloride 107.9 H Carbon Dioxide BUN 59 H Creatinine 1.7 H Glucose POC Glucose 60 L Hemoglobin A1c Calcium 8.1 L Magnesium Alkaline Phosphatase Total Creatine Kinase Total Protein Albumin Arterial Blood Glucose Arterial Blood Ionized Calcium Urine WBC (Auto) Urine Creatinine Urine Total Protein 02/27/21 02/27/21 02/27/21 08:24 08:35 11:25 WBC RBC Hgb Hct MCHC RDW Plt Count Lymph % (Auto) Lymph # (Auto) Seg Neutrophils % Seg Neuts % (Manual) Lymphocytes % (Manual) Seg Neutrophils # Seg Neutrophils # Man Lymphocytes # (Manual) ABG pH POC ABG pCO2 ABG Hemoglobin ABG Sodium ABG Potassium ABG Glucose VBG pH Carboxyhemoglobin Sodium Potassium 3.1 L Chloride 108.6 H Carbon Dioxide 21 L BUN 53 H Creatinine 1.5 H Glucose 121 H POC Glucose 131 H 196 H Hemoglobin A1c Calcium 8.0 L Magnesium Alkaline Phosphatase Total Creatine Kinase Total Protein Albumin Arterial Blood Glucose Arterial Blood Ionized Calcium Urine WBC (Auto) Urine Creatinine Urine Total Protein 02/27/21 02/27/21 02/27/21 16:39 18:04 21:33 WBC RBC Hgb Hct MCHC RDW Plt Count Lymph % (Auto) Lymph # (Auto) Seg Neutrophils % Seg Neuts % (Manual) Lymphocytes % (Manual) Seg Neutrophils # Seg Neutrophils # Man Lymphocytes # (Manual) ABG pH POC ABG pCO2 ABG Hemoglobin ABG Sodium ABG Potassium ABG Glucose VBG pH Carboxyhemoglobin Sodium Potassium 3.1 L Chloride Carbon Dioxide 20 L BUN 50 H Creatinine 1.4 H Glucose 365 H POC Glucose 340 H 322 H Hemoglobin A1c Calcium 7.9 L Magnesium Alkaline Phosphatase Total Creatine Kinase Total Protein Albumin Arterial Blood Glucose Arterial Blood Ionized Calcium Urine WBC (Auto) Urine Creatinine Urine Total Protein 02/28/21 02/28/21 02/28/21 05:05 07:25 11:13 WBC RBC Hgb Hct MCHC RDW Plt Count Lymph % (Auto) Lymph # (Auto) Seg Neutrophils % Seg Neuts % (Manual) Lymphocytes % (Manual) Seg Neutrophils # Seg Neutrophils # Man Lymphocytes # (Manual) ABG pH POC ABG pCO2 ABG Hemoglobin ABG Sodium ABG Potassium ABG Glucose VBG pH Carboxyhemoglobin Sodium Potassium 3.3 L Chloride 110.2 H Carbon Dioxide BUN 43 H Creatinine Glucose 193 H POC Glucose 121 H 190 H Hemoglobin A1c Calcium 7.8 L Magnesium Alkaline Phosphatase Total Creatine Kinase Total Protein Albumin Arterial Blood Glucose Arterial Blood Ionized Calcium Urine WBC (Auto) Urine Creatinine Urine Total Protein 02/28/21 02/28/21 03/01/21 16:30 22:08 08:05 WBC RBC Hgb Hct MCHC RDW Plt Count Lymph % (Auto) Lymph # (Auto) Seg Neutrophils % Seg Neuts % (Manual) Lymphocytes % (Manual) Seg Neutrophils # Seg Neutrophils # Man Lymphocytes # (Manual) ABG pH POC ABG pCO2 ABG Hemoglobin ABG Sodium ABG Potassium ABG Glucose VBG pH Carboxyhemoglobin Sodium Potassium Chloride Carbon Dioxide BUN Creatinine Glucose POC Glucose 180 H 340 H 58 L Hemoglobin A1c Calcium Magnesium Alkaline Phosphatase Total Creatine Kinase Total Protein Albumin Arterial Blood Glucose Arterial Blood Ionized Calcium Urine WBC (Auto) Urine Creatinine Urine Total Protein 03/01/21 03/01/21 03/01/21 09:34 10:56 10:59 WBC 15.3 H RBC Hgb 11.2 L Hct 33.1 L MCHC RDW Plt Count Lymph % (Auto) Lymph # (Auto) Seg Neutrophils % Seg Neuts % (Manual) 87.0 H Lymphocytes % (Manual) 1.0 L Seg Neutrophils # Seg Neutrophils # Man 13.3 H Lymphocytes # (Manual) 0.2 L ABG pH 7.518 H POC ABG pCO2 27.2 L ABG Hemoglobin 10.9 L ABG Sodium 134.6 L ABG Potassium 2.8 L ABG Glucose 144 H VBG pH Carboxyhemoglobin 0.4 L Sodium Potassium 3.2 L Chloride Carbon Dioxide BUN 29 H Creatinine Glucose POC Glucose Hemoglobin A1c Calcium 8.2 L Magnesium Alkaline Phosphatase Total Creatine Kinase Total Protein Albumin Arterial Blood Glucose 144 H Arterial Blood Ionized Calcium 4.5 L Urine WBC (Auto) Urine Creatinine Urine Total Protein 03/01/21 03/01/21 03/01/21 12:38 17:10 21:27 WBC RBC Hgb Hct MCHC RDW Plt Count Lymph % (Auto) Lymph # (Auto) Seg Neutrophils % Seg Neuts % (Manual) Lymphocytes % (Manual) Seg Neutrophils # Seg Neutrophils # Man Lymphocytes # (Manual) ABG pH POC ABG pCO2 ABG Hemoglobin ABG Sodium ABG Potassium ABG Glucose VBG pH Carboxyhemoglobin Sodium Potassium Chloride Carbon Dioxide BUN Creatinine Glucose POC Glucose 134 H 190 H 187 H Hemoglobin A1c Calcium Magnesium Alkaline Phosphatase Total Creatine Kinase Total Protein Albumin Arterial Blood Glucose Arterial Blood Ionized Calcium Urine WBC (Auto) Urine Creatinine Urine Total Protein 03/02/21 03/02/21 03/02/21 05:45 05:45 08:05 WBC 11.7 H RBC 3.38 L Hgb 10.0 L Hct 29.8 L MCHC RDW Plt Count Lymph % (Auto) Lymph # (Auto) Seg Neutrophils % Seg Neuts % (Manual) 93.0 H Lymphocytes % (Manual) 4.0 L Seg Neutrophils # Seg Neutrophils # Man 10.9 H Lymphocytes # (Manual) 0.5 L ABG pH POC ABG pCO2 ABG Hemoglobin ABG Sodium ABG Potassium ABG Glucose VBG pH Carboxyhemoglobin Sodium Potassium 3.2 L Chloride 109.7 H Carbon Dioxide BUN 29 H Creatinine Glucose 299 H POC Glucose 224 H Hemoglobin A1c Calcium 7.6 L Magnesium Alkaline Phosphatase Total Creatine Kinase Total Protein Albumin Arterial Blood Glucose Arterial Blood Ionized Calcium Urine WBC (Auto) Urine Creatinine Urine Total Protein 03/02/21 03/02/21 03/02/21 10:28 17:08 21:11 WBC RBC Hgb Hct MCHC RDW Plt Count Lymph % (Auto) Lymph # (Auto) Seg Neutrophils % Seg Neuts % (Manual) Lymphocytes % (Manual) Seg Neutrophils # Seg Neutrophils # Man Lymphocytes # (Manual) ABG pH POC ABG pCO2 ABG Hemoglobin ABG Sodium ABG Potassium ABG Glucose VBG pH Carboxyhemoglobin Sodium Potassium Chloride Carbon Dioxide BUN Creatinine Glucose POC Glucose 161 H 116 H 147 H Hemoglobin A1c Calcium Magnesium Alkaline Phosphatase Total Creatine Kinase Total Protein Albumin Arterial Blood Glucose Arterial Blood Ionized Calcium Urine WBC (Auto) Urine Creatinine Urine Total Protein 03/03/21 03/03/21 03/03/21 07:44 09:08 09:27 WBC RBC Hgb Hct MCHC RDW Plt Count Lymph % (Auto) Lymph # (Auto) Seg Neutrophils % Seg Neuts % (Manual) Lymphocytes % (Manual) Seg Neutrophils # Seg Neutrophils # Man Lymphocytes # (Manual) ABG pH POC ABG pCO2 ABG Hemoglobin ABG Sodium ABG Potassium ABG Glucose VBG pH Carboxyhemoglobin Sodium Potassium Chloride 107.3 H Carbon Dioxide BUN 24 H Creatinine Glucose 140 H POC Glucose 65 L 134 H Hemoglobin A1c Calcium 7.7 L Magnesium Alkaline Phosphatase Total Creatine Kinase Total Protein Albumin Arterial Blood Glucose Arterial Blood Ionized Calcium Urine WBC (Auto) Urine Creatinine Urine Total Protein 03/03/21 03/03/21 03/03/21 11:43 17:08 22:42 WBC RBC Hgb Hct MCHC RDW Plt Count Lymph % (Auto) Lymph # (Auto) Seg Neutrophils % Seg Neuts % (Manual) Lymphocytes % (Manual) Seg Neutrophils # Seg Neutrophils # Man Lymphocytes # (Manual) ABG pH POC ABG pCO2 ABG Hemoglobin ABG Sodium ABG Potassium ABG Glucose VBG pH Carboxyhemoglobin Sodium Potassium Chloride Carbon Dioxide BUN Creatinine Glucose POC Glucose 211 H 128 H 191 H Hemoglobin A1c Calcium Magnesium Alkaline Phosphatase Total Creatine Kinase Total Protein Albumin Arterial Blood Glucose Arterial Blood Ionized Calcium Urine WBC (Auto) Urine Creatinine Urine Total Protein 03/04/21 03/04/21 03/04/21 07:20 08:15 08:15 WBC 11.5 H RBC Hgb Hct MCHC 31 L RDW 16.4 H Plt Count Lymph % (Auto) Lymph # (Auto) Seg Neutrophils % Seg Neuts % (Manual) 83.0 H Lymphocytes % (Manual) 8.0 L Seg Neutrophils # Seg Neutrophils # Man 9.5 H Lymphocytes # (Manual) 0.9 L ABG pH POC ABG pCO2 ABG Hemoglobin ABG Sodium ABG Potassium ABG Glucose VBG pH Carboxyhemoglobin Sodium Potassium Chloride Carbon Dioxide BUN 21 H Creatinine Glucose 199 H POC Glucose 165 H Hemoglobin A1c Calcium 8.1 L Magnesium Alkaline Phosphatase Total Creatine Kinase Total Protein 5.3 L Albumin 2.0 L Arterial Blood Glucose Arterial Blood Ionized Calcium Urine WBC (Auto) Urine Creatinine Urine Total Protein 03/04/21 03/04/21 03/04/21 10:29 16:40 21:41 WBC RBC Hgb Hct MCHC RDW Plt Count Lymph % (Auto) Lymph # (Auto) Seg Neutrophils % Seg Neuts % (Manual) Lymphocytes % (Manual) Seg Neutrophils # Seg Neutrophils # Man Lymphocytes # (Manual) ABG pH POC ABG pCO2 ABG Hemoglobin ABG Sodium ABG Potassium ABG Glucose VBG pH Carboxyhemoglobin Sodium Potassium Chloride Carbon Dioxide BUN Creatinine Glucose POC Glucose 265 H 191 H 284 H Hemoglobin A1c Calcium Magnesium Alkaline Phosphatase Total Creatine Kinase Total Protein Albumin Arterial Blood Glucose Arterial Blood Ionized Calcium Urine WBC (Auto) Urine Creatinine Urine Total Protein 03/05/21 03/05/21 03/05/21 07:05 07:25 10:47 WBC RBC Hgb Hct MCHC RDW Plt Count Lymph % (Auto) Lymph # (Auto) Seg Neutrophils % Seg Neuts % (Manual) Lymphocytes % (Manual) Seg Neutrophils # Seg Neutrophils # Man Lymphocytes # (Manual) ABG pH POC ABG pCO2 ABG Hemoglobin ABG Sodium ABG Potassium ABG Glucose VBG pH Carboxyhemoglobin Sodium Potassium Chloride Carbon Dioxide 31 H BUN Creatinine Glucose 207 H POC Glucose 203 H 215 H Hemoglobin A1c Calcium 8.2 L Magnesium Alkaline Phosphatase Total Creatine Kinase Total Protein Albumin Arterial Blood Glucose Arterial Blood Ionized Calcium Urine WBC (Auto) Urine Creatinine Urine Total Protein 03/05/21 03/05/21 03/06/21 15:51 21:31 06:30 WBC RBC Hgb 11.3 L Hct 33.3 L MCHC RDW 15.6 H Plt Count 491 H Lymph % (Auto) 10.5 L Lymph # (Auto) 1.1 L Seg Neutrophils % 83.6 H Seg Neuts % (Manual) Lymphocytes % (Manual) Seg Neutrophils # 8.9 H Seg Neutrophils # Man Lymphocytes # (Manual) ABG pH POC ABG pCO2 ABG Hemoglobin ABG Sodium ABG Potassium ABG Glucose VBG pH Carboxyhemoglobin Sodium Potassium Chloride Carbon Dioxide BUN Creatinine Glucose POC Glucose 185 H 190 H Hemoglobin A1c Calcium Magnesium Alkaline Phosphatase Total Creatine Kinase Total Protein Albumin Arterial Blood Glucose Arterial Blood Ionized Calcium Urine WBC (Auto) Urine Creatinine Urine Total Protein 03/06/21 03/06/21 03/06/21 06:30 07:35 10:58 WBC RBC Hgb Hct MCHC RDW Plt Count Lymph % (Auto) Lymph # (Auto) Seg Neutrophils % Seg Neuts % (Manual) Lymphocytes % (Manual) Seg Neutrophils # Seg Neutrophils # Man Lymphocytes # (Manual) ABG pH POC ABG pCO2 ABG Hemoglobin ABG Sodium ABG Potassium ABG Glucose VBG pH Carboxyhemoglobin Sodium Potassium Chloride Carbon Dioxide 31 H BUN Creatinine Glucose 110 H POC Glucose 144 H 217 H Hemoglobin A1c Calcium Magnesium Alkaline Phosphatase 147 H Total Creatine Kinase Total Protein Albumin 2.7 L Arterial Blood Glucose Arterial Blood Ionized Calcium Urine WBC (Auto) Urine Creatinine Urine Total Protein Allied health notes reviewed: nursing
[2021-03-06] MEDS: cefTRIAXone/NS 2 GM/100 ML 2 GM/100 ML BAG IV SCH (12:40)
--- NOTE | 2021-03-06 14:01 | Progress Note ---
Assessment and Plan Cultures: Urine culture: klebsiella Blood culture: pending. A/P: 60-year-old male with diabetes admitted with DKA: #Sepsis, secondary to severe emphysematous pyelonephritis with CT evidence of f ree air surrounding the right kidney and the right retroperitoneum. Etiology is probably urinary tract infection in the setting of severe diabetic ketoacidosis. Per primary team notes, case was discussed with [facility]. #MAXIMO: Renally dose antibiotics. #Diabetes mellitus with DKA Recs: -ceftriaxone 2 g over 24 hours -Case management consulted for ceftriaxone 2 g every 24 hours until 03/18/2021 -Ordered sean Dobbins MD [facility] ([facility] O: [phone] F: [phone] Subjective Date of service: 03/06/21 Principal diagnosis: DKA; Emphysematous pyelonephritis; Acute encephalopathy; MAXIMO; BPH Interval history: Afebrile, normal white count now. No acute concerns, no pain at present. Imaging personally reviewed: CT of the pelvis: Mildly improved, ongoing gas but still improved. Objective - Exam Narrative Exam: Physical Exam: Constitutional: Alert, cooperative. No acute distress Head, Ears, Nose: Normocephalic, atraumatic. Eyes: Conjunctivae/corneas clear. Neck: Supple, no meningeal signs Cardiovascular: S1, S2 normal. Respiratory: Good air entry, clear to auscultation bilaterally GI: Soft, non-tender; bowel sounds normal. Musculoskeletal: No pedal edema, no cyanosis. Skin: No rash or abscess Hem/Lymphatic: No palpable cervical or supraclavicular nodes. Psych: Mood ok. Affect normal Neurological: Awake, alert, oriented. No gross abnormality - Constitutional Vitals: Vital Signs Temp Pulse Resp BP Pulse Ox 97.6 F 77 14 113/68 99 03/06/21 05:10 03/06/21 05:10 03/06/21 05:10 03/06/21 05:10 03/06/21 05:10 Temperature -Last 24 Hours Temperature 97.6 F Temperature 97.6 F Temperature 97.9 F Temperature 99.2 F - Labs CBC & Chem 7: 03/06/21 06:30 03/06/21 06:30 Labs: Abnormal lab results 03/05/21 03/05/21 03/06/21 Range/Units 15:51 21:31 06:30 Hgb 11.3 L (11.8-15.2) gm/dl Hct 33.3 L (35.5-45.6) % RDW 15.6 H (13.2-15.2) % Plt Count 491 H (140-440) K/mm3 Lymph % (Auto) 10.5 L (13.4-35.0) % Lymph # (Auto) 1.1 L (1.2-5.4) K/mm3 Seg Neutrophils % 83.6 H (40.0-70.0) % Seg Neutrophils # 8.9 H (1.8-7.7) K/mm3 Carbon Dioxide (22-30) mmol/L Glucose (75-100) mg/dL POC Glucose 185 H 190 H (70-105) mg/dL Alkaline Phosphatase (35-129) units/L Albumin (3.9-5) g/dL 03/06/21 03/06/21 03/06/21 Range/Units 06:30 07:35 10:58 Hgb (11.8-15.2) gm/dl Hct (35.5-45.6) % RDW (13.2-15.2) % Plt Count (140-440) K/mm3 Lymph % (Auto) (13.4-35.0) % Lymph # (Auto) (1.2-5.4) K/mm3 Seg Neutrophils % (40.0-70.0) % Seg Neutrophils # (1.8-7.7) K/mm3 Carbon Dioxide 31 H (22-30) mmol/L Glucose 110 H (75-100) mg/dL POC Glucose 144 H 217 H (70-105) mg/dL Alkaline Phosphatase 147 H (35-129) units/L Albumin 2.7 L (3.9-5) g/dL
--- NOTE | 2021-03-06 14:24 | Progress Note ---
Assessment and Plan Assessment and plan: 60-year-old -Danish male with known history of diabetes mellitus presents to the emergency room today complaining of generalized weakness and elevated blood glucose at home. Patient was diagnosed with diabetes mellitus about 2 weeks ago for which she was admitted to [facility] and states he has been out of his insulin for the past 3 to 4 days. He was also noted to have a urinary retention and sent home on Hernandez catheter which was removed at the urologist office about 3 days prior to this admission. Patient was a instructed to do self caths which she did not. He was able to void some urine however. Family had called EMS and patient was subsequently brought to the emergency room. Blood glucose was said to be reading high in route to the hospital. Patient was given IV normal saline in route to the hospital. Work-up in the emergency room reveals that patient is in DKA. He has been started on insulin drip and IV fluid. CT abdomen and pelvis 1. Free air within and surrounding the right kidney and tracking in the right retroperitoneum. Exam is severely limited with lack of intravenous contrast and intra-abdominal fat but the air does not seem to extend into the peritoneum. Findings are highly worrisome for an infectious/inflammatory process such as emphysematous pyelonephritis. A perforation is also possible. DKA- Resolved Emphysematous pyelonephritis possible Acute cystitis Acute metabolic encephalopathy now resolved Acute kidney injury on chronic kidney disease unknown stage BPH, urinary retention requiring indwelling Hernandez during recent admission 2 weeks ago Hernandez removed at urologist office 3 days [employer]UM[employer] and was instructed to perform self bladder caths Plan Continue supportive care 02/28: Discussed with Urologist, still thinking he may need surgery, WILL GET RENAL NUCLEAR FUNCTION SCAN. Discussed with daughter and patient, CULTURES SHOWING k PNEUMONIA. Dry Talc Racker input noted and appreciated ID consulted for acute cystitis Discussed with urologist this morning per night physician Bryce urologist recom mended patient be monitored. We will proceed with repeat CT and urologist recommendation and if consistent symptoms patient will need evaluation by them in a.m. Discussed with family Continue IMCU care. 03/01/21; patient is on IV meropenem per ID recommendation. Wound culture grew Klebsiella pneumoniae. Renal function is improving. Patient need evaluation by urologist. Patient is going to have ultrasound this morning. We will continue to monitor. Urology saw the patient and said waiting for the renal scan to be done. Still considering right nephrectomy. Patient said he does not want nephrectomy. 03/02/2021: Patient actually doing well. Is on meropenem for emphysematous follow nephritis, responding well to antibiotic therapy. ID planning to change to ceftriaxone from tomorrow. Blood cultures negative to date. No abdominal pain CVA tenderness. Afebrile with stable vital signs. DKA resolved. Blood glucose improving. Renal function scan apparently was performed on 03/01 but I am unable to open the report. Urology is following, nephrectomy was originally considered. 03/03/2021: Patient remains afebrile. Stable signs. Clear good urine output via Hernandez. No abdominal/CVA tenderness. Clinically, does not appear to be toxic. No bacteremia. ID changed meropenem to Rocephin today. Urology is following, may need nephrectomy. 03/04/2021: Patient is clinically doing well. Does not appear to be toxic or septic. Meropenem changed to Rocephin on 03/03. He has no complaints. No abdominal pain or tenderness. No nausea or vomiting. No CVA tenderness. Discussed with urology, nephrectomy deferred due to clinical improvement. 03/05/2021: Patient continues doing well. Leukocytosis almost gone. Blood cultures negative . No abdominal/CVA pain/tenderness. No nausea or vomiting. Good urine output via Hernandez. Meropenem changed to Rocephin on 03/03 by ID. ID closely following. Urology following, nephrectomy deferred due to significant clinical improvement. Will repeat CT abdomen. 03/06/2021: Patient continues to do well, afebrile without nausea or abdominal pains. Good urine output, clear urine. Leukocytosis resolved. CT abdomen repeated today showed improvement of the volume of the air within the right kidney and in the retroperitoneum. Nuclear renal scan showed equal function in both kidneys. Will discuss with urology. ID recommends continuation of IV Rocephin until 03/18/2021. Patient was diagnosed with obstructive uropathy/urinary retention requiring indwelling Hernandez catheter during recent admission to [facility] to explain to this admission. Hernandez was removed at urologist office 3 days [employer]UM[employer] but patient did not perform self lateral cath as he was instructed. This appears to have provoked UTI/pyelonephritis as well as DKA along with noncompliance with insulin for glycemic control. History Interval history: Patient continues to do well. Does not have much complaints. No nausea or abdominal pains. Leukocytosis resolved. MAXIMO resolved. Vitals in stable and afebrile. Blood glucose improving Tolerating diet. Is eager to go home actually. CT abdomen repeated today showing some improvement of air volume within the right kidney and in the retroperitoneum Hospitalist Physical - Constitutional Vitals: Temp Pulse Resp BP Pulse Ox 97.6 F 77 14 113/68 99 03/06/21 05:10 03/06/21 05:10 03/06/21 05:10 03/06/21 05:10 03/06/21 05:10 General appearance: Present: no acute distress, other (Fully alert and oriented.) - EENT Eyes: Present: PERRL, EOM intact ENT: clear oral mucosa - Neck Neck: Present: supple, other (No JVD) - Respiratory Respiratory effort: normal Respiratory: bilateral: CTA - Cardiovascular Rhythm: regular - Extremities Extremities: No edema - Abdominal General gastrointestinal: soft, non-tender, tender, normal bowel sounds, other (No CVA tenderness. Hernandez in place, clear urine) - Integumentary Integumentary: Absent: rash - Psychiatric Psychiatric: appropriate mood/affect - Neurologic Neurologic: no focal deficits HEART Score - HEART Score Troponin: Troponin T < 0.010 ng/mL (0.00-0.029) 02/25/21 22:48 Results - Labs CBC & Chem 7: 03/06/21 06:30 03/06/21 06:30 Labs: Laboratory Last Values WBC 10.7 K/mm3 (4.5-11.0) 03/06/21 06:30 RBC 3.72 M/mm3 (3.65-5.03) 03/06/21 06:30 Hgb 11.3 gm/dl (11.8-15.2) L 03/06/21 06:30 Hct 33.3 % (35.5-45.6) L 03/06/21 06:30 MCV 90 fl (84-94) 03/06/21 06:30 MCH 31 pg (28-32) 03/06/21 06:30 MCHC 34 % (32-34) 03/06/21 06:30 RDW 15.6 % (13.2-15.2) H 03/06/21 06:30 Plt Count 491 K/mm3 (140-440) H 03/06/21 06:30 Lymph % (Auto) 10.5 % (13.4-35.0) L 03/06/21 06:30 [place] % (Auto) 4.9 % (0.0-7.3) 03/06/21 06:30 Eos % (Auto) 0.6 % (0.0-4.3) 03/06/21 06:30 Baso % (Auto) 0.4 % (0.0-1.8) 03/06/21 06:30 Lymph # (Auto) 1.1 K/mm3 (1.2-5.4) L 03/06/21 06:30 [place] # (Auto) 0.5 K/mm3 (0.0-0.8) 03/06/21 06:30 Eos # (Auto) 0.1 K/mm3 (0.0-0.4) 03/06/21 06:30 Baso # (Auto) 0.0 K/mm3 (0.0-0.1) 03/06/21 06:30 Add Manual Diff Complete 03/04/21 08:15 Total Counted 100 03/04/21 08:15 Seg Neutrophils % 83.6 % (40.0-70.0) H 03/06/21 06:30 Seg Neuts % (Manual) 83.0 % (40.0-70.0) H 03/04/21 08:15 Band Neutrophils % 4.0 % 03/04/21 08:15 Lymphocytes % (Manual) 8.0 % (13.4-35.0) L 03/04/21 08:15 Reactive Lymphs % (Man) 1.0 % 03/02/21 05:45 Monocytes % (Manual) 2.0 % (0.0-7.3) 03/04/21 08:15 Eosinophils % (Manual) 1.0 % (0.0-4.3) 03/04/21 08:15 Metamyelocytes % 1.0 % 03/02/21 05:45 Myelocytes % 2.0 % 03/04/21 08:15 Nucleated RBC % Not Reportable 03/04/21 08:15 Seg Neutrophils # 8.9 K/mm3 (1.8-7.7) H 03/06/21 06:30 Seg Neutrophils # Man 9.5 K/mm3 (1.8-7.7) H 03/04/21 08:15 Band Neutrophils # 0.5 K/mm3 03/04/21 08:15 Lymphocytes # (Manual) 0.9 K/mm3 (1.2-5.4) L 03/04/21 08:15 Abs React Lymphs (Man) 0.0 K/mm3 03/04/21 08:15 Monocytes # (Manual) 0.2 K/mm3 (0.0-0.8) 03/04/21 08:15 Eosinophils # (Manual) 0.1 K/mm3 (0.0-0.4) 03/04/21 08:15 Basophils # (Manual) 0.0 K/mm3 (0.0-0.1) 03/04/21 08:15 Metamyelocytes # 0.0 K/mm3 03/04/21 08:15 Myelocytes # 0.2 K/mm3 03/04/21 08:15 Promyelocytes # 0.0 K/mm3 03/04/21 08:15 Blast Cells # 0.0 K/mm3 03/04/21 08:15 WBC Morphology Not Reportable 03/04/21 08:15 Hypersegmented Neuts Not Reportable 03/04/21 08:15 Hyposegmented Neuts Not Reportable 03/04/21 08:15 Hypogranular Neuts Not Reportable 03/04/21 08:15 Smudge Cells Not Reportable 03/04/21 08:15 Toxic Granulation Not Reportable 03/04/21 08:15 Toxic Vacuolation Not Reportable 03/04/21 08:15 Dohle Bodies Not Reportable 03/04/21 08:15 Pelger-Huet Anomaly Not Reportable 03/04/21 08:15 Nayeli Rods Not Reportable 03/04/21 08:15 Platelet Estimate Consistent w auto 03/04/21 08:15 Clumped Platelets Not Reportable 03/04/21 08:15 Plt Clumps, EDTA Not Reportable 03/04/21 08:15 Large Platelets Not Reportable 03/04/21 08:15 Giant Platelets Not Reportable 03/04/21 08:15 Platelet Satelliting Not Reportable 03/04/21 08:15 Plt Morphology Comment Not Reportable 03/04/21 08:15 RBC Morphology Not Reportable 03/04/21 08:15 Dimorphic RBCs Not Reportable 03/04/21 08:15 Polychromasia Few 03/04/21 08:15 Hypochromasia Not Reportable 03/04/21 08:15 Poikilocytosis Not Reportable 03/04/21 08:15 Anisocytosis Few 03/04/21 08:15 Microcytosis Not Reportable 03/04/21 08:15 Macrocytosis Few 03/04/21 08:15 Spherocytes Not Reportable 03/04/21 08:15 Pappenheimer Bodies Not Reportable 03/04/21 08:15 Sickle Cells Not Reportable 03/04/21 08:15 Target Cells Not Reportable 03/04/21 08:15 Tear Drop Cells Not Reportable 03/04/21 08:15 Ovalocytes Not Reportable 03/04/21 08:15 Helmet Cells Not Reportable 03/04/21 08:15 [place] Bodies Not Reportable 03/04/21 08:15 Lewis Rings Not Reportable 03/04/21 08:15 [place] Cells Not Reportable 03/04/21 08:15 Bite Cells Not Reportable 03/04/21 08:15 Crenated Cell Not Reportable 03/04/21 08:15 Elliptocytes Not Reportable 03/04/21 08:15 Acanthocytes (Spur) Not Reportable 03/04/21 08:15 Rouleaux Not Reportable 03/04/21 08:15 Hemoglobin C Crystals Not Reportable 03/04/21 08:15 Schistocytes Not Reportable 03/04/21 08:15 Malaria parasites Not Reportable 03/04/21 08:15 Christiano Bodies Not Reportable 03/04/21 08:15 Hem Pathologist Commnt No 03/04/21 08:15 PT 13.6 Sec. (12.2-14.9) 02/28/21 18:48 INR 0.99 (0.87-1.13) 02/28/21 18:48 APTT 27.9 Sec. (24.2-36.6) 02/28/21 18:48 ABG pH 7.518 (7.320-7.450) H 03/01/21 10:56 POC ABG pCO2 27.2 mmHg (32.0-48.0) L 03/01/21 10:56 POC ABG pO2 84.0 mmHg (83-108) 03/01/21 10:56 POC ABG HCO3 21.6 03/01/21 10:56 ABG O2 Saturation 97.1 (0-100) 03/01/21 10:56 POC ABG Base Excess -0.4 03/01/21 10:56 ABG Hemoglobin 10.9 (12.0-17.5) L 03/01/21 10:56 ABG Oxyhemoglobin 96.4 (94-98) 03/01/21 10:56 ABG Methemoglobin 0.3 (0.0-1.5) 03/01/21 10:56 ABG Sodium 134.6 mmol/L (136.0-145.0) L 03/01/21 10:56 ABG Potassium 2.8 mmol/L (3.40-4.50) L 03/01/21 10:56 ABG Chloride 106.0 mmol/L (98-107) 03/01/21 10:56 ABG Glucose 144 mg/dL (65-95) H 03/01/21 10:56 VBG pH 7.316 (7.320-7.420) L 02/25/21 22:48 Carboxyhemoglobin 0.4 (0.5-1.5) L 03/01/21 10:56 FiO2 % 21.0 03/01/21 10:56 Sodium 142 mmol/L (137-145) 03/06/21 06:30 Potassium 3.9 mmol/L (3.6-5.0) 03/06/21 06:30 Chloride 104.1 mmol/L (98-107) 03/06/21 06:30 Carbon Dioxide 31 mmol/L (22-30) H 03/06/21 06:30 Anion Gap 11 mmol/L 03/06/21 06:30 BUN 19 mg/dL (9-20) 03/06/21 06:30 Creatinine 0.9 mg/dL (0.8-1.3) 03/06/21 06:30 Estimated GFR > 60 ml/min 03/06/21 06:30 BUN/Creatinine Ratio 21 % 03/06/21 06:30 Glucose 110 mg/dL (75-100) H 03/06/21 06:30 POC Glucose 217 mg/dL (70-105) H 03/06/21 10:58 Hemoglobin A1c 14.2 % (4-6) H 02/26/21 02:40 Calcium 8.9 mg/dL (8.4-10.2) 03/06/21 06:30 Phosphorus 2.50 mg/dL (2.5-4.5) D 02/26/21 02:40 Magnesium 2.00 mg/dL (1.7-2.3) 02/27/21 04:18 Total Bilirubin 0.30 mg/dL (0.1-1.2) 03/06/21 06:30 AST 18 units/L (5-40) 03/06/21 06:30 ALT 20 units/L (7-56) 03/06/21 06:30 Alkaline Phosphatase 147 units/L (35-129) H 03/06/21 06:30 Total Creatine Kinase 37 units/L (55-170) L 02/25/21 22:48 Troponin T < 0.010 ng/mL (0.00-0.029) 02/25/21 22:48 Total Protein 6.6 g/dL (6.3-8.2) D 03/06/21 06:30 Albumin 2.7 g/dL (3.9-5) L 03/06/21 06:30 Albumin/Globulin Ratio 0.7 % 03/06/21 06:30 Arterial Blood Glucose 144 mg/dL (65-95) H 03/01/21 10:56 Arterial Blood Ionized Calcium 4.5 mg/dL (4.6-5.3) L 03/01/21 10:56 Urine Color Yellow (Yellow) 02/26/21 18:00 Urine Turbidity Turbid (Clear) 02/26/21 18:00 Urine pH 6.0 (5.0-7.0) 02/26/21 18:00 Ur Specific [place] 1.013 (1.003-1.030) 02/26/21 18:00 Urine Protein 100 mg/dl mg/dL (Negative) 02/26/21 18:00 Urine Glucose (UA) >=500 mg/dL (Negative) 02/26/21 18:00 Urine Ketones Tr mg/dL (Negative) 02/26/21 18:00 Urine Blood Lg (Negative) 02/26/21 18:00 Urine Nitrite Neg (Negative) 02/26/21 18:00 Urine Bilirubin Neg (Negative) 02/26/21 18:00 Urine Urobilinogen < 2.0 mg/dL (<2.0) 02/26/21 18:00 Ur Leukocyte Esterase Lg (Negative) 02/26/21 18:00 Urine WBC (Auto) > 182.0 /HPF (0.0-6.0) H 02/26/21 18:00 Urine RBC (Auto) 41.0 /HPF (0.0-6.0) 02/26/21 18:00 U Epithel Cells (Auto) 1.0 /HPF (0-13.0) 02/26/21 12:00 Urine Bacteria (Auto) 2+ /HPF (Negative) 02/26/21 12:00 Urine WBC Clumps 3+ /HPF 02/26/21 18:00 Urine Mucus Few /HPF 02/26/21 18:00 Urine Yeast (Budding) 3+ /HPF 02/26/21 18:00 Urine Creatinine 26.8 mg/dL (0.1-20.0) H 02/26/21 12:00 Protein/Creatinin Ratio 1.75 02/26/21 12:00 Urine Sodium 29 mmol/L 02/26/21 12:00 Urine Total Protein 47 mg/dL (5-11.8) H 02/26/21 12:00 Nasal Screen MRSA (PCR) Positive (Negative) 02/28/21 Unknown Hernandez/IV: Voiding Method Indwelling Catheter Active Medications - Current Medications Current Medications: Generic Name Dose Route Start Last Admin Trade Name Jagjitq PRN Reason Stop Dose Admin Acetaminophen 650 mg 02/26/21 00:36 Acetaminophen 325 Mg Tab PO Q6H PRN Pain MILD(1-3)/Fever >100.5/MATHUR Dextrose 50 ml 02/25/21 23:47 03/03/21 08:04 Dextrose 50% In Water (25gm) 50 Ml Syringe IV 50 ml Q30MIN PRN Administration Hypoglycemia Protocol Heparin Sodium (Porcine) 5,000 unit 02/26/21 06:00 03/06/21 13:55 Heparin 5,000 Unit/1 Ml Vial SUB-Q 5,000 unit Q8HR ROSELIA Administration Ceftriaxone Sodium 2 gm in 100 mls @ 200 mls/hr 03/03/21 12:00 03/06/21 12:40 Rocephin/Ns 2 Gm/100 Ml IV 200 mls/hr Q24H ROSELIA Administration Protocol Insulin Glargine 25 units 03/05/21 22:00 03/05/21 21:38 Insulin Glargine 100 Units/Ml SUB-Q 25 units QHS ROSELIA Administration Insulin Human Lispro 0 unit 02/27/21 11:30 03/06/21 11:30 Insulin Lispro 100 Unit/Ml SUB-Q 3 unit ACHS ROSELIA Administration Protocol Insulin Human Lispro 5 unit 03/05/21 11:30 03/06/21 11:30 Insulin Lispro 100 Unit/Ml SUB-Q 5 unit AC ROSELIA Administration Morphine Sulfate 2 mg 02/26/21 00:36 Morphine 2 Mg/1 Ml Inj IV Q4H PRN Pain, Moderate (4-6) Morphine Sulfate 4 mg 02/26/21 00:36 Morphine 4 Mg/1 Ml Inj IV Q4H PRN Pain , Severe (7-10) Sodium Chloride 10 ml 02/26/21 10:00 03/06/21 09:36 Sodium Chloride 0.9% 10 Ml Flush Syringe IV 10 ml BID ROSELIA Administration Sodium Chloride 10 ml 02/26/21 00:36 Sodium Chloride 0.9% 10 Ml Flush Syringe IV PRN PRN LINE FLUSH Tamsulosin HCl 0.8 mg 02/26/21 16:00 03/06/21 09:36 Tamsulosin 0.4 Mg Cap PO 0.8 mg QDAY ROSELIA Administration Nutrition/Malnutrition Assess - Dietary Evaluation Nutrition/Malnutrition Findings: Nutrition Notes Start: 02/26/21 13:01 Freq: Status: Active Protocol: Document 03/04/21 12:37 (Rec: 03/04/21 12:39 [email or web address]) Nutrition Notes Initial or Follow up Reassessment Current Diagnosis CKD(stage I-IV),Diabetes Other Pertinent Diagnosis DKA Current Diet Consistent CHO Labs/Tests BG 199 Pertinent Medications Lantus Height 5 ft 10 in Weight 51.075 kg [place] Body Weight (kg) 75.45 BMI 16.1 Weight Status Underweight Subjective/Other Information FU for intakes. Pt consuming 100% of meals and ONS. Percent of energy/protein needs met: 100%/100% Burn Absent Trauma Absent Current % PO Good (75-100%) Minimum of two criteria No #2 Nutrition Diagnosis Inadequate oral intake As Evidenced by Signs and Symptoms pt eating 100% of meals Diagnosis Progress(for reassessment Resolved documentation) Is patient on ventilator? No Is Patient Ambulatory and/or Out of Bed No REE-([facility]-confined to bed) [phone] Calculation Used for Recommendations [facility] Additional Notes Protein: (0.8-0.9g/kg) 41-46g Fluid: 1 ml/kcal or per MD Nutrition Intervention Change Diet Order: Continue with food prefrences Add Supplement/Snack (indicate name/kcal Glucerna BID /protein ) Provides kCal: 440 Provides Protein (gm) 20 Goal #1 Meet at least 75% of protein and energy needs via PO and ONS intakes Anticipated Discharge Needs: consistent carbohydrate diet Follow-Up By: 03/11/21 Additional Comments FU for stable intakes
[2021-03-06] MEDS: INSULIN GLARGINE 100 UNITS/ML SUB-Q SCH (22:15)
[2021-03-07] MEDS: HEPARIN 5,000 UNIT/1 ML VIAL SUB-Q SCH ×3 (05:32→22:20)
[2021-03-07] MEDS: DEXTROSE 50% IN WATER (25GM) 50 ML SYRINGE IV PRN (08:12)
[2021-03-07] MEDS: INSULIN LISPRO 100 UNIT/ML SUB-Q SCH ×8 (08:31→22:45)
[2021-03-07] MEDS: TAMSULOSIN 0.4 MG CAP PO SCH (11:57)
[2021-03-07] MEDS: cefTRIAXone/NS 2 GM/100 ML 2 GM/100 ML BAG IV SCH (12:07)
--- NOTE | 2021-03-07 13:41 | Progress Note ---
Assessment and Plan Cultures: Urine culture 02/26/2021: Klebsiella Blood culture 02/27/2021: no growth A/P: 60-year-old male with diabetes admitted with DKA: #Sepsis: improving. secondary to severe emphysematous pyelonephritis, case was discussed with [facility]. #Severe emphysematous pyelonephritis: with CT evidence of free air surrounding the right kidney and the right retroperitoneum. Etiology is probably urinary tract infection in the setting of severe diabetic ketoacidosis. Per primary team notes, case was discussed with [facility]. #MAXIMO: Renally dose antibiotics. #Diabetes mellitus with DKA Recs: -Continue ceftriaxone 2 g over 24 hours -Case management consulted for ceftriaxone 2 g every 24 hours until 03/18/2021 -Okay to discharge from ID standpoint. -ID clinic follow-up in 2 weeks. MD [facility] ([facility]) Office [phone] Subjective Date of service: 03/07/21 Principal diagnosis: DKA; Emphysematous pyelonephritis; Acute encephalopathy; MAXIMO; BPH Interval history: Patient feels good. No complaints. Wants to go home. Objective - Exam Narrative Exam: General appearance: Alert in NAD pleasant Eyes: anicteric sclerae, moist conjunctivae; no lid-lag; PERRLA HENT: Normocephalic, Atraumatic; normal external ears, nares open, oropharynx clear with moist mucous membranes and no oral thrush Neck: supple, tracheal midline, no JVD Lungs: CTA, with normal respiratory effort and no intercostal retractions CV: RRR no murmur Abdomen: Soft, non-tender; no masses or hepatosplenomegaly Extremities: no edema, no cyanosis Skin: No rash. Psych: no agitated Neuro: alert and oriented x 3. Moving all extermities - Constitutional Vitals: Vital Signs Temp Pulse Resp BP Pulse Ox 99.0 F 84 17 121/82 99 03/06/21 21:17 03/07/21 04:00 03/06/21 22:00 03/06/21 21:17 03/06/21 21:17 Temperature -Last 24 Hours Temperature 99.0 F - Labs CBC & Chem 7: 03/06/21 06:30 03/06/21 06:30 Labs: Abnormal lab results 03/06/21 03/07/21 03/07/21 Range/Units 21:16 07:42 09:47 POC Glucose 265 H 49 L 181 H (70-105) mg/dL 03/07/21 Range/Units 12:11 POC Glucose 132 H (70-105) mg/dL
--- NOTE | 2021-03-07 14:05 | Progress Note ---
Assessment and Plan 60-year-old -[place] male with known history of diabetes mellitus presents to the emergency room today complaining of generalized weakness and elevated blood glucose at home. Patient was diagnosed with diabetes mellitus about 2 weeks ago and states he has been out of his insulin for the past 3 to 4 days. Family had called EMS and patient was subsequently brought to the emergency room. Blood glucose was said to be reading high in route to the hospital. Patient was given IV normal saline in route to the hospital. Work-up in the emergency room reveals that patient is in DKA. He has been started on insulin drip and IV fluid. Patient has history of smoking 1 pack/40 years. 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 No known drug allergies. Patients Anion gap improving. 02/28/21 Anion gap 13. Blood sugur 193. To days blood sugur because patient kept NPO for the procedure. Patient fed now. Blood sugur came up to 104. Patient transferred to Telemetry.Patient alert, awake. Resting on room air. O2 saturation 99%. No complaint of chest pain, shortness of breath or cough. Patient afebrile. No leukocytosis. Chest xray 02/25/21 reported no acute findings. Patient is on ceftriaxone, S/C Heparin, S/C Insulin. - Patient Problems (1) Diabetic ketoacidosis Current Visit: Yes Status: Acute Qualifiers: Diabetes mellitus type: type 2 Diabetes mellitus complication detail: without coma Qualified Code(s): E11.10 - Type 2 diabetes mellitus with ketoacidosis without coma Plan to address problem: Patient improving. Anion gap improving, 11, Blood sugar today 132. Management as per primary care. (2) Metabolic acidosis Current Visit: Yes Status: Acute Plan to address problem: Improved, AG is 11 today. BG is 132. (3) Renal failure Current Visit: Yes Status: Acute Qualifiers: Renal failure chronicity: acute Acute renal failure type: unspecified Qualified Code(s): N17.9 - Acute kidney failure, unspecified Plan to address problem: Management as per nephrology. Subjective Date of service: 03/07/21 Principal diagnosis: DKA; Emphysematous pyelonephritis; Acute encephalopathy; MAXIMO; BPH Interval history: 60-year-old -[place] male with known history of diabetes mellitus presents to the emergency room today complaining of generalized weakness and elevated blood glucose at home. Patient was diagnosed with diabetes mellitus about 2 weeks ago and states he has been out of his insulin for the past 3 to 4 days. Family had called EMS and patient was subsequently brought to the emergency room. Blood glucose was said to be reading high in route to the hospital. Patient was given IV normal saline in route to the hospital. Work-up in the emergency room reveals that patient is in DKA. He has been started on insulin drip and IV fluid. Patient has history of smoking 1 pack/40 years. 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 No known drug allergies. Patients Anion gap improving. 02/28/21 Anion gap 13. Blood sugur 193. To days blood sugur because patient kept NPO for the procedure. Patient fed now. Blood sugur came up to 104. Patient transferred to Telemetry.Patient alert, awake. Resting on room air. O2 saturation 99%. No complaint of chest pain, shortness of breath or cough. Patient afebrile. No leukocytosis. Chest xray 02/25/21 reported no acute findings. Patient is on ceftriaxone, S/C Heparin, S/C Insulin. Objective Vital Signs - 12hr 03/07/21 03/07/21 04:00 12:13 Temperature 98.8 F Pulse Rate 84 83 Respiratory 20 Rate Blood Pressure 140/83 O2 Sat by Pulse 99 Oximetry Constitutional: no acute distress, alert Eyes: non-icteric ENT: oropharynx moist Neck: supple, no lymphadenopathy, no JVD Effort: normal Ascultation: Bilateral: diminished breath sounds Percussion: Bilateral: not dull Cardiovascular: regular rate and rhythm, other (S1,S2) Gastrointestinal: normoactive bowel sounds, soft, non-tender, non-distended Integumentary: other (poor skin turgor) Extremities: no cyanosis, no edema, pulses normal, no ischemia or petechiae Neurologic: normal mental status, non-focal exam, pupils equal and round, CN II- XII normal Psychiatric: mood appropriate, affect normal CBC and BMP: 03/06/21 06:30 03/06/21 06:30 ABG, PT/INR, D-dimer: ABG ABG pH 7.518 (7.320-7.450) H 03/01/21 10:56 POC ABG pCO2 27.2 mmHg (32.0-48.0) L 03/01/21 10:56 POC ABG pO2 84.0 mmHg (83-108) 03/01/21 10:56 POC ABG HCO3 21.6 03/01/21 10:56 ABG O2 Saturation 97.1 (0-100) 03/01/21 10:56 PT/INR, D-dimer PT 13.6 Sec. (12.2-14.9) 02/28/21 18:48 INR 0.99 (0.87-1.13) 02/28/21 18:48 Abnormal lab findings: Abnormal Labs 02/25/21 02/25/21 02/25/21 22:31 22:48 22:48 WBC 24.1 H RBC Hgb 11.5 L Hct MCHC RDW Plt Count Lymph % (Auto) Lymph # (Auto) Seg Neutrophils % Seg Neuts % (Manual) 95.0 H Lymphocytes % (Manual) Seg Neutrophils # Seg Neutrophils # Man 22.9 H Lymphocytes # (Manual) 0.0 L ABG pH POC ABG pCO2 ABG Hemoglobin ABG Sodium ABG Potassium ABG Glucose VBG pH Carboxyhemoglobin Sodium 126 L Potassium Chloride 88.8 L Carbon Dioxide 18 L BUN 75 H Creatinine 2.1 H Glucose 938 H* POC Glucose > 600 H Hemoglobin A1c Calcium Magnesium Alkaline Phosphatase 201 H Total Creatine Kinase 37 L Total Protein Albumin 2.9 L Arterial Blood Glucose Arterial Blood Ionized Calcium Urine WBC (Auto) Urine Creatinine Urine Total Protein 02/25/21 02/25/21 02/26/21 22:48 23:52 01:21 WBC RBC Hgb Hct MCHC RDW Plt Count Lymph % (Auto) Lymph # (Auto) Seg Neutrophils % Seg Neuts % (Manual) Lymphocytes % (Manual) Seg Neutrophils # Seg Neutrophils # Man Lymphocytes # (Manual) ABG pH POC ABG pCO2 ABG Hemoglobin ABG Sodium ABG Potassium ABG Glucose VBG pH 7.316 L Carboxyhemoglobin Sodium Potassium Chloride Carbon Dioxide BUN Creatinine Glucose POC Glucose > 600 H Hemoglobin A1c Calcium Magnesium 2.80 H Alkaline Phosphatase Total Creatine Kinase Total Protein Albumin Arterial Blood Glucose Arterial Blood Ionized Calcium Urine WBC (Auto) Urine Creatinine Urine Total Protein 02/26/21 02/26/21 02/26/21 02:09 02:40 02:40 WBC RBC Hgb Hct MCHC RDW Plt Count Lymph % (Auto) Lymph # (Auto) Seg Neutrophils % Seg Neuts % (Manual) Lymphocytes % (Manual) Seg Neutrophils # Seg Neutrophils # Man Lymphocytes # (Manual) ABG pH POC ABG pCO2 ABG Hemoglobin ABG Sodium ABG Potassium ABG Glucose VBG pH Carboxyhemoglobin Sodium 131 L Potassium Chloride 96.1 L Carbon Dioxide 17 L BUN 74 H Creatinine 2.1 H Glucose 719 H* POC Glucose > 600 H Hemoglobin A1c 14.2 H Calcium Magnesium Alkaline Phosphatase Total Creatine Kinase Total Protein Albumin Arterial Blood Glucose Arterial Blood Ionized Calcium Urine WBC (Auto) Urine Creatinine Urine Total Protein 02/26/21 02/26/21 02/26/21 02:40 03:58 04:03 WBC RBC Hgb Hct MCHC RDW Plt Count Lymph % (Auto) Lymph # (Auto) Seg Neutrophils % Seg Neuts % (Manual) Lymphocytes % (Manual) Seg Neutrophils # Seg Neutrophils # Man Lymphocytes # (Manual) ABG pH POC ABG pCO2 ABG Hemoglobin ABG Sodium ABG Potassium ABG Glucose VBG pH Carboxyhemoglobin Sodium Potassium Chloride Carbon Dioxide 18 L BUN 71 H Creatinine 2.0 H Glucose 550 H* POC Glucose 544 H Hemoglobin A1c Calcium Magnesium 2.70 H Alkaline Phosphatase Total Creatine Kinase Total Protein Albumin Arterial Blood Glucose Arterial Blood Ionized Calcium Urine WBC (Auto) Urine Creatinine Urine Total Protein 02/26/21 02/26/21 02/26/21 05:01 05:58 07:09 WBC RBC Hgb Hct MCHC RDW Plt Count Lymph % (Auto) Lymph # (Auto) Seg Neutrophils % Seg Neuts % (Manual) Lymphocytes % (Manual) Seg Neutrophils # Seg Neutrophils # Man Lymphocytes # (Manual) ABG pH POC ABG pCO2 ABG Hemoglobin ABG Sodium ABG Potassium ABG Glucose VBG pH Carboxyhemoglobin Sodium Potassium Chloride Carbon Dioxide BUN Creatinine Glucose POC Glucose 439 H 399 H 217 H Hemoglobin A1c Calcium Magnesium Alkaline Phosphatase Total Creatine Kinase Total Protein Albumin Arterial Blood Glucose Arterial Blood Ionized Calcium Urine WBC (Auto) Urine Creatinine Urine Total Protein 02/26/21 02/26/21 02/26/21 08:09 08:12 09:08 WBC RBC Hgb Hct MCHC RDW Plt Count Lymph % (Auto) Lymph # (Auto) Seg Neutrophils % Seg Neuts % (Manual) Lymphocytes % (Manual) Seg Neutrophils # Seg Neutrophils # Man Lymphocytes # (Manual) ABG pH POC ABG pCO2 ABG Hemoglobin ABG Sodium ABG Potassium ABG Glucose VBG pH Carboxyhemoglobin Sodium Potassium Chloride Carbon Dioxide 16 L BUN 72 H Creatinine 1.9 H Glucose 119 H POC Glucose 138 H 136 H Hemoglobin A1c Calcium Magnesium Alkaline Phosphatase Total Creatine Kinase Total Protein Albumin Arterial Blood Glucose Arterial Blood Ionized Calcium Urine WBC (Auto) Urine Creatinine Urine Total Protein 02/26/21 02/26/21 02/26/21 12:00 12:00 12:04 WBC RBC Hgb Hct MCHC RDW Plt Count Lymph % (Auto) Lymph # (Auto) Seg Neutrophils % Seg Neuts % (Manual) Lymphocytes % (Manual) Seg Neutrophils # Seg Neutrophils # Man Lymphocytes # (Manual) ABG pH POC ABG pCO2 ABG Hemoglobin ABG Sodium ABG Potassium ABG Glucose VBG pH Carboxyhemoglobin Sodium Potassium Chloride Carbon Dioxide BUN Creatinine Glucose POC Glucose 136 H Hemoglobin A1c Calcium Magnesium Alkaline Phosphatase Total Creatine Kinase Total Protein Albumin Arterial Blood Glucose Arterial Blood Ionized Calcium Urine WBC (Auto) > 182.0 H Urine Creatinine 26.8 H Urine Total Protein 47 H 02/26/21 02/26/21 02/26/21 13:26 14:50 15:14 WBC RBC Hgb Hct MCHC RDW Plt Count Lymph % (Auto) Lymph # (Auto) Seg Neutrophils % Seg Neuts % (Manual) Lymphocytes % (Manual) Seg Neutrophils # Seg Neutrophils # Man Lymphocytes # (Manual) ABG pH POC ABG pCO2 ABG Hemoglobin ABG Sodium ABG Potassium ABG Glucose VBG pH Carboxyhemoglobin Sodium Potassium Chloride Carbon Dioxide BUN Creatinine Glucose POC Glucose 124 H 119 H 106 H Hemoglobin A1c Calcium Magnesium Alkaline Phosphatase Total Creatine Kinase Total Protein Albumin Arterial Blood Glucose Arterial Blood Ionized Calcium Urine WBC (Auto) Urine Creatinine Urine Total Protein 02/26/21 02/26/21 02/26/21 15:27 16:38 17:22 WBC RBC Hgb Hct MCHC RDW Plt Count Lymph % (Auto) Lymph # (Auto) Seg Neutrophils % Seg Neuts % (Manual) Lymphocytes % (Manual) Seg Neutrophils # Seg Neutrophils # Man Lymphocytes # (Manual) ABG pH POC ABG pCO2 ABG Hemoglobin ABG Sodium ABG Potassium ABG Glucose VBG pH Carboxyhemoglobin Sodium 136 L Potassium 5.1 H Chloride Carbon Dioxide 16 L BUN 72 H Creatinine 2.2 H Glucose 107 H POC Glucose 111 H 113 H Hemoglobin A1c Calcium Magnesium Alkaline Phosphatase Total Creatine Kinase Total Protein Albumin Arterial Blood Glucose Arterial Blood Ionized Calcium Urine WBC (Auto) Urine Creatinine Urine Total Protein 02/26/21 02/26/21 02/26/21 17:54 18:00 20:25 WBC RBC Hgb Hct MCHC RDW Plt Count Lymph % (Auto) Lymph # (Auto) Seg Neutrophils % Seg Neuts % (Manual) Lymphocytes % (Manual) Seg Neutrophils # Seg Neutrophils # Man Lymphocytes # (Manual) ABG pH POC ABG pCO2 ABG Hemoglobin ABG Sodium ABG Potassium ABG Glucose VBG pH Carboxyhemoglobin Sodium Potassium Chloride Carbon Dioxide BUN Creatinine Glucose POC Glucose 114 H 129 H Hemoglobin A1c Calcium Magnesium Alkaline Phosphatase Total Creatine Kinase Total Protein Albumin Arterial Blood Glucose Arterial Blood Ionized Calcium Urine WBC (Auto) > 182.0 H Urine Creatinine Urine Total Protein 02/26/21 02/26/21 02/26/21 21:17 22:02 23:05 WBC RBC Hgb Hct MCHC RDW Plt Count Lymph % (Auto) Lymph # (Auto) Seg Neutrophils % Seg Neuts % (Manual) Lymphocytes % (Manual) Seg Neutrophils # Seg Neutrophils # Man Lymphocytes # (Manual) ABG pH POC ABG pCO2 ABG Hemoglobin ABG Sodium ABG Potassium ABG Glucose VBG pH Carboxyhemoglobin Sodium Potassium Chloride Carbon Dioxide BUN Creatinine Glucose POC Glucose 127 H 135 H 112 H Hemoglobin A1c Calcium Magnesium Alkaline Phosphatase Total Creatine Kinase Total Protein Albumin Arterial Blood Glucose Arterial Blood Ionized Calcium Urine WBC (Auto) Urine Creatinine Urine Total Protein 02/27/21 02/27/21 02/27/21 00:11 02:13 04:13 WBC RBC Hgb Hct MCHC RDW Plt Count Lymph % (Auto) Lymph # (Auto) Seg Neutrophils % Seg Neuts % (Manual) Lymphocytes % (Manual) Seg Neutrophils # Seg Neutrophils # Man Lymphocytes # (Manual) ABG pH POC ABG pCO2 ABG Hemoglobin ABG Sodium ABG Potassium ABG Glucose VBG pH Carboxyhemoglobin Sodium Potassium 3.5 L D Chloride 108.4 H Carbon Dioxide 21 L BUN 64 H Creatinine 1.9 H Glucose POC Glucose 106 H 115 H Hemoglobin A1c Calcium 8.3 L Magnesium Alkaline Phosphatase Total Creatine Kinase Total Protein Albumin Arterial Blood Glucose Arterial Blood Ionized Calcium Urine WBC (Auto) Urine Creatinine Urine Total Protein 02/27/21 02/27/21 02/27/21 04:18 04:18 06:57 WBC 22.4 H RBC Hgb 11.0 L Hct 32.3 L MCHC RDW Plt Count Lymph % (Auto) Lymph # (Auto) Seg Neutrophils % Seg Neuts % (Manual) Lymphocytes % (Manual) Seg Neutrophils # Seg Neutrophils # Man Lymphocytes # (Manual) ABG pH POC ABG pCO2 ABG Hemoglobin ABG Sodium ABG Potassium ABG Glucose VBG pH Carboxyhemoglobin Sodium Potassium Chloride 107.9 H Carbon Dioxide BUN 59 H Creatinine 1.7 H Glucose POC Glucose 60 L Hemoglobin A1c Calcium 8.1 L Magnesium Alkaline Phosphatase Total Creatine Kinase Total Protein Albumin Arterial Blood Glucose Arterial Blood Ionized Calcium Urine WBC (Auto) Urine Creatinine Urine Total Protein 02/27/21 02/27/21 02/27/21 08:24 08:35 11:25 WBC RBC Hgb Hct MCHC RDW Plt Count Lymph % (Auto) Lymph # (Auto) Seg Neutrophils % Seg Neuts % (Manual) Lymphocytes % (Manual) Seg Neutrophils # Seg Neutrophils # Man Lymphocytes # (Manual) ABG pH POC ABG pCO2 ABG Hemoglobin ABG Sodium ABG Potassium ABG Glucose VBG pH Carboxyhemoglobin Sodium Potassium 3.1 L Chloride 108.6 H Carbon Dioxide 21 L BUN 53 H Creatinine 1.5 H Glucose 121 H POC Glucose 131 H 196 H Hemoglobin A1c Calcium 8.0 L Magnesium Alkaline Phosphatase Total Creatine Kinase Total Protein Albumin Arterial Blood Glucose Arterial Blood Ionized Calcium Urine WBC (Auto) Urine Creatinine Urine Total Protein 02/27/21 02/27/21 02/27/21 16:39 18:04 21:33 WBC RBC Hgb Hct MCHC RDW Plt Count Lymph % (Auto) Lymph # (Auto) Seg Neutrophils % Seg Neuts % (Manual) Lymphocytes % (Manual) Seg Neutrophils # Seg Neutrophils # Man Lymphocytes # (Manual) ABG pH POC ABG pCO2 ABG Hemoglobin ABG Sodium ABG Potassium ABG Glucose VBG pH Carboxyhemoglobin Sodium Potassium 3.1 L Chloride Carbon Dioxide 20 L BUN 50 H Creatinine 1.4 H Glucose 365 H POC Glucose 340 H 322 H Hemoglobin A1c Calcium 7.9 L Magnesium Alkaline Phosphatase Total Creatine Kinase Total Protein Albumin Arterial Blood Glucose Arterial Blood Ionized Calcium Urine WBC (Auto) Urine Creatinine Urine Total Protein 02/28/21 02/28/21 02/28/21 05:05 07:25 11:13 WBC RBC Hgb Hct MCHC RDW Plt Count Lymph % (Auto) Lymph # (Auto) Seg Neutrophils % Seg Neuts % (Manual) Lymphocytes % (Manual) Seg Neutrophils # Seg Neutrophils # Man Lymphocytes # (Manual) ABG pH POC ABG pCO2 ABG Hemoglobin ABG Sodium ABG Potassium ABG Glucose VBG pH Carboxyhemoglobin Sodium Potassium 3.3 L Chloride 110.2 H Carbon Dioxide BUN 43 H Creatinine Glucose 193 H POC Glucose 121 H 190 H Hemoglobin A1c Calcium 7.8 L Magnesium Alkaline Phosphatase Total Creatine Kinase Total Protein Albumin Arterial Blood Glucose Arterial Blood Ionized Calcium Urine WBC (Auto) Urine Creatinine Urine Total Protein 02/28/21 02/28/21 03/01/21 16:30 22:08 08:05 WBC RBC Hgb Hct MCHC RDW Plt Count Lymph % (Auto) Lymph # (Auto) Seg Neutrophils % Seg Neuts % (Manual) Lymphocytes % (Manual) Seg Neutrophils # Seg Neutrophils # Man Lymphocytes # (Manual) ABG pH POC ABG pCO2 ABG Hemoglobin ABG Sodium ABG Potassium ABG Glucose VBG pH Carboxyhemoglobin Sodium Potassium Chloride Carbon Dioxide BUN Creatinine Glucose POC Glucose 180 H 340 H 58 L Hemoglobin A1c Calcium Magnesium Alkaline Phosphatase Total Creatine Kinase Total Protein Albumin Arterial Blood Glucose Arterial Blood Ionized Calcium Urine WBC (Auto) Urine Creatinine Urine Total Protein 03/01/21 03/01/21 03/01/21 09:34 10:56 10:59 WBC 15.3 H RBC Hgb 11.2 L Hct 33.1 L MCHC RDW Plt Count Lymph % (Auto) Lymph # (Auto) Seg Neutrophils % Seg Neuts % (Manual) 87.0 H Lymphocytes % (Manual) 1.0 L Seg Neutrophils # Seg Neutrophils # Man 13.3 H Lymphocytes # (Manual) 0.2 L ABG pH 7.518 H POC ABG pCO2 27.2 L ABG Hemoglobin 10.9 L ABG Sodium 134.6 L ABG Potassium 2.8 L ABG Glucose 144 H VBG pH Carboxyhemoglobin 0.4 L Sodium Potassium 3.2 L Chloride Carbon Dioxide BUN 29 H Creatinine Glucose POC Glucose Hemoglobin A1c Calcium 8.2 L Magnesium Alkaline Phosphatase Total Creatine Kinase Total Protein Albumin Arterial Blood Glucose 144 H Arterial Blood Ionized Calcium 4.5 L Urine WBC (Auto) Urine Creatinine Urine Total Protein 03/01/21 03/01/21 03/01/21 12:38 17:10 21:27 WBC RBC Hgb Hct MCHC RDW Plt Count Lymph % (Auto) Lymph # (Auto) Seg Neutrophils % Seg Neuts % (Manual) Lymphocytes % (Manual) Seg Neutrophils # Seg Neutrophils # Man Lymphocytes # (Manual) ABG pH POC ABG pCO2 ABG Hemoglobin ABG Sodium ABG Potassium ABG Glucose VBG pH Carboxyhemoglobin Sodium Potassium Chloride Carbon Dioxide BUN Creatinine Glucose POC Glucose 134 H 190 H 187 H Hemoglobin A1c Calcium Magnesium Alkaline Phosphatase Total Creatine Kinase Total Protein Albumin Arterial Blood Glucose Arterial Blood Ionized Calcium Urine WBC (Auto) Urine Creatinine Urine Total Protein 03/02/21 03/02/21 03/02/21 05:45 05:45 08:05 WBC 11.7 H RBC 3.38 L Hgb 10.0 L Hct 29.8 L MCHC RDW Plt Count Lymph % (Auto) Lymph # (Auto) Seg Neutrophils % Seg Neuts % (Manual) 93.0 H Lymphocytes % (Manual) 4.0 L Seg Neutrophils # Seg Neutrophils # Man 10.9 H Lymphocytes # (Manual) 0.5 L ABG pH POC ABG pCO2 ABG Hemoglobin ABG Sodium ABG Potassium ABG Glucose VBG pH Carboxyhemoglobin Sodium Potassium 3.2 L Chloride 109.7 H Carbon Dioxide BUN 29 H Creatinine Glucose 299 H POC Glucose 224 H Hemoglobin A1c Calcium 7.6 L Magnesium Alkaline Phosphatase Total Creatine Kinase Total Protein Albumin Arterial Blood Glucose Arterial Blood Ionized Calcium Urine WBC (Auto) Urine Creatinine Urine Total Protein 03/02/21 03/02/21 03/02/21 10:28 17:08 21:11 WBC RBC Hgb Hct MCHC RDW Plt Count Lymph % (Auto) Lymph # (Auto) Seg Neutrophils % Seg Neuts % (Manual) Lymphocytes % (Manual) Seg Neutrophils # Seg Neutrophils # Man Lymphocytes # (Manual) ABG pH POC ABG pCO2 ABG Hemoglobin ABG Sodium ABG Potassium ABG Glucose VBG pH Carboxyhemoglobin Sodium Potassium Chloride Carbon Dioxide BUN Creatinine Glucose POC Glucose 161 H 116 H 147 H Hemoglobin A1c Calcium Magnesium Alkaline Phosphatase Total Creatine Kinase Total Protein Albumin Arterial Blood Glucose Arterial Blood Ionized Calcium Urine WBC (Auto) Urine Creatinine Urine Total Protein 03/03/21 03/03/21 03/03/21 07:44 09:08 09:27 WBC RBC Hgb Hct MCHC RDW Plt Count Lymph % (Auto) Lymph # (Auto) Seg Neutrophils % Seg Neuts % (Manual) Lymphocytes % (Manual) Seg Neutrophils # Seg Neutrophils # Man Lymphocytes # (Manual) ABG pH POC ABG pCO2 ABG Hemoglobin ABG Sodium ABG Potassium ABG Glucose VBG pH Carboxyhemoglobin Sodium Potassium Chloride 107.3 H Carbon Dioxide BUN 24 H Creatinine Glucose 140 H POC Glucose 65 L 134 H Hemoglobin A1c Calcium 7.7 L Magnesium Alkaline Phosphatase Total Creatine Kinase Total Protein Albumin Arterial Blood Glucose Arterial Blood Ionized Calcium Urine WBC (Auto) Urine Creatinine Urine Total Protein 03/03/21 03/03/21 03/03/21 11:43 17:08 22:42 WBC RBC Hgb Hct MCHC RDW Plt Count Lymph % (Auto) Lymph # (Auto) Seg Neutrophils % Seg Neuts % (Manual) Lymphocytes % (Manual) Seg Neutrophils # Seg Neutrophils # Man Lymphocytes # (Manual) ABG pH POC ABG pCO2 ABG Hemoglobin ABG Sodium ABG Potassium ABG Glucose VBG pH Carboxyhemoglobin Sodium Potassium Chloride Carbon Dioxide BUN Creatinine Glucose POC Glucose 211 H 128 H 191 H Hemoglobin A1c Calcium Magnesium Alkaline Phosphatase Total Creatine Kinase Total Protein Albumin Arterial Blood Glucose Arterial Blood Ionized Calcium Urine WBC (Auto) Urine Creatinine Urine Total Protein 03/04/21 03/04/21 03/04/21 07:20 08:15 08:15 WBC 11.5 H RBC Hgb Hct MCHC 31 L RDW 16.4 H Plt Count Lymph % (Auto) Lymph # (Auto) Seg Neutrophils % Seg Neuts % (Manual) 83.0 H Lymphocytes % (Manual) 8.0 L Seg Neutrophils # Seg Neutrophils # Man 9.5 H Lymphocytes # (Manual) 0.9 L ABG pH POC ABG pCO2 ABG Hemoglobin ABG Sodium ABG Potassium ABG Glucose VBG pH Carboxyhemoglobin Sodium Potassium Chloride Carbon Dioxide BUN 21 H Creatinine Glucose 199 H POC Glucose 165 H Hemoglobin A1c Calcium 8.1 L Magnesium Alkaline Phosphatase Total Creatine Kinase Total Protein 5.3 L Albumin 2.0 L Arterial Blood Glucose Arterial Blood Ionized Calcium Urine WBC (Auto) Urine Creatinine Urine Total Protein 03/04/21 03/04/21 03/04/21 10:29 16:40 21:41 WBC RBC Hgb Hct MCHC RDW Plt Count Lymph % (Auto) Lymph # (Auto) Seg Neutrophils % Seg Neuts % (Manual) Lymphocytes % (Manual) Seg Neutrophils # Seg Neutrophils # Man Lymphocytes # (Manual) ABG pH POC ABG pCO2 ABG Hemoglobin ABG Sodium ABG Potassium ABG Glucose VBG pH Carboxyhemoglobin Sodium Potassium Chloride Carbon Dioxide BUN Creatinine Glucose POC Glucose 265 H 191 H 284 H Hemoglobin A1c Calcium Magnesium Alkaline Phosphatase Total Creatine Kinase Total Protein Albumin Arterial Blood Glucose Arterial Blood Ionized Calcium Urine WBC (Auto) Urine Creatinine Urine Total Protein 03/05/21 03/05/21 03/05/21 07:05 07:25 10:47 WBC RBC Hgb Hct MCHC RDW Plt Count Lymph % (Auto) Lymph # (Auto) Seg Neutrophils % Seg Neuts % (Manual) Lymphocytes % (Manual) Seg Neutrophils # Seg Neutrophils # Man Lymphocytes # (Manual) ABG pH POC ABG pCO2 ABG Hemoglobin ABG Sodium ABG Potassium ABG Glucose VBG pH Carboxyhemoglobin Sodium Potassium Chloride Carbon Dioxide 31 H BUN Creatinine Glucose 207 H POC Glucose 203 H 215 H Hemoglobin A1c Calcium 8.2 L Magnesium Alkaline Phosphatase Total Creatine Kinase Total Protein Albumin Arterial Blood Glucose Arterial Blood Ionized Calcium Urine WBC (Auto) Urine Creatinine Urine Total Protein 03/05/21 03/05/21 03/06/21 15:51 21:31 06:30 WBC RBC Hgb 11.3 L Hct 33.3 L MCHC RDW 15.6 H Plt Count 491 H Lymph % (Auto) 10.5 L Lymph # (Auto) 1.1 L Seg Neutrophils % 83.6 H Seg Neuts % (Manual) Lymphocytes % (Manual) Seg Neutrophils # 8.9 H Seg Neutrophils # Man Lymphocytes # (Manual) ABG pH POC ABG pCO2 ABG Hemoglobin ABG Sodium ABG Potassium ABG Glucose VBG pH Carboxyhemoglobin Sodium Potassium Chloride Carbon Dioxide BUN Creatinine Glucose POC Glucose 185 H 190 H Hemoglobin A1c Calcium Magnesium Alkaline Phosphatase Total Creatine Kinase Total Protein Albumin Arterial Blood Glucose Arterial Blood Ionized Calcium Urine WBC (Auto) Urine Creatinine Urine Total Protein 03/06/21 03/06/21 03/06/21 06:30 07:35 10:58 WBC RBC Hgb Hct MCHC RDW Plt Count Lymph % (Auto) Lymph # (Auto) Seg Neutrophils % Seg Neuts % (Manual) Lymphocytes % (Manual) Seg Neutrophils # Seg Neutrophils # Man Lymphocytes # (Manual) ABG pH POC ABG pCO2 ABG Hemoglobin ABG Sodium ABG Potassium ABG Glucose VBG pH Carboxyhemoglobin Sodium Potassium Chloride Carbon Dioxide 31 H BUN Creatinine Glucose 110 H POC Glucose 144 H 217 H Hemoglobin A1c Calcium Magnesium Alkaline Phosphatase 147 H Total Creatine Kinase Total Protein Albumin 2.7 L Arterial Blood Glucose Arterial Blood Ionized Calcium Urine WBC (Auto) Urine Creatinine Urine Total Protein 03/06/21 03/07/21 03/07/21 21:16 07:42 09:47 WBC RBC Hgb Hct MCHC RDW Plt Count Lymph % (Auto) Lymph # (Auto) Seg Neutrophils % Seg Neuts % (Manual) Lymphocytes % (Manual) Seg Neutrophils # Seg Neutrophils # Man Lymphocytes # (Manual) ABG pH POC ABG pCO2 ABG Hemoglobin ABG Sodium ABG Potassium ABG Glucose VBG pH Carboxyhemoglobin Sodium Potassium Chloride Carbon Dioxide BUN Creatinine Glucose POC Glucose 265 H 49 L 181 H Hemoglobin A1c Calcium Magnesium Alkaline Phosphatase Total Creatine Kinase Total Protein Albumin Arterial Blood Glucose Arterial Blood Ionized Calcium Urine WBC (Auto) Urine Creatinine Urine Total Protein 03/07/21 12:11 WBC RBC Hgb Hct MCHC RDW Plt Count Lymph % (Auto) Lymph # (Auto) Seg Neutrophils % Seg Neuts % (Manual) Lymphocytes % (Manual) Seg Neutrophils # Seg Neutrophils # Man Lymphocytes # (Manual) ABG pH POC ABG pCO2 ABG Hemoglobin ABG Sodium ABG Potassium ABG Glucose VBG pH Carboxyhemoglobin Sodium Potassium Chloride Carbon Dioxide BUN Creatinine Glucose POC Glucose 132 H Hemoglobin A1c Calcium Magnesium Alkaline Phosphatase Total Creatine Kinase Total Protein Albumin Arterial Blood Glucose Arterial Blood Ionized Calcium Urine WBC (Auto) Urine Creatinine Urine Total Protein Allied health notes reviewed: nursing
--- NOTE | 2021-03-07 17:14 | Gastroenterology Consultation ---
History of Present Illness - Reason for Consult Consult date: 03/07/21 retroperitoneal air Requesting physician: KINA MEADOWS - History of Present Illness The patient is a 60 yo aam who presented in DKA found to have severe emphysematous pyelonephritis and with retroperitoneal air. he has been having surveillance CT scans with most recent ct scan showing improvement in degree of free air seen. he is a poor historian but denies any gi complaints including abd pain, n/v, bowel habit changes. he was recently diagnosed with diabetes and has not been on home tx. Past History Past Medical History: diabetes Past Surgical History: No surgical history Social history: no significant social history Family history: no significant family history Medications and Allergies Allergies Allergy/AdvReac Type Severity Reaction Status Date / Time No Known Allergies Allergy Unverified 02/28/21 06:57 Home Medications Medication Instructions Recorded Confirmed Last Taken Type Tamsulosin [Flomax] 2 cap QDAY 02/26/21 02/26/21 Unknown History Lantus VIAL 10 units SC HS 03/07/21 03/07/21 02/25/21 History Active Meds: Active Medications Acetaminophen (Acetaminophen 325 Mg Tab) 650 mg PO Q6H PRN PRN Reason: Pain MILD(1-3)/Fever >100.5/MATHUR Dextrose (Dextrose 50% In Water (25gm) 50 Ml Syringe) 50 ml IV Q30MIN PRN; Protocol PRN Reason: Hypoglycemia Last Admin: 03/07/21 08:12 Dose: 20 ml Documented by: Heparin Sodium (Porcine) (Heparin 5,000 Unit/1 Ml Vial) 5,000 unit SUB-Q Q8HR ROSELIA Last Admin: 03/07/21 05:32 Dose: 5,000 unit Documented by: Ceftriaxone Sodium (Rocephin/Ns 2 Gm/100 Ml) 2 gm in 100 mls @ 200 mls/hr IV Q24H ROSELIA; Protocol Stop: 03/18/21 12:29 Last Admin: 03/07/21 12:07 Dose: 200 mls/hr Documented by: Insulin Glargine (Insulin Glargine 100 Units/Ml) 25 units SUB-Q QHS ROSELIA Last Admin: 03/06/21 22:15 Dose: 25 units Documented by: Insulin Human Lispro (Insulin Lispro 100 Unit/Ml) 0 unit SUB-Q ACHS ROSELIA; Protocol Last Admin: 03/07/21 12:24 Dose: Not Given Documented by: Insulin Human Lispro (Insulin Lispro 100 Unit/Ml) 5 unit SUB-Q AC [facility] Last Admin: 03/07/21 13:09 Dose: 5 unit Documented by: Morphine Sulfate (Morphine 2 Mg/1 Ml Inj) 2 mg IV Q4H PRN PRN Reason: Pain, Moderate (4-6) Morphine Sulfate (Morphine 4 Mg/1 Ml Inj) 4 mg IV Q4H PRN PRN Reason: Pain , Severe (7-10) Sodium Chloride (Sodium Chloride 0.9% 10 Ml Flush Syringe) 10 ml IV BID [facility] Last Admin: 03/07/21 11:58 Dose: 10 ml Documented by: Sodium Chloride (Sodium Chloride 0.9% 10 Ml Flush Syringe) 10 ml IV PRN PRN PRN Reason: LINE FLUSH Tamsulosin HCl (Tamsulosin 0.4 Mg Cap) 0.8 mg PO QDAY [facility] Last Admin: 03/07/21 11:57 Dose: 0.8 mg Documented by: reviewed/updated patient's home and current medications Review of Systems - Review of Systems All systems: negative (per HPI) Exam - Constitutional Vital Signs: Temp Pulse Resp BP Pulse Ox 98.8 F 83 20 140/83 99 03/07/21 12:13 03/07/21 12:13 03/07/21 12:13 03/07/21 12:13 03/07/21 12:13 General appearance: other (thin male, nad) - Respiratory Respiratory effort: normal Respiratory: bilateral: CTA - Cardiovascular Rhythm: regular Heart Sounds: Present: S1 & S2 - Gastrointestinal General gastrointestinal: Present: soft, non-tender, non-distended - Neurologic Neurological: alert and oriented x3 - Psychiatric Psychiatric: appropriate mood/affect - Labs CBC & Chem 7: 03/06/21 06:30 03/06/21 06:30 Lab Results: Laboratory Results - last 24 hr 03/06/21 03/07/21 03/07/21 21:16 07:42 09:47 POC Glucose 265 H 49 L 181 H 03/07/21 12:11 POC Glucose 132 H - Imaging CT Scan: report reviewed Assessment and Plan retroperitoneal free air - no gi complaints, in setting of severe right sided pyelonephritis. no gi recommendations or endoscopic work-up appropriate at this time. further management per urology/primary. if there is concern about worsening free air or felt to be outside urology source, then can consider surgery eval but he has a benign abdomen on exam when I saw him. will sign off, please call as needed
--- NOTE | 2021-03-07 17:46 | Progress Note ---
Assessment and Plan Assessment and plan: 60-year-old -Luxembourger male with known history of diabetes mellitus presents to the emergency room today complaining of generalized weakness and elevated blood glucose at home. Patient was diagnosed with diabetes mellitus about 2 weeks ago for which she was admitted to [facility] and states he has been out of his insulin for the past 3 to 4 days. He was also noted to have a urinary retention and sent home on Hernandez catheter which was removed at the urologist office about 3 days prior to this admission. Patient was a instructed to do self caths which she did not. He was able to void some urine however. Family had called EMS and patient was subsequently brought to the emergency room. Blood glucose was said to be reading high in route to the hospital. Patient was given IV normal saline in route to the hospital. Work-up in the emergency room reveals that patient is in DKA. He has been started on insulin drip and IV fluid. CT abdomen and pelvis 1. Free air within and surrounding the right kidney and tracking in the right retroperitoneum. Exam is severely limited with lack of intravenous contrast and intra-abdominal fat but the air does not seem to extend into the peritoneum. Findings are highly worrisome for an infectious/inflammatory process such as emphysematous pyelonephritis. DKA- Resolved Emphysematous pyelonephritis possible Acute cystitis Acute metabolic encephalopathy now resolved Acute kidney injury on chronic kidney disease unknown stage BPH, urinary retention requiring indwelling Hernandez during recent admission 2 weeks ago Hernandez removed at urologist office 3 days OPERATIONS COORDINATOR and was instructed to perform self bladder caths Plan Continue supportive care 02/28: Discussed with Urologist, still thinking he may need surgery, WILL GET RENAL NUCLEAR FUNCTION SCAN. Discussed with daughter and patient, CULTURES SHOW ING k PNEUMONIA. Residential Program Director input noted and appreciated ID consulted for acute cystitis Discussed with urologist this morning per night physician Bryce urologist recommended patient be monitored. We will proceed with repeat CT and urologist recommendation and if consistent symptoms patient will need evaluation by them in a.m. Discussed with family Continue IMCU care. 03/01/21; patient is on IV meropenem per ID recommendation. Wound culture grew Klebsiella pneumoniae. Renal function is improving. Patient need evaluation by urologist. Patient is going to have ultrasound this morning. We will continue to monitor. Urology saw the patient and said waiting for the renal scan to be done. Still considering right nephrectomy. Patient said he does not want nephrectomy. 03/02/2021: Patient actually doing well. Is on meropenem for emphysematous follow nephritis, responding well to antibiotic therapy. ID planning to change to ceftriaxone from tomorrow. Blood cultures negative to date. No abdominal pain CVA tenderness. Afebrile with stable vital signs. DKA resolved. Blood glucose improving. Renal function scan apparently was performed on 03/01 but I am unable to open the report. Urology is following, nephrectomy was originally considered. 03/03/2021: Patient remains afebrile. Stable signs. Clear good urine output via Hernandez. No abdominal/CVA tenderness. Clinically, does not appear to be toxic. No bacteremia. ID changed meropenem to Rocephin today. Urology is following, may need nephrectomy. 03/04/2021: Patient is clinically doing well. Does not appear to be toxic or septic. Meropenem changed to Rocephin on 03/03. He has no complaints. No abdominal pain or tenderness. No nausea or vomiting. No CVA tenderness. Discussed with urology, nephrectomy deferred due to clinical improvement. 03/05/2021: Patient continues doing well. Leukocytosis almost gone. Blood cultures negative . No abdominal/CVA pain/tenderness. No nausea or vomiting. Good urine output via Hernandez. Meropenem changed to Rocephin on 03/03 by ID. ID closely following. Urology following, nephrectomy deferred due to significant clinical improvement. Will repeat CT abdomen. 03/06/2021: Patient continues to do well, afebrile without nausea or abdominal pains. Good urine output, clear urine. Leukocytosis resolved. CT abdomen repeated today showed improvement of the volume of the air within the right kidney and in the retroperitoneum. Nuclear renal scan showed equal function in both kidneys. Will discuss with urology. ID recommends continuation of IV Rocephin until 03/18/2021. Patient was diagnosed with obstructive uropathy/urinary retention requiring indwelling Hernandez catheter during recent admission to [facility] to explain to this admission. Hernandez was removed at urologist office 3 days OPERATIONS COORDINATOR but patient did not perform self lateral cath as he was instructed. This appears to have provoked UTI/pyelonephritis as well as DKA along with noncompliance with insulin for glycemic control. 03/07/2021: Patient continues to do well, afebrile with stable vital signs. No complaints. Indwelling Hernandez for urine retention. Abdomen feels benign. No CVA tenderness. Discussed with urology again today, no need for nephrectomy since clinically improved so well with a normal renal function on nuclear scan. Urology requested GI consult to rule out an alternative source of retroperitoneal air leak. Possible discharge tomorrow if cleared by ID for close outpatient follow-up with ID and urology. Patient is a newly diagnosed diabetic and recently diagnosed with urinary retention. He was noncompliant with the self bladder caths. Will benefit from home nurse visits. History Interval history: Patient continues to do well. Does not have much complaints. No nausea or abdominal pains. Leukocytosis resolved. MAXIMO resolved. Vitals signs stable and afebrile. Blood glucose improving, and episode of hypoglycemia this morning. Tolerating diet. Is eager to go home actually. CT abdomen repeated showing some improvement of air volume within the right kidney and in the retroperitoneum. No need for nephrectomy per urology since clinically doing so well. Urology requested GI consult for possible alternate source of retroperitoneal air. Hospitalist Physical - Constitutional Vitals: Temp Pulse Resp BP Pulse Ox 98.8 F 83 20 140/83 99 03/07/21 12:13 03/07/21 12:13 03/07/21 12:13 03/07/21 12:13 03/07/21 12:13 General appearance: Present: no acute distress, other (Fully alert and orient ed.) - EENT Eyes: Present: PERRL, EOM intact ENT: clear oral mucosa - Neck Neck: Present: supple - Respiratory Respiratory effort: normal Respiratory: bilateral: CTA - Cardiovascular Rhythm: regular - Extremities Extremities: No edema - Abdominal General gastrointestinal: soft, non-tender, non-distended, normal bowel sounds, other (Hernandez in place with a dilute urine) - Integumentary Integumentary: Absent: rash - Psychiatric Psychiatric: appropriate mood/affect - Neurologic Neurologic: no focal deficits HEART Score - HEART Score Troponin: Troponin T < 0.010 ng/mL (0.00-0.029) 02/25/21 22:48 Results - Labs CBC & Chem 7: 03/06/21 06:30 03/06/21 06:30 Labs: Laboratory Last Values WBC 10.7 K/mm3 (4.5-11.0) 03/06/21 06:30 RBC 3.72 M/mm3 (3.65-5.03) 03/06/21 06:30 Hgb 11.3 gm/dl (11.8-15.2) L 03/06/21 06:30 Hct 33.3 % (35.5-45.6) L 03/06/21 06:30 MCV 90 fl (84-94) 03/06/21 06:30 MCH 31 pg (28-32) 03/06/21 06:30 MCHC 34 % (32-34) 03/06/21 06:30 RDW 15.6 % (13.2-15.2) H 03/06/21 06:30 Plt Count 491 K/mm3 (140-440) H 03/06/21 06:30 Lymph % (Auto) 10.5 % (13.4-35.0) L 03/06/21 06:30 [place] % (Auto) 4.9 % (0.0-7.3) 03/06/21 06:30 Eos % (Auto) 0.6 % (0.0-4.3) 03/06/21 06:30 Baso % (Auto) 0.4 % (0.0-1.8) 03/06/21 06:30 Lymph # (Auto) 1.1 K/mm3 (1.2-5.4) L 03/06/21 06:30 [place] # (Auto) 0.5 K/mm3 (0.0-0.8) 03/06/21 06:30 Eos # (Auto) 0.1 K/mm3 (0.0-0.4) 03/06/21 06:30 Baso # (Auto) 0.0 K/mm3 (0.0-0.1) 03/06/21 06:30 Add Manual Diff Complete 03/04/21 08:15 Total Counted 100 03/04/21 08:15 Seg Neutrophils % 83.6 % (40.0-70.0) H 03/06/21 06:30 Seg Neuts % (Manual) 83.0 % (40.0-70.0) H 03/04/21 08:15 Band Neutrophils % 4.0 % 03/04/21 08:15 Lymphocytes % (Manual) 8.0 % (13.4-35.0) L 03/04/21 08:15 Reactive Lymphs % (Man) 1.0 % 03/02/21 05:45 Monocytes % (Manual) 2.0 % (0.0-7.3) 03/04/21 08:15 Eosinophils % (Manual) 1.0 % (0.0-4.3) 03/04/21 08:15 Metamyelocytes % 1.0 % 03/02/21 05:45 Myelocytes % 2.0 % 03/04/21 08:15 Nucleated RBC % Not Reportable 03/04/21 08:15 Seg Neutrophils # 8.9 K/mm3 (1.8-7.7) H 03/06/21 06:30 Seg Neutrophils # Man 9.5 K/mm3 (1.8-7.7) H 03/04/21 08:15 Band Neutrophils # 0.5 K/mm3 03/04/21 08:15 Lymphocytes # (Manual) 0.9 K/mm3 (1.2-5.4) L 03/04/21 08:15 Abs React Lymphs (Man) 0.0 K/mm3 03/04/21 08:15 Monocytes # (Manual) 0.2 K/mm3 (0.0-0.8) 03/04/21 08:15 Eosinophils # (Manual) 0.1 K/mm3 (0.0-0.4) 03/04/21 08:15 Basophils # (Manual) 0.0 K/mm3 (0.0-0.1) 03/04/21 08:15 Metamyelocytes # 0.0 K/mm3 03/04/21 08:15 Myelocytes # 0.2 K/mm3 03/04/21 08:15 Promyelocytes # 0.0 K/mm3 03/04/21 08:15 Blast Cells # 0.0 K/mm3 03/04/21 08:15 WBC Morphology Not Reportable 03/04/21 08:15 Hypersegmented Neuts Not Reportable 03/04/21 08:15 Hyposegmented Neuts Not Reportable 03/04/21 08:15 Hypogranular Neuts Not Reportable 03/04/21 08:15 Smudge Cells Not Reportable 03/04/21 08:15 Toxic Granulation Not Reportable 03/04/21 08:15 Toxic Vacuolation Not Reportable 03/04/21 08:15 Dohle Bodies Not Reportable 03/04/21 08:15 Pelger-Huet Anomaly Not Reportable 03/04/21 08:15 Nayeli Rods Not Reportable 03/04/21 08:15 Platelet Estimate Consistent w auto 03/04/21 08:15 Clumped Platelets Not Reportable 03/04/21 08:15 Plt Clumps, EDTA Not Reportable 03/04/21 08:15 Large Platelets Not Reportable 03/04/21 08:15 Giant Platelets Not Reportable 03/04/21 08:15 Platelet Satelliting Not Reportable 03/04/21 08:15 Plt Morphology Comment Not Reportable 03/04/21 08:15 RBC Morphology Not Reportable 03/04/21 08:15 Dimorphic RBCs Not Reportable 03/04/21 08:15 Polychromasia Few 03/04/21 08:15 Hypochromasia Not Reportable 03/04/21 08:15 Poikilocytosis Not Reportable 03/04/21 08:15 Anisocytosis Few 03/04/21 08:15 Microcytosis Not Reportable 03/04/21 08:15 Macrocytosis Few 03/04/21 08:15 Spherocytes Not Reportable 03/04/21 08:15 Pappenheimer Bodies Not Reportable 03/04/21 08:15 Sickle Cells Not Reportable 03/04/21 08:15 Target Cells Not Reportable 03/04/21 08:15 Tear Drop Cells Not Reportable 03/04/21 08:15 Ovalocytes Not Reportable 03/04/21 08:15 Helmet Cells Not Reportable 03/04/21 08:15 Montalvo-Baywood Bodies Not Reportable 03/04/21 08:15 [place] Rings Not Reportable 03/04/21 08:15 Dank Cells Not Reportable 03/04/21 08:15 Bite Cells Not Reportable 03/04/21 08:15 Crenated Cell Not Reportable 03/04/21 08:15 Elliptocytes Not Reportable 03/04/21 08:15 Acanthocytes (Spur) Not Reportable 03/04/21 08:15 Rouleaux Not Reportable 03/04/21 08:15 Hemoglobin C Crystals Not Reportable 03/04/21 08:15 Schistocytes Not Reportable 03/04/21 08:15 Malaria parasites Not Reportable 03/04/21 08:15 Christiano Bodies Not Reportable 03/04/21 08:15 Hem Pathologist Commnt No 03/04/21 08:15 PT 13.6 Sec. (12.2-14.9) 02/28/21 18:48 INR 0.99 (0.87-1.13) 02/28/21 18:48 APTT 27.9 Sec. (24.2-36.6) 02/28/21 18:48 ABG pH 7.518 (7.320-7.450) H 03/01/21 10:56 POC ABG pCO2 27.2 mmHg (32.0-48.0) L 03/01/21 10:56 POC ABG pO2 84.0 mmHg (83-108) 03/01/21 10:56 POC ABG HCO3 21.6 03/01/21 10:56 ABG O2 Saturation 97.1 (0-100) 03/01/21 10:56 POC ABG Base Excess -0.4 03/01/21 10:56 ABG Hemoglobin 10.9 (12.0-17.5) L 03/01/21 10:56 ABG Oxyhemoglobin 96.4 (94-98) 03/01/21 10:56 ABG Methemoglobin 0.3 (0.0-1.5) 03/01/21 10:56 ABG Sodium 134.6 mmol/L (136.0-145.0) L 03/01/21 10:56 ABG Potassium 2.8 mmol/L (3.40-4.50) L 03/01/21 10:56 ABG Chloride 106.0 mmol/L (98-107) 03/01/21 10:56 ABG Glucose 144 mg/dL (65-95) H 03/01/21 10:56 VBG pH 7.316 (7.320-7.420) L 02/25/21 22:48 Carboxyhemoglobin 0.4 (0.5-1.5) L 03/01/21 10:56 FiO2 % 21.0 03/01/21 10:56 Sodium 142 mmol/L (137-145) 03/06/21 06:30 Potassium 3.9 mmol/L (3.6-5.0) 03/06/21 06:30 Chloride 104.1 mmol/L (98-107) 03/06/21 06:30 Carbon Dioxide 31 mmol/L (22-30) H 03/06/21 06:30 Anion Gap 11 mmol/L 03/06/21 06:30 BUN 19 mg/dL (9-20) 03/06/21 06:30 Creatinine 0.9 mg/dL (0.8-1.3) 03/06/21 06:30 Estimated GFR > 60 ml/min 03/06/21 06:30 BUN/Creatinine Ratio 21 % 03/06/21 06:30 Glucose 110 mg/dL (75-100) H 03/06/21 06:30 POC Glucose 132 mg/dL (70-105) H 03/07/21 12:11 Hemoglobin A1c 14.2 % (4-6) H 02/26/21 02:40 Calcium 8.9 mg/dL (8.4-10.2) 03/06/21 06:30 Phosphorus 2.50 mg/dL (2.5-4.5) D 02/26/21 02:40 Magnesium 2.00 mg/dL (1.7-2.3) 02/27/21 04:18 Total Bilirubin 0.30 mg/dL (0.1-1.2) 03/06/21 06:30 AST 18 units/L (5-40) 03/06/21 06:30 ALT 20 units/L (7-56) 03/06/21 06:30 Alkaline Phosphatase 147 units/L (35-129) H 03/06/21 06:30 Total Creatine Kinase 37 units/L (55-170) L 02/25/21 22:48 Troponin T < 0.010 ng/mL (0.00-0.029) 02/25/21 22:48 Total Protein 6.6 g/dL (6.3-8.2) D 03/06/21 06:30 Albumin 2.7 g/dL (3.9-5) L 03/06/21 06:30 Albumin/Globulin Ratio 0.7 % 03/06/21 06:30 Arterial Blood Glucose 144 mg/dL (65-95) H 03/01/21 10:56 Arterial Blood Ionized Calcium 4.5 mg/dL (4.6-5.3) L 03/01/21 10:56 Urine Color Yellow (Yellow) 02/26/21 18:00 Urine Turbidity Turbid (Clear) 02/26/21 18:00 Urine pH 6.0 (5.0-7.0) 02/26/21 18:00 Ur Specific [place] 1.013 (1.003-1.030) 02/26/21 18:00 Urine Protein 100 mg/dl mg/dL (Negative) 02/26/21 18:00 Urine Glucose (UA) >=500 mg/dL (Negative) 02/26/21 18:00 Urine Ketones Tr mg/dL (Negative) 02/26/21 18:00 Urine Blood Lg (Negative) 02/26/21 18:00 Urine Nitrite Neg (Negative) 02/26/21 18:00 Urine Bilirubin Neg (Negative) 02/26/21 18:00 Urine Urobilinogen < 2.0 mg/dL (<2.0) 02/26/21 18:00 Ur Leukocyte Esterase Lg (Negative) 02/26/21 18:00 Urine WBC (Auto) > 182.0 /HPF (0.0-6.0) H 02/26/21 18:00 Urine RBC (Auto) 41.0 /HPF (0.0-6.0) 02/26/21 18:00 U Epithel Cells (Auto) 1.0 /HPF (0-13.0) 02/26/21 12:00 Urine Bacteria (Auto) 2+ /HPF (Negative) 02/26/21 12:00 Urine WBC Clumps 3+ /HPF 02/26/21 18:00 Urine Mucus Few /HPF 02/26/21 18:00 Urine Yeast (Budding) 3+ /HPF 02/26/21 18:00 Urine Creatinine 26.8 mg/dL (0.1-20.0) H 02/26/21 12:00 Protein/Creatinin Ratio 1.75 02/26/21 12:00 Urine Sodium 29 mmol/L 02/26/21 12:00 Urine Total Protein 47 mg/dL (5-11.8) H 02/26/21 12:00 Nasal Screen MRSA (PCR) Positive (Negative) 02/28/21 Unknown Hernandez/IV: Voiding Method Condom Catheter Active Medications - Current Medications Current Medications: Generic Name Dose Route Start Last Admin Trade Name Freq PRN Reason Stop Dose Admin Acetaminophen 650 mg 02/26/21 00:36 Acetaminophen 325 Mg Tab PO Q6H PRN Pain MILD(1-3)/Fever >100.5/MATHUR Dextrose 50 ml 02/25/21 23:47 03/07/21 08:12 Dextrose 50% In Water (25gm) 50 Ml Syringe IV 20 ml Q30MIN PRN Administration Hypoglycemia Protocol Heparin Sodium (Porcine) 5,000 unit 02/26/21 06:00 03/07/21 05:32 Heparin 5,000 Unit/1 Ml Vial SUB-Q 5,000 unit Q8HR ROSELIA Administration Ceftriaxone Sodium 2 gm in 100 mls @ 200 mls/hr 03/03/21 12:00 03/07/21 12:07 Rocephin/Ns 2 Gm/100 Ml IV 03/18/21 12:29 200 mls/hr Q24H ROSELIA Administration Protocol Insulin Glargine 25 units 03/05/21 22:00 03/06/21 22:15 Insulin Glargine 100 Units/Ml SUB-Q 25 units QHS ROSELIA Administration Insulin Human Lispro 0 unit 02/27/21 11:30 03/07/21 12:24 Insulin Lispro 100 Unit/Ml SUB-Q Not Given ACHS ROSELIA Protocol Insulin Human Lispro 5 unit 03/07/21 11:30 03/07/21 13:09 Insulin Lispro 100 Unit/Ml SUB-Q 5 unit AC ROSELIA Administration Morphine Sulfate 2 mg 02/26/21 00:36 Morphine 2 Mg/1 Ml Inj IV Q4H PRN Pain, Moderate (4-6) Morphine Sulfate 4 mg 02/26/21 00:36 Morphine 4 Mg/1 Ml Inj IV Q4H PRN Pain , Severe (7-10) Sodium Chloride 10 ml 02/26/21 10:00 03/07/21 11:58 Sodium Chloride 0.9% 10 Ml Flush Syringe IV 10 ml BID ROSELIA Administration Sodium Chloride 10 ml 02/26/21 00:36 Sodium Chloride 0.9% 10 Ml Flush Syringe IV PRN PRN LINE FLUSH Tamsulosin HCl 0.8 mg 02/26/21 16:00 03/07/21 11:57 Tamsulosin 0.4 Mg Cap PO 0.8 mg QDAY ROSELIA Administration Nutrition/Malnutrition Assess - Dietary Evaluation Nutrition/Malnutrition Findings: Nutrition Notes Start: 02/26/21 13:01 Freq: Status: Active Protocol: Document 03/04/21 12:37 (Rec: 03/04/21 12:39 [id number]) Nutrition Notes Initial or Follow up Reassessment Current Diagnosis CKD(stage I-IV),Diabetes Other Pertinent Diagnosis DKA Current Diet Consistent CHO Labs/Tests BG 199 Pertinent Medications Lantus Height 5 ft 10 in Weight 51.075 kg [place] Body Weight (kg) 75.45 BMI 16.1 Weight Status Underweight Subjective/Other Information FU for intakes. Pt consuming 100% of meals and ONS. Percent of energy/protein needs met: 100%/100% Burn Absent Trauma Absent Current % PO Good (75-100%) Minimum of two criteria No #2 Nutrition Diagnosis Inadequate oral intake As Evidenced by Signs and Symptoms pt eating 100% of meals Diagnosis Progress(for reassessment Resolved documentation) Is patient on ventilator? No Is Patient Ambulatory and/or Out of Bed No REE-([facility]-confined to bed) 8067.537 Calculation Used for Recommendations [facility] Additional Notes Protein: (0.8-0.9g/kg) 41-46g Fluid: 1 ml/kcal or per MD Nutrition Intervention Change Diet Order: Continue with food prefrences Add Supplement/Snack (indicate name/kcal Glucerna BID /protein ) Provides kCal: 440 Provides Protein (gm) 20 Goal #1 Meet at least 75% of protein and energy needs via PO and ONS intakes Anticipated Discharge Needs: consistent carbohydrate diet Follow-Up By: 03/11/21 Additional Comments FU for stable intakes
[2021-03-07] MEDS: INSULIN GLARGINE 100 UNITS/ML SUB-Q SCH (22:40)
[2021-03-08] MEDS: HEPARIN 5,000 UNIT/1 ML VIAL SUB-Q SCH (06:00)
[2021-03-08] MEDS: INSULIN LISPRO 100 UNIT/ML SUB-Q SCH ×2 (09:08→09:09)
--- NOTE | 2021-03-08 10:50 | Progress Note ---
Assessment and Plan 60-year-old -[place] male with known history of diabetes mellitus presents to the emergency room today complaining of generalized weakness and elevated blood glucose at home. Patient was diagnosed with diabetes mellitus about 2 weeks ago and states he has been out of his insulin for the past 3 to 4 days. Family had called EMS and patient was subsequently brought to the emergency room. Blood glucose was said to be reading high in route to the hospital. Patient was given IV normal saline in route to the hospital. Work-up in the emergency room reveals that patient is in DKA. He has been started on insulin drip and IV fluid. Patient has history of smoking 1 pack/40 years. 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 No known drug allergies. Patients Anion gap improved. Anion gap 11. Blood sugur 197 Patient alert, awake. Resting on room air. O2 saturation 97%. No complaint of chest pain, shortness of breath or cough. Patient Low grade temp at times. No leukocytosis. Chest xray 02/25/21 reported no acute findings. Patient is on ceftriaxone, S/C Heparin, S/C Insulin. Patient may discharge to day. If patient discharged. If any pulmonary help needed, Can Follow with me as an out patient - Patient Problems (1) Diabetic ketoacidosis Current Visit: Yes Status: Acute Qualifiers: Diabetes mellitus type: type 2 Diabetes mellitus complication detail: without coma Qualified Code(s): E11.10 - Type 2 diabetes mellitus with ketoacidosis without coma Plan to address problem: Patient improving. Anion gap improved. 11, Blood sugar today 197 Management as per primary care. (2) Metabolic acidosis Current Visit: Yes Status: Acute Plan to address problem: Improved, AG is 11 today. BG is 197. (3) Renal failure Current Visit: Yes Status: Acute Qualifiers: Renal failure chronicity: acute Acute renal failure type: unspecified Qualified Code(s): N17.9 - Acute kidney failure, unspecified Plan to address problem: Management as per nephrology. Subjective Date of service: 03/08/21 Principal diagnosis: DKA; Emphysematous pyelonephritis; Acute encephalopathy; MAXIMO; BPH Interval history: 60-year-old -[place] male with known history of diabetes mellitus presents to the emergency room today complaining of generalized weakness and elevated blood glucose at home. Patient was diagnosed with diabetes mellitus about 2 weeks ago and states he has been out of his insulin for the past 3 to 4 days. Family had called EMS and patient was subsequently brought to the emergency room. Blood glucose was said to be reading high in route to the hospital. Patient was given IV normal saline in route to the hospital. Work-up in the emergency room reveals that patient is in DKA. He has been started on insulin drip and IV fluid. Patient has history of smoking 1 pack/40 years. 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 No known drug allergies. Patients Anion gap improved. Anion gap 11. Blood sugur 197 Patient alert, awake. Resting on room air. O2 saturation 97%. No complaint of chest pain, shortness of breath or cough. Patient Low grade temp at times. No leukocytosis. Chest xray 02/25/21 reported no acute findings. Patient is on ceftriaxone, S/C Heparin, S/C Insulin. Patient may discharge to day. If patient discharged. If any pulmonary help needed, Can Follow with me as an out patient Objective Vital Signs - 12hr 03/08/21 05:19 Temperature 98.4 F Pulse Rate 77 Respiratory 18 Rate Blood Pressure 104/66 O2 Sat by Pulse 97 Oximetry Constitutional: no acute distress, alert Eyes: non-icteric ENT: oropharynx moist Neck: supple, no lymphadenopathy, no JVD Effort: normal Ascultation: Bilateral: diminished breath sounds Percussion: Bilateral: not dull Cardiovascular: regular rate and rhythm, other (S1,S2) Gastrointestinal: normoactive bowel sounds, soft, non-tender, non-distended Integumentary: other (poor skin turgor) Extremities: no cyanosis, no edema, pulses normal, no ischemia or petechiae Neurologic: normal mental status, non-focal exam, pupils equal and round, CN II-XII normal Psychiatric: mood appropriate, affect normal CBC and BMP: 03/06/21 06:30 03/06/21 06:30 ABG, PT/INR, D-dimer: ABG ABG pH 7.518 (7.320-7.450) H 03/01/21 10:56 POC ABG pCO2 27.2 mmHg (32.0-48.0) L 03/01/21 10:56 POC ABG pO2 84.0 mmHg (83-108) 03/01/21 10:56 POC ABG HCO3 21.6 03/01/21 10:56 ABG O2 Saturation 97.1 (0-100) 03/01/21 10:56 PT/INR, D-dimer PT 13.6 Sec. (12.2-14.9) 02/28/21 18:48 INR 0.99 (0.87-1.13) 02/28/21 18:48 Abnormal lab findings: Abnormal Labs 02/25/21 02/25/21 02/25/21 22:31 22:48 22:48 WBC 24.1 H RBC Hgb 11.5 L Hct MCHC RDW Plt Count Lymph % (Auto) Lymph # (Auto) Seg Neutrophils % Seg Neuts % (Manual) 95.0 H Lymphocytes % (Manual) Seg Neutrophils # Seg Neutrophils # Man 22.9 H Lymphocytes # (Manual) 0.0 L ABG pH POC ABG pCO2 ABG Hemoglobin ABG Sodium ABG Potassium ABG Glucose VBG pH Carboxyhemoglobin Sodium 126 L Potassium Chloride 88.8 L Carbon Dioxide 18 L BUN 75 H Creatinine 2.1 H Glucose 938 H* POC Glucose > 600 H Hemoglobin A1c Calcium Magnesium Alkaline Phosphatase 201 H Total Creatine Kinase 37 L Total Protein Albumin 2.9 L Arterial Blood Glucose Arterial Blood Ionized Calcium Urine WBC (Auto) Urine Creatinine Urine Total Protein 02/25/21 02/25/21 02/26/21 22:48 23:52 01:21 WBC RBC Hgb Hct MCHC RDW Plt Count Lymph % (Auto) Lymph # (Auto) Seg Neutrophils % Seg Neuts % (Manual) Lymphocytes % (Manual) Seg Neutrophils # Seg Neutrophils # Man Lymphocytes # (Manual) ABG pH POC ABG pCO2 ABG Hemoglobin ABG Sodium ABG Potassium ABG Glucose VBG pH 7.316 L Carboxyhemoglobin Sodium Potassium Chloride Carbon Dioxide BUN Creatinine Glucose POC Glucose > 600 H Hemoglobin A1c Calcium Magnesium 2.80 H Alkaline Phosphatase Total Creatine Kinase Total Protein Albumin Arterial Blood Glucose Arterial Blood Ionized Calcium Urine WBC (Auto) Urine Creatinine Urine Total Protein 02/26/21 02/26/21 02/26/21 02:09 02:40 02:40 WBC RBC Hgb Hct MCHC RDW Plt Count Lymph % (Auto) Lymph # (Auto) Seg Neutrophils % Seg Neuts % (Manual) Lymphocytes % (Manual) Seg Neutrophils # Seg Neutrophils # Man Lymphocytes # (Manual) ABG pH POC ABG pCO2 ABG Hemoglobin ABG Sodium ABG Potassium ABG Glucose VBG pH Carboxyhemoglobin Sodium 131 L Potassium Chloride 96.1 L Carbon Dioxide 17 L BUN 74 H Creatinine 2.1 H Glucose 719 H* POC Glucose > 600 H Hemoglobin A1c 14.2 H Calcium Magnesium Alkaline Phosphatase Total Creatine Kinase Total Protein Albumin Arterial Blood Glucose Arterial Blood Ionized Calcium Urine WBC (Auto) Urine Creatinine Urine Total Protein 02/26/21 02/26/21 02/26/21 02:40 03:58 04:03 WBC RBC Hgb Hct MCHC RDW Plt Count Lymph % (Auto) Lymph # (Auto) Seg Neutrophils % Seg Neuts % (Manual) Lymphocytes % (Manual) Seg Neutrophils # Seg Neutrophils # Man Lymphocytes # (Manual) ABG pH POC ABG pCO2 ABG Hemoglobin ABG Sodium ABG Potassium ABG Glucose VBG pH Carboxyhemoglobin Sodium Potassium Chloride Carbon Dioxide 18 L BUN 71 H Creatinine 2.0 H Glucose 550 H* POC Glucose 544 H Hemoglobin A1c Calcium Magnesium 2.70 H Alkaline Phosphatase Total Creatine Kinase Total Protein Albumin Arterial Blood Glucose Arterial Blood Ionized Calcium Urine WBC (Auto) Urine Creatinine Urine Total Protein 02/26/21 02/26/21 02/26/21 05:01 05:58 07:09 WBC RBC Hgb Hct MCHC RDW Plt Count Lymph % (Auto) Lymph # (Auto) Seg Neutrophils % Seg Neuts % (Manual) Lymphocytes % (Manual) Seg Neutrophils # Seg Neutrophils # Man Lymphocytes # (Manual) ABG pH POC ABG pCO2 ABG Hemoglobin ABG Sodium ABG Potassium ABG Glucose VBG pH Carboxyhemoglobin Sodium Potassium Chloride Carbon Dioxide BUN Creatinine Glucose POC Glucose 439 H 399 H 217 H Hemoglobin A1c Calcium Magnesium Alkaline Phosphatase Total Creatine Kinase Total Protein Albumin Arterial Blood Glucose Arterial Blood Ionized Calcium Urine WBC (Auto) Urine Creatinine Urine Total Protein 02/26/21 02/26/21 02/26/21 08:09 08:12 09:08 WBC RBC Hgb Hct MCHC RDW Plt Count Lymph % (Auto) Lymph # (Auto) Seg Neutrophils % Seg Neuts % (Manual) Lymphocytes % (Manual) Seg Neutrophils # Seg Neutrophils # Man Lymphocytes # (Manual) ABG pH POC ABG pCO2 ABG Hemoglobin ABG Sodium ABG Potassium ABG Glucose VBG pH Carboxyhemoglobin Sodium Potassium Chloride Carbon Dioxide 16 L BUN 72 H Creatinine 1.9 H Glucose 119 H POC Glucose 138 H 136 H Hemoglobin A1c Calcium Magnesium Alkaline Phosphatase Total Creatine Kinase Total Protein Albumin Arterial Blood Glucose Arterial Blood Ionized Calcium Urine WBC (Auto) Urine Creatinine Urine Total Protein 02/26/21 02/26/21 02/26/21 12:00 12:00 12:04 WBC RBC Hgb Hct MCHC RDW Plt Count Lymph % (Auto) Lymph # (Auto) Seg Neutrophils % Seg Neuts % (Manual) Lymphocytes % (Manual) Seg Neutrophils # Seg Neutrophils # Man Lymphocytes # (Manual) ABG pH POC ABG pCO2 ABG Hemoglobin ABG Sodium ABG Potassium ABG Glucose VBG pH Carboxyhemoglobin Sodium Potassium Chloride Carbon Dioxide BUN Creatinine Glucose POC Glucose 136 H Hemoglobin A1c Calcium Magnesium Alkaline Phosphatase Total Creatine Kinase Total Protein Albumin Arterial Blood Glucose Arterial Blood Ionized Calcium Urine WBC (Auto) > 182.0 H Urine Creatinine 26.8 H Urine Total Protein 47 H 02/26/21 02/26/21 02/26/21 13:26 14:50 15:14 WBC RBC Hgb Hct MCHC RDW Plt Count Lymph % (Auto) Lymph # (Auto) Seg Neutrophils % Seg Neuts % (Manual) Lymphocytes % (Manual) Seg Neutrophils # Seg Neutrophils # Man Lymphocytes # (Manual) ABG pH POC ABG pCO2 ABG Hemoglobin ABG Sodium ABG Potassium ABG Glucose VBG pH Carboxyhemoglobin Sodium Potassium Chloride Carbon Dioxide BUN Creatinine Glucose POC Glucose 124 H 119 H 106 H Hemoglobin A1c Calcium Magnesium Alkaline Phosphatase Total Creatine Kinase Total Protein Albumin Arterial Blood Glucose Arterial Blood Ionized Calcium Urine WBC (Auto) Urine Creatinine Urine Total Protein 02/26/21 02/26/21 02/26/21 15:27 16:38 17:22 WBC RBC Hgb Hct MCHC RDW Plt Count Lymph % (Auto) Lymph # (Auto) Seg Neutrophils % Seg Neuts % (Manual) Lymphocytes % (Manual) Seg Neutrophils # Seg Neutrophils # Man Lymphocytes # (Manual) ABG pH POC ABG pCO2 ABG Hemoglobin ABG Sodium ABG Potassium ABG Glucose VBG pH Carboxyhemoglobin Sodium 136 L Potassium 5.1 H Chloride Carbon Dioxide 16 L BUN 72 H Creatinine 2.2 H Glucose 107 H POC Glucose 111 H 113 H Hemoglobin A1c Calcium Magnesium Alkaline Phosphatase Total Creatine Kinase Total Protein Albumin Arterial Blood Glucose Arterial Blood Ionized Calcium Urine WBC (Auto) Urine Creatinine Urine Total Protein 02/26/21 02/26/21 02/26/21 17:54 18:00 20:25 WBC RBC Hgb Hct MCHC RDW Plt Count Lymph % (Auto) Lymph # (Auto) Seg Neutrophils % Seg Neuts % (Manual) Lymphocytes % (Manual) Seg Neutrophils # Seg Neutrophils # Man Lymphocytes # (Manual) ABG pH POC ABG pCO2 ABG Hemoglobin ABG Sodium ABG Potassium ABG Glucose VBG pH Carboxyhemoglobin Sodium Potassium Chloride Carbon Dioxide BUN Creatinine Glucose POC Glucose 114 H 129 H Hemoglobin A1c Calcium Magnesium Alkaline Phosphatase Total Creatine Kinase Total Protein Albumin Arterial Blood Glucose Arterial Blood Ionized Calcium Urine WBC (Auto) > 182.0 H Urine Creatinine Urine Total Protein 02/26/21 02/26/21 02/26/21 21:17 22:02 23:05 WBC RBC Hgb Hct MCHC RDW Plt Count Lymph % (Auto) Lymph # (Auto) Seg Neutrophils % Seg Neuts % (Manual) Lymphocytes % (Manual) Seg Neutrophils # Seg Neutrophils # Man Lymphocytes # (Manual) ABG pH POC ABG pCO2 ABG Hemoglobin ABG Sodium ABG Potassium ABG Glucose VBG pH Carboxyhemoglobin Sodium Potassium Chloride Carbon Dioxide BUN Creatinine Glucose POC Glucose 127 H 135 H 112 H Hemoglobin A1c Calcium Magnesium Alkaline Phosphatase Total Creatine Kinase Total Protein Albumin Arterial Blood Glucose Arterial Blood Ionized Calcium Urine WBC (Auto) Urine Creatinine Urine Total Protein 02/27/21 02/27/21 02/27/21 00:11 02:13 04:13 WBC RBC Hgb Hct MCHC RDW Plt Count Lymph % (Auto) Lymph # (Auto) Seg Neutrophils % Seg Neuts % (Manual) Lymphocytes % (Manual) Seg Neutrophils # Seg Neutrophils # Man Lymphocytes # (Manual) ABG pH POC ABG pCO2 ABG Hemoglobin ABG Sodium ABG Potassium ABG Glucose VBG pH Carboxyhemoglobin Sodium Potassium 3.5 L D Chloride 108.4 H Carbon Dioxide 21 L BUN 64 H Creatinine 1.9 H Glucose POC Glucose 106 H 115 H Hemoglobin A1c Calcium 8.3 L Magnesium Alkaline Phosphatase Total Creatine Kinase Total Protein Albumin Arterial Blood Glucose Arterial Blood Ionized Calcium Urine WBC (Auto) Urine Creatinine Urine Total Protein 02/27/21 02/27/21 02/27/21 04:18 04:18 06:57 WBC 22.4 H RBC Hgb 11.0 L Hct 32.3 L MCHC RDW Plt Count Lymph % (Auto) Lymph # (Auto) Seg Neutrophils % Seg Neuts % (Manual) Lymphocytes % (Manual) Seg Neutrophils # Seg Neutrophils # Man Lymphocytes # (Manual) ABG pH POC ABG pCO2 ABG Hemoglobin ABG Sodium ABG Potassium ABG Glucose VBG pH Carboxyhemoglobin Sodium Potassium Chloride 107.9 H Carbon Dioxide BUN 59 H Creatinine 1.7 H Glucose POC Glucose 60 L Hemoglobin A1c Calcium 8.1 L Magnesium Alkaline Phosphatase Total Creatine Kinase Total Protein Albumin Arterial Blood Glucose Arterial Blood Ionized Calcium Urine WBC (Auto) Urine Creatinine Urine Total Protein 02/27/21 02/27/21 02/27/21 08:24 08:35 11:25 WBC RBC Hgb Hct MCHC RDW Plt Count Lymph % (Auto) Lymph # (Auto) Seg Neutrophils % Seg Neuts % (Manual) Lymphocytes % (Manual) Seg Neutrophils # Seg Neutrophils # Man Lymphocytes # (Manual) ABG pH POC ABG pCO2 ABG Hemoglobin ABG Sodium ABG Potassium ABG Glucose VBG pH Carboxyhemoglobin Sodium Potassium 3.1 L Chloride 108.6 H Carbon Dioxide 21 L BUN 53 H Creatinine 1.5 H Glucose 121 H POC Glucose 131 H 196 H Hemoglobin A1c Calcium 8.0 L Magnesium Alkaline Phosphatase Total Creatine Kinase Total Protein Albumin Arterial Blood Glucose Arterial Blood Ionized Calcium Urine WBC (Auto) Urine Creatinine Urine Total Protein 02/27/21 02/27/21 02/27/21 16:39 18:04 21:33 WBC RBC Hgb Hct MCHC RDW Plt Count Lymph % (Auto) Lymph # (Auto) Seg Neutrophils % Seg Neuts % (Manual) Lymphocytes % (Manual) Seg Neutrophils # Seg Neutrophils # Man Lymphocytes # (Manual) ABG pH POC ABG pCO2 ABG Hemoglobin ABG Sodium ABG Potassium ABG Glucose VBG pH Carboxyhemoglobin Sodium Potassium 3.1 L Chloride Carbon Dioxide 20 L BUN 50 H Creatinine 1.4 H Glucose 365 H POC Glucose 340 H 322 H Hemoglobin A1c Calcium 7.9 L Magnesium Alkaline Phosphatase Total Creatine Kinase Total Protein Albumin Arterial Blood Glucose Arterial Blood Ionized Calcium Urine WBC (Auto) Urine Creatinine Urine Total Protein 02/28/21 02/28/21 02/28/21 05:05 07:25 11:13 WBC RBC Hgb Hct MCHC RDW Plt Count Lymph % (Auto) Lymph # (Auto) Seg Neutrophils % Seg Neuts % (Manual) Lymphocytes % (Manual) Seg Neutrophils # Seg Neutrophils # Man Lymphocytes # (Manual) ABG pH POC ABG pCO2 ABG Hemoglobin ABG Sodium ABG Potassium ABG Glucose VBG pH Carboxyhemoglobin Sodium Potassium 3.3 L Chloride 110.2 H Carbon Dioxide BUN 43 H Creatinine Glucose 193 H POC Glucose 121 H 190 H Hemoglobin A1c Calcium 7.8 L Magnesium Alkaline Phosphatase Total Creatine Kinase Total Protein Albumin Arterial Blood Glucose Arterial Blood Ionized Calcium Urine WBC (Auto) Urine Creatinine Urine Total Protein 02/28/21 02/28/21 03/01/21 16:30 22:08 08:05 WBC RBC Hgb Hct MCHC RDW Plt Count Lymph % (Auto) Lymph # (Auto) Seg Neutrophils % Seg Neuts % (Manual) Lymphocytes % (Manual) Seg Neutrophils # Seg Neutrophils # Man Lymphocytes # (Manual) ABG pH POC ABG pCO2 ABG Hemoglobin ABG Sodium ABG Potassium ABG Glucose VBG pH Carboxyhemoglobin Sodium Potassium Chloride Carbon Dioxide BUN Creatinine Glucose POC Glucose 180 H 340 H 58 L Hemoglobin A1c Calcium Magnesium Alkaline Phosphatase Total Creatine Kinase Total Protein Albumin Arterial Blood Glucose Arterial Blood Ionized Calcium Urine WBC (Auto) Urine Creatinine Urine Total Protein 03/01/21 03/01/21 03/01/21 09:34 10:56 10:59 WBC 15.3 H RBC Hgb 11.2 L Hct 33.1 L MCHC RDW Plt Count Lymph % (Auto) Lymph # (Auto) Seg Neutrophils % Seg Neuts % (Manual) 87.0 H Lymphocytes % (Manual) 1.0 L Seg Neutrophils # Seg Neutrophils # Man 13.3 H Lymphocytes # (Manual) 0.2 L ABG pH 7.518 H POC ABG pCO2 27.2 L ABG Hemoglobin 10.9 L ABG Sodium 134.6 L ABG Potassium 2.8 L ABG Glucose 144 H VBG pH Carboxyhemoglobin 0.4 L Sodium Potassium 3.2 L Chloride Carbon Dioxide BUN 29 H Creatinine Glucose POC Glucose Hemoglobin A1c Calcium 8.2 L Magnesium Alkaline Phosphatase Total Creatine Kinase Total Protein Albumin Arterial Blood Glucose 144 H Arterial Blood Ionized Calcium 4.5 L Urine WBC (Auto) Urine Creatinine Urine Total Protein 03/01/21 03/01/21 03/01/21 12:38 17:10 21:27 WBC RBC Hgb Hct MCHC RDW Plt Count Lymph % (Auto) Lymph # (Auto) Seg Neutrophils % Seg Neuts % (Manual) Lymphocytes % (Manual) Seg Neutrophils # Seg Neutrophils # Man Lymphocytes # (Manual) ABG pH POC ABG pCO2 ABG Hemoglobin ABG Sodium ABG Potassium ABG Glucose VBG pH Carboxyhemoglobin Sodium Potassium Chloride Carbon Dioxide BUN Creatinine Glucose POC Glucose 134 H 190 H 187 H Hemoglobin A1c Calcium Magnesium Alkaline Phosphatase Total Creatine Kinase Total Protein Albumin Arterial Blood Glucose Arterial Blood Ionized Calcium Urine WBC (Auto) Urine Creatinine Urine Total Protein 03/02/21 03/02/21 03/02/21 05:45 05:45 08:05 WBC 11.7 H RBC 3.38 L Hgb 10.0 L Hct 29.8 L MCHC RDW Plt Count Lymph % (Auto) Lymph # (Auto) Seg Neutrophils % Seg Neuts % (Manual) 93.0 H Lymphocytes % (Manual) 4.0 L Seg Neutrophils # Seg Neutrophils # Man 10.9 H Lymphocytes # (Manual) 0.5 L ABG pH POC ABG pCO2 ABG Hemoglobin ABG Sodium ABG Potassium ABG Glucose VBG pH Carboxyhemoglobin Sodium Potassium 3.2 L Chloride 109.7 H Carbon Dioxide BUN 29 H Creatinine Glucose 299 H POC Glucose 224 H Hemoglobin A1c Calcium 7.6 L Magnesium Alkaline Phosphatase Total Creatine Kinase Total Protein Albumin Arterial Blood Glucose Arterial Blood Ionized Calcium Urine WBC (Auto) Urine Creatinine Urine Total Protein 03/02/21 03/02/21 03/02/21 10:28 17:08 21:11 WBC RBC Hgb Hct MCHC RDW Plt Count Lymph % (Auto) Lymph # (Auto) Seg Neutrophils % Seg Neuts % (Manual) Lymphocytes % (Manual) Seg Neutrophils # Seg Neutrophils # Man Lymphocytes # (Manual) ABG pH POC ABG pCO2 ABG Hemoglobin ABG Sodium ABG Potassium ABG Glucose VBG pH Carboxyhemoglobin Sodium Potassium Chloride Carbon Dioxide BUN Creatinine Glucose POC Glucose 161 H 116 H 147 H Hemoglobin A1c Calcium Magnesium Alkaline Phosphatase Total Creatine Kinase Total Protein Albumin Arterial Blood Glucose Arterial Blood Ionized Calcium Urine WBC (Auto) Urine Creatinine Urine Total Protein 03/03/21 03/03/21 03/03/21 07:44 09:08 09:27 WBC RBC Hgb Hct MCHC RDW Plt Count Lymph % (Auto) Lymph # (Auto) Seg Neutrophils % Seg Neuts % (Manual) Lymphocytes % (Manual) Seg Neutrophils # Seg Neutrophils # Man Lymphocytes # (Manual) ABG pH POC ABG pCO2 ABG Hemoglobin ABG Sodium ABG Potassium ABG Glucose VBG pH Carboxyhemoglobin Sodium Potassium Chloride 107.3 H Carbon Dioxide BUN 24 H Creatinine Glucose 140 H POC Glucose 65 L 134 H Hemoglobin A1c Calcium 7.7 L Magnesium Alkaline Phosphatase Total Creatine Kinase Total Protein Albumin Arterial Blood Glucose Arterial Blood Ionized Calcium Urine WBC (Auto) Urine Creatinine Urine Total Protein 03/03/21 03/03/21 03/03/21 11:43 17:08 22:42 WBC RBC Hgb Hct MCHC RDW Plt Count Lymph % (Auto) Lymph # (Auto) Seg Neutrophils % Seg Neuts % (Manual) Lymphocytes % (Manual) Seg Neutrophils # Seg Neutrophils # Man Lymphocytes # (Manual) ABG pH POC ABG pCO2 ABG Hemoglobin ABG Sodium ABG Potassium ABG Glucose VBG pH Carboxyhemoglobin Sodium Potassium Chloride Carbon Dioxide BUN Creatinine Glucose POC Glucose 211 H 128 H 191 H Hemoglobin A1c Calcium Magnesium Alkaline Phosphatase Total Creatine Kinase Total Protein Albumin Arterial Blood Glucose Arterial Blood Ionized Calcium Urine WBC (Auto) Urine Creatinine Urine Total Protein 03/04/21 03/04/21 03/04/21 07:20 08:15 08:15 WBC 11.5 H RBC Hgb Hct MCHC 31 L RDW 16.4 H Plt Count Lymph % (Auto) Lymph # (Auto) Seg Neutrophils % Seg Neuts % (Manual) 83.0 H Lymphocytes % (Manual) 8.0 L Seg Neutrophils # Seg Neutrophils # Man 9.5 H Lymphocytes # (Manual) 0.9 L ABG pH POC ABG pCO2 ABG Hemoglobin ABG Sodium ABG Potassium ABG Glucose VBG pH Carboxyhemoglobin Sodium Potassium Chloride Carbon Dioxide BUN 21 H Creatinine Glucose 199 H POC Glucose 165 H Hemoglobin A1c Calcium 8.1 L Magnesium Alkaline Phosphatase Total Creatine Kinase Total Protein 5.3 L Albumin 2.0 L Arterial Blood Glucose Arterial Blood Ionized Calcium Urine WBC (Auto) Urine Creatinine Urine Total Protein 03/04/21 03/04/21 03/04/21 10:29 16:40 21:41 WBC RBC Hgb Hct MCHC RDW Plt Count Lymph % (Auto) Lymph # (Auto) Seg Neutrophils % Seg Neuts % (Manual) Lymphocytes % (Manual) Seg Neutrophils # Seg Neutrophils # Man Lymphocytes # (Manual) ABG pH POC ABG pCO2 ABG Hemoglobin ABG Sodium ABG Potassium ABG Glucose VBG pH Carboxyhemoglobin Sodium Potassium Chloride Carbon Dioxide BUN Creatinine Glucose POC Glucose 265 H 191 H 284 H Hemoglobin A1c Calcium Magnesium Alkaline Phosphatase Total Creatine Kinase Total Protein Albumin Arterial Blood Glucose Arterial Blood Ionized Calcium Urine WBC (Auto) Urine Creatinine Urine Total Protein 03/05/21 03/05/2103/05/21 07:05 07:25 10:47 WBC RBC Hgb Hct MCHC RDW Plt Count Lymph % (Auto) Lymph # (Auto) Seg Neutrophils % Seg Neuts % (Manual) Lymphocytes % (Manual) Seg Neutrophils # Seg Neutrophils # Man Lymphocytes # (Manual) ABG pH POC ABG pCO2 ABG Hemoglobin ABG Sodium ABG Potassium ABG Glucose VBG pH Carboxyhemoglobin Sodium Potassium Chloride Carbon Dioxide 31 H BUN Creatinine Glucose 207 H POC Glucose 203 H 215 H Hemoglobin A1c Calcium 8.2 L Magnesium Alkaline Phosphatase Total Creatine Kinase Total Protein Albumin Arterial Blood Glucose Arterial Blood Ionized Calcium Urine WBC (Auto) Urine Creatinine Urine Total Protein 03/05/21 03/05/21 03/06/21 15:51 21:31 06:30 WBC RBC Hgb 11.3 L Hct 33.3 L MCHC RDW 15.6 H Plt Count 491 H Lymph % (Auto) 10.5 L Lymph # (Auto) 1.1 L Seg Neutrophils % 83.6 H Seg Neuts % (Manual) Lymphocytes % (Manual) Seg Neutrophils # 8.9 H Seg Neutrophils # Man Lymphocytes # (Manual) ABG pH POC ABG pCO2 ABG Hemoglobin ABG Sodium ABG Potassium ABG Glucose VBG pH Carboxyhemoglobin Sodium Potassium Chloride Carbon Dioxide BUN Creatinine Glucose POC Glucose 185 H 190 H Hemoglobin A1c Calcium Magnesium Alkaline Phosphatase Total Creatine Kinase Total Protein Albumin Arterial Blood Glucose Arterial Blood Ionized Calcium Urine WBC (Auto) Urine Creatinine Urine Total Protein 03/06/21 03/06/21 03/06/21 06:30 07:35 10:58 WBC RBC Hgb Hct MCHC RDW Plt Count Lymph % (Auto) Lymph # (Auto) Seg Neutrophils % Seg Neuts % (Manual) Lymphocytes % (Manual) Seg Neutrophils # Seg Neutrophils # Man Lymphocytes # (Manual) ABG pH POC ABG pCO2 ABG Hemoglobin ABG Sodium ABG Potassium ABG Glucose VBG pH Carboxyhemoglobin Sodium Potassium Chloride Carbon Dioxide 31 H BUN Creatinine Glucose 110 H POC Glucose 144 H 217 H Hemoglobin A1c Calcium Magnesium Alkaline Phosphatase 147 H Total Creatine Kinase Total Protein Albumin 2.7 L Arterial Blood Glucose Arterial Blood Ionized Calcium Urine WBC (Auto) Urine Creatinine Urine Total Protein 03/06/21 03/07/21 03/07/21 21:16 07:42 09:47 WBC RBC Hgb Hct MCHC RDW Plt Count Lymph % (Auto) Lymph # (Auto) Seg Neutrophils % Seg Neuts % (Manual) Lymphocytes % (Manual) Seg Neutrophils # Seg Neutrophils # Man Lymphocytes # (Manual) ABG pH POC ABG pCO2 ABG Hemoglobin ABG Sodium ABG Potassium ABG Glucose VBG pH Carboxyhemoglobin Sodium Potassium Chloride Carbon Dioxide BUN Creatinine Glucose POC Glucose 265 H 49 L 181 H Hemoglobin A1c Calcium Magnesium Alkaline Phosphatase Total Creatine Kinase Total Protein Albumin Arterial Blood Glucose Arterial Blood Ionized Calcium Urine WBC (Auto) Urine Creatinine Urine Total Protein 03/07/21 03/07/21 03/07/21 12:11 17:51 21:07 WBC RBC Hgb Hct MCHC RDW Plt Count Lymph % (Auto) Lymph # (Auto) Seg Neutrophils % Seg Neuts % (Manual) Lymphocytes % (Manual) Seg Neutrophils # Seg Neutrophils # Man Lymphocytes # (Manual) ABG pH POC ABG pCO2 ABG Hemoglobin ABG Sodium ABG Potassium ABG Glucose VBG pH Carboxyhemoglobin Sodium Potassium Chloride Carbon Dioxide BUN Creatinine Glucose POC Glucose 132 H 219 H 164 H Hemoglobin A1c Calcium Magnesium Alkaline Phosphatase Total Creatine Kinase Total Protein Albumin Arterial Blood Glucose Arterial Blood Ionized Calcium Urine WBC (Auto) Urine Creatinine Urine Total Protein 03/08/21 08:00 WBC RBC Hgb Hct MCHC RDW Plt Count Lymph % (Auto) Lymph # (Auto) Seg Neutrophils % Seg Neuts % (Manual) Lymphocytes % (Manual) Seg Neutrophils # Seg Neutrophils # Man Lymphocytes # (Manual) ABG pH POC ABG pCO2 ABG Hemoglobin ABG Sodium ABG Potassium ABG Glucose VBG pH Carboxyhemoglobin Sodium Potassium Chloride Carbon Dioxide BUN Creatinine Glucose POC Glucose 197 H Hemoglobin A1c Calcium Magnesium Alkaline Phosphatase Total Creatine Kinase Total Protein Albumin Arterial Blood Glucose Arterial Blood Ionized Calcium Urine WBC (Auto) Urine Creatinine Urine Total Protein Allied health notes reviewed: nursing
--- NOTE | 2021-03-08 10:54 | Discharge Summary ---
Providers - Providers Date of Admission: 02/26/21 00:36 Attending physician: MARYANN BRIGHT MD 02/26/21 00:36 Consult to Dietitian/Nutrition [CONS] Routine Physician Instructions: Reason For Exam: Reason for Consult: Diet education Consult to Physician [CONS] Routine Comment: Consulting Provider: NILES IRAHETA Physician Instructions: Reason For Exam: DKA- On Insulin drip 02/26/21 01:59 Consult to Physician [CONS] Routine Comment: Consulting Provider: PAZ ALEGRE Physician Instructions: Reason For Exam: MAXIMO 02/26/21 21:46 Consult to Physician [CONS] Routine Comment: Consulting Provider: UZIEL FULLER Physician Instructions: Reason For Exam: EMPHYSEMATOUS Pyelnopheritis 02/26/21 21:47 Consult to Physician [CONS] Routine Comment: Consulting Provider: MADDI MONDRAGON Physician Instructions: Reason For Exam: emphastemous Pyelonephritis 03/06/21 13:58 Consult to Case Management [CONS] Routine Services Needed at Discharge: Home Health Services Notified:: cm Additional Physician Instructions: Liv Dobbins MD [facility] M: [phone] O: [phone] F: [phone] Outpatient parenteral antibiotic therapy orders Diagnosis: Emphysematous pyelonephritis Antibiotic administration: Ceftriaxone 2 g over 24 hours until 03/18/2021 Line: Midline Lab monitoring: CBC with differential, BUN, creatinine, LFTs, CRP once per week preferably on Sunday or Sunday For critical labs, call office: [phone] Liv Dobbins Consult to PICC Line RN [CONS] Routine Reason For Exam: Antibiotics Type Line:: Midline 03/07/21 14:50 Consult to Physician [CONS] Routine Comment: Consulting Provider: PEMA TOURE Physician Instructions: Reason For Exam: retroperitoneal air Primary care physician: [employer] MON[employer]OR Hospitalization Reason for admission: DKA Condition: Stable Hospital course: 60-year-old -[place] male with known history of diabetes mellitus presents to the emergency room today complaining of generalized weakness and elevated blood glucose at home. Patient was diagnosed with diabetes mellitus about 2 weeks ago for which she was admitted to [facility] and states he has been out of his insulin for the past 3 to 4 days. He was also noted to have a urinary retention and sent home on Lin catheter which was removed at the urologist office about 3 days prior to this admission. Patient was a instructed to do self caths which she did not. He was able to void some urine however. Family had called EMS and patient was subsequently brought to the emergency room. Blood glucose was said to be reading high in route to the hospital. Patient was given IV normal saline in route to the hospital. Work-up in the emergency room reveals that patient is in DKA. He has been started on insulin drip and IV fluid. CT abdomen and pelvis 1. Free air within and surrounding the right kidney and tracking in the right retroperitoneum. Exam is severely limited with lack of intravenous contrast and intra-abdominal fat but the air does not seem to extend into the peritoneum. Findings are highly worrisome for an infectious/inflammatory process such as emphysematous pyelonephritis. DKA- Resolved Emphysematous pyelonephritis Acute cystitis Acute metabolic encephalopathy now resolved Acute kidney injury on chronic kidney disease unknown stage BPH, urinary retention requiring indwelling Lin during recent admission 2 weeks ago Lin removed at urologist office [address]ENT and was instructed to perform self bladder caths Plan Continue supportive care 02/28: Discussed with Urologist, still thinking he may need surgery, WILL GET RENAL NUCLEAR FUNCTION SCAN. Discussed with daughter and patient, CULTURES SHOWING k PNEUMONIA. Joint Finisher input noted and appreciated ID consulted for acute cystitis Discussed with urologist this morning per night physician Lookout urologist recommended patient be monitored. We will proceed with repeat CT and urologist recommendation and if consistent symptoms patient will need evaluation by them in a.m. Discussed with family Continue IMCU care. 03/01/21; patient is on IV meropenem per ID recommendation. Wound culture grew Klebsiella pneumoniae. Renal function is improving. Patient need evaluation by urologist. Patient is going to have ultrasound this morning. We will continue to monitor. Urology saw the patient and said waiting for the renal scan to be done. Still considering right nephrectomy. Patient said he does not want nephrectomy. 03/02/2021: Patient actually doing well. Is on meropenem for emphysematous follow nephritis, responding well to antibiotic therapy. ID planning to change to ceftriaxone from tomorrow. Blood cultures negative to date. No abdominal pain CVA tenderness. Afebrile with stable vital signs. DKA resolved. Blood glucose improving. Renal function scan apparently was performed on 03/01 but I am unable to open the report. Urology is following, nephrectomy was originally considered. 03/03/2021: Patient remains afebrile. Stable signs. Clear good urine output via Lin. No abdominal/CVA tenderness. Clinically, does not appear to be toxic. No bacteremia. ID changed meropenem to Rocephin today. Urology is following, may need nephrectomy. 03/04/2021: Patient is clinically doing well. Does not appear to be toxic or septic. Meropenem changed to Rocephin on 03/03. He has no complaints. No abdominal pain or tenderness. No nausea or vomiting. No CVA tenderness. Discussed with urology, nephrectomy deferred due to clinical improvement. 03/05/2021: Patient continues doing well. Leukocytosis almost gone. Blood cultures negative . No abdominal/CVA pain/tenderness. No nausea or vomiting. Good urine output via Lin. Meropenem changed to Rocephin on 03/03 by ID. ID closely following. Urology following, nephrectomy deferred due to significant clinical improvement. Will repeat CT abdomen. 03/06/2021: Patient continues to do well, afebrile without nausea or abdominal pains. Good urine output, clear urine. Leukocytosis resolved. CT abdomen repeated today showed improvement of the volume of the air within the right kidney and in the retroperitoneum. Nuclear renal scan showed equal function in both kidneys. Will discuss with urology. ID recommends continuation of IV Rocephin until 03/18/2021. Patient was diagnosed with obstructive uropathy/urinary retention requiring indwelling Lin catheter during recent admission to [facility] to explain to this admission. Lin was removed at urologist office [address]ENT but patient did not perform self lateral cath as he was instructed. This appears to have provoked UTI/pyelonephritis as well as DKA along with noncompliance with insulin for glycemic control. 03/07/2021: Patient continues to do well, afebrile with stable vital signs. No complaints. Indwelling Lin for urine retention. Abdomen feels benign. No CVA tenderness. Discussed with urology again today, no need for nephrectomy since clinically improved so well with a normal renal function on nuclear scan. Urology requested GI consult to rule out an alternative source of retroperitoneal air leak. Possible discharge tomorrow if cleared by ID for close outpatient follow-up with ID and urology. Patient is a newly diagnosed diabetic and recently diagnosed with urinary retention. He was noncompliant with the self bladder caths. Will benefit from home nurse visits. 03/08: Patient continues to do well. Does not have much complaints. No nausea or abdominal pains. Leukocytosis resolved. MAXIMO resolved. Vitals signs stable and afebrile. Blood glucose improving, and episode of hypoglycemia this morning. Tolerating diet. Is eager to go home actually. CT abdomen repeated showing some improvement of air volume within the right kidney and in the retroperitoneum. No need for nephrectomy per urology since clinically doing so well. GI evaluated the patient and will follow outpatient. Patient remains clinical stable for discharge. Counseling was provided on DKA and diabetes management I did try to call family to have a discussion with them but was unable to reach the daughter. I stressed the importance of following up outpatient with all consultants with the patient and he verbalized understanding. He will complete antibiotics outpatient as noted below Will also be discharged with a Lin to leg bag instructions was provided. Case management consulted for ceftriaxone 2 g every 24 hours until 03/18/2021 Disposition: [id number] HOME UNDER HOME [facility] Final Discharge Diagnosis (Prints w/discharge instructions): Emphysemateous Pyelonephritis Time spent for discharge: 35 MINS Core Measure Documentation - Palliative Care Palliative Care/ Comfort Measures: Not Applicable - Core Measures Any of the following diagnoses?: none Exam - Physical Exam Narrative exam: General appearance: Present: no acute distress, - EENT Eyes: Present: PERRL, EOM intact ENT: clear oral mucosa - Neck Neck: Present: supple - Respiratory Respiratory effort: normal Respiratory: bilateral: CTA - Cardiovascular Rhythm: regular - Extremities Extremities: No edema - Abdominal General gastrointestinal: soft, non-tender, non-distended, normal bowel sounds, other (Lin in place with a dilute urine) - Integumentary Integumentary: Absent: rash - Psychiatric Psychiatric: appropriate mood/affect - Neurologic Neurologic: no focal deficits - Constitutional Vitals: Temp Pulse Resp BP Pulse Ox 98.4 F 77 18 104/66 97 03/08/21 05:19 03/08/21 05:19 03/08/21 05:03/08/21 05:19 03/08/21 05:19 Plan Activity: advance as tolerated, fall precautions Diet: diabetic Special Instructions: record daily weights, record daily BP diary, record blood sugar diary, home health RN Durable Medical Equipment Needed Upon Discharge: other (lin to leg bag) Follow up with: PRIMARY CAREMD [Primary Care Provider] - 7 Days UZIEL FULLER MD [Staff Physician] - 7 Days XAVI VELEZ MD [Staff Physician] - 7 Days PEMA TOURE MD [Staff Physician] - 7 Days Prescriptions: Insulin Glargine [Lantus VIAL] 25 units SUB-Q QHS #10 ml Tamsulosin [Flomax] 0.8 mg PO QDAY #60 capsule Insulin Regular, Human [HumuLIN R] 0 unit SQ AC #1 vial Other Discharge Orders: Glucometer (Amb) Location: None Selected Glucometer supplies[Amb] Location: None Selected
[2021-03-08] MEDS: cefTRIAXone/NS 2 GM/100 ML 2 GM/100 ML BAG IV SCH (11:11)
[2021-03-08] MEDS: TAMSULOSIN 0.4 MG CAP PO SCH (11:15)
[2021-03-08 11:58] VITALS: BP 117/78
--- NOTE | 2021-03-08 15:38 | Ultrasound Report ---
ULTRASOUND CHEST HISTORY: Bilateral pleural effusions TECHNIQUE: Transabdominal grayscale ultrasound. FINDINGS: Targeted ultrasound was performed on both sides of the chest. A small free flowing right pl eural effusion measures 126 cc. Trace left pleural effusion measures 6 cc. IMPRESSION: Small bilateral pleural effusions as described. Signer Name: Fer Marcano Jr, MD Signed: 03/08/2021 3:33 PM Workstation Name: [id number]
== END 2021-03-08 16:40 | disposition home health service (06) | DRG 871 ==
LOC: ED 22:18 → CC1 02-26 00:36 → IMCU 02-27 12:07 → 3A 03-02 07:03
PROVIDERS: ADMIT Internal Medicine Geriatric Medicine; ATTEND Internal Medicine
PROC: 4A033R1 Measurement of Arterial Saturation, Peripheral, Percutaneous Approach (ICD-10-PCS; principal; 2021-03-01)
DX: A41.9 Sepsis, unspecified organism (principal); E11.10 Type 2 diabetes mellitus with ketoacidosis without coma; G93.41 Metabolic encephalopathy; N17.8 Other acute kidney failure; N12 Tubulo-interstitial nephritis, not specified as acute or chronic; N18.9 Chronic kidney disease, unspecified; N40.0 Benign prostatic hyperplasia without lower urinary tract symptoms; C61 Malignant neoplasm of prostate; D72.829 Elevated white blood cell count, unspecified; E86.9 Volume depletion, unspecified; I12.9 Hypertensive chronic kidney disease with stage 1 through stage 4 chronic kidney disease, or unspecified chronic kidney disease; Z79.899 Other long term (current) drug therapy
CPT/HCPCS: 36415; 36600; 70450; 71045; 74176; 76604; 76770; 78707; 80048; 80053; 81001; 82550; 82570; 82805; 82962; 83036; 83735; 84100; 84156; 84300; 84484; 85007; 85025; 85027; 85610; 85730; 87040; 87076; 87086; 87186; 87641; 93005; 96361; 96365; 96375; G0378; A9562; J0692; J0696; J1644; J1815; J2185; J7030